=== PATIENT | male | born 1945 | race Caucasian/White ===

== ENCOUNTER 2016-08-10 16:14 | Inpatient (IN) | payer MEDICARE ==
[2016-08-10] MEDS ORDERED: ONDANSETRON HCL INJ/PF 4 MG/2 ML SDV IV PRN (17:30)
[2016-08-10] MEDS ORDERED: NORMAL SALINE 1000 ML 1,000 ML IV PRN (17:30)
[2016-08-10] MEDS ORDERED: ACETAMINOPHEN 325 MG TABLET PO PRN (17:30)
[2016-08-10] MEDS ORDERED: VANCOMYCIN HCL 0 MG in DEXTROSE 5%-WATER 250 ML IV NR (17:45)
[2016-08-10] MEDS ORDERED: DEXTROSE 50%-WATER 25 GM/50 ML DISP.SYRIN IV PRN ×2 (18:23)
[2016-08-10] MEDS ORDERED: GLUCAGON,HUMAN RECOMB 1 MG INJ IM PRN (18:23)
[2016-08-10] MEDS ORDERED: INSULIN LISPRO 100 UNIT/ML 3 ML VIAL SUBCUT PRN (18:23)
[2016-08-10] MEDS ORDERED: DEXTROSE 40% GEL 15 GM TUBE PO PRN ×2 (18:23)
--- NOTE | 2016-08-10 18:39 | CONSULTATION REPORT E ---
Consultation Report NAME: YAMIL HOLLOWAY : 1945 AGE: 71Y DATE: 08/10/2016 431 A TO: TERRI RUIZ M.D. FROM: SYDNI LEWIS M.D. Requesting Physician REASON FOR REFERRAL: Right foot infection. HISTORY OF PRESENT ILLNESS: The patient is a 71-year-old with peripheral arterial disease and diabetes, who injured his lateral portion of the right foot about 2 weeks ago. He had something slice a piece off on the distal lateral portion. He had then used a knife to cut it further, thinking he may have stepped on something. Also during this time, he had been soaking it in salt solution. As time progressed, it had become swollen, and he is not able to walk on it due to pain. He does have some peripheral neuropathy. He had a duplex ultrasound in 2011 which showed peripheral artery disease, mainly on the left with biphasic flow down to the right foot. PAST SURGICAL HISTORY: 1. Defibrillator. 2. Ablation of the heart for atrial fibrillation. PAST MEDICAL HISTORY: 1. History of atrial fibrillation. 2. Peripheral arterial disease. 3. History of smoking, quit 3 months ago. 4. COPD. 5. Diabetes. 6. Hypertension. ALLERGIES TO MEDICATION: None. HOME MEDICATIONS: We are trying to obtain the list. FAMILY HISTORY: Noncontributory. HABITS: The patient quit smoking 3 months ago. Denies any alcohol or drug use. SOCIAL HISTORY: The patient is a . REVIEW OF SYSTEMS: A complete review of systems is obtained. Pertinent positives are musculoskeletal pain and swelling in the right lower extremity. Pulmonary shortness of breath. A 12-point review of systems was obtained with pertinent positives discussed and all others being negative. PHYSICAL EXAMINATION: VITAL SIGNS: Temperature is 99.8. Pulse 86. Blood pressure 136/61. Respiration is 18. GENERAL: The patient is lying in bed. He is cooperative and appears to answer questions fully. He is in no distress. HEENT: Eyes nonicteric. NECK: No lymphadenopathy. HEART: Regular. ABDOMEN: Soft, nontender. EXTREMITIES: He has 3+ pitting edema of the right foot. There is erythema and darkening on the dorsal aspect. There is an eschar on the lateral distal portion. He has a palpable DP pulse. He has only a palpable left femoral pulse being present. He does have some scabs but no obvious ischemia of the left lower extremity. NEUROLOGICAL: The patient has decreased sensation on the foot, is not able to discriminate other than knowing that his foot is being touched. He is awake, alert, and oriented. PSYCHOLOGICAL: The patient is coherent, cooperative, and appears to answer questions fully. DIAGNOSTIC DATA: CBC and chemistry panel and ultrasound of the right foot along with plain films are pending at the current time. ASSESSMENT: 1. Diabetic right foot infection with a recent history of trauma. I would recommend starting out with plain x-rays and ultrasound. He does have a defibrillator which is contraindicated to getting an MRI of the foot. He does have diabetes, and I would be concerned about IV contrast from a CT scan. I feel that ultrasound will probably be enough to evaluate the infection at this time but may need further information with CT scan. I would keep the foot elevated. He will be started on broad-spectrum IV antibiotics. 2. Diabetes of which he will have his sugars monitored. 3. Hypertension. 4. COPD. PLAN: 1. The patient will be admitted to the hospital. 2. NPO after midnight. 3. Broad-spectrum IV antibiotics. 4. X-ray of the foot along with arterial ultrasound. 5. He more than likely will need to undergo incision, drainage, and debridement of a right foot infection. DICTATING PHYSICIAN: TERRI RUIZ M.D. [id number] CRISTI#: [id number] ID: [id number] JOB#: [id number] ACCT: [id number] cc:TERRI RUIZ M.D. > MTDD
[2016-08-10] MEDS: OXYCODONE-ACETAMINOPHEN 5-325 MG TABLET PO PRN (22:19)
[2016-08-10] MEDS: AMPICILLIN SODIUM/SULBACTAM NA 3 GM in NORMAL SALINE 100 ML IV SCH (22:19)
[2016-08-10] MEDS: FAMOTIDINE 20 MG TABLET PO SCH (22:19)
[2016-08-10 22:41] LABS: ANION GAP 13 (5-19); BLOOD UREA NITROGEN 27 mg/dL (7-20); CALCIUM 9.4 mg/dL (8.4-10.2); CARBON DIOXIDE 26 mmol/L (22-30); CHLORIDE 94 mmol/L (98-107); CREATININE RESULT 1.28 mg/dL (0.52-1.25); GLUCOSE 153 mg/dL (75-110); POTASSIUM 3.9 mmol/L (3.6-5.0); SODIUM 133.3 mmol/L (137-145)
[2016-08-11] MEDS: AMPICILLIN SODIUM/SULBACTAM NA 3 GM in NORMAL SALINE 100 ML IV SCH ×2 (02:23→06:32)
[2016-08-11] MEDS: OXYCODONE-ACETAMINOPHEN 5-325 MG TABLET PO PRN ×2 (06:49→19:33)
[2016-08-11 07:39] LABS: ABSOLUTE BASOPHILS # (AUTO) 0.1 10^3/uL (0.0-0.2); ABSOLUTE EOSINOPHILS # (AUTO) 0.1 10^3/uL (0.0-0.6); ABSOLUTE MONOCYTES (AUTO) 2.1 10^3/uL (0.1-1.4); ABSOLUTE NEUT (AUTO) 15.6 10^3/uL (1.7-8.2); BASOPHILS % (AUTO) 0.3 % (0-2); EOSINOPHILS % (AUTO) 0.5 % (0-6); HEMATOCRIT 34.7 % (37.9-51.0); HEMOGLOBIN 11.7 g/dL (13.5-17.0); HGB HCT DIFFERENCE 0.4; LYMPHOCYTES % (AUTO) 5.5 % (13-45); MEAN CORPUSCULAR HEMOGLOBIN 29.7 pg (27.0-33.4); MEAN CORPUSCULAR HGB CONC 33.7 g/dL (32.0-36.0); MEAN CORPUSCULAR VOLUME 88 fl (80-97); MONOCYTES % (AUTO) 11.1 % (3-13); RED BLOOD COUNT 3.94 10^6/uL (4.35-5.55); RED CELL DISTRIBUTION WIDTH 13.9 % (11.5-14.0); SEGMENTED NEUTROPHILS % (AUTO) 82.6 % (42-78); WHITE BLOOD COUNT 18.9 10^3/uL (4.0-10.5)
[2016-08-11] MEDS ORDERED: ENOXAPARIN SODIUM INJ 40 MG/0.4 ML DISP.SYRIN SUBCUT SCH (08:00)
[2016-08-11 08:03] LABS: ANION GAP 12 (5-19); BLOOD UREA NITROGEN 25 mg/dL (7-20); CALCIUM 8.8 mg/dL (8.4-10.2); CARBON DIOXIDE 28 mmol/L (22-30); CHLORIDE 97 mmol/L (98-107); CREATININE RESULT 1.07 mg/dL (0.52-1.25); GLUCOSE 107 mg/dL (75-110); POTASSIUM 3.9 mmol/L (3.6-5.0); SODIUM 136.5 mmol/L (137-145)
[2016-08-11 08:37] LABS: C-REACTIVE PROTEIN 324.9 mg/L (<10.0)
--- NOTE | 2016-08-11 10:58 | PROGRESS NOTE E ---
Progress Note NAME: YAMIL HOLLOWAY : 1945 AGE: 71Y DATE: 08/11/2016 ROOM: 431 SUBJECTIVE: The patient presents with infection of the right lower extremity along with having a history of PAD and diabetes. No complaints of pain in the right lower extremity. OBJECTIVE: EXTREMITIES AND SKIN: The patient has an eschar on the lateral distal portion of the right foot. He has palpable DP pulse. There is less edema in the foot along with less erythema today. He does not have any fluctuant areas being present. There is probable very superficial hematoma on the plantar surface of the foot. DIAGNOSTIC DATA: Plain films x-ray do not show any foreign bodies. Ultrasound of the foot does not reveal any discrete fluid collection. White blood cell count of 19,000, hemoglobin 11.7. ASSESSMENT: RIGHT DIABETIC FOOT INFECTION, CLINICALLY IMPROVING OVERNIGHT ON IV ANTIBIOTICS. ONE THING OF CONCERN IS HAVING A WHITE BLOOD CELL COUNT OF 19,000 TODAY. WE WILL NEED TO FOLLOW THIS CLOSELY. IF THERE IS STILL SUSPICION FOR INFECTION, THEN CT SCAN OF THE FOOT WITH IV CONTRAST MAY BE NEEDED. THERE DOES NOT APPEAR TO BE ANY OBVIOUS AREA TO INCISE AND DRAIN AT THIS TIME AND THEREFORE RECOMMEND FOLLOWING. PLAN: 1. Continue IV antibiotics. 2. Keep right leg elevated. 3. Follow white blood cell count. DICTATING PHYSICIAN: TERRI RUIZ M.D. [id number] PHY#: [id number] ID: [id number] JOB#: [id number] ACCT: [id number] cc: >
[2016-08-11] MEDS: GABAPENTIN 400 MG CAPSULE PO SCH ×2 (11:40→17:27)
[2016-08-11] MEDS: DOCUSATE SODIUM 100 MG CAPSULE PO SCH (11:40)
[2016-08-11] MEDS: FAMOTIDINE 20 MG TABLET PO SCH ×2 (11:41→21:31)
[2016-08-11] MEDS ORDERED: TAMSULOSIN HCL 0.4 MG CAP.SR.24H PO ONE (12:00)
[2016-08-11] MEDS ORDERED: AMIODARONE HCL 200 MG TABLET PO ONE (12:00)
[2016-08-11] MEDS ORDERED: OXYCODONE HCL SR 10 MG TABLET PO ONE (12:00)
[2016-08-11] MEDS: PIPERACILLIN SODIUM/TAZOBACTAM 3.375 GM in NORMAL SALINE 100 ML IV SCH ×2 (12:21→17:27)
[2016-08-11] MEDS ORDERED: (PENDING PHARMACY ID) (Oxycodone Hcl [Oxycontin] 30 MG) PO SCH (18:00)
--- NOTE | 2016-08-11 18:15 | PDOC H&P ---
History of Present Illness Admission Date/PCP: 08/10/16 16:14 ILANA BRET Patient complains of: Pain and swelling of his right foot History of Present Illness: YAMIL HOLLOWAY is a 71 year old male presents for direct admission from general surgeons office where he was referred from his PCP for a diabetic foot wound. Apparently about a week ago he inadvertently cut the lateral aspect of his right foot leaving a piece of "meat" hanging that he then removed with his pocket knife and has been treating with Epsom salts at home. The family noted the foot was more swollen and hot to the touch and that he was now unable to walk on it due to sharp shooting pains in his foot. They also noticed rigors at home tried to get him to come to the emergency department last night but he refused. He has diabetes with a severe peripheral neuropathy states normally he cannot feel his feet except when they hurt like they do now. Upon evaluation by the general surgeon it was quickly determined the wound would need debridement as it seems to encompass most of the plantar surface of the foot, and so we were asked to admit him directly from the office for IV antibiotics and consult the surgical list for evaluation. Past Medical History Cardiac Medical History: Reports: Congestive Heart Failure, Hypertension Pulmonary Medical History: Reports: Chronic Obstructive Pulmonary Disease (COPD) , Pneumonia Endocrine Medical History: Reports: Diabetes Mellitus Type 2 Past Surgical History Past Surgical History: Reports: Pacemaker Social History Information Source: Patient Lives with: Family Smoking Status: Current Every Day Smoker - Doesn't smoke but consumes a pack of chewing tobacco daily Frequency of Alcohol Use: None Hx Recreational Drug Use: No - Advance Directive Resuscitation Status: Full Code Family History Family History: Other Parental Family History Reviewed: Yes Children Family History Reviewed: Yes Sibling(s) Family History Reviewed.: Yes Medication/Allergy Home Medications: Albuterol Sulfate [Ventolin HFA MDI 18 GM] 1 puff IH Q6HP PRN 08/11/16 Amiodarone HCl [Cordarone 200 mg Tablet] 400 mg PO DAILY 08/11/16 Amitriptyline HCl [Elavil 25 mg Tablet] 25 mg PO QHS 08/11/16 Aspirin [Aspirin 325 mg Tablet] 325 mg PO DAILY 08/11/16 Atorvastatin Calcium [Lipitor 40 mg Tablet] 40 mg PO DAILY 08/11/16 Furosemide [Lasix] 40 mg PO DAILY 08/11/16 Gabapentin [Neurontin 400 mg Capsule] 400 mg PO QID 08/11/16 Insulin Aspart Protam & Aspart [Novolog Mix 70-30 Flexpen Syrn] 75 unit SQ BIDBS 08/11/16 Insulin Aspart Protam & Aspart [Novolog Mix 70-30 Flexpen Syrn] 80 unit SQ WLUNCH 08/11/16 Linagliptin [Tradjenta] 5 mg PO QAM 08/11/16 Lisinopril [Prinivil 2.5 mg Tablet] 2.5 mg PO DAILY 08/11/16 Naloxegol Oxalate [Movantik 25 mg Tablet] 25 mg PO DAILY 08/11/16 Oxycodone HCl 30 mg PO QIDP PRN 08/11/16 Oxycodone HCl [Oxycontin] 30 mg PO BID 08/11/16 Potassium Chloride [Klor-Con 10] 10 meq PO DAILY 08/11/16 Sacubitril/Valsartan [Entresto 24 mg/26 mg Tablet] 1 tab PO BID 08/11/16 Tamsulosin HCl [Flomax 0.4 mg Cap.sr] 0.4 mg PO DAILY 08/11/16 Umeclidinium [place] [Incruse Ellipta] 62.5 mcg IH DAILY 08/11/16 Allergies/Adverse Reactions: No Known Allergies Allergy (Verified 11/01/12 14:45) Review of Systems Constitutional: PRESENT: chills, fever(s). ABSENT: headache(s), weight gain, weight loss Eyes: ABSENT: visual disturbances Ears: ABSENT: hearing changes Cardiovascular: ABSENT: chest pain, dyspnea on exertion, edema, orthropnea, palpitations Respiratory: ABSENT: cough, hemoptysis Gastrointestinal: ABSENT: abdominal pain, constipation, diarrhea, hematemesis, hematochezia, nausea, vomiting Genitourinary: ABSENT: dysuria, hematuria Musculoskeletal: PRESENT: joint swelling, muscle weakness, other - Swelling heat and pain in the right foot Integumentary: ABSENT: rash, wounds Neurological: ABSENT: abnormal gait, abnormal speech, confusion, dizziness, focal weakness, syncope Psychiatric: ABSENT: anxiety, depression, homidical ideation, suicidal ideation Endocrine: ABSENT: cold intolerance, heat intolerance, polydipsia, polyuria Hematologic/Lymphatic: ABSENT: easy bleeding, easy bruising Physical Exam Vital Signs: Temp Pulse Resp BP Pulse Ox 99.8 F 86 18 136/61 H 94 03/07/17 16:46 08/10/16 16:46 08/10/16 16:46 08/10/16 16:46 08/10/16 16:46 Intake & Output 08/09/16 08/10/16 08/11/16 06:59 06:59 06:59 Weight 85.4 kg PHYSICAL EXAM GENERAL: NAD; well developed, well nourished, unkempt; no obese; alert and oriented to person, place, time, situation HEENT: normocephalic, atraumatic; EOMI, PERRLA, no conjunctival injection, no scleral icterus; oral mucosa moist, RESPIRATORY: no accessory muscle use, no increased WOB, good air entry bilaterally; no wheezes, rales, rhonchi; no inspiratory crackles CARDIO: no JVD; RRR; no systolic murmur; no tachycardia VASCULAR: no carotid bruit; no abdominal bruit; no pallor; GI: soft; nondistended; normal bowel sounds; no hepato spleno megaly; no rebound, rigidity, guardingred NEURO: normal patella reflexes; absent sensation of the knees bilaterally; normal motor function; no dysarthria; no nystagmus; tongue protrudes midline MSK: 5/5 strength; normal ROM hips; ambulatory without assistance; no tenderness EXTREMITIES: no calf tender; no palpable cords in calf; no clubbing, cyanosis , pedal edema PSYCH: normal affect, normal mood SKIN: warm; moist; no petechiae; no telengectasias; no jaundice; embedded dirt and grime in the plantar surfaces of both feet, thickened hypertrophic scaling nails bilaterally, lateral aspect of the right foot has a shallow ulcer with deep purpuric bullous lesion that tracks through the center of the plantar surface with surrounding erythema, the foot and lower extremity are hot to the touch, Results Laboratory Results: Labs reviewed Assessment & Plan - Diagnosis (1) Diabetic foot ulcer Qualifiers: Diabetes mellitus type: type 2 Laterality: right Qualified Code( s): E11.621 - Type 2 diabetes mellitus with foot ulcer; L97.509 - Non-pressure chronic ulcer of other part of unspecified foot with unspecified severity Is this a current diagnosis for this admission?: YesPlan: Admit for IV antibiotics with Unasyn and vancomycin. I spoke with Dr. Patel covering surgical list who will evaluate and likely take to the OR for incision and drainage at some point. (2) Diabetes Qualifiers: Diabetes mellitus type: type 2 Diabetes mellitus complication status: with circulatory complication Diabetes mellitus complication detail: with other circulatory complications Diabetes mellitus correction insulin use: with correction use Qualified Code(s): E11.59 - Type 2 diabetes mellitus with other circulatory complications Is this a current diagnosis for this admission?: YesPlan: Check hemoglobin A1c (3) Hypertension Is this a current diagnosis for this admission?: YesPlan: Continue home regimen and titrate to pressure less than 140/90 - Time Time Spent: Greater than 70 Minutes Medications reviewed and adjusted accordingly: Yes Anticipated discharge: Home with Homehealth Within: within 72 hours - Inpatient Certification Medical Necessity: Significant Comorbidiites Make Outpatient Treatment Too Risky , Need For IV Fluids, Need for Pain Control, Need for IV Antibiotics, Need for Surgery
--- NOTE | 2016-08-11 18:32 | PDOC PROGRESS REPORT ---
Subjective Progress Note for:: 08/11/16 Subjective:: Reason for visit: Follow-up diabetic foot ulcer Hospital course: YAMIL HOLLOWAY is a 71 year old male presents for direct admission from general surgeons office where he was referred from his PCP for a diabetic foot wound. Apparently about a week ago he inadvertently cut the lateral aspect of his right foot leaving a piece of "meat" hanging that he then removed with his pocket knife and has been treating with Epsom salts at home. The family noted the foot was more swollen and hot to the touch and that he was now unable to walk on it due to sharp shooting pains in his foot. They also noticed rigors at home tried to get him to come to the emergency department last night but he refused. He has diabetes with a severe peripheral neuropathy states normally he cannot feel his feet except when they hurt like they do now. Upon evaluation by the general surgeon it was quickly determined the wound would need debridement as it seems to encompass most of the plantar surface of the foot, and so we were asked to admit him directly from the office for IV antibiotics and consult the surgical list for evaluation. Patient was mentioned to the hospital and started on broad-spectrum antibiotics , x-rays and ultrasound were negative for foreign body and obvious fluid collection like an abscess and there were no bony erosions noted on x-ray. His C-reactive protein is markedly elevated at greater than 300. Subjective: The patient reports less swelling and therefore less pain in the foot today. He denies fevers, chills, nausea, vomiting, diarrhea, chest pain, palpitations, breathlessness/dyspnea, cough or phlegm. ROS: per HPI plus a total of 10 systems reviewed, pertinent positives and negatives noted above, remaining systems negative. Physical Exam Vital Signs: Temp Pulse Resp BP Pulse Ox 98.1 F 71 16 125/56 L 100 08/11/16 15:35 08/11/16 15:35 08/11/16 15:35 08/11/16 15:35 08/11/16 15:35 Intake & Output 08/10/16 08/11/16 08/12/16 06:59 06:59 06:59 Intake Total 700 Output Total 125 Balance 575 Weight 85.4 kg PHYSICAL EXAM GENERAL: NAD; well developed, well nourished, unkempt; no obese; alert and oriented to person, place, time, situation HEENT: no conjunctival injection, no scleral icterus; oral mucosa moist, RESPIRATORY: no accessory muscle use, no increased WOB, good air entry bilaterally; no wheezes, rales, rhonchi; no inspiratory crackles CARDIO: no JVD; RRR; no systolic murmur; no tachycardia VASCULAR: no carotid bruit; no abdominal bruit; no pallor; GI: soft; nondistended; normal bowel sounds; no hepato spleno megaly; no rebound, rigidity, guardingred NEURO: normal patella reflexes; absent sensation below the knees bilaterally; normal motor function; no dysarthria; no nystagmus; tongue protrudes midline MSK: 5/5 strength; normal ROM hips; ambulatory without assistance; no tenderness EXTREMITIES: no calf tender; no palpable cords in calf; no clubbing, cyanosis , pedal edema PSYCH: normal affect, normal mood SKIN: warm; moist; no petechiae; no telengectasias; no jaundice; embedded dirt and grime in the plantar surfaces of both feet, thickened hypertrophic scaling nails bilaterally, lateral aspect of the right foot has a shallow ulcer with deep purpuric bullous lesion that tracks through the center of the plantar surface with surrounding erythema, the foot and lower extremity are hot to the touch though improved from yesterday Results Laboratory Results: 08/11/16 06:45 08/11/16 06:45 08/10/16 08/10/16 08/11/16 18:00 18:00 06:45 WBC 18.9 H RBC 3.94 L Hgb 11.7 L Hct 34.7 L MCV 88 MCH 29.7 MCHC 33.7 RDW 13.9 Plt Count 269 Seg Neutrophils % 82.6 H Lymphocytes % 5.5 L Monocytes % 11.1 Eosinophils % 0.5 Basophils % 0.3 Absolute Neutrophils 15.6 H Absolute Lymphocytes 1.0 Absolute Monocytes 2.1 H Absolute Eosinophils 0.1 Absolute Basophils 0.1 Sodium 133.3 L Potassium 3.9 Chloride 94 L Carbon Dioxide 26 Anion Gap 13 BUN 27 H Creatinine 1.28 H Est GFR ( Amer) > 60 Est GFR (Non-Af Amer) 55 L Glucose 153 H Calcium 9.4 C-Reactive Protein 301.9 H 08/11/16 06:45 WBC RBC Hgb Hct MCV MCH MCHC RDW Plt Count Seg Neutrophils % Lymphocytes % Monocytes % Eosinophils % Basophils % Absolute Neutrophils Absolute Lymphocytes Absolute Monocytes Absolute Eosinophils Absolute Basophils Sodium 136.5 L Potassium 3.9 Chloride 97 L Carbon Dioxide 28 Anion Gap 12 BUN 25 H Creatinine 1.07 Est GFR ( Amer) > 60 Est GFR (Non-Af Amer) > 60 Glucose 107 Calcium 8.8 C-Reactive Protein 324.9 H Labs reviewed, renal function improved. C-reactive protein still markedly elevated. Impressions: Extremity Ultrasound 08/10/16 00:00 IMPRESSION: Edematous soft tissue is identified suggesting a cellulitis. No discrete fluid collections are identified. Other findings as noted above Foot X-Ray 08/10/16 00:00 IMPRESSION: NEGATIVE STUDY OF THE RIGHT FOOT. NO EXPLANATION FOR PAIN. No evidence for osteomyelitis. Status: Imported from PACS - Reports reviewed Assessment & Plan - Diagnosis (1) Diabetic foot ulcer Qualifiers: Diabetes mellitus type: type 2 Laterality: right Qualified Code( s): E11.621 - Type 2 diabetes mellitus with foot ulcer; L97.509 - Non-pressure chronic ulcer of other part of unspecified foot with unspecified severity Is this a current diagnosis for this admission?: YesPlan: No known risk factors for MRSA, we will simplify antibiotic coverage to Zosyn. I spoke with Dr. Patel again today and for now electing for more conservative approach with continued IV antibiotics and watchful waiting. He is made nothing by mouth after midnight in the event his leukocytosis does not improve he may need surgical exploration as early as tomorrow. 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 Continue sliding scale insulin. (3) Hypertension Qualifiers: Hypertension type: unspecified secondary hypertension Qualified Code (s): I15.9 - Secondary hypertension, unspecified; I15 - Secondary hypertension Is this a current diagnosis for this admission?: YesPlan: Under good control. (4) Cardiac dysrhythmia Qualifiers: Arrhythmia type: unspecified cardiac arrhythmia Qualified Code(s): I49.9 - Cardiac arrhythmia, unspecified Is this a current diagnosis for this admission?: YesPlan: Continue home amiodarone. (10) Chronic respiratory failure with hypoxia Is this a current diagnosis for this admission?: YesPlan: Continue home O2 and titrate as needed. - Time Time Spent with patient: 15-24 minutes Medications reviewed and adjusted accordingly: Yes Anticipated discharge: Home with Homehealth Within: within 72 hours
[2016-08-11] MEDS: OXYCODONE HCL SR 10 MG TABLET PO SCH (21:31)
[2016-08-12] MEDS: GABAPENTIN 400 MG CAPSULE PO SCH ×5 (01:49→23:05)
[2016-08-12] MEDS: PIPERACILLIN SODIUM/TAZOBACTAM 3.375 GM in NORMAL SALINE 100 ML IV SCH ×5 (01:50→23:05)
[2016-08-12] MEDS: OXYCODONE-ACETAMINOPHEN 5-325 MG TABLET PO PRN (06:23)
[2016-08-12 07:17] LABS: ABSOLUTE BASOPHILS # (AUTO) 0.1 10^3/uL (0.0-0.2); ABSOLUTE EOSINOPHILS # (AUTO) 0.2 10^3/uL (0.0-0.6); ABSOLUTE LYMPHOCYTES (AUTO) 1.2 10^3/uL (0.5-4.7); ABSOLUTE MONOCYTES (AUTO) 1.7 10^3/uL (0.1-1.4); ABSOLUTE NEUT (AUTO) 14.4 10^3/uL (1.7-8.2); BASOPHILS % (AUTO) 0.6 % (0-2); EOSINOPHILS % (AUTO) 1.2 % (0-6); HEMATOCRIT 36.8 % (37.9-51.0); HEMOGLOBIN 12.2 g/dL (13.5-17.0); HGB HCT DIFFERENCE -0.2; MEAN CORPUSCULAR HEMOGLOBIN 29.2 pg (27.0-33.4); MEAN CORPUSCULAR HGB CONC 33.1 g/dL (32.0-36.0); MEAN CORPUSCULAR VOLUME 88 fl (80-97); MONOCYTES % (AUTO) 9.5 % (3-13); RED BLOOD COUNT 4.18 10^6/uL (4.35-5.55); RED CELL DISTRIBUTION WIDTH 14.2 % (11.5-14.0); SEGMENTED NEUTROPHILS % (AUTO) 81.7 % (42-78); WHITE BLOOD COUNT 17.6 10^3/uL (4.0-10.5)
[2016-08-12 07:38] LABS: ANION GAP 10 (5-19); BLOOD UREA NITROGEN 26 mg/dL (7-20); CALCIUM 9.3 mg/dL (8.4-10.2); CARBON DIOXIDE 33 mmol/L (22-30); CHLORIDE 99 mmol/L (98-107); CREATININE RESULT 1.07 mg/dL (0.52-1.25); GLUCOSE 109 mg/dL (75-110); POTASSIUM 4.1 mmol/L (3.6-5.0); SODIUM 142.1 mmol/L (137-145)
[2016-08-12] MEDS ORDERED: LIDOCAINE 2% INJ-PF (20 MG/ML) 10 ML AMPUL ONE (07:45)
--- NOTE | 2016-08-12 11:21 | PDOC PROGRESS REPORT ---
Subjective Progress Note for:: 08/12/16 Subjective:: Feels okay no complaints. Patient has very little sensation of his feet. Physical Exam Vital Signs: Temp Pulse Resp BP Pulse Ox 98.1 F 72 12 126/56 H 99 08/12/16 08:35 08/12/16 08:35 08/12/16 08:35 08/12/16 08:35 08/12/16 08:35 Intake & Output 08/11/16 08/12/16 08/13/16 06:59 06:59 06:59 Intake Total 700 2152 Output Total 125 600 Balance 575 1552 Weight 85.4 kg General appearance: PRESENT: no acute distress, cooperative Respiratory exam: PRESENT: wheezes Cardiovascular exam: PRESENT: RRR Extremities exam: PRESENT: other - Right foot extending from the base of his fifth toe diagonally along the plantar surface of his foot to the midfoot there is a 2-3 cm wide region of black eschar with central fluctuance but no active drainage. There is surrounding erythema. No crepitus. Results Laboratory Results: 08/12/16 07:00 08/12/16 07:00 08/12/16 08/12/16 07:00 07:00 WBC 17.6 H RBC 4.18 L Hgb 12.2 L Hct 36.8 L MCV 88 MCH 29.2 MCHC 33.1 RDW 14.2 H Plt Count 294 Seg Neutrophils % 81.7 H Lymphocytes % 7.0 L Monocytes % 9.5 Eosinophils % 1.2 Basophils % 0.6 Absolute Neutrophils 14.4 H Absolute Lymphocytes 1.2 Absolute Monocytes 1.7 H Absolute Eosinophils 0.2 Absolute Basophils 0.1 Sodium 142.1 Potassium 4.1 Chloride 99 Carbon Dioxide 33 H Anion Gap 10 BUN 26 H Creatinine 1.07 Est GFR ( Amer) > 60 Est GFR (Non-Af Amer) > 60 Glucose 109 Calcium 9.3 C-Reactive Protein 296.0 H Impressions: Extremity Ultrasound 08/10/16 00:00 IMPRESSION: Edematous soft tissue is identified suggesting a cellulitis. No discrete fluid collections are identified. Other findings as noted above Foot X-Ray 08/10/16 00:00 IMPRESSION: NEGATIVE STUDY OF THE RIGHT FOOT. NO EXPLANATION FOR PAIN. No evidence for osteomyelitis. Assessment & Plan - Diagnosis (1) Diabetic infection of right foot Is this a current diagnosis for this admission?: YesPlan: Persistent leukocytosis with now demarcation of the necrotic area of his mid plantar foot. Plan excisional debridement today. I have discussed with the family risk and benefits of the procedure including risk of poor wound healing, adjacent structure injury, cardiopulmonary risks and bleeding and infection. They understand and agree to proceed.
[2016-08-12] MEDS: AMIODARONE HCL 200 MG TABLET PO SCH (11:25)
[2016-08-12] MEDS: ASPIRIN 325 MG TABLET PO SCH (11:25)
[2016-08-12] MEDS: ATORVASTATIN CALCIUM 40 MG TABLET PO SCH (11:25)
[2016-08-12] MEDS: OXYCODONE HCL SR 10 MG TABLET PO SCH ×2 (11:25→22:58)
[2016-08-12] MEDS: DOCUSATE SODIUM 100 MG CAPSULE PO SCH (11:25)
[2016-08-12] MEDS: FAMOTIDINE 20 MG TABLET PO SCH ×2 (11:25→22:58)
[2016-08-12] MEDS: TAMSULOSIN HCL 0.4 MG CAP.SR.24H PO SCH (11:25)
[2016-08-12] MEDS ORDERED: BUPIVACAINE HCL 0.25 % INJ/PF (2.5 MG/1 ML) 30 ML VIAL ONE (12:52)
[2016-08-12] MEDS ORDERED: LIDOCAINE 1%/EPINEPHRINE INJ 20 ML VIAL ONE (12:53)
[2016-08-12] MEDS ORDERED: MIDAZOLAM 2 MG/2 ML INJ ONE (12:54)
[2016-08-12] MEDS ORDERED: PROPOFOL INJ 200 MG/20 ML VIAL IV ONE (12:54)
[2016-08-12] MEDS ORDERED: FENTANYL CITRATE INJ/PF 100 MCG/2 ML AMPUL ONE (12:54)
[2016-08-12] MEDS ORDERED: DEXMEDETOMIDINE INJ 80 MCG/20 ML VIAL IV ONE (12:54)
--- NOTE | 2016-08-12 14:03 | PDOC PROGRESS REPORT ---
Subjective Progress Note for:: 08/12/16 Subjective:: Reason for visit: Follow-up diabetic foot ulcer Hospital course: YAMIL HOLLOWAY is a 71 year old male presents for direct admission from general surgeons office where he was referred from his PCP for a diabetic foot wound. Apparently about a week ago he inadvertently cut the lateral aspect of his right foot leaving a piece of "meat" hanging that he then removed with his pocket knife and has been treating with Epsom salts at home. The family noted the foot was more swollen and hot to the touch and that he was now unable to walk on it due to sharp shooting pains in his foot. They also noticed rigors at home tried to get him to come to the emergency department last night but he refused. He has diabetes with a severe peripheral neuropathy states normally he cannot feel his feet except when they hurt like they do now. Upon evaluation by the general surgeon it was quickly determined the wound would need debridement as it seems to encompass most of the plantar surface of the foot, and so we were asked to admit him directly from the office for IV antibiotics and consult the surgical list for evaluation. Patient was admitted to the hospital and started on broad-spectrum antibiotics, x-rays and ultrasound were negative for foreign body and obvious fluid collection like an abscess and there were no bony erosions noted on x-ray. His C-reactive protein remains markedly elevated. the wound seems to be coalescing centrally on the plantar surface with persistent cellulitis and lymphangitic streaking. Subjective: The patient reports less swelling and therefore less pain in the foot today. He denies fevers, chills, nausea, vomiting, diarrhea, chest pain, palpitations, breathlessness/dyspnea, cough or phlegm. ROS: per HPI plus a total of 10 systems reviewed, pertinent positives and negatives noted above, remaining systems negative. Physical Exam Vital Signs: Temp Pulse Resp BP Pulse Ox 98.0 F 88 16 119/56 L 98 08/12/16 13:15 08/12/16 13:15 08/12/16 13:15 08/12/16 13:15 08/12/16 13:15 Intake & Output 08/11/16 08/12/16 08/13/16 06:59 06:59 06:59 Intake Total 700 2152 Output Total 125 600 Balance 575 1552 Weight 85.4 kg PHYSICAL EXAM GENERAL: NAD; well developed, well nourished, unkempt; no obese; alert and oriented to person, place, time, situation HEENT: no conjunctival injection, no scleral icterus; oral mucosa moist, RESPIRATORY: no accessory muscle use, no increased WOB, good air entry bilaterally; no wheezes, rales, rhonchi; no inspiratory crackles CARDIO: no JVD; RRR; no systolic murmur; no tachycardia VASCULAR: no carotid bruit; no abdominal bruit; no pallor; GI: soft; nondistended; normal bowel sounds; no rebound, rigidity, guarding MSK: 5/5 strength; normal ROM hips; ambulatory without assistance; no tenderness EXTREMITIES: no calf tender; no palpable cords in calf; no clubbing, cyanosis , pedal edema PSYCH: normal affect, normal mood SKIN: warm; moist; no petechiae; no telengectasias; no jaundice; thickened hypertrophic scaling nails bilaterally, lateral aspect of the right foot has a shallow ulcer with deep purpuric bullous lesion that tracks through the center of the plantar surface now with central pus pocket with surrounding erythema and lymphangitic streaking up the medial aspect of the ankle, the foot and lower extremity remain hot to the touch Results Laboratory Results: 08/12/16 07:00 08/12/16 07:00 08/12/16 08/12/16 07:00 07:00 WBC 17.6 H RBC 4.18 L Hgb 12.2 L Hct 36.8 L MCV 88 MCH 29.2 MCHC 33.1 RDW 14.2 H Plt Count 294 Seg Neutrophils % 81.7 H Lymphocytes % 7.0 L Monocytes % 9.5 Eosinophils % 1.2 Basophils % 0.6 Absolute Neutrophils 14.4 H Absolute Lymphocytes 1.2 Absolute Monocytes 1.7 H Absolute Eosinophils 0.2 Absolute Basophils 0.1 Sodium 142.1 Potassium 4.1 Chloride 99 Carbon Dioxide 33 H Anion Gap 10 BUN 26 H Creatinine 1.07 Est GFR ( Amer) > 60 Est GFR (Non-Af Amer) > 60 Glucose 109 Calcium 9.3 C-Reactive Protein 296.0 H Impressions: Extremity Ultrasound 08/10/16 00:00 IMPRESSION: Edematous soft tissue is identified suggesting a cellulitis. No discrete fluid collections are identified. Other findings as noted above Foot X-Ray 08/10/16 00:00 IMPRESSION: NEGATIVE STUDY OF THE RIGHT FOOT. NO EXPLANATION FOR PAIN. No evidence for osteomyelitis. Assessment & Plan - Diagnosis (1) Diabetic foot ulcer Qualifiers: Diabetes mellitus type: type 2 Laterality: right Qualified Code(s) : E11.621 - Type 2 diabetes mellitus with foot ulcer; L97.509 - Non-pressure chronic ulcer of other part of unspecified foot with unspecified severity Is this a current diagnosis for this admission?: YesPlan: No known risk factors for MRSA, we will simplify antibiotic coverage to Zosyn. I discussed with Dr Roberts now covering and will take to OR today for debridement. (2) Diabetes Qualifiers: Diabetes mellitus type: type 2 Diabetes mellitus complication status: with circulatory complication Diabetes mellitus complication detail: with other circulatory complications Diabetes mellitus manager intermediate insulin use: with manager intermediate use Qualified Code(s): E11.59 - Type 2 diabetes mellitus with other circulatory complications Is this a current diagnosis for this admission?: Yes (3) Hypertension Qualifiers: Hypertension type: unspecified secondary hypertension Qualified Code (s): I15.9 - Secondary hypertension, unspecified; I15 - Secondary hypertension Is this a current diagnosis for this admission?: Yes (4) Cardiac dysrhythmia Qualifiers: Arrhythmia type: unspecified cardiac arrhythmia Qualified Code(s): I49.9 - Cardiac arrhythmia, unspecified Is this a current diagnosis for this admission?: Yes (10) Chronic respiratory failure with hypoxia Is this a current diagnosis for this admission?: Yes - Time Time Spent with patient: 15-24 minutes
[2016-08-12] MEDS ORDERED: LIDOCAINE 1%/EPINEPHRINE INJ 20 ML VIAL INJ ONE ×2 (14:06→14:08)
[2016-08-12] MEDS ORDERED: OXYCODONE-ACETAMINOPHEN 5-325 MG TABLET PO PRN ×2 (14:13)
[2016-08-12] MEDS ORDERED: MORPHINE SULFATE 10 MG/ML INJ IV PRN (14:13)
[2016-08-12] MEDS ORDERED: MEPERIDINE HCL/PF INJ 25 MG/1 ML DISP.SYRIN IV PRN (14:13)
[2016-08-12] MEDS ORDERED: PROMETHAZINE HCL INJ 25 MG/1 ML VIAL IV PRN ×2 (14:13)
[2016-08-12] MEDS ORDERED: FENTANYL CITRATE INJ/PF 100 MCG/2 ML AMPUL IV PRN ×3 (14:13)
[2016-08-12] MEDS ORDERED: DIPHENHYDRAMINE HCL 50 MG/ML VIAL IV PRN (14:13)
--- NOTE | 2016-08-12 14:39 | Operative Report ---
Operative Report DATE OF SURGERY: 08/12/16 PREOPERATIVE DIAGNOSIS: Right diabetic foot infection POSTOPERATIVE DIAGNOSIS: Right diabetic foot infection OPERATION: Excisional debridement of right foot SURGEON: MIGUEL ANGEL CARTAGENA ANESTHESIA: LMAC TISSUE REMOVED OR ALTERED: Right foot necrotic debris sent for Gram stain and culture COMPLICATIONS: None ESTIMATED BLOOD LOSS: 10 mL INTRAOPERATIVE FINDINGS: Full-thickness necrosis of the skin and underlying fat at the mid right foot sole extending diagonally toward the fifth toe metatarsal region, area of necrosis measuring 3 x 7 cm in size. Full-thickness 1 cm ulceration at the base of the right fifth toe. Half centimeter full-thickness ulceration at the fifth toe metatarsal head region. PROCEDURE: Informed consent was obtained. Patient was brought to the operating room placed on the operating table in supine position. The procedure was done of the LMAC. Patient's right foot was prepped and draped in usual sterile fashion. At the mid plantar surface of his right foot there was a diagonally oriented 3 x 7 cm region of eschar which was sharply debrided revealing full- thickness necrosis of the skin with the purulent foul-smelling subcutaneous fat. All of the necrotic debris was sharply excised to viable tissue. Portion of the excised tissue was submitted to pathology for Gram stain and culture. This area necrosis was diagonally oriented toward the fifth metatarsal head. At the fifth metatarsal head there was a half centimeter full-thickness ulceration which was debrided to viable tissue. No bone was palpable. Just laterally and distally there was a 1 cm ulceration which was sharply debrided as well. No exposed bone was noted. The operative field was irrigated. The wound was then dressed with gauze. Patient tolerated procedure well with no apparent complications and was taken to the recovery area in stable condition.
--- NOTE | 2016-08-12 19:58 | EKG REPORT ---
SEVERITY:- ABNORMAL ECG - A-V DUAL-PACED COMPLEXES W/ SOME INHIBITION : Confirmed by: Rahul Aj 12-Aug-2016 19:57:16
[2016-08-13] MEDS: OXYCODONE-ACETAMINOPHEN 5-325 MG TABLET PO PRN ×3 (02:01→22:36)
[2016-08-13] MEDS: PIPERACILLIN SODIUM/TAZOBACTAM 3.375 GM in NORMAL SALINE 100 ML IV SCH ×4 (06:53→23:53)
[2016-08-13] MEDS: GABAPENTIN 400 MG CAPSULE PO SCH ×4 (06:55→23:54)
[2016-08-13 07:28] LABS: ABSOLUTE BASOPHILS # (AUTO) 0.1 10^3/uL (0.0-0.2); ABSOLUTE EOSINOPHILS # (AUTO) 0.4 10^3/uL (0.0-0.6); ABSOLUTE LYMPHOCYTES (AUTO) 1.4 10^3/uL (0.5-4.7); ABSOLUTE MONOCYTES (AUTO) 1.6 10^3/uL (0.1-1.4); ABSOLUTE NEUT (AUTO) 11.8 10^3/uL (1.7-8.2); BASOPHILS % (AUTO) 0.9 % (0-2); EOSINOPHILS % (AUTO) 2.5 % (0-6); HEMATOCRIT 35.1 % (37.9-51.0); HEMOGLOBIN 11.5 g/dL (13.5-17.0); HGB HCT DIFFERENCE -0.6; LYMPHOCYTES % (AUTO) 8.8 % (13-45); MEAN CORPUSCULAR HEMOGLOBIN 28.9 pg (27.0-33.4); MEAN CORPUSCULAR HGB CONC 32.7 g/dL (32.0-36.0); MEAN CORPUSCULAR VOLUME 89 fl (80-97); MONOCYTES % (AUTO) 10.5 % (3-13); RED BLOOD COUNT 3.96 10^6/uL (4.35-5.55); RED CELL DISTRIBUTION WIDTH 14.2 % (11.5-14.0); SEGMENTED NEUTROPHILS % (AUTO) 77.3 % (42-78); WHITE BLOOD COUNT 15.3 10^3/uL (4.0-10.5)
[2016-08-13 07:47] LABS: ANION GAP 11 (5-19); BLOOD UREA NITROGEN 26 mg/dL (7-20); CALCIUM 8.6 mg/dL (8.4-10.2); CARBON DIOXIDE 29 mmol/L (22-30); CHLORIDE 99 mmol/L (98-107); CREATININE RESULT 1.06 mg/dL (0.52-1.25); GLUCOSE 110 mg/dL (75-110); POTASSIUM 3.9 mmol/L (3.6-5.0); SODIUM 138.6 mmol/L (137-145)
[2016-08-13 08:12] LABS: C-REACTIVE PROTEIN 295.8 mg/L (<10.0)
[2016-08-13] MEDS: ASPIRIN 325 MG TABLET PO SCH (10:27)
[2016-08-13] MEDS: AMIODARONE HCL 200 MG TABLET PO SCH (10:28)
[2016-08-13] MEDS: TAMSULOSIN HCL 0.4 MG CAP.SR.24H PO SCH (10:28)
[2016-08-13] MEDS: ATORVASTATIN CALCIUM 40 MG TABLET PO SCH (10:28)
[2016-08-13] MEDS: FAMOTIDINE 20 MG TABLET PO SCH ×2 (10:28→22:35)
[2016-08-13] MEDS: DOCUSATE SODIUM 100 MG CAPSULE PO SCH (10:28)
[2016-08-13] MEDS: OXYCODONE HCL SR 10 MG TABLET PO SCH (10:30)
--- NOTE | 2016-08-13 11:39 | PDOC PROGRESS REPORT ---
Subjective Progress Note for:: 08/13/16 Physical Exam Vital Signs: Temp Pulse Resp BP Pulse Ox 97.7 F 83 18 129/61 H 97 08/13/16 07:47 08/13/16 07:47 08/13/16 07:47 08/13/16 07:47 08/13/16 08:48 Intake & Output 08/12/16 08/13/16 08/14/16 06:59 06:59 06:59 Intake Total 2152 1106 Output Total 600 610 Balance 1552 496 Weight 85.8 kg Extremities exam: PRESENT: other - Right foot - plantar aspect 4 cm area necrotic ulcer Results Laboratory Results: 08/13/16 06:43 08/13/16 06:43 08/13/16 08/13/16 06:43 06:43 WBC 15.3 H RBC 3.96 L Hgb 11.5 L Hct 35.1 L MCV 89 MCH 28.9 MCHC 32.7 RDW 14.2 H Plt Count 301 Seg Neutrophils % 77.3 Lymphocytes % 8.8 L Monocytes % 10.5 Eosinophils % 2.5 Basophils % 0.9 Absolute Neutrophils 11.8 H Absolute Lymphocytes 1.4 Absolute Monocytes 1.6 H Absolute Eosinophils 0.4 Absolute Basophils 0.1 Sodium 138.6 Potassium 3.9 Chloride 99 Carbon Dioxide 29 Anion Gap 11 BUN 26 H Creatinine 1.06 Est GFR ( Amer) > 60 Est GFR (Non-Af Amer) > 60 Glucose 110 Calcium 8.6 C-Reactive Protein 295.8 H Impressions: Extremity Ultrasound 08/10/16 00:00 IMPRESSION: Edematous soft tissue is identified suggesting a cellulitis. No discrete fluid collections are identified. Other findings as noted above Foot X-Ray 08/10/16 00:00 IMPRESSION: NEGATIVE STUDY OF THE RIGHT FOOT. NO EXPLANATION FOR PAIN. No evidence for osteomyelitis. Assessment & Plan - Plan Summary Plan Summary: Excisional Sharp debridement of the plantar ulcer of the right foot done to the fascial level. Dressings applied Woundcare instructions were given .
--- NOTE | 2016-08-13 17:31 | PDOC PROGRESS REPORT ---
Subjective Progress Note for:: 08/13/16 Subjective:: Reason for visit: Follow-up diabetic foot ulcer Hospital course: YAMIL HOLLOWAY is a 71 year old male presents for direct admission from general surgeons office where he was referred from his PCP for a diabetic foot wound. Apparently about a week ago he inadvertently cut the lateral aspect of his right foot leaving a piece of "meat" hanging that he then removed with his pocket knife and has been treating with Epsom salts at home. The family noted the foot was more swollen and hot to the touch and that he was now unable to walk on it due to sharp shooting pains in his foot. They also noticed rigors at home tried to get him to come to the emergency department last night but he refused. He has diabetes with a severe peripheral neuropathy states normally he cannot feel his feet except when they hurt like they do now. Upon evaluation by the general surgeon it was quickly determined the wound would need debridement as it seems to encompass most of the plantar surface of the foot, and so we were asked to admit him directly from the office for IV antibiotics and consult the surgical list for evaluation. Patient was admitted to the hospital and started on broad-spectrum antibiotics, x-rays and ultrasound were negative for foreign body and obvious fluid collection like an abscess and there were no bony erosions noted on x-ray. His C-reactive protein remains markedly elevated. the wound seems to be coalescing centrally on the plantar surface with persistent cellulitis and lymphangitic streaking. he underwent sharp debridement x2 so far by covering surgeon with removal of necrotic tissue. Subjective: The patient reports less pain in the foot today. He denies fevers, chills, nausea, vomiting, diarrhea, chest pain, palpitations, breathlessness/ dyspnea, cough or phlegm. In general though, he seems more lethargic today and nursing reports slurred speech and lethargy after oxycodone given. ROS: per HPI plus a total of 10 systems reviewed, pertinent positives and negatives noted above, remaining systems negative. Physical Exam Vital Signs: Temp Pulse Resp BP Pulse Ox 97.7 F 72 18 132/53 H 100 08/13/16 15:18 08/13/16 15:18 08/13/16 15:18 08/13/16 15:18 08/13/16 15:18 Intake & Output 08/12/16 08/13/16 08/14/16 06:59 06:59 06:59 Intake Total 2152 1106 540 Output Total 600 610 500 Balance 1552 496 40 Weight 85.8 kg PHYSICAL EXAM GENERAL: NAD; well developed, well nourished, unkempt; no obese; lethargic and hard to keep awake; 94% on RA for me HEENT: no conjunctival injection, no scleral icterus; oral mucosa moist, RESPIRATORY: no accessory muscle use, no increased WOB, good air entry bilaterally; no wheezes, rales, rhonchi; no inspiratory crackles CARDIO: no JVD; RRR; no systolic murmur; no tachycardia VASCULAR: no carotid bruit; no abdominal bruit; no pallor; GI: soft; nondistended; normal bowel sounds; no rebound, rigidity, guarding MSK: 5/5 strength; normal ROM hips; ambulatory without assistance; no tenderness EXTREMITIES: no calf tender; no palpable cords in calf; no clubbing, cyanosis , pedal edema SKIN: warm; moist; no petechiae; no telengectasias; no jaundice; thickened hypertrophic scaling nails bilaterally; Rt foot still edematous and erythematous though less so than before, otherwise heavily bandaged and just applied by the surgeon so I did not remove Results Laboratory Results: 08/13/16 06:43 08/13/16 06:43 08/13/16 08/13/16 06:43 06:43 WBC 15.3 H RBC 3.96 L Hgb 11.5 L Hct 35.1 L MCV 89 MCH 28.9 MCHC 32.7 RDW 14.2 H Plt Count 301 Seg Neutrophils % 77.3 Lymphocytes % 8.8 L Monocytes % 10.5 Eosinophils % 2.5 Basophils % 0.9 Absolute Neutrophils 11.8 H Absolute Lymphocytes 1.4 Absolute Monocytes 1.6 H Absolute Eosinophils 0.4 Absolute Basophils 0.1 Sodium 138.6 Potassium 3.9 Chloride 99 Carbon Dioxide 29 Anion Gap 11 BUN 26 H Creatinine 1.06 Est GFR ( Amer) > 60 Est GFR (Non-Af Amer) > 60 Glucose 110 Calcium 8.6 C-Reactive Protein 295.8 H labs reviewed and improving Assessment & Plan - Diagnosis (1) Diabetic foot ulcer Qualifiers: Diabetes mellitus type: type 2 Laterality: right Qualified Code(s) : E11.621 - Type 2 diabetes mellitus with foot ulcer; L97.509 - Non-pressure chronic ulcer of other part of unspecified foot with unspecified severity Is this a current diagnosis for this admission?: YesPlan: No known risk factors for MRSA, we will simplify antibiotic coverage to Zosyn. Surgeon following with incremental debridement as clinically indicated. (2) Diabetes Qualifiers: Diabetes mellitus type: type 2 Diabetes mellitus complication status: with circulatory complication Diabetes mellitus complication detail: with other circulatory complications Diabetes mellitus intermediate insulin use: with intermediate use Qualified Code(s): E11.59 - Type 2 diabetes mellitus with other circulatory complications Is this a current diagnosis for this admission?: Yes (3) Hypertension Qualifiers: Hypertension type: unspecified secondary hypertension Qualified Code (s): I15.9 - Secondary hypertension, unspecified; I15 - Secondary hypertension Is this a current diagnosis for this admission?: Yes (4) Cardiac dysrhythmia Qualifiers: Arrhythmia type: unspecified cardiac arrhythmia Qualified Code(s): I49.9 - Cardiac arrhythmia, unspecified Is this a current diagnosis for this admission?: Yes (10) Chronic respiratory failure with hypoxia Is this a current diagnosis for this admission?: Yes - Time Time Spent with patient: 15-24 minutes Medications reviewed and adjusted accordingly: Yes Anticipated discharge: Home Within: within 72 hours - Plan Summary Plan Summary: d/c scheduled long acting oxy and allow him to wake up a bit, still providing prn analgesia
[2016-08-14] MEDS: PIPERACILLIN SODIUM/TAZOBACTAM 3.375 GM in NORMAL SALINE 100 ML IV SCH ×3 (06:08→17:53)
[2016-08-14] MEDS: GABAPENTIN 400 MG CAPSULE PO SCH ×4 (06:08→23:43)
[2016-08-14 06:14] LABS: ABSOLUTE BASOPHILS # (AUTO) 0.1 10^3/uL (0.0-0.2); ABSOLUTE EOSINOPHILS # (AUTO) 0.4 10^3/uL (0.0-0.6); ABSOLUTE LYMPHOCYTES (AUTO) 1.3 10^3/uL (0.5-4.7); ABSOLUTE MONOCYTES (AUTO) 1.8 10^3/uL (0.1-1.4); ABSOLUTE NEUT (AUTO) 11.8 10^3/uL (1.7-8.2); BASOPHILS % (AUTO) 0.8 % (0-2); EOSINOPHILS % (AUTO) 2.4 % (0-6); HEMATOCRIT 36.6 % (37.9-51.0); HGB HCT DIFFERENCE -0.6; LYMPHOCYTES % (AUTO) 8.7 % (13-45); MEAN CORPUSCULAR HGB CONC 32.8 g/dL (32.0-36.0); MEAN CORPUSCULAR VOLUME 89 fl (80-97); MONOCYTES % (AUTO) 11.7 % (3-13); RED BLOOD COUNT 4.12 10^6/uL (4.35-5.55); RED CELL DISTRIBUTION WIDTH 14.1 % (11.5-14.0); SEGMENTED NEUTROPHILS % (AUTO) 76.4 % (42-78); WHITE BLOOD COUNT 15.5 10^3/uL (4.0-10.5)
[2016-08-14 06:40] LABS: ANION GAP 9 (5-19); BLOOD UREA NITROGEN 22 mg/dL (7-20); CARBON DIOXIDE 34 mmol/L (22-30); CHLORIDE 99 mmol/L (98-107); CREATININE RESULT 0.96 mg/dL (0.52-1.25); GLUCOSE 116 mg/dL (75-110); POTASSIUM 4.3 mmol/L (3.6-5.0); SODIUM 142.3 mmol/L (137-145)
[2016-08-14] MEDS: DOCUSATE SODIUM 100 MG CAPSULE PO SCH (09:44)
[2016-08-14] MEDS: ASPIRIN 325 MG TABLET PO SCH (09:44)
[2016-08-14] MEDS: FAMOTIDINE 20 MG TABLET PO SCH ×2 (09:44→21:51)
[2016-08-14] MEDS: ATORVASTATIN CALCIUM 40 MG TABLET PO SCH (09:44)
[2016-08-14] MEDS: TAMSULOSIN HCL 0.4 MG CAP.SR.24H PO SCH (09:44)
[2016-08-14] MEDS: AMIODARONE HCL 200 MG TABLET PO SCH (09:44)
[2016-08-14] MEDS: IPRATROPIUM/ALBUTEROL 0.5-2.5 MG/3 ML AMPUL NEB PRN (10:30)
--- NOTE | 2016-08-14 14:14 | PDOC PROGRESS REPORT ---
Subjective Progress Note for:: 08/14/16 Subjective:: Reason for visit: Follow-up diabetic foot ulcer Hospital course: YAMIL HOLLOWAY is a 71 year old male presents for direct admission from general surgeons office where he was referred from his PCP for a diabetic foot wound. Apparently about a week ago he inadvertently cut the lateral aspect of his right foot leaving a piece of "meat" hanging that he then removed with his pocket knife and has been treating with Epsom salts at home. The family noted the foot was more swollen and hot to the touch and that he was now unable to walk on it due to sharp shooting pains in his foot. They also noticed rigors at home tried to get him to come to the emergency department last night but he refused. He has diabetes with a severe peripheral neuropathy states normally he cannot feel his feet except when they hurt like they do now. Upon evaluation by the general surgeon it was quickly determined the wound would need debridement as it seems to encompass most of the plantar surface of the foot, and so we were asked to admit him directly from the office for IV antibiotics and consult the surgical list for evaluation. Patient was admitted to the hospital and started on broad-spectrum antibiotics, x-rays and ultrasound were negative for foreign body and obvious fluid collection like an abscess and there were no bony erosions noted on x-ray. His C-reactive protein remains markedly elevated. the wound seems to be coalescing centrally on the plantar surface with persistent cellulitis and lymphangitic streaking. he underwent sharp debridement x2 so far by covering surgeon with removal of necrotic tissue. Subjective: The patient reports less pain and swelling in the foot today. He denies fevers, chills, nausea, vomiting, diarrhea, chest pain, palpitations. ROS: per HPI plus a total of 10 systems reviewed, pertinent positives and negatives noted above, remaining systems negative. Physical Exam Vital Signs: Temp Pulse Resp BP Pulse Ox 98.0 F 74 17 132/51 H 100 08/14/16 11:11 08/14/16 14:00 08/14/16 11:11 08/14/16 11:11 08/14/16 11:11 Intake & Output 08/13/16 08/14/16 08/15/16 06:59 06:59 07:59 Intake Total 1106 1260 720 Output Total 610 700 0 Balance 496 560 720 Weight 85.8 kg PHYSICAL EXAM GENERAL: NAD; well developed, well nourished; no obese; awake, alert and oriented x3 HEENT: no conjunctival injection, no scleral icterus; oral mucosa moist, RESPIRATORY: no accessory muscle use, no increased WOB, good air entry bilaterally; no wheezes, rales, rhonchi; no inspiratory crackles CARDIO: no JVD; RRR; no systolic murmur; no tachycardia VASCULAR: no carotid bruit; no abdominal bruit; no pallor; GI: soft; nondistended; normal bowel sounds; no rebound, rigidity, guarding MSK: 5/5 strength; normal ROM hips; EXTREMITIES: no calf tender; no palpable cords in calf; no clubbing, cyanosis , pedal edema SKIN: warm; moist; no petechiae; no telengectasias; no jaundice; thickened hypertrophic scaling nails bilaterally; Rt foot less edematous and erythematous , otherwise just bandaged by his nurse so I did not remove Results Laboratory Results: 08/14/16 05:33 08/14/16 05:33 08/14/16 08/14/16 05:33 05:33 WBC 15.5 H RBC 4.12 L Hgb 12.0 L Hct 36.6 L MCV 89 MCH 29.0 MCHC 32.8 RDW 14.1 H Plt Count 325 Seg Neutrophils % 76.4 Lymphocytes % 8.7 L Monocytes % 11.7 Eosinophils % 2.4 Basophils % 0.8 Absolute Neutrophils 11.8 H Absolute Lymphocytes 1.3 Absolute Monocytes 1.8 H Absolute Eosinophils 0.4 Absolute Basophils 0.1 Sodium 142.3 Potassium 4.3 Chloride 99 Carbon Dioxide 34 H Anion Gap 9 BUN 22 H Creatinine 0.96 Est GFR ( Amer) > 60 Est GFR (Non-Af Amer) > 60 Glucose 116 H Calcium 9.0 C-Reactive Protein 197.0 H 08/12/16 14:09 Foot - Tissue Gram Stain - Final Assessment & Plan - Diagnosis (1) Diabetic foot ulcer Qualifiers: Diabetes mellitus type: type 2 Laterality: right Qualified Code(s) : E11.621 - Type 2 diabetes mellitus with foot ulcer; L97.509 - Non-pressure chronic ulcer of other part of unspecified foot with unspecified severity Is this a current diagnosis for this admission?: YesPlan: No known risk factors for MRSA, continue antibiotic coverage with Zosyn. Surgeon following with incremental debridement as clinically indicated. (2) Diabetes Qualifiers: Diabetes mellitus type: type 2 Diabetes mellitus complication status: with circulatory complication Diabetes mellitus complication detail: with other circulatory complications Diabetes mellitus mcc insulin use: with intermediate project manager use Qualified Code(s): E11.59 - Type 2 diabetes mellitus with other circulatory complications Is this a current diagnosis for this admission?: Yes (3) Hypertension Qualifiers: Hypertension type: unspecified secondary hypertension Qualified Code (s): I15.9 - Secondary hypertension, unspecified; I15 - Secondary hypertension Is this a current diagnosis for this admission?: Yes (4) Cardiac dysrhythmia Qualifiers: Arrhythmia type: unspecified cardiac arrhythmia Qualified Code(s): I49.9 - Cardiac arrhythmia, unspecified Is this a current diagnosis for this admission?: Yes (10) Chronic respiratory failure with hypoxia Is this a current diagnosis for this admission?: Yes - Time Time Spent with patient: 15-24 minutes
--- NOTE | 2016-08-14 15:16 | PDOC PROGRESS REPORT ---
Subjective Progress Note for:: 08/14/16 Physical Exam Vital Signs: Temp Pulse Resp BP Pulse Ox 98.0 F 74 17 132/51 H 100 08/14/16 11:11 08/14/16 14:00 08/14/16 11:11 08/14/16 11:11 08/14/16 11:11 Intake & Output 08/13/16 08/14/16 08/15/16 06:59 06:59 07:59 Intake Total 1106 1260 720 Output Total 610 700 0 Balance 496 560 720 Weight 85.8 kg Musculoskeletal exam: PRESENT: other - Plantar aspect of the right foot ulcer s/ p redbridement wound is clean Results Laboratory Results: 08/14/16 05:33 08/14/16 05:33 08/14/16 08/14/16 05:33 05:33 WBC 15.5 H RBC 4.12 L Hgb 12.0 L Hct 36.6 L MCV 89 MCH 29.0 MCHC 32.8 RDW 14.1 H Plt Count 325 Seg Neutrophils % 76.4 Lymphocytes % 8.7 L Monocytes % 11.7 Eosinophils % 2.4 Basophils % 0.8 Absolute Neutrophils 11.8 H Absolute Lymphocytes 1.3 Absolute Monocytes 1.8 H Absolute Eosinophils 0.4 Absolute Basophils 0.1 Sodium 142.3 Potassium 4.3 Chloride 99 Carbon Dioxide 34 H Anion Gap 9 BUN 22 H Creatinine 0.96 Est GFR ( Amer) > 60 Est GFR (Non-Af Amer) > 60 Glucose 116 H Calcium 9.0 C-Reactive Protein 197.0 H 08/12/16 14:09 Foot - Tissue Gram Stain - Final Impressions: Extremity Ultrasound 08/10/16 00:00 IMPRESSION: Edematous soft tissue is identified suggesting a cellulitis. No discrete fluid collections are identified. Other findings as noted above Foot X-Ray 08/10/16 00:00 IMPRESSION: NEGATIVE STUDY OF THE RIGHT FOOT. NO EXPLANATION FOR PAIN. No evidence for osteomyelitis. Assessment & Plan - Plan Summary Plan Summary: Wound right foot farida continue wound care wit to dry dressings Follow up PRN
[2016-08-14] MEDS: OXYCODONE-ACETAMINOPHEN 5-325 MG TABLET PO PRN ×2 (18:01→21:52)
[2016-08-14] MEDS ORDERED: VANCOMYCIN HCL 0 MG in DEXTROSE 5%-WATER 250 ML IV NR (18:15)
[2016-08-14] MEDS ORDERED: VANCOMYCIN HCL INJ 1000 MG VIAL IV PRN (19:29)
[2016-08-14] MEDS ORDERED: VANCOMYCIN HCL 1,250 MG in DEXTROSE 5%-WATER 250 ML IV ONE (21:00)
[2016-08-14] MEDS ORDERED: VANCOMYCIN HCL INJ 500 MG VIAL ONE (21:35)
[2016-08-14] MEDS ORDERED: VANCOMYCIN HCL INJ 1000 MG VIAL ONE (21:35)
[2016-08-14] MEDS: SODIUM HYPOCHLORITE 0.25% SOLN 473 ML BOTTLE TP SCH (21:54)
[2016-08-15] MEDS: GABAPENTIN 400 MG CAPSULE PO SCH ×3 (06:31→17:14)
[2016-08-15] MEDS: ASPIRIN 325 MG TABLET PO SCH (09:12)
[2016-08-15] MEDS: AMIODARONE HCL 200 MG TABLET PO SCH (09:12)
[2016-08-15] MEDS: FAMOTIDINE 20 MG TABLET PO SCH ×2 (09:12→21:46)
[2016-08-15] MEDS: DOCUSATE SODIUM 100 MG CAPSULE PO SCH (09:12)
[2016-08-15] MEDS: ATORVASTATIN CALCIUM 40 MG TABLET PO SCH (09:12)
[2016-08-15] MEDS: SODIUM HYPOCHLORITE 0.25% SOLN 473 ML BOTTLE TP SCH ×2 (09:13→21:45)
[2016-08-15] MEDS: TAMSULOSIN HCL 0.4 MG CAP.SR.24H PO SCH (09:13)
[2016-08-15] MEDS: OXYCODONE-ACETAMINOPHEN 5-325 MG TABLET PO PRN ×3 (09:26→21:46)
[2016-08-15] MEDS: IPRATROPIUM/ALBUTEROL 0.5-2.5 MG/3 ML AMPUL NEB PRN (10:12)
--- NOTE | 2016-08-15 16:40 | PDOC PROGRESS REPORT ---
Subjective Progress Note for:: 08/15/16 Subjective:: Reason for visit: Follow-up diabetic foot ulcer Hospital course: YAMIL HOLLOWAY is a 71 year old male presents for direct admission from general surgeons office where he was referred from his PCP for a diabetic foot wound. Apparently about a week ago he inadvertently cut the lateral aspect of his right foot leaving a piece of "meat" hanging that he then removed with his pocket knife and has been treating with Epsom salts at home. The family noted the foot was more swollen and hot to the touch and that he was now unable to walk on it due to sharp shooting pains in his foot. They also noticed rigors at home tried to get him to come to the emergency department last night but he refused. He has diabetes with a severe peripheral neuropathy states normally he cannot feel his feet except when they hurt like they do now. Upon evaluation by the general surgeon it was quickly determined the wound would need debridement as it seems to encompass most of the plantar surface of the foot, and so we were asked to admit him directly from the office for IV antibiotics and consult the surgical list for evaluation. Patient was admitted to the hospital and started on broad-spectrum antibiotics, x-rays and ultrasound were negative for foreign body and obvious fluid collection like an abscess and there were no bony erosions noted on x-ray. His C-reactive protein remains markedly elevated. the wound seems to be coalescing centrally on the plantar surface with persistent cellulitis and lymphangitic streaking. he underwent sharp debridement x2 so far by covering surgeon with removal of necrotic tissue. Unfortunately the deep tissue culture is now growing MRSA. Patient was resumed on vancomycin yesterday. He will now need PICC line placed for outpatient home vancomycin at current dosing going forward. Subjective: The patient reports less pain and swelling in the foot today. He denies fevers, chills, nausea, vomiting, diarrhea, chest pain, palpitations. ROS: per HPI plus a total of 10 systems reviewed, pertinent positives and negatives noted above, remaining systems negative. Physical Exam Vital Signs: Temp Pulse Resp BP Pulse Ox 98.2 F 73 16 122/48 L 100 08/15/16 14:59 08/15/16 14:59 08/15/16 14:59 08/15/16 14:59 08/15/16 14:59 Intake & Output 08/14/16 08/15/16 08/16/16 05:59 06:59 06:59 Intake Total 860 Output Total 0 Balance 860 PHYSICAL EXAM GENERAL: NAD; well developed, well nourished; no obese; awake, alert and oriented x3 HEENT: no conjunctival injection, no scleral icterus; oral mucosa moist, RESPIRATORY: no accessory muscle use, no increased WOB, good air entry bilaterally; no wheezes, rales, rhonchi; no inspiratory crackles CARDIO: no JVD; RRR; no systolic murmur; no tachycardia VASCULAR: no carotid bruit; no abdominal bruit; no pallor; GI: soft; nondistended; normal bowel sounds; no rebound, rigidity, guarding MSK: 5/5 strength; normal ROM hips; EXTREMITIES: no calf tender; no palpable cords in calf; no clubbing, cyanosis , pedal edema SKIN: warm; moist; no petechiae; no telengectasias; no jaundice; thickened hypertrophic scaling nails bilaterally; Rt foot less edematous and erythematous , bandage is clean and dry and just change this morning Results Laboratory Results: 08/12/16 14:09 Foot - Tissue Gram Stain - Final 08/12/16 14:09 Foot - Tissue Wound Culture - Final Mrsa (Meth Resis Staph Aureus) Group B Beta Streptococcus No Anaerobic Organisms Assessment & Plan - Diagnosis (1) Diabetic foot ulcer Qualifiers: Diabetes mellitus type: type 2 Laterality: right Qualified Code(s) : E11.621 - Type 2 diabetes mellitus with foot ulcer; L97.509 - Non-pressure chronic ulcer of other part of unspecified foot with unspecified severity Is this a current diagnosis for this admission?: YesPlan: Continue vancomycin. Surgeon following with incremental debridement as clinically indicated. 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 Is this a current diagnosis for this admission?: Yes (3) Hypertension Qualifiers: Hypertension type: unspecified secondary hypertension Qualified Code (s): I15.9 - Secondary hypertension, unspecified; I15 - Secondary hypertension Is this a current diagnosis for this admission?: Yes (4) Cardiac dysrhythmia Qualifiers: Arrhythmia type: unspecified cardiac arrhythmia Qualified Code(s): I49.9 - Cardiac arrhythmia, unspecified Is this a current diagnosis for this admission?: Yes (10) Chronic respiratory failure with hypoxia Is this a current diagnosis for this admission?: Yes - Plan Summary Plan Summary: We'll place PICC line Tuesday morning and once confirmed positioning and function can be discharged home with home health and intermediate for IV antibiotics with vancomycin at current dosing.
[2016-08-15] MEDS: VANCOMYCIN HCL 1,250 MG in DEXTROSE 5%-WATER 250 ML IV SCH (17:14)
[2016-08-16] MEDS: GABAPENTIN 400 MG CAPSULE PO SCH ×5 (00:29→23:43)
[2016-08-16] MEDS: OXYCODONE-ACETAMINOPHEN 5-325 MG TABLET PO PRN ×4 (02:44→22:39)
[2016-08-16] MEDS: VANCOMYCIN HCL 1,250 MG in DEXTROSE 5%-WATER 250 ML IV SCH ×2 (06:31→17:51)
[2016-08-16 06:34] LABS: PROTHROMBIN TIME 14.8 SEC (11.4-15.4)
[2016-08-16] MEDS: FAMOTIDINE 20 MG TABLET PO SCH ×2 (12:46→23:39)
[2016-08-16] MEDS: ATORVASTATIN CALCIUM 40 MG TABLET PO SCH (12:46)
[2016-08-16] MEDS: TAMSULOSIN HCL 0.4 MG CAP.SR.24H PO SCH (12:46)
[2016-08-16] MEDS: SODIUM HYPOCHLORITE 0.25% SOLN 473 ML BOTTLE TP SCH ×2 (12:47→17:55)
[2016-08-16] MEDS: DOCUSATE SODIUM 100 MG CAPSULE PO SCH (12:47)
[2016-08-16] MEDS: ASPIRIN 325 MG TABLET PO SCH (12:47)
[2016-08-16] MEDS: AMIODARONE HCL 200 MG TABLET PO SCH (12:49)
[2016-08-16] MEDS ORDERED: LIDOCAINE 2% INJ-PF (100 MG/5 ML) SYRINGE ONE (15:54)
[2016-08-16 16:10] LABS: ABSOLUTE BASOPHILS # (AUTO) 0.1 10^3/uL (0.0-0.2); ABSOLUTE EOSINOPHILS # (AUTO) 0.3 10^3/uL (0.0-0.6); ABSOLUTE LYMPHOCYTES (AUTO) 1.1 10^3/uL (0.5-4.7); ABSOLUTE MONOCYTES (AUTO) 1.4 10^3/uL (0.1-1.4); ABSOLUTE NEUT (AUTO) 11.5 10^3/uL (1.7-8.2); EOSINOPHILS % (AUTO) 2.4 % (0-6); HEMATOCRIT 37.8 % (37.9-51.0); HEMOGLOBIN 12.6 g/dL (13.5-17.0); LYMPHOCYTES % (AUTO) 7.6 % (13-45); MEAN CORPUSCULAR HEMOGLOBIN 29.2 pg (27.0-33.4); MEAN CORPUSCULAR HGB CONC 33.2 g/dL (32.0-36.0); MEAN CORPUSCULAR VOLUME 88 fl (80-97); MONOCYTES % (AUTO) 9.7 % (3-13); RED CELL DISTRIBUTION WIDTH 14.5 % (11.5-14.0); SEGMENTED NEUTROPHILS % (AUTO) 79.3 % (42-78); WHITE BLOOD COUNT 14.5 10^3/uL (4.0-10.5)
--- NOTE | 2016-08-16 16:31 | PDOC PROGRESS REPORT ---
Subjective Progress Note for:: 08/16/16 Subjective:: Reason for visit: Follow-up diabetic foot ulcer Hospital course: YAMIL HOLLOWAY is a 71 year old male presents for direct admission from general surgeons office where he was referred from his PCP for a diabetic foot wound. Apparently about a week ago he inadvertently cut the lateral aspect of his right foot leaving a piece of "meat" hanging that he then removed with his pocket knife and has been treating with Epsom salts at home. The family noted the foot was more swollen and hot to the touch and that he was now unable to walk on it due to sharp shooting pains in his foot. They also noticed rigors at home tried to get him to come to the emergency department last night but he refused. He has diabetes with a severe peripheral neuropathy states normally he cannot feel his feet except when they hurt like they do now. Upon evaluation by the general surgeon it was quickly determined the wound would need debridement as it seems to encompass most of the plantar surface of the foot, and so we were asked to admit him directly from the office for IV antibiotics and consult the surgicalist for evaluation. Patient was admitted to the hospital and started on broad-spectrum antibiotics, x-rays and ultrasound were negative for foreign body and obvious fluid collection like an abscess and there were no bony erosions noted on x-ray. His C-reactive protein remains markedly elevated. the wound seemed to be coalescing centrally on the plantar surface with persistent cellulitis and lymphangitic streaking. he underwent sharp debridement x2 so far by covering surgeon with removal of necrotic tissue. Unfortunately the deep tissue culture is now growing MRSA. Patient was resumed on vancomycin 08/15/16. He had PICC line placed for outpatient home vancomycin this morning. wound doesn't look very healthy to me this morning, I asked Dr Knox to re- evaluate for further surgical debridement. Subjective: The patient reports less pain and swelling in the foot today. He denies fevers, chills, nausea, vomiting, diarrhea, chest pain, palpitations. ROS: per HPI plus a total of 10 systems reviewed, pertinent positives and negatives noted above, remaining systems negative. Physical Exam Vital Signs: Temp Pulse Resp BP Pulse Ox 99.0 F 74 20 138/72 H 100 08/16/16 15:13 08/16/16 15:13 08/16/16 15:13 08/16/16 15:13 08/16/16 15:13 Intake & Output 08/15/16 08/16/16 08/17/16 06:59 06:59 06:59 Intake Total 1420 Output Total 0 Balance 1420 PHYSICAL EXAM GENERAL: NAD; well developed, well nourished; no obese; awake, alert and oriented x3 HEENT: no conjunctival injection, no scleral icterus; oral mucosa moist, RESPIRATORY: no accessory muscle use, no increased WOB, good air entry bilaterally; no wheezes, rales, rhonchi; no inspiratory crackles CARDIO: no JVD; RRR; no systolic murmur; no tachycardia VASCULAR: no carotid bruit; no abdominal bruit; no pallor; GI: soft; nondistended; normal bowel sounds; no rebound, rigidity, guarding MSK: 5/5 strength; normal ROM hips EXTREMITIES: no calf tender; no palpable cords in calf; no clubbing, cyanosis , pedal edema SKIN: warm; moist; no petechiae; no telengectasias; no jaundice; thickened hypertrophic scaling nails bilaterally; Rt foot remains edematous and erythematous into the ankle laterally, bandage is soaked with thin, purulent appearing and smelling fluid. the ulcer bed is ragged with non-viable tissue clinging in strings and sloughing off, the margins are edematous/swollen and ringed with non-viable tissue. Results Laboratory Results: 08/16/16 15:47 08/14/16 05:33 08/16/16 15:47 WBC 14.5 H RBC 4.30 L Hgb 12.6 L Hct 37.8 L MCV 88 MCH 29.2 MCHC 33.2 RDW 14.5 H Plt Count 294 Seg Neutrophils % 79.3 H Lymphocytes % 7.6 L Monocytes % 9.7 Eosinophils % 2.4 Basophils % 1.0 Absolute Neutrophils 11.5 H Absolute Lymphocytes 1.1 Absolute Monocytes 1.4 Absolute Eosinophils 0.3 Absolute Basophils 0.1 08/10/16 19:35 Blood Blood Culture - Final NO GROWTH IN 5 DAYS 08/10/16 18:00 Blood Blood Culture - Final NO GROWTH IN 5 DAYS Impressions: PICC Line Insertion 08/16/16 08:00 IMPRESSION: SUCCESSFUL PLACEMENT OF A 5 FR DUAL LUMEN 41 CM PICC IN THE right basilic VEIN. Status: Imported from PACS Assessment & Plan - Diagnosis (1) Diabetic foot ulcer Qualifiers: Diabetes mellitus type: type 2 Laterality: right Qualified Code(s) : E11.621 - Type 2 diabetes mellitus with foot ulcer; L97.509 - Non-pressure chronic ulcer of other part of unspecified foot with unspecified severity Is this a current diagnosis for this admission?: YesPlan: large deficit from prior I&D but no viable tissue on my exam this morning. Continue vancomycin. Surgeon following with incremental debridement as clinically indicated. 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 Is this a current diagnosis for this admission?: Yes (3) Hypertension Qualifiers: Hypertension type: unspecified secondary hypertension Qualified Code (s): I15.9 - Secondary hypertension, unspecified; I15 - Secondary hypertension Is this a current diagnosis for this admission?: Yes (4) Cardiac dysrhythmia Qualifiers: Arrhythmia type: unspecified cardiac arrhythmia Qualified Code(s): I49.9 - Cardiac arrhythmia, unspecified Is this a current diagnosis for this admission?: Yes (10) Chronic respiratory failure with hypoxia Is this a current diagnosis for this admission?: Yes - Time Time Spent with patient: 25-34 minutes
[2016-08-16] MEDS ORDERED: LIDOCAINE 1% INJ-PF (10 MG/ML) 30 ML SDV ONE (19:18)
--- NOTE | 2016-08-16 21:17 | Operative Report ---
Nonrecallable Operative Report DATE OF SURGERY: 08/16/16 PREOPERATIVE DIAGNOSIS: Diabetic right foot wound status post initial debridement plantar surface right foot POSTOPERATIVE DIAGNOSIS: Same with undrained pocket medial aspect left foot OPERATION: Excisional debridement of skin, counter drain placement medial aspect right foot SURGEON: NAVNEET BACH ANESTHESIA: Local TISSUE REMOVED OR ALTERED: Nonviable skin and subcutaneous tissue and pus COMPLICATIONS: None ESTIMATED BLOOD LOSS: minimal INTRAOPERATIVE FINDINGS: See below PROCEDURE: Surgical time out conducted. At bedside for floor right foot isolated and prep with Betadine. We then prepped and anesthetized the medial aspect of the proximal foot adjacent to the previous operative site. The medial and proximal tissue flap was undermined with Lanny clamped, and a counterincision was made just inferior to the right medial malleolus. An Latha drain was trimmed lengthwise and tied in a loop like fashion. Wound was irrigated and margins trimmed. There was negligible bleeding. Wound packed with iodoform gauze gauze packing, leg wrapped with 4 x 4 Curlex. Impression: Right foot diabetic ulcer, deep soft tissue infection, unresolved Plan: Will check arterial duplex study right lower extremity ;continue dressing changes
[2016-08-16] MEDS ORDERED: LIDOCAINE 1% INJ-PF (10 MG/ML) 30 ML SDV INJ PRN (21:36)
[2016-08-16] MEDS: MORPHINE SULFATE 10 MG/ML INJ IV PRN (22:40)
[2016-08-16] MEDS: NORMAL SALINE 10 ML SDV (SCHEDULED) IV SCH (23:40)
[2016-08-17] MEDS: MORPHINE SULFATE 10 MG/ML INJ IV PRN ×2 (03:19→19:45)
[2016-08-17] MEDS: VANCOMYCIN HCL 1,250 MG in DEXTROSE 5%-WATER 250 ML IV SCH ×2 (06:15→17:42)
[2016-08-17] MEDS: GABAPENTIN 400 MG CAPSULE PO SCH ×4 (06:15→21:09)
[2016-08-17] MEDS: OXYCODONE-ACETAMINOPHEN 5-325 MG TABLET PO PRN ×3 (06:20→21:08)
[2016-08-17 08:47] LABS: ABSOLUTE BASOPHILS # (AUTO) 0.1 10^3/uL (0.0-0.2); ABSOLUTE EOSINOPHILS # (AUTO) 0.3 10^3/uL (0.0-0.6); ABSOLUTE MONOCYTES (AUTO) 1.5 10^3/uL (0.1-1.4); ABSOLUTE NEUT (AUTO) 10.2 10^3/uL (1.7-8.2); BASOPHILS % (AUTO) 0.9 % (0-2); EOSINOPHILS % (AUTO) 2.3 % (0-6); HEMATOCRIT 35.3 % (37.9-51.0); HEMOGLOBIN 11.6 g/dL (13.5-17.0); HGB HCT DIFFERENCE -0.5; LYMPHOCYTES % (AUTO) 7.7 % (13-45); MEAN CORPUSCULAR HEMOGLOBIN 29.1 pg (27.0-33.4); MEAN CORPUSCULAR HGB CONC 32.7 g/dL (32.0-36.0); MEAN CORPUSCULAR VOLUME 89 fl (80-97); MONOCYTES % (AUTO) 11.1 % (3-13); RED BLOOD COUNT 3.97 10^6/uL (4.35-5.55); RED CELL DISTRIBUTION WIDTH 14.7 % (11.5-14.0); WHITE BLOOD COUNT 13.1 10^3/uL (4.0-10.5)
[2016-08-17 09:04] LABS: ANION GAP 5 (5-19); BLOOD UREA NITROGEN 12 mg/dL (7-20); CALCIUM 8.3 mg/dL (8.4-10.2); CARBON DIOXIDE 36 mmol/L (22-30); CHLORIDE 93 mmol/L (98-107); CREATININE RESULT 0.78 mg/dL (0.52-1.25); GLUCOSE 138 mg/dL (75-110); POTASSIUM 3.9 mmol/L (3.6-5.0); SODIUM 134.2 mmol/L (137-145)
[2016-08-17 09:22] LABS: C-REACTIVE PROTEIN 139.6 mg/L (<10.0)
[2016-08-17] MEDS: TAMSULOSIN HCL 0.4 MG CAP.SR.24H PO SCH (09:42)
[2016-08-17] MEDS: ATORVASTATIN CALCIUM 40 MG TABLET PO SCH (09:42)
[2016-08-17] MEDS: ASPIRIN 325 MG TABLET PO SCH (09:42)
[2016-08-17] MEDS: AMIODARONE HCL 200 MG TABLET PO SCH (09:42)
[2016-08-17] MEDS: FAMOTIDINE 20 MG TABLET PO SCH ×2 (09:42→21:08)
[2016-08-17] MEDS: DOCUSATE SODIUM 100 MG CAPSULE PO SCH (09:42)
[2016-08-17] MEDS: NORMAL SALINE 10 ML SDV (SCHEDULED) IV SCH ×2 (09:43→21:09)
[2016-08-17] MEDS: SODIUM HYPOCHLORITE 0.25% SOLN 473 ML BOTTLE TP SCH ×2 (12:42→17:42)
[2016-08-17 17:28] LABS: CREATININE RESULT 0.77 mg/dL (0.52-1.25)
--- NOTE | 2016-08-17 17:43 | PDOC PROGRESS REPORT ---
Subjective Progress Note for:: 08/17/16 Subjective:: Patient states he is feeling better decrease pain No fever no chills no shortness of breath Alert and awake Physical Exam Vital Signs: Temp Pulse Resp BP Pulse Ox 98.5 F 75 22 H 137/51 H 100 08/17/16 15:30 08/17/16 15:30 08/17/16 15:30 08/17/16 15:30 08/17/16 15:30 Intake & Output 08/16/16 08/17/16 08/18/16 00:59 00:59 00:59 Intake Total 945 550 Output Total 175 Balance 770 550 General appearance: PRESENT: no acute distress Head exam: PRESENT: atraumatic, normocephalic Eye exam: PRESENT: conjunctiva pink, EOMI, PERRLA. ABSENT: scleral icterus Ear exam: PRESENT: normal external ear exam Mouth exam: PRESENT: moist, tongue midline Neck exam: ABSENT: carotid bruit, JVD, lymphadenopathy, thyromegaly Respiratory exam: PRESENT: clear to auscultation caroline. ABSENT: rales, rhonchi, wheezes Cardiovascular exam: PRESENT: RRR. ABSENT: diastolic murmur, rubs, systolic murmur Pulses: PRESENT: normal dorsalis pedis pul Vascular exam: PRESENT: normal capillary refill GI/Abdominal exam: PRESENT: normal bowel sounds, soft. ABSENT: distended, guarding, mass, organolmegaly, rebound, tenderness Rectal exam: PRESENT: deferred Extremities exam: PRESENT: full ROM, other - Right foot bandaged Minimal warmth and redness over the [place]. ABSENT: calf tenderness, clubbing, pedal edema Neurological exam: PRESENT: alert, awake, oriented to person, oriented to place , oriented to time, oriented to situation, CN II-XII grossly intact. ABSENT: motor sensory deficit Psychiatric exam: PRESENT: appropriate affect, normal mood. ABSENT: homicidal ideation, suicidal ideation Skin exam: PRESENT: dry, intact, warm. ABSENT: cyanosis, rash Results Laboratory Results: 08/17/16 08:20 08/17/16 16:59 08/17/16 08/17/16 08/17/16 08:20 08:20 16:59 WBC 13.1 H RBC 3.97 L Hgb 11.6 L Hct 35.3 L MCV 89 MCH 29.1 MCHC 32.7 RDW 14.7 H Plt Count 294 Seg Neutrophils % 78.0 Lymphocytes % 7.7 L Monocytes % 11.1 Eosinophils % 2.3 Basophils % 0.9 Absolute Neutrophils 10.2 H Absolute Lymphocytes 1.0 Absolute Monocytes 1.5 H Absolute Eosinophils 0.3 Absolute Basophils 0.1 Sodium 134.2 L Potassium 3.9 Chloride 93 L Carbon Dioxide 36 H Anion Gap 5 BUN 12 Creatinine 0.78 0.77 Est GFR ( Amer) > 60 > 60 Est GFR (Non-Af Amer) > 60 > 60 Glucose 138 H Calcium 8.3 L C-Reactive Protein 139.6 H Impressions: Extremity Ultrasound 08/10/16 00:00 IMPRESSION: Edematous soft tissue is identified suggesting a cellulitis. No discrete fluid collections are identified. Other findings as noted above Foot X-Ray 08/10/16 00:00 IMPRESSION: NEGATIVE STUDY OF THE RIGHT FOOT. NO EXPLANATION FOR PAIN. No evidence for osteomyelitis. Guidance Fluoroscopy 08/16/16 00:00 IMPRESSION: SUCCESSFUL PLACEMENT OF A 5 FR DUAL LUMEN 41 CM PICC IN THE right basilic VEIN. Interventional Vascular Procedure 08/16/16 00:00 IMPRESSION: SUCCESSFUL PLACEMENT OF A 5 FR DUAL LUMEN 41 CM PICC IN THE right basilic VEIN. PICC Line Insertion 08/16/16 08:00 IMPRESSION: SUCCESSFUL PLACEMENT OF A 5 FR DUAL LUMEN 41 CM PICC IN THE right basilic VEIN. Assessment & Plan - Diagnosis (1) COPD (chronic obstructive pulmonary disease) Is this a current diagnosis for this admission?: YesPlan: Continue present management (2) Diabetic foot ulcer Qualifiers: Diabetes mellitus type: type 2 Laterality: right Qualified Code(s) : E11.621 - Type 2 diabetes mellitus with foot ulcer; L97.509 - Non-pressure chronic ulcer of other part of unspecified foot with unspecified severity Is this a current diagnosis for this admission?: Yes (3) Diabetic infection of right foot Is this a current diagnosis for this admission?: YesPlan: Cultures grew MRSA and strep Continue vancomycin (4) Hypertension Qualifiers: Hypertension type: unspecified secondary hypertension Qualified Code (s): I15.9 - Secondary hypertension, unspecified; I15 - Secondary hypertension Is this a current diagnosis for this admission?: Yes (5) Ischemic cardiomyopathy Is this a current diagnosis for this admission?: YesPlan: Stable - Time Time Spent with patient: Continue present management Patient has a PICC line in place He likely we'll be he will need to be discharged on antibiotics to a SNF facility Time Spent with patient: 25-34 minutes
--- NOTE | 2016-08-17 19:23 | PROGRESS NOTE E ---
Progress Note NAME: YAMIL HOLLOWAY : 1945 AGE: 71Y DATE: 08/17/2016 ROOM: 420 SUBJECTIVE: The patient presented with a 2-week history of a right foot infection. He had underwent incision, drainage, and debridement of the foot approximately 5 days ago with continuation of IV antibiotics. The wound was further debrided and opened yesterday. OBJECTIVE: VITAL SIGNS: Blood pressure 137/51. Temperature is 98.5. Pulse 75. Respiration 19. EXTREMITIES: Mild pain in the surgical portion of the foot. The patient had the right foot dorsal aspect debrided. There is tendon exposed. There does not appear to be any purulent fluid expressed from the wound. There is a Ogden drain through a counter incision on the medial aspect of the foot. DIAGNOSTIC DATA: His white blood cell count has now decreased down to 13,000. He grew out MRSA out of the wound. ASSESSMENT: 1. RIGHT DIABETIC FOOT INFECTION. HE HAS HAD THE WOUND DEBRIDED. HE WILL NEED FURTHER DEBRIDEMENT. THERE DOES NOT APPEAR TO BE FURTHER INFECTION AT THE CURRENT TIME. HE DOES HAVE A DORSALIS PEDIS PULSE. VASCULAR WILL BE CHECKED WITH AN ARTERIAL DUPLEX TO ENSURE PERFUSION OF THE FOOT. 2. DIABETES, FOLLOWED BY MEDICINE. PLAN: 1. Continue local wound care. 2. IV antibiotics. 3. Arterial duplex. DICTATING PHYSICIAN: TERRI RUIZ M.D. [id number] Y#: [id number] ID: [id number] JOB#: [id number] ACCT: [id number] cc:TERRI RUIZ M.D. >
[2016-08-18] MEDS: MORPHINE SULFATE 10 MG/ML INJ IV PRN (02:26)
[2016-08-18] MEDS: OXYCODONE-ACETAMINOPHEN 5-325 MG TABLET PO PRN ×5 (03:35→20:39)
[2016-08-18] MEDS: VANCOMYCIN HCL 1,250 MG in DEXTROSE 5%-WATER 250 ML IV SCH ×2 (06:00→17:38)
[2016-08-18] MEDS: GABAPENTIN 400 MG CAPSULE PO SCH ×4 (06:01→23:26)
[2016-08-18] MEDS: IPRATROPIUM/ALBUTEROL 0.5-2.5 MG/3 ML AMPUL NEB PRN ×2 (08:24→16:09)
[2016-08-18] MEDS: ASPIRIN 325 MG TABLET PO SCH (10:32)
[2016-08-18] MEDS: AMIODARONE HCL 200 MG TABLET PO SCH (10:32)
[2016-08-18] MEDS: ATORVASTATIN CALCIUM 40 MG TABLET PO SCH (10:33)
[2016-08-18] MEDS: TAMSULOSIN HCL 0.4 MG CAP.SR.24H PO SCH (10:33)
[2016-08-18] MEDS: FAMOTIDINE 20 MG TABLET PO SCH ×2 (10:33→22:34)
[2016-08-18] MEDS: DOCUSATE SODIUM 100 MG CAPSULE PO SCH (10:33)
[2016-08-18] MEDS: NORMAL SALINE 10 ML SDV (AFTER EACH USE) IV PRN (10:34)
[2016-08-18] MEDS: SODIUM HYPOCHLORITE 0.25% SOLN 473 ML BOTTLE TP SCH ×2 (12:06→17:39)
[2016-08-18] MEDS: NORMAL SALINE 10 ML SDV (SCHEDULED) IV SCH ×2 (12:08→22:34)
--- NOTE | 2016-08-18 16:04 | PROGRESS NOTE E ---
Progress Note NAME: YAMIL HOLLOWAY : 1945 AGE: 71Y DATE: 08/18/2016 ROOM: 420 SUBJECTIVE: Patient presents with an infected right lower extremity diabetic foot abscess with necrosis status post debridement. Patient has mild discomfort in the area of the surgery on his right foot. OBJECTIVE: Patient still has some nonviable tissue being present on the plantar surface of the foot where he had previous debridement. There is some mild erythema around the wound. No purulent fluid is able to be expressed from the wound. DIAGNOSTIC DATA: White blood cell count 13,000, down from originally 19,000. ASSESSMENT: RIGHT DIABETIC FOOT INFECTION WITH NONVIABLE TISSUE. He is currently having wound care. Will see, most likely needing further debridement in the a.m. Continue IV antibiotics. PLAN: 1. N.p.o. after midnight. 2. Probable further debridement of right foot wound in the a.m. DICTATING PHYSICIAN: TERRI RUIZ M.D. [id number] PHY#: [id number] ID: [id number] JOB#: [id number] ACCT: [id number] cc: >
--- NOTE | 2016-08-18 18:24 | PDOC PROGRESS REPORT ---
Subjective Progress Note for:: 08/18/16 Subjective:: Patient has no specific complaints His pain is tolerable He was evaluated by surgery and would be scheduled tomorrow for further debridement of the wound He has no fever no chills no shortness of breath Physical Exam Vital Signs: Temp Pulse Resp BP Pulse Ox 98.3 F 82 20 134/64 H 99 08/18/16 15:54 08/18/16 16:09 08/18/16 16:09 08/18/16 15:54 08/18/16 16:09 Intake & Output 08/17/16 08/18/16 08/19/16 00:59 00:59 00:59 Intake Total 945 1370 914 Output Total 175 300 650 Balance 770 1070 264 Weight 85.5 kg General appearance: PRESENT: no acute distress Head exam: PRESENT: atraumatic, normocephalic Eye exam: PRESENT: conjunctiva pink, EOMI, PERRLA. ABSENT: scleral icterus Neck exam: ABSENT: carotid bruit, JVD, lymphadenopathy, thyromegaly Respiratory exam: PRESENT: clear to auscultation caroline. ABSENT: rales, rhonchi, wheezes Cardiovascular exam: PRESENT: RRR. ABSENT: diastolic murmur, rubs, systolic murmur Pulses: PRESENT: normal dorsalis pedis pul Extremities exam: PRESENT: other - Right foot plantar surface extensive ulceration No bleeding no drainage Results Laboratory Results: 08/17/16 08:20 08/17/16 16:59 Impressions: Extremity Ultrasound 08/10/16 00:00 IMPRESSION: Edematous soft tissue is identified suggesting a cellulitis. No discrete fluid collections are identified. Other findings as noted above Foot X-Ray 08/10/16 00:00 IMPRESSION: NEGATIVE STUDY OF THE RIGHT FOOT. NO EXPLANATION FOR PAIN. No evidence for osteomyelitis. Guidance Fluoroscopy 08/16/16 00:00 IMPRESSION: SUCCESSFUL PLACEMENT OF A 5 FR DUAL LUMEN 41 CM PICC IN THE right basilic VEIN. Interventional Vascular Procedure 08/16/16 00:00 IMPRESSION: SUCCESSFUL PLACEMENT OF A 5 FR DUAL LUMEN 41 CM PICC IN THE right basilic VEIN. PICC Line Insertion 08/16/16 08:00 IMPRESSION: SUCCESSFUL PLACEMENT OF A 5 FR DUAL LUMEN 41 CM PICC IN THE right basilic VEIN. Assessment & Plan - Diagnosis (1) COPD (chronic obstructive pulmonary disease) Is this a current diagnosis for this admission?: Yes (2) Diabetic foot ulcer Qualifiers: Diabetes mellitus type: type 2 Laterality: right Qualified Code(s) : E11.621 - Type 2 diabetes mellitus with foot ulcer; L97.509 - Non-pressure chronic ulcer of other part of unspecified foot with unspecified severity Is this a current diagnosis for this admission?: Yes (3) Diabetic infection of right foot Is this a current diagnosis for this admission?: Yes (4) Hypertension Qualifiers: Hypertension type: unspecified secondary hypertension Qualified Code (s): I15.9 - Secondary hypertension, unspecified; I15 - Secondary hypertension Is this a current diagnosis for this admission?: Yes (5) Ischemic cardiomyopathy Is this a current diagnosis for this admission?: Yes - Time Time Spent with patient: Continue present antibiotic management For further debridement in the OR tomorrow Time Spent with patient: 15-24 minutes
[2016-08-19] MEDS: IPRATROPIUM/ALBUTEROL 0.5-2.5 MG/3 ML AMPUL NEB PRN (03:33)
[2016-08-19] MEDS: GABAPENTIN 400 MG CAPSULE PO SCH ×4 (05:14→20:46)
[2016-08-19] MEDS: VANCOMYCIN HCL 1,250 MG in DEXTROSE 5%-WATER 250 ML IV SCH ×2 (05:14→17:33)
[2016-08-19 05:24] LABS: ABSOLUTE BASOPHILS # (AUTO) 0.1 10^3/uL (0.0-0.2); ABSOLUTE EOSINOPHILS # (AUTO) 0.2 10^3/uL (0.0-0.6); ABSOLUTE LYMPHOCYTES (AUTO) 0.8 10^3/uL (0.5-4.7); ABSOLUTE MONOCYTES (AUTO) 1.5 10^3/uL (0.1-1.4); ABSOLUTE NEUT (AUTO) 10.9 10^3/uL (1.7-8.2); BASOPHILS % (AUTO) 0.9 % (0-2); EOSINOPHILS % (AUTO) 1.2 % (0-6); HEMATOCRIT 34.8 % (37.9-51.0); HEMOGLOBIN 11.6 g/dL (13.5-17.0); LYMPHOCYTES % (AUTO) 5.6 % (13-45); MEAN CORPUSCULAR HEMOGLOBIN 29.5 pg (27.0-33.4); MEAN CORPUSCULAR HGB CONC 33.4 g/dL (32.0-36.0); MEAN CORPUSCULAR VOLUME 88 fl (80-97); MONOCYTES % (AUTO) 11.1 % (3-13); RED BLOOD COUNT 3.95 10^6/uL (4.35-5.55); RED CELL DISTRIBUTION WIDTH 14.5 % (11.5-14.0); SEGMENTED NEUTROPHILS % (AUTO) 81.2 % (42-78); WHITE BLOOD COUNT 13.4 10^3/uL (4.0-10.5)
[2016-08-19] MEDS: ASPIRIN 325 MG TABLET PO SCH (09:44)
[2016-08-19] MEDS: DOCUSATE SODIUM 100 MG CAPSULE PO SCH (09:45)
[2016-08-19] MEDS: TAMSULOSIN HCL 0.4 MG CAP.SR.24H PO SCH (09:45)
[2016-08-19] MEDS: OXYCODONE-ACETAMINOPHEN 5-325 MG TABLET PO PRN ×3 (09:45→20:57)
[2016-08-19] MEDS: FAMOTIDINE 20 MG TABLET PO SCH ×2 (09:45→20:46)
[2016-08-19] MEDS: ATORVASTATIN CALCIUM 40 MG TABLET PO SCH (09:46)
[2016-08-19] MEDS: AMIODARONE HCL 200 MG TABLET PO SCH (09:46)
[2016-08-19] MEDS: SODIUM HYPOCHLORITE 0.25% SOLN 473 ML BOTTLE TP SCH ×2 (09:47→17:33)
[2016-08-19] MEDS: NORMAL SALINE 10 ML SDV (SCHEDULED) IV SCH ×2 (09:47→20:46)
[2016-08-19] MEDS: NORMAL SALINE 1000 ML 1,000 ML IV PRN ×2 (11:16→20:58)
--- NOTE | 2016-08-19 12:21 | PDOC PROGRESS REPORT ---
Subjective Progress Note for:: 08/19/16 Subjective:: no complaints Physical Exam Vital Signs: Temp Pulse Resp BP Pulse Ox 98.3 F 84 14 126/69 H 97 08/19/16 07:19 08/19/16 07:19 08/19/16 07:19 08/19/16 07:19 08/19/16 07:19 Intake & Output 08/18/16 08/19/16 08/20/16 06:59 06:59 06:59 Intake Total 1284 1090 Output Total 950 290 Balance 334 800 Weight 85.5 kg Extremities exam: PRESENT: other - right foot wound clean with thin rim of necrotic edge and exposed plantar fascia. pr drain in place but diffuse erythema in surrounding region. no drainage. no fluctuance. Results Laboratory Results: 08/19/16 05:15 08/17/16 16:59 08/19/16 05:15 WBC 13.4 H RBC 3.95 L Hgb 11.6 L Hct 34.8 L MCV 88 MCH 29.5 MCHC 33.4 RDW 14.5 H Plt Count 279 Seg Neutrophils % 81.2 H Lymphocytes % 5.6 L Monocytes % 11.1 Eosinophils % 1.2 Basophils % 0.9 Absolute Neutrophils 10.9 H Absolute Lymphocytes 0.8 Absolute Monocytes 1.5 H Absolute Eosinophils 0.2 Absolute Basophils 0.1 Impressions: Extremity Ultrasound 08/10/16 00:00 IMPRESSION: Edematous soft tissue is identified suggesting a cellulitis. No discrete fluid collections are identified. Other findings as noted above Foot X-Ray 08/10/16 00:00 IMPRESSION: NEGATIVE STUDY OF THE RIGHT FOOT. NO EXPLANATION FOR PAIN. No evidence for osteomyelitis. Guidance Fluoroscopy 08/16/16 00:00 IMPRESSION: SUCCESSFUL PLACEMENT OF A 5 FR DUAL LUMEN 41 CM PICC IN THE right basilic VEIN. Interventional Vascular Procedure 08/16/16 00:00 IMPRESSION: SUCCESSFUL PLACEMENT OF A 5 FR DUAL LUMEN 41 CM PICC IN THE right basilic VEIN. PICC Line Insertion 08/16/16 08:00 IMPRESSION: SUCCESSFUL PLACEMENT OF A 5 FR DUAL LUMEN 41 CM PICC IN THE right basilic VEIN. Assessment & Plan - Diagnosis (1) Diabetic infection of right foot Is this a current diagnosis for this admission?: YesPlan: wound has some necrotic debris but does not fully explain his cont erythema and leukocytosis. pt only on vancomycin. will broaden out his coverage. plan debridement today. d/w pt and family risk and benefits.
[2016-08-19] MEDS ORDERED: BUPIVACAINE HCL 0.25 % INJ/PF (2.5 MG/1 ML) 30 ML VIAL ONE (12:53)
[2016-08-19] MEDS ORDERED: KETAMINE HCL INJ 500 MG/10 ML VIAL ONE (13:33)
[2016-08-19] MEDS ORDERED: PROPOFOL INJ 200 MG/20 ML VIAL IV ONE (13:33)
[2016-08-19] MEDS ORDERED: FENTANYL CITRATE INJ/PF 100 MCG/2 ML AMPUL ONE (13:33)
[2016-08-19] MEDS ORDERED: MIDAZOLAM 2 MG/2 ML INJ ONE (13:33)
[2016-08-19] MEDS ORDERED: FENTANYL CITRATE INJ/PF 100 MCG/2 ML AMPUL IV PRN (14:08)
[2016-08-19] MEDS ORDERED: ONDANSETRON HCL INJ/PF 4 MG/2 ML SDV IV PRN (14:08)
[2016-08-19] MEDS ORDERED: MORPHINE SULFATE 10 MG/ML INJ IV PRN (14:47)
--- NOTE | 2016-08-19 14:47 | Operative Report ---
Operative Report DATE OF SURGERY: 08/16/16 PREOPERATIVE DIAGNOSIS: Diabetic right foot wound status post initial debridement plantar surface right foot POSTOPERATIVE DIAGNOSIS: Same OPERATION: Excisional debridement right foot SURGEON: MIGUEL ANGEL CARTAGENA ANESTHESIA: LMAC TISSUE REMOVED OR ALTERED: Necrotic tissue at the wound edges and at the wound base COMPLICATIONS: None ESTIMATED BLOOD LOSS: 20 INTRAOPERATIVE FINDINGS: See below PROCEDURE: Informed consent was obtained. Patient was brought to the operating room placed on the operating table in the supine position. The procedure was done under LMAC. His right foot was prepped and draped in usual sterile fashion. Local anesthetic was injected. At the edges of the plantar surface wound that there was small amount of necrotic debris which was sharply debrided with the combination of scalpel scissors and the curette dissection. At the base of the plantar surface wound of there was some necrotic debris that was debrided with the curette and the scissors dissection. All of the necrotic tissue was excised. Exploration at the medial aspect underneath the Perlita drain reveals a small amount of necrotic tissue that was debrided with a curette. No undrained pus pocket was encountered. The wound was the cleansed and packed with gauze. Patient tolerated procedure well with no apparent complications.
--- NOTE | 2016-08-19 15:55 | PDOC PROGRESS REPORT ---
Subjective Progress Note for:: 08/19/16 Subjective:: Patient is doing well no fever no chills mentation is excellent The foot is still erythematous and patient is going back to the OR today for debridement of the wound Ertapenem has been added the vancomycin, Leukocytosis is persistent Physical Exam Vital Signs: Temp Pulse Resp BP Pulse Ox 97.8 F 64 16 127/91 H 97 08/19/16 14:42 08/19/16 15:27 08/19/16 15:27 08/19/16 15:27 08/19/16 15:27 Intake & Output 08/18/16 08/19/16 08/20/16 00:59 00:59 00:59 Intake Total 1370 1274 680 Output Total 300 940 0 Balance 1070 334 680 Weight 85.5 kg General appearance: PRESENT: no acute distress, thin, other - looks chronically ill Head exam: PRESENT: atraumatic, normocephalic Eye exam: PRESENT: conjunctiva pink, EOMI, PERRLA. ABSENT: scleral icterus Ear exam: PRESENT: normal external ear exam Mouth exam: PRESENT: moist, tongue midline Neck exam: ABSENT: carotid bruit, JVD, lymphadenopathy, thyromegaly Respiratory exam: PRESENT: clear to auscultation caroline. ABSENT: rales, rhonchi, wheezes Cardiovascular exam: PRESENT: RRR. ABSENT: diastolic murmur, rubs, systolic murmur Pulses: PRESENT: normal dorsalis pedis pul Vascular exam: PRESENT: normal capillary refill GI/Abdominal exam: PRESENT: normal bowel sounds, soft. ABSENT: distended, guarding, mass, organolmegaly, rebound, tenderness Rectal exam: PRESENT: deferred Extremities exam: PRESENT: full ROM. ABSENT: calf tenderness, clubbing, pedal edema Neurological exam: PRESENT: alert, awake, oriented to person, oriented to place , oriented to time, oriented to situation, CN II-XII grossly intact. ABSENT: motor sensory deficit Psychiatric exam: PRESENT: appropriate affect, normal mood. ABSENT: homicidal ideation, suicidal ideation Skin exam: PRESENT: dry, intact, warm. ABSENT: cyanosis, rash Results Laboratory Results: 08/19/16 05:15 08/17/16 16:59 08/19/16 05:15 WBC 13.4 H RBC 3.95 L Hgb 11.6 L Hct 34.8 L MCV 88 MCH 29.5 MCHC 33.4 RDW 14.5 H Plt Count 279 Seg Neutrophils % 81.2 H Lymphocytes % 5.6 L Monocytes % 11.1 Eosinophils % 1.2 Basophils % 0.9 Absolute Neutrophils 10.9 H Absolute Lymphocytes 0.8 Absolute Monocytes 1.5 H Absolute Eosinophils 0.2 Absolute Basophils 0.1 Impressions: Extremity Ultrasound 08/10/16 00:00 IMPRESSION: Edematous soft tissue is identified suggesting a cellulitis. No discrete fluid collections are identified. Other findings as noted above Foot X-Ray 08/10/16 00:00 IMPRESSION: NEGATIVE STUDY OF THE RIGHT FOOT. NO EXPLANATION FOR PAIN. No evidence for osteomyelitis. Guidance Fluoroscopy 08/16/16 00:00 IMPRESSION: SUCCESSFUL PLACEMENT OF A 5 FR DUAL LUMEN 41 CM PICC IN THE right basilic VEIN. Interventional Vascular Procedure 08/16/16 00:00 IMPRESSION: SUCCESSFUL PLACEMENT OF A 5 FR DUAL LUMEN 41 CM PICC IN THE right basilic VEIN. PICC Line Insertion 08/16/16 08:00 IMPRESSION: SUCCESSFUL PLACEMENT OF A 5 FR DUAL LUMEN 41 CM PICC IN THE right basilic VEIN. Assessment & Plan - Diagnosis (1) COPD (chronic obstructive pulmonary disease) Is this a current diagnosis for this admission?: Yes (2) Diabetic foot ulcer Qualifiers: Diabetes mellitus type: type 2 Laterality: right Qualified Code(s) : E11.621 - Type 2 diabetes mellitus with foot ulcer; L97.509 - Non-pressure chronic ulcer of other part of unspecified foot with unspecified severity Is this a current diagnosis for this admission?: Yes (3) Diabetic infection of right foot Is this a current diagnosis for this admission?: Yes (4) Hypertension Qualifiers: Hypertension type: unspecified secondary hypertension Qualified Code (s): I15.9 - Secondary hypertension, unspecified; I15 - Secondary hypertension Is this a current diagnosis for this admission?: Yes (5) Ischemic cardiomyopathy Is this a current diagnosis for this admission?: Yes - Time Time Spent with patient: We will continue present management Time Spent with patient: 15-24 minutes
[2016-08-19] MEDS: ERTAPENEM SODIUM 1 GM in NORMAL SALINE 50 ML IV SCH (16:11)
[2016-08-20] MEDS: OXYCODONE-ACETAMINOPHEN 5-325 MG TABLET PO PRN ×5 (02:53→21:28)
[2016-08-20] MEDS: GABAPENTIN 400 MG CAPSULE PO SCH ×4 (05:04→23:42)
[2016-08-20] MEDS: VANCOMYCIN HCL 1,250 MG in DEXTROSE 5%-WATER 250 ML IV SCH ×2 (05:04→17:23)
[2016-08-20 06:49] LABS: CREATININE RESULT 0.85 mg/dL (0.52-1.25)
[2016-08-20 06:51] LABS: ABSOLUTE BASOPHILS # (AUTO) 0.1 10^3/uL (0.0-0.2); ABSOLUTE EOSINOPHILS # (AUTO) 0.3 10^3/uL (0.0-0.6); ABSOLUTE MONOCYTES (AUTO) 1.4 10^3/uL (0.1-1.4); ABSOLUTE NEUT (AUTO) 8.7 10^3/uL (1.7-8.2); BASOPHILS % (AUTO) 1.3 % (0-2); LYMPHOCYTES % (AUTO) 8.7 % (13-45); MEAN CORPUSCULAR HEMOGLOBIN 29.3 pg (27.0-33.4); MEAN CORPUSCULAR HGB CONC 33.3 g/dL (32.0-36.0); MEAN CORPUSCULAR VOLUME 88 fl (80-97); MONOCYTES % (AUTO) 12.1 % (3-13); RED BLOOD COUNT 3.74 10^6/uL (4.35-5.55); RED CELL DISTRIBUTION WIDTH 14.8 % (11.5-14.0); SEGMENTED NEUTROPHILS % (AUTO) 74.9 % (42-78); WHITE BLOOD COUNT 11.6 10^3/uL (4.0-10.5)
--- NOTE | 2016-08-20 08:10 | XCELERA REPORT ---
[address] [address] Lower Extremity Arterial Evaluation Name: YAMIL HOLLOWAY Age: 71 yrs Gender: Male : 1945 Patient Status: Inpatient Patient Location: 4W\S\420\S\A Study Date: 08/17/2016 11:26 AM Procedure: A color flow and duplex scan of the lower extremity arteries was performed on the right with velocity and waveform anaylsis. Reason For Study: poor healing of right diabetic foot Ordering Physician: NAVNEET BACH Performed By: Mary Henderson Measurements and Calculations Right Left FOOD ORDER EXPEDITER PSV 161.1 cm/sec Prox PFA PSV -163.0 cm/sec Prox SFA PSV 131.3 cm/sec Mid SFA PSV -217.1 cm/sec Dist SFA PSV -110.9 cm/sec Prox Pop A PSV 150.1 cm/sec Dist DONOVAN PSV 93.7 cm/sec Prox QUALITY ASSURANCE PSV 23.6 cm/sec Dist QUALITY ASSURANCE PSV -21.3 cm/sec Eliezer Pedis PSV 115.7 47.4 cm/sec Right Side Arterial Evaluation Normal velocity, waveform and triphasic flow are present, from the Common Femoral artery to the Femoral artery. Biphasic in the Deep Femoral artery. Biphasic from the Popliteal to the Dorsalis Pedis. Monophasic in the Posterior ibial artery. The ankle-brachial index was not done. 20-49 % stenosis is noted at the Femoral artery. With sequential disease. Interpretation Summary Moderate hemodynamically significant lesions in the right lower extremity only, on duplex imaging, at rest. : NAVNEET BACH > Albert Chase
[2016-08-20] MEDS: IPRATROPIUM/ALBUTEROL 0.5-2.5 MG/3 ML AMPUL NEB PRN ×3 (08:22→20:33)
[2016-08-20] MEDS: FAMOTIDINE 20 MG TABLET PO SCH ×2 (09:52→21:28)
[2016-08-20] MEDS: AMIODARONE HCL 200 MG TABLET PO SCH (09:52)
[2016-08-20] MEDS: DOCUSATE SODIUM 100 MG CAPSULE PO SCH (09:52)
[2016-08-20] MEDS: ASPIRIN 325 MG TABLET PO SCH (09:52)
[2016-08-20] MEDS: TAMSULOSIN HCL 0.4 MG CAP.SR.24H PO SCH (09:52)
[2016-08-20] MEDS: NORMAL SALINE 10 ML SDV (SCHEDULED) IV SCH ×2 (09:53→22:33)
[2016-08-20] MEDS: ATORVASTATIN CALCIUM 40 MG TABLET PO SCH (09:53)
[2016-08-20] MEDS: SODIUM HYPOCHLORITE 0.25% SOLN 473 ML BOTTLE TP SCH ×2 (09:54→17:27)
--- NOTE | 2016-08-20 11:08 | PROGRESS NOTE E ---
Progress Note NAME: YAMIL HOLLOWAY : 1945 AGE: 71Y DATE: 08/20/2016 ROOM: 420 The right foot wound was inspected. There is no drainage. There is still erythema surrounding the wound. No tenderness noted. A drain was left in place. The nurse was advised to keep the wound moist. DICTATING PHYSICIAN: MILENA GONZALEZ M.D. [id number] PHY#: [id number] ID: [id number] JOB#: [id number] ACCT: [id number] cc: >
--- NOTE | 2016-08-20 12:28 | PDOC PROGRESS REPORT ---
Subjective Progress Note for:: 08/20/16 Subjective:: feeling well had debridement wound yesterday in OR wishes to go home ertapenem was added yesterday to IV vancomycin as the foot was red Physical Exam Vital Signs: Temp Pulse Resp BP Pulse Ox 97.8 F 78 18 148/70 H 100 08/20/16 11:48 08/20/16 11:48 08/20/16 11:48 08/20/16 11:48 08/20/16 11:48 Intake & Output 08/19/16 08/20/16 08/21/16 00:59 00:59 00:59 Intake Total 1274 2110 1386 Output Total 940 400 350 Balance 334 1710 1036 Weight 85.5 kg 86.2 kg General appearance: PRESENT: no acute distress, well-developed, well-nourished Head exam: PRESENT: atraumatic, normocephalic Eye exam: PRESENT: conjunctiva pink, EOMI, PERRLA. ABSENT: scleral icterus Ear exam: PRESENT: normal external ear exam Mouth exam: PRESENT: moist, tongue midline Neck exam: ABSENT: carotid bruit, JVD, lymphadenopathy, thyromegaly Respiratory exam: PRESENT: clear to auscultation caroline. ABSENT: rales, rhonchi, wheezes Cardiovascular exam: PRESENT: RRR. ABSENT: diastolic murmur, rubs, systolic murmur Pulses: PRESENT: normal dorsalis pedis pul Vascular exam: PRESENT: normal capillary refill GI/Abdominal exam: PRESENT: normal bowel sounds, soft. ABSENT: distended, guarding, mass, organolmegaly, rebound, tenderness Rectal exam: PRESENT: deferred Extremities exam: PRESENT: full ROM. ABSENT: calf tenderness, clubbing, pedal edema Neurological exam: PRESENT: alert, awake, CN II-XII grossly intact. ABSENT: motor sensory deficit Skin exam: PRESENT: dry, intact, warm. ABSENT: cyanosis, rash Results Laboratory Results: 08/20/16 06:36 08/20/16 05:30 08/20/16 08/20/16 05:30 06:36 WBC 11.6 H RBC 3.74 L Hgb 11.0 L Hct 33.0 L MCV 88 MCH 29.3 MCHC 33.3 RDW 14.8 H Plt Count 282 Seg Neutrophils % 74.9 Lymphocytes % 8.7 L Monocytes % 12.1 Eosinophils % 3.0 Basophils % 1.3 Absolute Neutrophils 8.7 H Absolute Lymphocytes 1.0 Absolute Monocytes 1.4 Absolute Eosinophils 0.3 Absolute Basophils 0.1 Creatinine 0.85 Est GFR ( Amer) > 60 Est GFR (Non-Af Amer) > 60 Impressions: Extremity Ultrasound 08/10/16 00:00 IMPRESSION: Edematous soft tissue is identified suggesting a cellulitis. No discrete fluid collections are identified. Other findings as noted above Foot X-Ray 08/10/16 00:00 IMPRESSION: NEGATIVE STUDY OF THE RIGHT FOOT. NO EXPLANATION FOR PAIN. No evidence for osteomyelitis. Guidance Fluoroscopy 08/16/16 00:00 IMPRESSION: SUCCESSFUL PLACEMENT OF A 5 FR DUAL LUMEN 41 CM PICC IN THE right basilic VEIN. Interventional Vascular Procedure 08/16/16 00:00 IMPRESSION: SUCCESSFUL PLACEMENT OF A 5 FR DUAL LUMEN 41 CM PICC IN THE right basilic VEIN. PICC Line Insertion 08/16/16 08:00 IMPRESSION: SUCCESSFUL PLACEMENT OF A 5 FR DUAL LUMEN 41 CM PICC IN THE right basilic VEIN. Assessment & Plan - Diagnosis (1) COPD (chronic obstructive pulmonary disease) Is this a current diagnosis for this admission?: Yes (2) Diabetic foot ulcer Qualifiers: Diabetes mellitus type: type 2 Laterality: right Is this a current diagnosis for this admission?: Yes (3) Diabetic infection of right foot Is this a current diagnosis for this admission?: Yes (4) Hypertension Qualifiers: Hypertension type: unspecified secondary hypertension Qualified Code (s): I15.9 - Secondary hypertension, unspecified; I15 - Secondary hypertension Is this a current diagnosis for this admission?: Yes (5) Ischemic cardiomyopathy Is this a current diagnosis for this admission?: Yes - Time Time Spent with patient: continue present management further care as per surgery Time Spent with patient: 15-24 minutes
[2016-08-20] MEDS: ERTAPENEM SODIUM 1 GM in NORMAL SALINE 50 ML IV SCH (13:27)
[2016-08-21] MEDS: IPRATROPIUM/ALBUTEROL 0.5-2.5 MG/3 ML AMPUL NEB PRN ×3 (02:40→22:16)
[2016-08-21] MEDS: VANCOMYCIN HCL 1,250 MG in DEXTROSE 5%-WATER 250 ML IV SCH ×2 (05:28→18:12)
[2016-08-21] MEDS: GABAPENTIN 400 MG CAPSULE PO SCH ×4 (05:30→23:03)
[2016-08-21] MEDS: OXYCODONE-ACETAMINOPHEN 5-325 MG TABLET PO PRN ×4 (05:31→22:13)
[2016-08-21] MEDS: NORMAL SALINE 10 ML SDV (AFTER EACH USE) IV PRN (05:45)
[2016-08-21 06:09] LABS: ABSOLUTE BASOPHILS # (AUTO) 0.1 10^3/uL (0.0-0.2); ABSOLUTE EOSINOPHILS # (AUTO) 0.2 10^3/uL (0.0-0.6); ABSOLUTE LYMPHOCYTES (AUTO) 0.8 10^3/uL (0.5-4.7); ABSOLUTE MONOCYTES (AUTO) 1.4 10^3/uL (0.1-1.4); BASOPHILS % (AUTO) 1.2 % (0-2); EOSINOPHILS % (AUTO) 1.6 % (0-6); HEMATOCRIT 33.1 % (37.9-51.0); HEMOGLOBIN 10.8 g/dL (13.5-17.0); HGB HCT DIFFERENCE -0.7; LYMPHOCYTES % (AUTO) 6.3 % (13-45); MEAN CORPUSCULAR HEMOGLOBIN 28.6 pg (27.0-33.4); MEAN CORPUSCULAR HGB CONC 32.7 g/dL (32.0-36.0); MEAN CORPUSCULAR VOLUME 88 fl (80-97); MONOCYTES % (AUTO) 10.9 % (3-13); RED BLOOD COUNT 3.78 10^6/uL (4.35-5.55); RED CELL DISTRIBUTION WIDTH 14.8 % (11.5-14.0); WHITE BLOOD COUNT 12.5 10^3/uL (4.0-10.5)
[2016-08-21] MEDS: ASPIRIN 325 MG TABLET PO SCH (10:31)
[2016-08-21] MEDS: AMIODARONE HCL 200 MG TABLET PO SCH (10:32)
[2016-08-21] MEDS: DOCUSATE SODIUM 100 MG CAPSULE PO SCH (10:32)
[2016-08-21] MEDS: ATORVASTATIN CALCIUM 40 MG TABLET PO SCH (10:32)
[2016-08-21] MEDS: TAMSULOSIN HCL 0.4 MG CAP.SR.24H PO SCH (10:32)
[2016-08-21] MEDS: FAMOTIDINE 20 MG TABLET PO SCH ×2 (10:32→22:13)
[2016-08-21] MEDS: NORMAL SALINE 10 ML SDV (SCHEDULED) IV SCH ×2 (10:33→22:13)
[2016-08-21] MEDS: SODIUM HYPOCHLORITE 0.25% SOLN 473 ML BOTTLE TP SCH ×2 (10:35→18:06)
--- NOTE | 2016-08-21 12:00 | PDOC PROGRESS REPORT ---
Subjective Progress Note for:: 08/21/16 Physical Exam Vital Signs: Temp Pulse Resp BP Pulse Ox 99.3 F 88 16 141/79 H 97 08/21/16 07:42 08/21/16 07:42 08/21/16 07:42 08/21/16 07:42 08/21/16 07:42 Intake & Output 08/20/16 08/21/16 08/22/16 06:59 06:59 06:59 Intake Total 3216 1750 Output Total 750 1600 Balance 2466 150 Weight 86.2 kg 86.5 kg Vascular exam: PRESENT: other Extremities exam: PRESENT: other - Fluid examined. Granulation tissue and base. No foul smell; her incision with Perlita drain without much drainage. Pocket under plantar skin flap with minimal debris. plantar tendons exposed, desiccated Results Laboratory Results: 08/21/16 05:40 08/20/16 05:30 08/21/16 05:40 WBC 12.5 H RBC 3.78 L Hgb 10.8 L Hct 33.1 L MCV 88 MCH 28.6 MCHC 32.7 RDW 14.8 H Plt Count 306 Seg Neutrophils % 80.0 H Lymphocytes % 6.3 L Monocytes % 10.9 Eosinophils % 1.6 Basophils % 1.2 Absolute Neutrophils 10.0 H Absolute Lymphocytes 0.8 Absolute Monocytes 1.4 Absolute Eosinophils 0.2 Absolute Basophils 0.1 Impressions: Extremity Ultrasound 08/10/16 00:00 IMPRESSION: Edematous soft tissue is identified suggesting a cellulitis. No discrete fluid collections are identified. Other findings as noted above Foot X-Ray 08/10/16 00:00 IMPRESSION: NEGATIVE STUDY OF THE RIGHT FOOT. NO EXPLANATION FOR PAIN. No evidence for osteomyelitis. Guidance Fluoroscopy 08/16/16 00:00 IMPRESSION: SUCCESSFUL PLACEMENT OF A 5 FR DUAL LUMEN 41 CM PICC IN THE right basilic VEIN. Interventional Vascular Procedure 08/16/16 00:00 IMPRESSION: SUCCESSFUL PLACEMENT OF A 5 FR DUAL LUMEN 41 CM PICC IN THE right basilic VEIN. PICC Line Insertion 08/16/16 08:00 IMPRESSION: SUCCESSFUL PLACEMENT OF A 5 FR DUAL LUMEN 41 CM PICC IN THE right basilic VEIN. Assessment & Plan - Diagnosis (1) Diabetic infection of right foot Is this a current diagnosis for this admission?: YesPlan: 1. Right foot looks incrementally improved. We will discontinue Rupert drain and apply wound VAC. 2. If not significantly better 48 hours despite appropriate intravenous antibiotic therapyl may need to consider evaluation for routine vascular supply to the right foot. His arterial duplex study showed moderate disease in the infrageniculate vessels.
--- NOTE | 2016-08-21 12:38 | PDOC PROGRESS REPORT ---
Subjective Progress Note for:: 08/21/16 Subjective:: Patient is doing somewhat better minimal complaints His foot looks better Wound VAC has been applied Physical Exam Vital Signs: Temp Pulse Resp BP Pulse Ox 99.3 F 88 16 141/79 H 97 08/21/16 07:42 08/21/16 07:42 08/21/16 07:42 08/21/16 07:42 08/21/16 07:42 Intake & Output 08/20/16 08/21/16 08/22/16 00:59 00:59 00:59 Intake Total 2110 3136 Output Total 400 1950 Balance 1710 1186 Weight 86.5 kg General appearance: PRESENT: no acute distress, well-developed, well-nourished Head exam: PRESENT: atraumatic, normocephalic Eye exam: PRESENT: conjunctiva pink, EOMI, PERRLA. ABSENT: scleral icterus Ear exam: PRESENT: normal external ear exam Mouth exam: PRESENT: moist, tongue midline Neck exam: ABSENT: carotid bruit, JVD, lymphadenopathy, thyromegaly Respiratory exam: PRESENT: clear to auscultation caroline. ABSENT: rales, rhonchi, wheezes Cardiovascular exam: PRESENT: RRR. ABSENT: diastolic murmur, rubs, systolic murmur Pulses: PRESENT: normal dorsalis pedis pul Vascular exam: PRESENT: normal capillary refill GI/Abdominal exam: PRESENT: normal bowel sounds, soft. ABSENT: distended, guarding, mass, organolmegaly, rebound, tenderness Rectal exam: PRESENT: deferred Extremities exam: PRESENT: full ROM, other - Right foot Plantar aspect wound VAC as been applied Redness surrounding has decreased. ABSENT: calf tenderness , clubbing, pedal edema Neurological exam: PRESENT: alert, awake, oriented to person, oriented to place , oriented to time, oriented to situation, CN II-XII grossly intact. ABSENT: motor sensory deficit Psychiatric exam: PRESENT: appropriate affect, normal mood. ABSENT: homicidal ideation, suicidal ideation Skin exam: PRESENT: dry, intact, warm. ABSENT: cyanosis, rash Results Laboratory Results: 08/21/16 05:40 08/20/16 05:30 08/21/16 05:40 WBC 12.5 H RBC 3.78 L Hgb 10.8 L Hct 33.1 L MCV 88 MCH 28.6 MCHC 32.7 RDW 14.8 H Plt Count 306 Seg Neutrophils % 80.0 H Lymphocytes % 6.3 L Monocytes % 10.9 Eosinophils % 1.6 Basophils % 1.2 Absolute Neutrophils 10.0 H Absolute Lymphocytes 0.8 Absolute Monocytes 1.4 Absolute Eosinophils 0.2 Absolute Basophils 0.1 Impressions: Extremity Ultrasound 08/10/16 00:00 IMPRESSION: Edematous soft tissue is identified suggesting a cellulitis. No discrete fluid collections are identified. Other findings as noted above Foot X-Ray 08/10/16 00:00 IMPRESSION: NEGATIVE STUDY OF THE RIGHT FOOT. NO EXPLANATION FOR PAIN. No evidence for osteomyelitis. Guidance Fluoroscopy 08/16/16 00:00 IMPRESSION: SUCCESSFUL PLACEMENT OF A 5 FR DUAL LUMEN 41 CM PICC IN THE right basilic VEIN. Interventional Vascular Procedure 08/16/16 00:00 IMPRESSION: SUCCESSFUL PLACEMENT OF A 5 FR DUAL LUMEN 41 CM PICC IN THE right basilic VEIN. PICC Line Insertion 08/16/16 08:00 IMPRESSION: SUCCESSFUL PLACEMENT OF A 5 FR DUAL LUMEN 41 CM PICC IN THE right basilic VEIN. Assessment & Plan - Diagnosis (1) COPD (chronic obstructive pulmonary disease) Is this a current diagnosis for this admission?: Yes (2) Diabetic foot ulcer Qualifiers: Diabetes mellitus type: type 2 Laterality: right Is this a current diagnosis for this admission?: Yes (3) Diabetic infection of right foot Is this a current diagnosis for this admission?: Yes (4) Hypertension Qualifiers: Hypertension type: unspecified secondary hypertension Qualified Code (s): I15.9 - Secondary hypertension, unspecified; I15 - Secondary hypertension Is this a current diagnosis for this admission?: Yes (5) Ischemic cardiomyopathy Is this a current diagnosis for this admission?: Yes - Time Time Spent with patient: Continue the present management Patient is currently on Vanco and ertapenem Time Spent with patient: 15-24 minutes
[2016-08-21] MEDS: ERTAPENEM SODIUM 1 GM in NORMAL SALINE 50 ML IV SCH (15:21)
[2016-08-21] MEDS: MAGNESIUM HYDROXIDE SUSP 30 ML UDCUP PO PRN (22:12)
[2016-08-22] MEDS: OXYCODONE-ACETAMINOPHEN 5-325 MG TABLET PO PRN ×3 (05:49→22:42)
[2016-08-22] MEDS: VANCOMYCIN HCL 1,250 MG in DEXTROSE 5%-WATER 250 ML IV SCH (05:49)
[2016-08-22] MEDS: GABAPENTIN 400 MG CAPSULE PO SCH ×3 (05:49→17:43)
[2016-08-22 06:06] LABS: ABSOLUTE BASOPHILS # (AUTO) 0.1 10^3/uL (0.0-0.2); ABSOLUTE EOSINOPHILS # (AUTO) 0.4 10^3/uL (0.0-0.6); ABSOLUTE MONOCYTES (AUTO) 1.7 10^3/uL (0.1-1.4); ABSOLUTE NEUT (AUTO) 8.8 10^3/uL (1.7-8.2); EOSINOPHILS % (AUTO) 3.4 % (0-6); HEMATOCRIT 31.6 % (37.9-51.0); HEMOGLOBIN 10.6 g/dL (13.5-17.0); HGB HCT DIFFERENCE 0.2; LYMPHOCYTES % (AUTO) 8.5 % (13-45); MEAN CORPUSCULAR HEMOGLOBIN 29.4 pg (27.0-33.4); MEAN CORPUSCULAR HGB CONC 33.5 g/dL (32.0-36.0); MEAN CORPUSCULAR VOLUME 88 fl (80-97); RED CELL DISTRIBUTION WIDTH 14.4 % (11.5-14.0); SEGMENTED NEUTROPHILS % (AUTO) 73.1 % (42-78); WHITE BLOOD COUNT 12.1 10^3/uL (4.0-10.5)
[2016-08-22] MEDS: IPRATROPIUM/ALBUTEROL 0.5-2.5 MG/3 ML AMPUL NEB PRN (09:32)
[2016-08-22] MEDS: ATORVASTATIN CALCIUM 40 MG TABLET PO SCH (10:06)
[2016-08-22] MEDS: DOCUSATE SODIUM 100 MG CAPSULE PO SCH (10:06)
[2016-08-22] MEDS: TAMSULOSIN HCL 0.4 MG CAP.SR.24H PO SCH (10:06)
[2016-08-22] MEDS: AMIODARONE HCL 200 MG TABLET PO SCH (10:06)
[2016-08-22] MEDS: FAMOTIDINE 20 MG TABLET PO SCH ×2 (10:06→22:42)
[2016-08-22] MEDS: NORMAL SALINE 10 ML SDV (SCHEDULED) IV SCH ×2 (10:07→22:43)
[2016-08-22] MEDS: ASPIRIN 325 MG TABLET PO SCH (10:07)
[2016-08-22] MEDS: SODIUM HYPOCHLORITE 0.25% SOLN 473 ML BOTTLE TP SCH (10:08)
--- NOTE | 2016-08-22 11:26 | PDOC PROGRESS REPORT ---
Subjective Progress Note for:: 08/22/16 Subjective:: No complaints Physical Exam Vital Signs: Temp Pulse Resp BP Pulse Ox 97.9 F 77 18 131/60 H 97 08/22/16 07:41 08/22/16 07:41 08/22/16 07:41 08/22/16 07:41 08/22/16 07:41 Intake & Output 08/21/16 08/22/16 08/23/16 06:59 06:59 06:59 Intake Total 1750 2801 Output Total 1600 1110 Balance 150 1691 Weight 86.5 kg 87.8 kg General appearance: PRESENT: no acute distress Musculoskeletal exam: PRESENT: other - VAC on the right foot, excellent seal; negligible. Edema; no cellulitis. Results Laboratory Results: 08/22/16 05:45 08/22/16 05:45 08/22/16 08/22/16 05:45 05:45 WBC 12.1 H RBC 3.60 L Hgb 10.6 L Hct 31.6 L MCV 88 MCH 29.4 MCHC 33.5 RDW 14.4 H Plt Count 307 Seg Neutrophils % 73.1 Lymphocytes % 8.5 L Monocytes % 14.0 H Eosinophils % 3.4 Basophils % 1.0 Absolute Neutrophils 8.8 H Absolute Lymphocytes 1.0 Absolute Monocytes 1.7 H Absolute Eosinophils 0.4 Absolute Basophils 0.1 Creatinine 0.90 Est GFR ( Amer) > 60 Est GFR (Non-Af Amer) > 60 Impressions: Extremity Ultrasound 08/10/16 00:00 IMPRESSION: Edematous soft tissue is identified suggesting a cellulitis. No discrete fluid collections are identified. Other findings as noted above Foot X-Ray 08/10/16 00:00 IMPRESSION: NEGATIVE STUDY OF THE RIGHT FOOT. NO EXPLANATION FOR PAIN. No evidence for osteomyelitis. Guidance Fluoroscopy 08/16/16 00:00 IMPRESSION: SUCCESSFUL PLACEMENT OF A 5 FR DUAL LUMEN 41 CM PICC IN THE right basilic VEIN. Interventional Vascular Procedure 08/16/16 00:00 IMPRESSION: SUCCESSFUL PLACEMENT OF A 5 FR DUAL LUMEN 41 CM PICC IN THE right basilic VEIN. PICC Line Insertion 08/16/16 08:00 IMPRESSION: SUCCESSFUL PLACEMENT OF A 5 FR DUAL LUMEN 41 CM PICC IN THE right basilic VEIN. Assessment & Plan - Diagnosis (1) Diabetic infection of right foot Is this a current diagnosis for this admission?: YesPlan: 1. Right foot stable, continues on intravenous antibiotics, and VAC therapy. 2. Plan VAC change tomorrow, meticulous wound reassessment.
[2016-08-22] MEDS: ERTAPENEM SODIUM 1 GM in NORMAL SALINE 50 ML IV SCH (13:53)
[2016-08-22] MEDS: VANCOMYCIN HCL 1,000 MG in DEXTROSE 5%-WATER 250 ML IV SCH (17:43)
--- NOTE | 2016-08-22 18:04 | PDOC PROGRESS REPORT ---
Subjective Progress Note for:: 08/22/16 Subjective:: Patient is doing well he has minimal complaints Redness of the foot is decreasing Wound VAC is applied Physical Exam Vital Signs: Temp Pulse Resp BP Pulse Ox 98.8 F 84 18 127/59 H 100 08/22/16 15:44 08/22/16 17:20 08/22/16 17:20 08/22/16 15:44 08/22/16 15:44 Intake & Output 08/21/16 08/22/16 08/23/16 00:59 00:59 00:59 Intake Total 3136 2651 1202 Output Total 5054 586 6308 Balance 1186 2091 152 Weight 86.5 kg 87.8 kg General appearance: PRESENT: no acute distress, well-developed, well-nourished Head exam: PRESENT: atraumatic, normocephalic Eye exam: PRESENT: conjunctiva pink, EOMI, PERRLA. ABSENT: scleral icterus Neck exam: ABSENT: carotid bruit, JVD, lymphadenopathy, thyromegaly Respiratory exam: PRESENT: clear to auscultation caroline. ABSENT: rales, rhonchi, wheezes Cardiovascular exam: PRESENT: RRR. ABSENT: diastolic murmur, rubs, systolic murmur Pulses: PRESENT: normal dorsalis pedis pul Vascular exam: PRESENT: normal capillary refill GI/Abdominal exam: PRESENT: normal bowel sounds, soft. ABSENT: distended, guarding, mass, organolmegaly, rebound, tenderness Rectal exam: PRESENT: deferred Extremities exam: PRESENT: full ROM, other - Wound VAC applied to wound plantar aspect right foot. ABSENT: calf tenderness, clubbing, pedal edema Neurological exam: PRESENT: alert, awake, oriented to person, oriented to place , oriented to time, oriented to situation, CN II-XII grossly intact. ABSENT: motor sensory deficit Psychiatric exam: PRESENT: appropriate affect, normal mood. ABSENT: homicidal ideation, suicidal ideation Skin exam: PRESENT: dry, intact, warm. ABSENT: cyanosis, rash Results Laboratory Results: 08/22/16 05:45 08/22/16 05:45 08/22/16 08/22/16 05:45 05:45 WBC 12.1 H RBC 3.60 L Hgb 10.6 L Hct 31.6 L MCV 88 MCH 29.4 MCHC 33.5 RDW 14.4 H Plt Count 307 Seg Neutrophils % 73.1 Lymphocytes % 8.5 L Monocytes % 14.0 H Eosinophils % 3.4 Basophils % 1.0 Absolute Neutrophils 8.8 H Absolute Lymphocytes 1.0 Absolute Monocytes 1.7 H Absolute Eosinophils 0.4 Absolute Basophils 0.1 Creatinine 0.90 Est GFR ( Amer) > 60 Est GFR (Non-Af Amer) > 60 Impressions: Extremity Ultrasound 08/10/16 00:00 IMPRESSION: Edematous soft tissue is identified suggesting a cellulitis. No discrete fluid collections are identified. Other findings as noted above Foot X-Ray 08/10/16 00:00 IMPRESSION: NEGATIVE STUDY OF THE RIGHT FOOT. NO EXPLANATION FOR PAIN. No evidence for osteomyelitis. Guidance Fluoroscopy 08/16/16 00:00 IMPRESSION: SUCCESSFUL PLACEMENT OF A 5 FR DUAL LUMEN 41 CM PICC IN THE right basilic VEIN. Interventional Vascular Procedure 08/16/16 00:00 IMPRESSION: SUCCESSFUL PLACEMENT OF A 5 FR DUAL LUMEN 41 CM PICC IN THE right basilic VEIN. PICC Line Insertion 08/16/16 08:00 IMPRESSION: SUCCESSFUL PLACEMENT OF A 5 FR DUAL LUMEN 41 CM PICC IN THE right basilic VEIN. Assessment & Plan - Diagnosis (1) COPD (chronic obstructive pulmonary disease) Is this a current diagnosis for this admission?: Yes (2) Diabetic foot ulcer Qualifiers: Diabetes mellitus type: type 2 Laterality: right Is this a current diagnosis for this admission?: Yes (3) Diabetic infection of right foot Is this a current diagnosis for this admission?: Yes (4) Hypertension Qualifiers: Hypertension type: unspecified secondary hypertension Qualified Code (s): I15.9 - Secondary hypertension, unspecified; I15 - Secondary hypertension Is this a current diagnosis for this admission?: Yes (5) Ischemic cardiomyopathy Is this a current diagnosis for this admission?: Yes - Time Time Spent with patient: Continue present management Time Spent with patient: 15-24 minutes
[2016-08-22] MEDS: NORMAL SALINE 10 ML SDV (AFTER EACH USE) IV PRN (19:56)
[2016-08-23] MEDS: GABAPENTIN 400 MG CAPSULE PO SCH ×4 (01:07→17:46)
[2016-08-23] MEDS: IPRATROPIUM/ALBUTEROL 0.5-2.5 MG/3 ML AMPUL NEB PRN ×2 (01:42→12:54)
[2016-08-23] MEDS: MAGNESIUM HYDROXIDE SUSP 30 ML UDCUP PO PRN (01:52)
[2016-08-23] MEDS: VANCOMYCIN HCL 1,000 MG in DEXTROSE 5%-WATER 250 ML IV SCH ×2 (05:20→17:46)
[2016-08-23] MEDS: NORMAL SALINE 10 ML SDV (AFTER EACH USE) IV PRN (05:20)
--- NOTE | 2016-08-23 09:10 | PDOC PROGRESS REPORT ---
Subjective Progress Note for:: 08/23/16 Subjective:: No complaints this morning Physical Exam Vital Signs: Temp Pulse Resp BP Pulse Ox 98.0 F 71 18 124/59 L 99 08/23/16 07:31 08/23/16 07:31 08/23/16 07:31 08/23/16 07:31 08/23/16 07:31 Intake & Output 08/22/16 08/23/16 08/24/16 06:59 06:59 06:59 Intake Total 2801 1602 Output Total 1110 900 Balance 1691 702 Weight 87.8 kg 89.3 kg Extremities exam: PRESENT: other - VAC removed; much improved foot in terms of reduced erythema or edema. No foul smell. Plantar tendons desiccating. Results Laboratory Results: 08/22/16 05:45 08/22/16 05:45 Impressions: Extremity Ultrasound 08/10/16 00:00 IMPRESSION: Edematous soft tissue is identified suggesting a cellulitis. No discrete fluid collections are identified. Other findings as noted above Foot X-Ray 08/10/16 00:00 IMPRESSION: NEGATIVE STUDY OF THE RIGHT FOOT. NO EXPLANATION FOR PAIN. No evidence for osteomyelitis. Guidance Fluoroscopy 08/16/16 00:00 IMPRESSION: SUCCESSFUL PLACEMENT OF A 5 FR DUAL LUMEN 41 CM PICC IN THE right basilic VEIN. Interventional Vascular Procedure 08/16/16 00:00 IMPRESSION: SUCCESSFUL PLACEMENT OF A 5 FR DUAL LUMEN 41 CM PICC IN THE right basilic VEIN. PICC Line Insertion 08/16/16 08:00 IMPRESSION: SUCCESSFUL PLACEMENT OF A 5 FR DUAL LUMEN 41 CM PICC IN THE right basilic VEIN. Assessment & Plan - Diagnosis (1) Diabetic infection of right foot Is this a current diagnosis for this admission?: Yes (2) Diabetic foot ulcer Qualifiers: Diabetes mellitus type: type 2 Laterality: right Is this a current diagnosis for this admission?: YesPlan: 1. Right foot wound is turned the corner. No indication for further debridement. 2. Recommend continue VAC therapy, as an outpatient, conjunction with intravenous antibiotics. Will work with.
[2016-08-23] MEDS: AMIODARONE HCL 200 MG TABLET PO SCH (09:44)
[2016-08-23] MEDS: ATORVASTATIN CALCIUM 40 MG TABLET PO SCH (09:44)
[2016-08-23] MEDS: ASPIRIN 325 MG TABLET PO SCH (09:44)
[2016-08-23] MEDS: FAMOTIDINE 20 MG TABLET PO SCH (09:44)
[2016-08-23] MEDS: DOCUSATE SODIUM 100 MG CAPSULE PO SCH (09:44)
[2016-08-23] MEDS: TAMSULOSIN HCL 0.4 MG CAP.SR.24H PO SCH (09:44)
[2016-08-23] MEDS: NORMAL SALINE 10 ML SDV (SCHEDULED) IV SCH (09:45)
--- NOTE | 2016-08-23 10:44 | PDOC DISCHARGE SUMMARY ---
General - Admit/Disc Date/PCP Admission Date/Primary Care Provider: 08/10/16 16:14 ILANA QUEEN Discharge Date: 08/23/16 - Discharge Diagnosis (1) COPD (chronic obstructive pulmonary disease) Is this a current diagnosis for this admission?: Yes (2) Diabetic foot ulcer Is this a current diagnosis for this admission?: Yes (3) Diabetic infection of right foot Is this a current diagnosis for this admission?: Yes (4) Hypertension Is this a current diagnosis for this admission?: Yes (5) Ischemic cardiomyopathy Is this a current diagnosis for this admission?: Yes - Additional Information Resuscitation Status: Full Code Home Medications: Albuterol Sulfate [Ventolin HFA MDI 18 GM] 1 puff IH Q6HP PRN 08/11/16 Amiodarone HCl [Cordarone 200 mg Tablet] 400 mg PO DAILY 08/11/16 Amitriptyline HCl [Elavil 25 mg Tablet] 25 mg PO QHS 08/11/16 Aspirin [Aspirin 325 mg Tablet] 325 mg PO DAILY 08/11/16 Atorvastatin Calcium [Lipitor 40 mg Tablet] 40 mg PO DAILY 08/11/16 Lisinopril [Prinivil 2.5 mg Tablet] 2.5 mg PO DAILY 08/11/16 Potassium Chloride [Klor-Con 10] 10 meq PO DAILY 08/11/16 Tamsulosin HCl [Flomax 0.4 mg Cap.sr] 0.4 mg PO DAILY 08/11/16 Umeclidinium [place] [Incruse Ellipta] 62.5 mcg IH DAILY 08/11/16 Ertapenem Sodium [Invanz Inj 1 gm Vial] 1 gm IV DAILY@1400 #15 vial 08/23/16 Furosemide [Lasix] 20 mg PO DAILY #30 tablet 08/23/16 Gabapentin [Neurontin 400 mg Capsule] 400 mg PO TID #0 08/23/16 Vancomycin/0.9 % Sod Chloride [Vancomycin 1 G/200Ml-0.9% NaCl] 1 gm IV Q12 #30 [id number].[email or web address] 08/23/16 History of Present Illness Patient complains of: INFECTION RIGHT FOOT History of Present Illness: YAMIL HOLLOWAY is a 71 year old male presents for direct admission from general surgeons office where he was referred from his PCP for a diabetic foot wound. Apparently about a week ago he inadvertently cut the lateral aspect of his right foot leaving a piece of "meat" hanging that he then removed with his pocket knife and has been treating with Epsom salts at home. The family noted the foot was more swollen and hot to the touch and that he was now unable to walk on it due to sharp shooting pains in his foot. They also noticed rigors at home tried to get him to come to the emergency department last night but he refused. He has diabetes with a severe peripheral neuropathy states normally he cannot feel his feet except when they hurt like they do now. Upon evaluation by the general surgeon it was quickly determined the wound would need debridement as it seems to encompass most of the plantar surface of the foot, and so we were asked to admit him directly from the office for IV antibiotics and consult the surgical list for evaluation. Hospital Course Hospital Course: Patient presented with a large diabetic foot ulcer The ulceration was on the plantar aspect of the right foot quite extensive and deep Patient underwent debridement several times in the OR The wound VAC was applied 08/19/16 14:29 Gram Stain - Preliminary Foot - Right Wound Culture - Preliminary Mrsa (Meth Resis Staph Aureus) Group B Beta Streptococcus 08/12/16 14:09 Gram Stain - Final Foot - Tissue Wound Culture - Final Mrsa (Meth Resis Staph Aureus) Group B Beta Streptococcus No Anaerobic Organisms Cultures were as above Patient was initially treated just with vancomycin and it appeared that the redness was still persistent without much improvement Ertapenem was added and within 48 hours the foot looked a lot better Patient will be sent home on ertapenem and vancomycin IV for 2 weeks The last vancomycin trough level was 19.9 before the dose was reduced to 1000 mg every 12 Patient will need a repeat vancomycin trough level tomorrow evening 08/24 before the next dose Patient was heavy narcotics prior to his admission There were discontinued as he was obtunded He has not needed any pain medication the last couple days Discontinued the OxyContin ; he should be just maintain on gabapentin His blood sugars are controlled without medications The range is from 100-120 We have discontinued all hypoglycemic agents Metformin could be started if blood sugars are higher than 150 We'll advise for blood sugars to be checked 3 times a week by home nursing Physical Exam Vital Signs: Temp Pulse Resp BP Pulse Ox 98.0 F 71 20 124/59 L 99 08/23/16 07:31 08/23/16 09:07 08/23/16 09:07 08/23/16 07:31 08/23/16 09:07 Intake & Output 08/22/16 08/23/16 08/24/16 00:59 00:59 00:59 Intake Total 2651 1402 350 Output Total 560 1200 250 Balance 2091 202 100 Weight 87.8 kg 89.3 kg Results Laboratory Results: 08/22/16 05:45 08/22/16 05:45 Impressions: Extremity Ultrasound 08/10/16 00:00 IMPRESSION: Edematous soft tissue is identified suggesting a cellulitis. No discrete fluid collections are identified. Other findings as noted above Foot X-Ray 08/10/16 00:00 IMPRESSION: NEGATIVE STUDY OF THE RIGHT FOOT. NO EXPLANATION FOR PAIN. No evidence for osteomyelitis. Guidance Fluoroscopy 08/16/16 00:00 IMPRESSION: SUCCESSFUL PLACEMENT OF A 5 FR DUAL LUMEN 41 CM PICC IN THE right basilic VEIN. Interventional Vascular Procedure 08/16/16 00:00 IMPRESSION: SUCCESSFUL PLACEMENT OF A 5 FR DUAL LUMEN 41 CM PICC IN THE right basilic VEIN. PICC Line Insertion 08/16/16 08:00 IMPRESSION: SUCCESSFUL PLACEMENT OF A 5 FR DUAL LUMEN 41 CM PICC IN THE right basilic VEIN. Plan Discharge Plan: discharged with Home Health, Home nursing , Home Infusions Time Spent: Greater than 30 Minutes
[2016-08-23] MEDS: ERTAPENEM SODIUM 1 GM in NORMAL SALINE 50 ML IV SCH (14:07)
[2016-08-23 19:08] VITALS: BP 130/61
== END 2016-08-23 20:23 | disposition home health service (06) | DRG 623 ==
LOC: 4S 16:14 → 4W 08-13 20:32
PROVIDERS: ADMIT Internal Medicine; ATTEND Internal Medicine
PROC: 0JBQ0ZZ Excision of Right Foot Subcutaneous Tissue and Fascia, Open Approach (ICD-10-PCS; principal; 2016-08-12 13:45)
PROC: 0JBQ0ZZ Excision of Right Foot Subcutaneous Tissue and Fascia, Open Approach (ICD-10-PCS; 2016-08-16)
PROC: 0HBMXZZ Excision of Right Foot Skin, External Approach (ICD-10-PCS; 2016-08-16)
PROC: 02HV33Z Insertion of Infusion Device into Superior Vena Cava, Percutaneous Approach (ICD-10-PCS; 2016-08-16)
PROC: B5181ZA Fluoroscopy of Superior Vena Cava using Low Osmolar Contrast, Guidance (ICD-10-PCS; 2016-08-16)
PROC: B548ZZA Ultrasonography of Superior Vena Cava, Guidance (ICD-10-PCS; 2016-08-16)
PROC: 0Y9M00Z Drainage of Right Foot with Drainage Device, Open Approach (ICD-10-PCS; 2016-08-16)
DX: E11.621 Type 2 diabetes mellitus with foot ulcer (principal); J96.11 Chronic respiratory failure with hypoxia; L97.519 Non-pressure chronic ulcer of other part of right foot with unspecified severity; E11.59 Type 2 diabetes mellitus with other circulatory complications; E11.51 Type 2 diabetes mellitus with diabetic peripheral angiopathy without gangrene; L08.89 Other specified local infections of the skin and subcutaneous tissue; B95.62 Methicillin resistant Staphylococcus aureus infection as the cause of diseases classified elsewhere; B95.1 Streptococcus, group B, as the cause of diseases classified elsewhere; J44.9 Chronic obstructive pulmonary disease, unspecified; I15.9 Secondary hypertension, unspecified; I48.2 Chronic atrial fibrillation; I49.9 Cardiac arrhythmia, unspecified; I25.5 Ischemic cardiomyopathy; F17.220 Nicotine dependence, chewing tobacco, uncomplicated; Z79.4 Long term (current) use of insulin; Z79.82 Long term (current) use of aspirin; Z79.899 Other long term (current) drug therapy; Z95.0 Presence of cardiac pacemaker; Z99.81 Dependence on supplemental oxygen
CPT/HCPCS: 00400; 36415; 36569; 76882; 76937; 77001; 80048; 80202; 82565; 82962; 83036; 85025; 85610; 86140; 87040; 87070; 87075; 87077; 87186; 87205; 93005; 93010; 93926; 94640; C1769; J0295; J1335; J1642; J1815; J2250; J2270; J2543; J2704; J3010; J3370; J3490; J7030; J7060; J7620

== ENCOUNTER 2016-09-07 13:19 | Observation (INO) | payer MEDICARE ==
--- NOTE | 2016-09-07 13:33 | ER Document Report ---
ED General - General Mode of Arrival: Medic Information source: Relative Cannot obtain history due to: Dementia - Obtained from daughter in law TRAVEL OUTSIDE OF THE [place] IN LAST 30 DAYS: No - HPI Patient complains to provider of: Altered Mental Status Onset: Other - 09/04/2016 Onset/Duration: Gradual, Worse Associated symptoms: Vomiting, Weakness - right side, Other - garbled speech <JAYSON BENOIT - Last Filed: 09/07/16 15:47> <ANGY SAAB - Last Filed: 09/07/16 21:20> - General Chief Complaint: Altered Mental Status Stated Complaint: ALTERED MENTAL STATUS Notes: Patient is a 71 y/o male presenting to the emergency department via EMS due to altered mental status x 3 days. Per patient's daughter in law, the patient is normally on 2L of oxygen and he also uses a nebulizer, which he used on the way here. Patient was seen here 08/09/16 for diabetic foot ulcer, and discharged . Patient was coming to [facility] today to have his PICC line changed, but upon arrival, patient was sent straight to the ED. Per daughter in law, these symptoms began Tuesday, a little confused, took a nap and woke up feeling fine. Tuesday the symptoms progressed a little more- figity, hollering and slurred speech. Yesterday patient was unable to hold bottle of water. Prior to being admitted for his foot, patient was taking percocet and oxycodone, but was taken off while he was here. Patient received Invanz and vancomycin this morning through his PICC. Patient last ate last night, daughter in law denies any choking, but states that the patient needs help feeding. Patients daughter reports garbled speech and right sided deficit. Patient chews tobacco daily. Patient is alert, can deny pain and fall. Patients daughter in law also points out rash all over back and states that he has vomited x1 last night. (JAYSON BENOIT) - Related Data Allergies/Adverse Reactions: No Known Allergies Allergy (Verified 11/01/12 14:45) Home Medications: Current Home Medications Albuterol Sulfate [Ventolin Hfa] 1 puff IH Q6HP PRN 09/07/16 [History] Amiodarone HCl [Cordarone 200 mg Tablet] 400 mg PO DAILY 09/07/16 [History] Amitriptyline HCl [Elavil 25 mg Tablet] 25 mg PO QHS 09/07/16 [History] Aspirin [Aspirin 325 mg Tablet] 325 mg PO DAILY 09/07/16 [History] Atorvastatin Calcium [Lipitor 40 mg Tablet] 40 mg PO DAILY 09/07/16 [History] Ertapenem Sodium [Invanz Inj 1 gm Vial] 1 gm IV DAILY@1400 09/07/16 [History] Furosemide [Lasix] 20 mg PO DAILY 09/07/16 [History] Gabapentin [Neurontin 400 mg Capsule] 400 mg PO Q8 09/07/16 [History] Lisinopril [Prinivil 2.5 mg Tablet] 2.5 mg PO DAILY 09/07/16 [History] Potassium Chloride [Klor-Con 10] 10 meq PO DAILY 09/07/16 [History] Tamsulosin HCl [Flomax 0.4 mg Cap.sr] 0.4 mg PO DAILY 09/07/16 [History] Tiotropium [place] [Spiriva Respimat] 1 puff IH DAILY 09/07/16 [History] Umeclidinium [place] [Incruse Ellipta] 1 puff IH DAILY 09/07/16 [History] Vancomycin/0.9 % Sod Chloride [Vancomycin 1 G/200Ml-0.9% NaCl] 1 gm IV Q12 09/07 [History] Past Medical History - General Information source: Relative - Daughter in Law, [facility] Records - Social History Smoking Status: Unknown if Ever Smoked Chew tobacco use (# tins/day): Yes Frequency of alcohol use: None Lives with: Family Family History: Reviewed & Not Pertinent, Other - Past Medical History Cardiac Medical History: Reports: Hx Congestive Heart Failure, Hx Hypertension Pulmonary Medical History: Reports: Hx COPD, Hx Pneumonia Endocrine Medical History: Reports: Hx Diabetes Mellitus Type 2 Past Surgical History: Reports: Hx Cardiac Surgery - pacer/defib, Hx Pacemaker - Immunizations Hx Pneumococcal Vaccination: 06/06/13 <JAYSON BENOIT - Last Filed: 09/07/16 15:47> Review of Systems - Review of Systems -: Yes ROS unobtainable due to patient's medical condition - ROS unobtainable due to altered mental status. <JAYSON BENOIT - Last Filed: 09/07/16 15:47> Physical Exam - General General appearance: Alert - HEENT Head: Normocephalic, Atraumatic Eyes: Normal Pupils: PERRL - Respiratory Respiratory status: No respiratory distress Chest status: Nontender Breath sounds: Normal Chest palpation: Normal - Cardiovascular Rhythm: Regular Heart sounds: Normal auscultation Murmur: No - Abdominal Inspection: Normal Distension: No distension Bowel sounds: Normal Tenderness: Nontender Organomegaly: No organomegaly - Back Back: Normal, Nontender - Extremities General upper extremity: Normal inspection, Nontender Foot: Other - wound vac in place. no necrosis, crepitace, or cellulitis. small stage one ulceration to the lateral aspect of right foot. 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 - Psychological Associated symptoms: Normal affect, Normal mood - Skin Skin Temperature: Warm Skin Moisture: Dry Skin irregularity: Rash Location of irregularity: Back, Extremities - Bilateral upper extremities Character of irregularity: Maculopapular <JAYSON BENOIT - Last Filed: 09/07/16 15:47> Course - Laboratory Result Diagrams: 09/07/16 14:30 09/07/16 14:30 <JASYON BENOIT - Last Filed: 09/07/16 15:47> - Laboratory Result Diagrams: 09/07/16 14:30 09/07/16 14:30 <ANGY SAAB - Last Filed: 09/07/16 21:20> - Re-evaluation Re-evalutation: 09/07/16 13:46 I personally performed the services described in the documentation, reviewed and edited the documentation which was dictated to my scribe in my presence, and it accurately records my words and actions. Patient presents to the emergency department from [facility]. He is here with his [id number] and son who are caring for him at home. Patient was diagnosed with the diabetic wound infection to his right foot earlier this month was admitted PICC line IV antibiotics and seen Dr. Clarissa Chase. He was scheduled for an outpatient change of his PICC line today and when he got here the nurse was concerned about an altered mental status and wound to the ER as a patient. [id number] is been with him constantly states that since Tuesday he's had slurred speech wanting to sleep all the time and weakness in his right side of his body. 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 She follow-up with Dr. cee yesterday who refilled the medication but she states she hasn't given him any. On examination the patient has garbled speech which she states started on Tuesday. He is never fall asleep but is easily aroused. He has dry mucous membranes no nuchal rigidity negative rectal temperature. Lungs are clear no respiratory distress no acute abdominal guarding rebound or rigidity. Right lower extremity wound VAC is in place appropriately with good pulses perfusion no necrosis or crepitus tenderness or swelling. Emergent workup including CT of the head is pursued. Accu-Chek is normal at the bedside 09/07/16 15:58 09/07/16 15:58 (ANGY SAAB) - Vital Signs Vital signs: Temp Pulse Resp BP Pulse Ox 98.2 F 84 24 H 117/54 L 96 09/07/16 18:29 09/07/16 18:29 09/07/16 18:29 09/07/16 18:29 09/07/16 18:29 - Laboratory Laboratory results interpreted by me: 09/07/16 09/07/16 09/07/16 14:30 14:30 14:30 RBC 3.69 L Hgb 10.6 L Hct 31.6 L RDW 14.6 H Lymphocytes % 9.5 L Carbonic Acid ABG pCO2 ABG pO2 ABG HCO3 ABG Total CO2 Carbon Dioxide 34 H AST 103 H ALT 105 H CK-MB (CK-2) 5.04 H NT-Pro-B Natriuret Pep 3280 H Albumin 2.6 L Urine Urobilinogen 09/07/16 09/07/16 15:15 15:55 RBC Hgb Hct RDW Lymphocytes % Carbonic Acid 1.45 H ABG pCO2 48.1 H ABG pO2 73.4 L ABG HCO3 32.8 H ABG Total CO2 34.2 H Carbon Dioxide AST ALT CK-MB (CK-2) NT-Pro-B Natriuret Pep Albumin Urine Urobilinogen 2.0 H - EKG Interpretation by Me Additional EKG results interpreted by me: 09/07/16 15:59 EKG paced rhythm (ANGY SAAB) Critical Care Note - Critical Care Note Total time excluding time spent on procedures (mins): 45 <ANGY SAAB - Last Filed: 09/07/16 21:20> Discharge <JAYSON BENOIT - Last Filed: 09/07/16 15:47> - Discharge Admitting Provider: Hospitalist Unit Admitted: [facility] <ANGY SAAB - Last Filed: 09/07/16 21:20> - Discharge Clinical Impression: ongoing diabetic wound infection, mildly elevated liver enzymes CVA (cerebral vascular accident) Qualifiers: CVA mechanism: unspecified Qualified Code(s): I63.9 - Cerebral infarction, unspecified Condition: Stable Disposition: ADMITTED INPATIENT Scribe Documentation - Scribe Written by Scribe:: Jayson Benoit 09/07/2016 1332 acting as scribe for :: Dr. Saab <JAYSON BENOIT - Last Filed: 09/07/16 15:47>
[2016-09-07 14:44] LABS: ABSOLUTE BASOPHILS # (AUTO) 0.1 10^3/uL (0.0-0.2); ABSOLUTE EOSINOPHILS # (AUTO) 0.2 10^3/uL (0.0-0.6); ABSOLUTE LYMPHOCYTES (AUTO) 0.8 10^3/uL (0.5-4.7); BASOPHILS % (AUTO) 1.3 % (0-2); EOSINOPHILS % (AUTO) 2.8 % (0-6); HEMATOCRIT 31.6 % (37.9-51.0); HEMOGLOBIN 10.6 g/dL (13.5-17.0); HGB HCT DIFFERENCE 0.2; LYMPHOCYTES % (AUTO) 9.5 % (13-45); MEAN CORPUSCULAR HEMOGLOBIN 28.6 pg (27.0-33.4); MEAN CORPUSCULAR HGB CONC 33.4 g/dL (32.0-36.0); MEAN CORPUSCULAR VOLUME 86 fl (80-97); RED BLOOD COUNT 3.69 10^6/uL (4.35-5.55); RED CELL DISTRIBUTION WIDTH 14.6 % (11.5-14.0); SEGMENTED NEUTROPHILS % (AUTO) 74.4 % (42-78)
[2016-09-07 15:06] LABS: ALANINE AMINOTRANSFERASE 105 U/L (21-72); ALBUMIN 2.6 g/dL (3.5-5.0); ALKALINE PHOSPHATASE 113 U/L (38-126); ANION GAP 8 (5-19); ASPARTATE AMINO TRANSFERASE 103 U/L (17-59); BILIRUBIN,DIRECT 0.4 mg/dL (0.0-0.4); BILIRUBIN,TOTAL 0.7 mg/dL (0.2-1.3); BLOOD UREA NITROGEN 16 mg/dL (7-20); CALCIUM 8.4 mg/dL (8.4-10.2); CARBON DIOXIDE 34 mmol/L (22-30); CHLORIDE 98 mmol/L (98-107); CREATININE RESULT 0.89 mg/dL (0.52-1.25); GLUCOSE 95 mg/dL (75-110); POTASSIUM 3.9 mmol/L (3.6-5.0); SODIUM 139.7 mmol/L (137-145); TOTAL PROTEIN 6.3 g/dL (6.3-8.2)
[2016-09-07 15:17] LABS: CREATINE KINASE MB 5.04 ng/mL (<4.55); TROPONIN I 0.014 ng/mL
[2016-09-07 15:44] LABS: AMORPHOUS SEDIMENT,URINE TRACE /HPF; APPEARANCE,URINE CLOUDY; BILIRUBIN,URINE NEGATIVE (NEGATIVE); GLUCOSE, URINE NEGATIVE (NEGATIVE); KETONES,URINE NEGATIVE (NEGATIVE); LEUKOCYTE ESTERASE,URINE NEGATIVE (NEGATIVE); NITRITE,URINE NEGATIVE (NEGATIVE); PROTEIN,URINE NEGATIVE (NEGATIVE); URINE SPECIFIC GRAVITY 1.013
[2016-09-07 16:07] LABS: ARTERIAL BLOOD BASE EXCESS 7.8 mmol/L; ARTERIAL BLOOD O2 SATURATION 95.2 % (94-98)
[2016-09-07] MEDS ORDERED: NORMAL SALINE 1000 ML 1,000 ML IV ONE (16:10)
--- NOTE | 2016-09-07 17:20 | PDOC H&P ---
History of Present Illness Admission Date/PCP: 09/07/2016 Dr. Nadeen gomez Salvatore Patient complains of: Altered mental status History of Present Illness: FIDENCIO TONY is a 71 year old male is well known to the hospitalist service. The patient presented to the emergency department via EMS due to altered mental status x 3 days. Per patient's daughter in law, the patient is normally on 2L of oxygen and he also uses a nebulizer, which he used on the way here. Patient was seen here 08/09/16 for diabetic foot ulcer, and discharged . Patient was coming to [facility] today to have his PICC line changed, but upon arrival, patient was sent straight to the ED. Per daughter in law, these symptoms began Tuesday, a little confused, took a nap and woke up feeling fine. Tuesday the symptoms progressed a little more- figity, hollering and slurred speech. Yesterday patient was unable to hold bottle of water. The patient has no unilateral deficits. Prior to being admitted for his foot, patient was taking percocet and oxycodone , but was taken off while he was here since the patient was not requiring any narcotics for pain management. However after the patient was discharged family took him back to pain management and the patient's prescription was resumed. Patient received Invanz and vancomycin this morning through his PICC. Patient last ate last night, daughter in law denies any choking, but states that the patient needs help feeding. Patients daughter reports garbled speech and right sided deficit. Patient chews tobacco daily. Patient is alert, can deny pain and fall. Patients daughter in law also points out rash all over back and states that he has vomited x1 last night. MEDICATIONS: The medications listed in this document may have been auto- populated from previous contact and may not been verified or reconciled. This may not be an accurate reflection of the patient's home medication(s); however, authors are unable to edit or delete the medications listed in this document as "home medications". Past Medical History Cardiac Medical History: Reports: Congestive Heart Failure, Hypertension Pulmonary Medical History: Reports: Chronic Obstructive Pulmonary Disease (COPD) , Pneumonia Endocrine Medical History: Reports: Diabetes Mellitus Type 2 Past Surgical History Past Surgical History: Reports: Pacemaker Social History Information Source: Patient Occupation: Retired Lives with: Family Smoking Status: Unknown if Ever Smoked Frequency of Alcohol Use: None Hx Recreational Drug Use: No Hx Prescription Drug Abuse: No - Advance Directive Resuscitation Status: Full Code Surrogate healthcare decision maker:: Gui Tony [phone] Family History Family History: Reviewed & Not Pertinent, COPD, Hypertension, Other Parental Family History Reviewed: Yes Children Family History Reviewed: Yes Sibling(s) Family History Reviewed.: Yes Medication/Allergy Home Medications: Albuterol Sulfate [Ventolin HFA MDI 18 GM] 1 puff IH Q6HP PRN 08/11/16 Amiodarone HCl [Cordarone 200 mg Tablet] 400 mg PO DAILY 08/11/16 Amitriptyline HCl [Elavil 25 mg Tablet] 25 mg PO QHS 08/11/16 Aspirin [Aspirin 325 mg Tablet] 325 mg PO DAILY 08/11/16 Atorvastatin Calcium [Lipitor 40 mg Tablet] 40 mg PO DAILY 08/11/16 Lisinopril [Prinivil 2.5 mg Tablet] 2.5 mg PO DAILY 08/11/16 Potassium Chloride [Klor-Con 10] 10 meq PO DAILY 08/11/16 Tamsulosin HCl [Flomax 0.4 mg Cap.sr] 0.4 mg PO DAILY 08/11/16 Umeclidinium [place] [Incruse Ellipta] 62.5 mcg IH DAILY 08/11/16 Ertapenem Sodium [Invanz Inj 1 gm Vial] 1 gm IV DAILY@1400 #15 vial 08/23/16 Furosemide [Lasix] 20 mg PO DAILY #30 tablet 08/23/16 Gabapentin [Neurontin 400 mg Capsule] 400 mg PO TID #0 08/23/16 Vancomycin/0.9 % Sod Chloride [Vancomycin 1 G/200Ml-0.9% NaCl] 1 gm IV Q12 #30 froz.[email or web address] 08/23/16 Allergies/Adverse Reactions: No Known Allergies Allergy (Verified 11/01/12 14:45) Review of Systems ROS unobtainable: Due to mental status Physical Exam General appearance: PRESENT: no acute distress, disheveled Exam: Frail, chronically ill-appearing Head exam: PRESENT: atraumatic, normocephalic Eye exam: PRESENT: conjunctiva pale, EOMI, PERRLA. ABSENT: scleral icterus Ear exam: PRESENT: normal external ear exam Mouth exam: PRESENT: moist, tongue midline Neck exam: ABSENT: carotid bruit, JVD, lymphadenopathy, thyromegaly Respiratory exam: PRESENT: decreased breath sounds, symmetrical, unlabored. ABSENT: rales, rhonchi, tachypnea, wheezes Cardiovascular exam: PRESENT: RRR. ABSENT: diastolic murmur, rubs, systolic murmur Pulses: PRESENT: normal dorsalis pedis pul Vascular exam: PRESENT: normal capillary refill GI/Abdominal exam: PRESENT: normal bowel sounds, soft. ABSENT: distended, guarding, mass, organolmegaly, rebound, tenderness Rectal exam: PRESENT: deferred Extremities exam: PRESENT: full ROM. ABSENT: calf tenderness, clubbing, pedal edema Neurological exam: PRESENT: alert, altered, awake. ABSENT: motor sensory deficit Psychiatric exam: PRESENT: unusual affect. ABSENT: homicidal ideation, suicidal ideation Skin exam: PRESENT: dry, intact, mottled, pallor, rash - On the top of left foot and on the patient's back. This is non-papular erythematous, warm. ABSENT : cyanosis Results Laboratory Results: 09/07/16 14:30 09/07/16 14:30 09/07/16 09/07/16 09/07/16 14:30 14:30 15:15 WBC 8.0 RBC 3.69 L Hgb 10.6 L Hct 31.6 L MCV 86 MCH 28.6 MCHC 33.4 RDW 14.6 H Plt Count 322 Seg Neutrophils % 74.4 Lymphocytes % 9.5 L Monocytes % 12.0 Eosinophils % 2.8 Basophils % 1.3 Absolute Neutrophils 6.0 Absolute Lymphocytes 0.8 Absolute Monocytes 1.0 Absolute Eosinophils 0.2 Absolute Basophils 0.1 Carbonic Acid HCO3/H2CO3 Ratio ABG pH ABG pCO2 ABG pO2 ABG HCO3 ABG O2 Saturation ABG Base Excess FiO2 Sodium 139.7 Potassium 3.9 Chloride 98 Carbon Dioxide 34 H Anion Gap 8 BUN 16 Creatinine 0.89 Est GFR ( Amer) > 60 Est GFR (Non-Af Amer) > 60 Glucose 95 Calcium 8.4 Total Bilirubin 0.7 AST 103 H ALT 105 H Alkaline Phosphatase 113 Total Protein 6.3 Albumin 2.6 L Urine Color YELLOW Urine Appearance CLOUDY Urine pH 5.0 Ur Specific [place] 1.013 Urine Protein NEGATIVE Urine Glucose (UA) NEGATIVE Urine Ketones NEGATIVE Urine Blood NEGATIVE Urine Nitrite NEGATIVE Ur Leukocyte Esterase NEGATIVE Urine WBC (Auto) 1 Urine RBC (Auto) 12 09/07/16 15:55 WBC RBC Hgb Hct MCV MCH MCHC RDW Plt Count Seg Neutrophils % Lymphocytes % Monocytes % Eosinophils % Basophils % Absolute Neutrophils Absolute Lymphocytes Absolute Monocytes Absolute Eosinophils Absolute Basophils Carbonic Acid 1.45 H HCO3/H2CO3 Ratio 22:1 ABG pH 7.45 ABG pCO2 48.1 H ABG pO2 73.4 L ABG HCO3 32.8 H ABG O2 Saturation 95.2 ABG Base Excess 7.8 FiO2 2 L Sodium Potassium Chloride Carbon Dioxide Anion Gap BUN Creatinine Est GFR ( Amer) Est GFR (Non-Af Amer) Glucose Calcium Total Bilirubin AST ALT Alkaline Phosphatase Total Protein Albumin Urine Color Urine Appearance Urine pH Ur Specific [place] Urine Protein Urine Glucose (UA) Urine Ketones Urine Blood Urine Nitrite Ur Leukocyte Esterase Urine WBC (Auto) Urine RBC (Auto) 09/07/16 14:30 CK-MB (CK-2) 5.04 H Troponin I 0.014 NT-Pro-B Natriuret Pep 3280 H Impressions: Chest X-Ray 09/07/16 13:30 IMPRESSION: Mild alveolar/interstitial infiltrates in the left lung apex and right upper lobe adjacent to the minor fissure. These could be acute or chronic , most recent chest film for comparison is from 2013. Right PICC line tip superior vena cava, this catheter was placed 08/16/2016. Left-sided pacemaker/ defibrillator unchanged from [address] 09/07/16 13:31 IMPRESSION: Findings suggesting small vessel disease. No acute intracranial abnormality. Assessment & Plan - Diagnosis (1) Acute encephalopathy Is this a current diagnosis for this admission?: YesPlan: Uncertain of the exact etiology. Will obtain blood cultures. The patient's white count is normal. No evidence of fever. Have a suspicion for possible opiate misuse. Will obtain urine toxicology please review the patient's medication list from the opiates database. (2) Opiate dependence, continuous Is this a current diagnosis for this admission?: YesPlan: CHAVO LOBO Search Criteria: Last Name 'Chavo' and First Name 'Fidencio' and = '' and Request Period = '03/11/16' to '09/07/16' - 1 out of 1 Recipients Selected. Fill Date Product, Str, Form Qty Days Pt ID Prescriber Written RX# N/R* Pharm MED+ ------ ---- --------- --- ------- ----- --------- ------ 09/06/2016 OXYCONTIN 30 MG TABLET 60.00 30 [id number] 09/02/2016 [id number] N [id number] 90.0 09/06/2016 OXYCODONE HCL 30 MG TABLET 120.00 30 [id number] 09/02/2016 [id number] N [id number] 180.0 08/07/2016 OXYCODONE HCL 30 MG TABLET 120.00 30 [id number] 08/06/2016 [id number] N [id number] 180.0 08/07/2016 OXYCONTIN 30 MG TABLET 60.00 30 [id number] 08/06/2016 [id number] N [id number] 90.0 07/09/2016 OXYCONTIN 30 MG TABLET 60.00 30 [id number] 07/08/2016 [id number] N [id number] 90.0 07/09/2016 OXYCODONE HCL 30 MG TABLET 120.00 30 [id number] 07/08/2016 [id number] N [id number] 180.0 05/13/2016 ZOLPIDEM TARTRATE 10 MG TABLET 30.00 30 [id number] 2015 [id number] R [id number] 00.0 05/10/2016 OXYCONTIN 30 MG TABLET 60.00 30 [id number] 05/07/2016 [id number] N [id number] 90.0 05/10/2016 OXYCODONE HCL 30 MG TABLET 120.00 30 [id number] 05/07/2016 [id number] N [id number] 180.0 04/12/2016 ZOLPIDEM TARTRATE 10 MG TABLET 30.00 30 [id number] 2015 [id number] N [id number] 00.0 04/10/2016 OXYCODONE HCL 30 MG TABLET 120.00 30 [id number] 04/08/2016 [id number] N [id number] 180.0 04/10/2016 OXYCONTIN 30 MG TABLET 60.00 30 [id number] 04/08/2016 [id number] N [id number] 90.0 03/11/2016 OXYCONTIN 30 MG TABLET 60.00 30 [id number] 03/08/2016 [id number] N [id number] 90.0 03/11/2016 OXYCODONE HCL 30 MG TABLET 120.00 30 [id number] 03/08/2016 [id number] N [id number] 180.0 [id number] NEAL JOHNSON MD; [address] [facility] [address] [id number] [place] MARY); [facility], [address] [facility] [address] [id number] SUSANA SCHERER S, [employer]; [facility], [address],, [facility] [address] (3) COPD (chronic obstructive pulmonary disease) Qualifiers: COPD type: unspecified COPD Qualified Code(s): J44.9 - Chronic obstructive pulmonary disease, unspecified Is this a current diagnosis for this admission?: YesPlan: Resume home meds when available (4) Cardiac dysrhythmia Qualifiers: Arrhythmia type: unspecified cardiac arrhythmia Qualified Code(s): I49.9 - Cardiac arrhythmia, unspecified Is this a current diagnosis for this admission?: YesPlan: Resume home meds when available. Patient is followed by Dr. Pérez. (5) Diabetic foot ulcer Qualifiers: Diabetes mellitus type: type 2 Laterality: right Is this a current diagnosis for this admission?: YesPlan: Continue wound VAC and IV antibiotics. Range PICC line as the original plan. (6) Hypertension Qualifiers: Hypertension type: unspecified secondary hypertension Qualified Code (s): I15.9 - Secondary hypertension, unspecified; I15 - Secondary hypertension Is this a current diagnosis for this admission?: YesPlan: Resume home meds when available (7) Ischemic cardiomyopathy Is this a current diagnosis for this admission?: Yes (8) Medical non-compliance Is this a current diagnosis for this admission?: Yes (9) Obstructive sleep apnea Is this a current diagnosis for this admission?: Yes (10) Tobacco dependence Is this a current diagnosis for this admission?: Yes - Time Time Spent: 50 to 70 Minutes Medications reviewed and adjusted accordingly: Yes Anticipated discharge: Home Within: within 24 hours, within 48 hours Disposition: The patient is a full code. Pending patient's symptomatology and diagnostic findings will reevaluate in the a.m.
[2016-09-07] MEDS ORDERED: LORATADINE 10 MG TABLET PO ONE (18:00)
[2016-09-07 18:11] LABS: URINE BARBITURATES SCREEN NEGATIVE; URINE METHADONE SCREEN NEGATIVE; URINE OPIATES LOW NEGATIVE; URINE PHENCYCLIDINE SCREEN NEGATIVE
[2016-09-07] MEDS ORDERED: FAMOTIDINE 20 MG TABLET PO ONE (18:30)
[2016-09-07] MEDS: HEPARIN SOD (PORCINE) 5,000 UNIT/ML 1 ML SYRINGE SUBCUT SCH (21:10)
[2016-09-07] MEDS: NORMAL SALINE 1000 ML 1,000 ML IV PRN (23:07)
[2016-09-08] MEDS: FAMOTIDINE 20 MG TABLET PO SCH ×2 (05:32→18:07)
[2016-09-08] MEDS: HEPARIN SOD (PORCINE) 5,000 UNIT/ML 1 ML SYRINGE SUBCUT SCH ×4 (05:32→21:12)
[2016-09-08] MEDS ORDERED: ALBUTEROL SULFATE HFA (90 MCG/PUFF) 8 GM MDI (1 MDI/ER DISP) IH PRN (07:59)
[2016-09-08] MEDS: IPRATROPIUM/ALBUTEROL 0.5-2.5 MG/3 ML AMPUL NEB PRN ×3 (09:16→20:37)
[2016-09-08] MEDS ORDERED: SOD CHLORIDE IV SCH (10:00)
[2016-09-08] MEDS ORDERED: VANCOMYCIN IV SCH (10:00)
[2016-09-08] MEDS ORDERED: (PENDING PHARMACY ID) (Umeclidinium Bromide [Incruse Ellipta] 1 PUFF) IH SCH (10:00)
[2016-09-08] MEDS ORDERED: [UNRECOGNIZED DRUG - OTHER] IV SCH (10:00)
[2016-09-08] MEDS ORDERED: (PENDING PHARMACY ID) (Tiotropium Bromide [Spiriva Respimat] 1 PUFF) IH SCH (10:00)
[2016-09-08] MEDS ORDERED: (PENDING PHARMACY ID) (Lisinopril [Prinivil 2.5 Mg Tablet] 2.5 MG) PO SCH (10:00)
[2016-09-08] MEDS: AMIODARONE HCL 200 MG TABLET PO SCH (10:46)
[2016-09-08] MEDS: LISINOPRIL 5 MG TABLET PO SCH (10:47)
[2016-09-08] MEDS: ASPIRIN 325 MG TABLET PO SCH (10:48)
[2016-09-08] MEDS: LORATADINE 10 MG TABLET PO SCH (10:49)
[2016-09-08] MEDS: TAMSULOSIN HCL 0.4 MG CAP.SR.24H PO SCH (10:49)
[2016-09-08] MEDS: FUROSEMIDE 20 MG TABLET PO SCH (10:50)
[2016-09-08] MEDS: VANCOMYCIN HCL 1,000 MG in DEXTROSE 5%-WATER 250 ML IV SCH ×2 (10:50→21:10)
[2016-09-08] MEDS: POTASSIUM CHLORIDE 10 MEQ TABLET.SA PO SCH (10:50)
[2016-09-08] MEDS: TIOTROPIUM BROMIDE DPI 5 CAP/KIT (18 MCG/CAP) IH SCH (11:03)
--- NOTE | 2016-09-08 12:13 | Progress Note ---
Provider Note Provider Note: 09/07/2016: I was notified by patient's floor nurse that there were questions concerning patient's CODE STATUS, with apparently family thinking he was DO NOT RESUSCITATE. At 8:28 PM, I went to the patient's bedside, with his floor nurse Kiya present. CODE STATUS was discussed in layperson's terms with patient. He is awake alert and oriented to time, location, and why he is in the hospital. Conversation is lucid and appropriate. He desires full CODE STATUS. Will institute this. His nurse is instructed to please notify family that patient desires full CODE STATUS. She stated that she was planning on doing this.
[2016-09-08] MEDS: GABAPENTIN 400 MG CAPSULE PO SCH ×2 (13:41→21:11)
--- NOTE | 2016-09-08 13:49 | PDOC PROGRESS REPORT ---
Subjective Progress Note for:: 09/08/16 Subjective:: Patient was seen on morning rounds. He is resting in bed. His daughter-parris is at bedside. He is asking to go home. Nurse reports frequent periods of confusion overnight. He has generalized weakness according to daughter-parris and son who are at bedside. CT of the head showed small vessel disease, no infarcts. The family now feels that he requires inpatient rehabilitation services. They were hopeful he would improve once he returned home, however they found him to be too debilitated. Patient appears dyspneic on minimal exertion. His daughter loss states that is his norm. 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 Physical Exam Vital Signs: Temp Pulse Resp BP Pulse Ox 97.8 F 89 20 119/66 93 09/08/16 07:36 09/08/16 09:16 09/08/16 09:16 09/08/16 07:36 09/08/16 09:16 Intake & Output 09/07/16 09/08/16 09/09/16 06:59 06:59 06:59 Intake Total 847 Balance 847 Weight 79.8 kg General appearance: PRESENT: no acute distress, well-developed, well-nourished Head exam: PRESENT: atraumatic, normocephalic Ear exam: PRESENT: normal external ear exam Mouth exam: PRESENT: moist, tongue midline Neck exam: ABSENT: carotid bruit, JVD, lymphadenopathy, thyromegaly Respiratory exam: PRESENT: decreased breath sounds, rales, symmetrical, unlabored - bilateral bases Cardiovascular exam: PRESENT: RRR. ABSENT: diastolic murmur, rubs, systolic murmur Pulses: PRESENT: normal dorsalis pedis pul Vascular exam: PRESENT: normal capillary refill GI/Abdominal exam: PRESENT: normal bowel sounds, soft. ABSENT: distended, guarding, mass, organolmegaly, rebound, tenderness Rectal exam: PRESENT: deferred Extremities exam: PRESENT: full ROM. ABSENT: calf tenderness, clubbing, pedal edema Neurological exam: PRESENT: alert, awake, oriented to person, oriented to place , CN II-XII grossly intact Psychiatric exam: PRESENT: anxious Skin exam: PRESENT: warm - right foot ulcer with wound vac Results Impressions: Chest X-Ray 09/07/16 13:30 IMPRESSION: Mild alveolar/interstitial infiltrates in the left lung apex and right upper lobe adjacent to the minor fissure. These could be acute or chronic , most recent chest film for comparison is from 2013. Right PICC line tip superior vena cava, this catheter was placed 08/16/2016. Left-sided pacemaker/ defibrillator unchanged from [address] 09/07/16 13:31 IMPRESSION: Findings suggesting small vessel disease. No acute intracranial abnormality. Assessment & Plan - Diagnosis (1) Acute encephalopathy Is this a current diagnosis for this admission?: YesPlan: No acute findings for confusion. After further discussion with family members it appears this is more chronic. (2) CVA (cerebral vascular accident) Qualifiers: CVA mechanism: unspecified Qualified Code(s): I63.9 - Cerebral infarction, unspecified Is this a current diagnosis for this admission?: YesPlan: No new infarct identified (3) COPD (chronic obstructive pulmonary disease) Qualifiers: COPD type: unspecified COPD Qualified Code(s): J44.9 - Chronic obstructive pulmonary disease, unspecified Is this a current diagnosis for this admission?: YesPlan: Patient wears oxygen 2 L/m via nasocannula. 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 We' ll consult surgery for wound care. (5) Hypertension Qualifiers: Hypertension type: unspecified secondary hypertension Qualified Code (s): I15.9 - Secondary hypertension, unspecified; I15 - Secondary hypertension Is this a current diagnosis for this admission?: YesPlan: Presently normotensive continue current medications (6) Ischemic cardiomyopathy Is this a current diagnosis for this admission?: YesPlan: Patient with BIVICD. (7) Obstructive sleep apnea Is this a current diagnosis for this admission?: YesPlan: Continue CPAP. (8) Tobacco dependence Is this a current diagnosis for this admission?: YesPlan: Patient has continued to smoke despite being on home oxygen therapy. He has been counseled once again. - Time Time Spent with patient: 25-34 minutes Critical Time spent with patient: 15-24 minutes Smoking Cessation Education: 3 to 10 minutes Medications reviewed and adjusted accordingly: Yes Anticipated discharge: Acute Rehab Within: when bed available
--- NOTE | 2016-09-08 13:59 | OPERATIVE REPORT E ---
Operative Report NAME: YAMIL HOLLOWAY : 1945 AGE: 71Y DATE OF SURGERY: 09/08/2016 ROOM: 316 PREOPERATIVE DIAGNOSIS: Chronic nonhealing wound of the right foot. POSTOPERATIVE DIAGNOSIS: Chronic nonhealing wound of the right foot. PROCEDURE DONE: Debridement of right foot ulcer. SURGEON: MILENA GONZALEZ M.D. DESCRIPTION OF PROCEDURE: After the nurse removed the VAC from the right, it was noted that he had some areas of necrosis on one end of the ulcer. There is also a thick scab about 1 cm in diameter. This was then debrided sharply with the use of scissors. It was debrided to the point of almost bleeding. The diameter of the ulcer roughly measures about 4 cm wide x 9 cm long. Debridement site is about 3 cm down into the muscle area. The patient is going to have a new wound VAC. Patient tolerated procedure well. DICTATING PHYSICIAN: MILENA GONZALEZ M.D. [id number] PHY#: [id number] ID: [id number] JOB#: [id number] ACCT: [id number] cc:MILENA GONZALEZ M.D. >
[2016-09-08] MEDS ORDERED: ERTAPENEM SODIUM INJ 1 GM VIAL IV SCH (14:00)
--- NOTE | 2016-09-08 14:05 | CONSULTATION REPORT E ---
Consultation Report NAME: YAMIL HOLLOWAY : 1945 AGE: 71Y DATE: 09/08/2016 ROOM: 316 A TO: MILENA GONZALEZ M.D. FROM: Requesting Physician REASON FOR CONSULTATION: Evaluation of a right foot ulcer that is currently treated with wound VAC. SUMMARY: This is a 71-year-old male who was admitted for change in mental status/TIA. He is known to have a chronic ulcer on the right foot on the bottom area. He apparently was here from 08/09 to 08/25 last month for this ulceration. The patient claims that he stepped on some metal and had a laceration on the right foot. The patient is diabetic type 2. PAST MEDICAL HISTORY: 1. History of CHF. 2. Hypertension. 3. COPD. 4. Pneumonia. 5. Diabetes mellitus type 2. PAST SURGICAL HISTORY: Pacemaker. SOCIAL HISTORY: Lives with family. Unknown if he ever smoked. Denies alcohol or drug use. PHYSICAL EXAMINATION: Physical examination was concentrated on the right leg. I can feel a palpable right dorsalis pedis artery. The ulcer roughly measured about 3 cm wide x about 9 cm long. There was some necrotic areas on the 1 side of the ulcer roughly measuring about 2-3 cm. A sharp debridement of this necrotic area was done at bedside. The patient is going to have his wound VAC replaced today by his nurse. IMPRESSION: Chronic ulcer of the right foot with some necrotic areas. PLAN: 1. Debridement sharply done at bedside. 2. Continue with wound VAC and IV antibiotics. 3. Some specimen will be sent for C and S from the debridement area. DICTATING PHYSICIAN: MILENA GONZALEZ M.D. [id number] PHY#: [id number] ID: [id number] JOB#: [id number] ACCT: [id number] cc:MILENA GONZALEZ M.D. >
[2016-09-08] MEDS: ERTAPENEM SODIUM 1 GM in NORMAL SALINE 50 ML IV SCH (15:06)
[2016-09-08] MEDS: NORMAL SALINE 1000 ML 1,000 ML IV PRN (18:55)
[2016-09-08] MEDS: AMITRIPTYLINE HCL 25 MG TABLET PO SCH (21:11)
[2016-09-08] MEDS: ATORVASTATIN CALCIUM 40 MG TABLET PO SCH (21:11)
--- NOTE | 2016-09-08 22:04 | EKG REPORT ---
SEVERITY:- ABNORMAL ECG - ATRIAL-SENSED VENTRICULAR-PACED RHYTHM : Confirmed by: Eileen Bowman MD 08-Sep-2016 22:04:05
[2016-09-09 00:12] LABS: ARTERIAL BLOOD BASE EXCESS 6.1 mmol/L; ARTERIAL BLOOD O2 SATURATION 99.3 % (94-98)
[2016-09-09] MEDS ORDERED: DOXYCYCLINE HYCLATE INJ 100 MG VIAL IV PRN (02:36)
[2016-09-09] MEDS ORDERED: DOXYCYCLINE HYCLATE 100 MG in DEXTROSE 5%-WATER 250 ML IV ONE (03:00)
[2016-09-09] MEDS ORDERED: DOXYCYCLINE HYCLATE INJ 100 MG VIAL ONE (03:18)
[2016-09-09 05:00] LABS: VENOUS BLOOD BASE EXCESS 6.2 mmol/L; VENOUS BLOOD HCO3 31.7 mmol/L (20-32); VENOUS BLOOD PCO2 48.8 mmHg (35-63); VENOUS BLOOD PH 7.43 (7.30-7.42)
[2016-09-09] MEDS: GABAPENTIN 400 MG CAPSULE PO SCH ×3 (05:57→21:58)
[2016-09-09] MEDS: HEPARIN SOD (PORCINE) 5,000 UNIT/ML 1 ML SYRINGE SUBCUT SCH ×3 (05:57→21:58)
[2016-09-09] MEDS: FAMOTIDINE 20 MG TABLET PO SCH ×2 (05:57→17:27)
[2016-09-09] MEDS ORDERED: ACETAMINOPHEN 325 MG TABLET PO PRN (08:06)
[2016-09-09] MEDS: IPRATROPIUM/ALBUTEROL 0.5-2.5 MG/3 ML AMPUL NEB PRN ×3 (08:10→21:20)
[2016-09-09] MEDS ORDERED: DOXYCYCLINE HYCLATE 100 MG in DEXTROSE 5%-WATER 250 ML IV SCH (10:00)
[2016-09-09] MEDS ORDERED: NORMAL SALINE 10 ML SDV (AFTER EACH USE) IV PRN (10:01)
[2016-09-09] MEDS: LISINOPRIL 5 MG TABLET PO SCH (10:23)
[2016-09-09] MEDS: LORATADINE 10 MG TABLET PO SCH (10:27)
[2016-09-09] MEDS: ASPIRIN 325 MG TABLET PO SCH (10:27)
[2016-09-09] MEDS: FUROSEMIDE 20 MG TABLET PO SCH (10:28)
[2016-09-09] MEDS: AMIODARONE HCL 200 MG TABLET PO SCH (10:28)
[2016-09-09] MEDS: POTASSIUM CHLORIDE 10 MEQ TABLET.SA PO SCH (10:29)
[2016-09-09] MEDS: TAMSULOSIN HCL 0.4 MG CAP.SR.24H PO SCH (10:31)
[2016-09-09] MEDS: VANCOMYCIN HCL 1,000 MG in DEXTROSE 5%-WATER 250 ML IV SCH ×2 (10:32→21:58)
[2016-09-09] MEDS: NORMAL SALINE 1000 ML 1,000 ML IV PRN (10:32)
[2016-09-09] MEDS: TIOTROPIUM BROMIDE DPI 5 CAP/KIT (18 MCG/CAP) IH SCH (10:33)
--- NOTE | 2016-09-09 11:26 | PDOC PROGRESS REPORT ---
Subjective Progress Note for:: 09/09/16 Subjective:: Patient was seen on morning rounds. He is resting in bed. His son and daughter- in-law is at bedside. He is asking to go home. Nurse reports frequent periods of confusion overnight. CT of the head showed small vessel disease, no infarcts. The family now feels that he requires inpatient rehabilitation services. They were hopeful he would improve once he returned home, however they found him to be too debilitated. Patient appears dyspneic on minimal exertion. His daughter loss states that is his norm. 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 Physical Exam Vital Signs: Temp Pulse Resp BP Pulse Ox 98.1 F 88 20 126/56 H 94 09/09/16 08:00 09/09/16 08:10 09/09/16 08:10 09/09/16 08:00 09/09/16 08:10 Intake & Output 09/08/16 09/09/16 09/10/16 06:59 06:59 06:59 Intake Total 847 2569 Balance 847 2569 Weight 79.8 kg 80.1 kg General appearance: PRESENT: no acute distress, well-developed, well-nourished Head exam: PRESENT: atraumatic, normocephalic Eye exam: PRESENT: conjunctiva pink, EOMI, PERRLA. ABSENT: scleral icterus Ear exam: PRESENT: normal external ear exam Mouth exam: PRESENT: moist, tongue midline Neck exam: ABSENT: carotid bruit, JVD, lymphadenopathy, thyromegaly Respiratory exam: PRESENT: rhonchi, symmetrical, unlabored. ABSENT: rales, wheezes Cardiovascular exam: PRESENT: RRR. ABSENT: diastolic murmur, rubs, systolic murmur Pulses: PRESENT: normal carotid pulses, normal radial pulses Vascular exam: PRESENT: normal capillary refill GI/Abdominal exam: PRESENT: normal bowel sounds, soft. ABSENT: distended, guarding, mass, organolmegaly, rebound, tenderness Rectal exam: PRESENT: deferred Extremities exam: PRESENT: full ROM. ABSENT: calf tenderness, clubbing, pedal edema Neurological exam: PRESENT: alert, awake, oriented to person, CN II-XII grossly intact. ABSENT: motor sensory deficit Psychiatric exam: PRESENT: appropriate affect, normal mood. ABSENT: homicidal ideation, suicidal ideation Skin exam: PRESENT: dry, intact, warm. ABSENT: cyanosis, rash Results Laboratory Results: 09/08/16 09/09/16 09/09/16 23:45 04:10 04:45 Carbonic Acid 1.39 H HCO3/H2CO3 Ratio 22:1 ABG pH 7.44 ABG pCO2 46.3 H ABG pO2 183.4 H ABG HCO3 31.0 H ABG O2 Saturation 99.3 H ABG Base Excess 6.1 VBG pH Cancelled 7.43 H VBG pCO2 Cancelled 48.8 VBG HCO3 Cancelled 31.7 VBG Base Excess Cancelled 6.2 FiO2 100% 09/07/16 18:35 Nasophary ([facility] Only) MRSA Surveillance Culture - Final MRSA RECOVERED Impressions: Head CT 09/07/16 13:31 IMPRESSION: Findings suggesting small vessel disease. No acute intracranial abnormality. Chest X-Ray 09/08/16 00:00 IMPRESSION: Worsening of the parenchymal opacities particularly in the right upper lobe. Guidance Fluoroscopy 09/09/16 00:00 IMPRESSION: SUCCESSFUL OVER THE WIRE REPLACEMENT OF AN OLD PICC FOR A NEW ONE THAT IS 5 FR DUAL LUMEN 40 CM PICC IN THE RIGHT ARM. PICC Line Exchange 09/09/16 00:00 IMPRESSION: SUCCESSFUL OVER THE WIRE REPLACEMENT OF AN OLD PICC FOR A NEW ONE THAT IS 5 FR DUAL LUMEN 40 CM PICC IN THE RIGHT ARM. Assessment & Plan - Diagnosis (1) Acute encephalopathy Is this a current diagnosis for this admission?: YesPlan: No acute findings for confusion. After further discussion with family members it appears this is more chronic. (2) CVA (cerebral vascular accident) Qualifiers: CVA mechanism: unspecified Qualified Code(s): I63.9 - Cerebral infarction, unspecified Is this a current diagnosis for this admission?: YesPlan: No new infarct identified (3) COPD (chronic obstructive pulmonary disease) Qualifiers: COPD type: unspecified COPD Qualified Code(s): J44.9 - Chronic obstructive pulmonary disease, unspecified Is this a current diagnosis for this admission?: YesPlan: Patient wears oxygen 2 L/m via nasocannula. 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 We' ll consult surgery for wound care. (5) Hypertension Qualifiers: Hypertension type: unspecified secondary hypertension Qualified Code (s): I15.9 - Secondary hypertension, unspecified; I15 - Secondary hypertension Is this a current diagnosis for this admission?: YesPlan: Presently normotensive continue current medications (6) Ischemic cardiomyopathy Is this a current diagnosis for this admission?: YesPlan: Patient with BIVICD. (7) Obstructive sleep apnea Is this a current diagnosis for this admission?: YesPlan: Continue CPAP. (8) Tobacco dependence Is this a current diagnosis for this admission?: YesPlan: Patient has continued to smoke despite being on home oxygen therapy. He has been counseled once again. - Time Time Spent with patient: 25-34 minutes Critical Time spent with patient: 15-24 minutes Smoking Cessation Education: 3 to 10 minutes Medications reviewed and adjusted accordingly: Yes Anticipated discharge: SNF Within: when bed available
[2016-09-09] MEDS: TRIAMCINOLONE ACETONIDE 0.1% CREAM 15 GM TOP SCH ×2 (14:46→17:27)
[2016-09-09] MEDS: ERTAPENEM SODIUM 1 GM in NORMAL SALINE 50 ML IV SCH (14:49)
[2016-09-09] MEDS: DOXYCYCLINE HYCLATE 100 MG in DEXTROSE 5%-WATER 250 ML IV SCH (17:29)
--- NOTE | 2016-09-09 19:51 | XCELERA REPORT ---
[address] [address] Transthoracic Echocardiogram Report Name: YAMIL HOLLOWAY Age: 71 yrs Gender: Male : 1945 Patient Status: Inpatient Patient Location: [id number]\S\316\S\A Study Date: 09/09/2016 11:27 AM Height: 69 in Weight: 174 lb BSA: 1.9 m2 Procedure: A complete two-dimensional transthoracic echocardiogram was performed (2D, M-mode, spectral and color flow Doppler). The study was technically difficult with many images being suboptimal in quality. Reason For Study: TIA Ordering Physician: PIOTR GONZALEZ Performed By: Simona Bowman Interpretation Summary The study was technically difficult with many images being suboptimal in quality. Left ventricular systolic function is severely reduced. The Ejection Fraction estimate is 20-25% Doppler measurements suggest pseudonormalized left ventricular relaxation, which is associated with grade II/IV or mild to moderate diastolic dysfunction There is normal left ventricular wall thickness. The left ventricle is severely dilated. Regional wall motion abnormalities cannot be excluded due to limited visualization. The right ventricle is grossly normal size. Right ventricular function cannot be assessed due to poor image quality. The left atrium is mildly dilated. The right atrium is normal in size There is a mild to moderate amount of mitral regurgitation There is no mitral valve stenosis. No aortic regurgitation is present. There is no aortic valve stenosis There is a trace or physiologic amount of tricuspid regurgitation Tricuspid regurgitation jet envelope not well defined to measure RV systolic pressure accurately. The aortic root is not well visualized. The inferior vena cava was not well visualized There is no pericardial effusion. MMode/2D Measurements \T\ Calculations RVDd: 2.6 cm LVIDd: 7.5 cm FS: 12.2 % Ao root diam: 2.6 cm IVSd: 0.74 cm LVIDs: 6.6 cm EDV(Teich): 296.8 ml LVPWd: 0.57 cmESV(Teich): 221.3 mlAo root area: 5.2 cm2 EF(Teich): 25.4 % LA dimension: 4.0 cm LVOT diam: 2.0 cm LVOT area: 3.2 cm2 Doppler Measurements \T\ Calculations MV E max alvin: MV P1/2t max alvin: Ao V2 max: LV V1 max P.1 cm/sec 108.6 cm/sec 95.6 cm/sec 2.4 mmHg MV A max alvin: MV P1/2t: 74.9 msec Ao max PG: LV V1 max: 135.2 cm/sec MVA(P1/2t): 2.9 cm2 3.7 mmHg 77.0 cm/sec MV E/A: 0.81 MV dec slope: GISELE(V,D): 424.4 cm/sec2 2.5 cm2 PA V2 max: 63.2 cm/sec PA max P.6 mmHg Left Ventricle The left ventricle is severely dilated. There is normal left ventricular wall thickness. Left ventricular systolic function is severely reduced. The Ejection Fraction estimate is 20-25%. Doppler measurements suggest pseudonormalized left ventricular relaxation, which is associated with grade II/IV or mild to moderate diastolic dysfunction. Regional wall motion abnormalities cannot be excluded due to limited visualization. Right Ventricle The right ventricle is grossly normal size. Right ventricular function cannot be assessed due to poor image quality. Atria The right atrium is normal in size. The left atrium is mildly dilated. Interarterial septum not well visualized and not well dopplered. Cannot comment on ASD/PFO presence. Mitral Valve The mitral valve leaflets are sclerotic, but show no functional abnormalities. There is no mitral valve stenosis. There is a mild to moderate amount of mitral regurgitation. Aortic Valve The aortic valve is grossly normal. There is no aortic valve stenosis. No aortic regurgitation is present. Tricuspid Valve The tricuspid valve is not well visualized secondary to technical limitations. There is no tricuspid stenosis. There is a trace or physiologic amount of tricuspid regurgitation. Tricuspid regurgitation jet envelope not well defined to measure RV systolic pressure accurately. Pulmonic Valve The pulmonic valve is not well visualized. Great Vessels The aortic root is not well visualized. The inferior vena cava was not well visualized. Effusions There is no pericardial effusion. : PIOTR GONZALEZ > Rahul Aj
[2016-09-09] MEDS: AMITRIPTYLINE HCL 25 MG TABLET PO SCH (21:58)
[2016-09-09] MEDS: ATORVASTATIN CALCIUM 40 MG TABLET PO SCH (21:58)
[2016-09-09] MEDS: NORMAL SALINE 10 ML SDV (SCHEDULED) IV SCH (22:01)
[2016-09-10] MEDS: FAMOTIDINE 20 MG TABLET PO SCH ×2 (05:43→16:58)
[2016-09-10] MEDS: DOXYCYCLINE HYCLATE 100 MG in DEXTROSE 5%-WATER 250 ML IV SCH ×2 (05:43→16:56)
[2016-09-10] MEDS: GABAPENTIN 400 MG CAPSULE PO SCH ×3 (05:43→22:19)
[2016-09-10] MEDS: HEPARIN SOD (PORCINE) 5,000 UNIT/ML 1 ML SYRINGE SUBCUT SCH ×3 (05:43→22:20)
[2016-09-10] MEDS: TAMSULOSIN HCL 0.4 MG CAP.SR.24H PO SCH (10:35)
[2016-09-10] MEDS: LISINOPRIL 5 MG TABLET PO SCH (10:37)
[2016-09-10] MEDS: AMIODARONE HCL 200 MG TABLET PO SCH (10:38)
[2016-09-10] MEDS: LORATADINE 10 MG TABLET PO SCH (10:38)
[2016-09-10] MEDS: POTASSIUM CHLORIDE 10 MEQ TABLET.SA PO SCH (10:39)
[2016-09-10] MEDS: ASPIRIN 325 MG TABLET PO SCH (10:39)
[2016-09-10] MEDS: TRIAMCINOLONE ACETONIDE 0.1% CREAM 15 GM TOP SCH ×3 (10:39→16:57)
[2016-09-10] MEDS: FUROSEMIDE 20 MG TABLET PO SCH (10:39)
[2016-09-10] MEDS: VANCOMYCIN HCL 1,000 MG in DEXTROSE 5%-WATER 250 ML IV SCH ×2 (10:40→22:19)
[2016-09-10] MEDS: TIOTROPIUM BROMIDE DPI 5 CAP/KIT (18 MCG/CAP) IH SCH (10:41)
[2016-09-10] MEDS: NORMAL SALINE 10 ML SDV (SCHEDULED) IV SCH ×2 (11:26→22:19)
--- NOTE | 2016-09-10 13:14 | PDOC PROGRESS REPORT ---
Subjective Progress Note for:: 09/10/16 Subjective:: Patient was seen on morning rounds. He is resting in bed. His son and daughter- in-law is at bedside. Nurse reports frequent periods of confusion overnight. CT of the head showed small vessel disease, no infarcts. The family now feels that he requires inpatient rehabilitation services. They were hopeful he would improve once he returned home, however they found him to be too debilitated. Patient appears dyspneic on minimal exertion. His daughter loss states that is his norm. 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 Physical Exam Vital Signs: Temp Pulse Resp BP Pulse Ox 97.3 F 77 31 H 99/46 L 100 09/10/16 11:36 09/10/16 11:36 09/10/16 11:36 09/10/16 11:36 09/10/16 07:21 Intake & Output 09/09/16 09/10/16 09/11/16 06:59 06:59 06:59 Intake Total 2569 762 100 Balance 2569 762 100 Weight 80.1 kg 79.3 kg General appearance: PRESENT: no acute distress, well-developed, well-nourished Head exam: PRESENT: atraumatic, normocephalic Eye exam: PRESENT: conjunctiva pink, EOMI, PERRLA. ABSENT: scleral icterus Ear exam: PRESENT: normal external ear exam Mouth exam: PRESENT: moist, tongue midline Neck exam: ABSENT: carotid bruit, JVD, lymphadenopathy, thyromegaly Respiratory exam: PRESENT: decreased breath sounds, rhonchi, unlabored Cardiovascular exam: PRESENT: RRR. ABSENT: diastolic murmur, rubs, systolic murmur Pulses: PRESENT: normal dorsalis pedis pul Vascular exam: PRESENT: normal capillary refill GI/Abdominal exam: PRESENT: normal bowel sounds, soft. ABSENT: distended, guarding, mass, organolmegaly, rebound, tenderness Rectal exam: PRESENT: deferred Extremities exam: PRESENT: full ROM. ABSENT: calf tenderness, clubbing, pedal edema Neurological exam: PRESENT: alert, awake, oriented to person, oriented to place , oriented to time, oriented to situation, CN II-XII grossly intact. ABSENT: motor sensory deficit Psychiatric exam: PRESENT: appropriate affect, normal mood. ABSENT: homicidal ideation, suicidal ideation Skin exam: PRESENT: dry, intact, warm. ABSENT: cyanosis, rash Results Laboratory Results: 09/08/16 13:40 Foot - Decubitis Ulcer Gram Stain - Final Impressions: Head CT 09/07/16 13:31 IMPRESSION: Findings suggesting small vessel disease. No acute intracranial abnormality. Chest X-Ray 09/08/16 00:00 IMPRESSION: Worsening of the parenchymal opacities particularly in the right upper lobe. Carotid Doppler Study 09/09/16 00:00 IMPRESSION: NO HEMODYNAMICALLY SIGNIFICANT STENOSIS. Guidance Fluoroscopy 09/09/16 00:00 IMPRESSION: SUCCESSFUL OVER THE WIRE REPLACEMENT OF AN OLD PICC FOR A NEW ONE THAT IS 5 FR DUAL LUMEN 40 CM PICC IN THE RIGHT ARM. PICC Line Exchange 09/09/16 00:00 IMPRESSION: SUCCESSFUL OVER THE WIRE REPLACEMENT OF AN OLD PICC FOR A NEW ONE THAT IS 5 FR DUAL LUMEN 40 CM PICC IN THE RIGHT ARM. Assessment & Plan - Diagnosis (1) Acute encephalopathy Is this a current diagnosis for this admission?: YesPlan: No acute findings for confusion. After further discussion with family members it appears this is more chronic. (2) CVA (cerebral vascular accident) Qualifiers: CVA mechanism: unspecified Qualified Code(s): I63.9 - Cerebral infarction, unspecified Is this a current diagnosis for this admission?: YesPlan: No new infarct identified (3) COPD (chronic obstructive pulmonary disease) Qualifiers: COPD type: unspecified COPD Qualified Code(s): J44.9 - Chronic obstructive pulmonary disease, unspecified Is this a current diagnosis for this admission?: YesPlan: Patient wears oxygen 2 L/m via nasocannula. 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 We' ll consult surgery for wound care. (5) Hypertension Qualifiers: Hypertension type: unspecified secondary hypertension Qualified Code (s): I15.9 - Secondary hypertension, unspecified; I15 - Secondary hypertension Is this a current diagnosis for this admission?: YesPlan: Presently normotensive continue current medications (6) Ischemic cardiomyopathy Is this a current diagnosis for this admission?: YesPlan: Patient with BIVICD. (7) Obstructive sleep apnea Is this a current diagnosis for this admission?: YesPlan: Continue CPAP. (8) Tobacco dependence Is this a current diagnosis for this admission?: YesPlan: Patient has continued to smoke despite being on home oxygen therapy. He has been counseled once again. - Time Time Spent with patient: 25-34 minutes Critical Time spent with patient: 15-24 minutes Anticipated discharge: Acute Rehab Within: when bed available
[2016-09-10] MEDS: ERTAPENEM SODIUM 1 GM in NORMAL SALINE 50 ML IV SCH (13:35)
[2016-09-10] MEDS: ATORVASTATIN CALCIUM 40 MG TABLET PO SCH (22:19)
[2016-09-10] MEDS: AMITRIPTYLINE HCL 25 MG TABLET PO SCH (22:20)
[2016-09-11] MEDS: HEPARIN SOD (PORCINE) 5,000 UNIT/ML 1 ML SYRINGE SUBCUT SCH ×2 (05:37→14:24)
[2016-09-11] MEDS: DOXYCYCLINE HYCLATE 100 MG in DEXTROSE 5%-WATER 250 ML IV SCH (05:40)
[2016-09-11] MEDS: FAMOTIDINE 20 MG TABLET PO SCH (05:46)
[2016-09-11] MEDS: GABAPENTIN 400 MG CAPSULE PO SCH ×2 (05:46→14:24)
[2016-09-11] MEDS: IPRATROPIUM/ALBUTEROL 0.5-2.5 MG/3 ML AMPUL NEB PRN ×2 (07:58→13:57)
[2016-09-11] MEDS: VANCOMYCIN HCL 1,000 MG in DEXTROSE 5%-WATER 250 ML IV SCH (08:55)
[2016-09-11] MEDS: TRIAMCINOLONE ACETONIDE 0.1% CREAM 15 GM TOP SCH ×2 (08:55→14:24)
[2016-09-11] MEDS: ASPIRIN 325 MG TABLET PO SCH (08:55)
[2016-09-11] MEDS: LORATADINE 10 MG TABLET PO SCH (08:55)
[2016-09-11] MEDS: POTASSIUM CHLORIDE 10 MEQ TABLET.SA PO SCH (08:56)
[2016-09-11] MEDS: FUROSEMIDE 20 MG TABLET PO SCH (08:56)
[2016-09-11] MEDS: AMIODARONE HCL 200 MG TABLET PO SCH (08:56)
[2016-09-11] MEDS: TAMSULOSIN HCL 0.4 MG CAP.SR.24H PO SCH (08:56)
[2016-09-11] MEDS: LISINOPRIL 5 MG TABLET PO SCH (08:56)
[2016-09-11] MEDS: TIOTROPIUM BROMIDE DPI 5 CAP/KIT (18 MCG/CAP) IH SCH (08:56)
[2016-09-11] MEDS: NORMAL SALINE 10 ML SDV (SCHEDULED) IV SCH (08:57)
[2016-09-11] MEDS: ERTAPENEM SODIUM 1 GM in NORMAL SALINE 50 ML IV SCH (14:24)
[2016-09-11 15:20] VITALS: BP 101/47
--- NOTE | 2016-09-11 16:01 | PDOC DISCHARGE SUMMARY ---
General - Admit/Disc Date/PCP Admission Date/Primary Care Provider: 09/07/16 16:09 Discharge Date: 09/11/16 - Discharge Diagnosis (1) Acute encephalopathy Is this a current diagnosis for this admission?: YesSummary: Ruled out for any acute source. 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 (2) CVA (cerebral vascular accident) Is this a current diagnosis for this admission?: Yes (3) COPD (chronic obstructive pulmonary disease) Is this a current diagnosis for this admission?: Yes (4) Diabetic foot ulcer Is this a current diagnosis for this admission?: Yes (5) Hypertension Is this a current diagnosis for this admission?: Yes (6) Ischemic cardiomyopathy Is this a current diagnosis for this admission?: Yes (7) Obstructive sleep apnea Is this a current diagnosis for this admission?: Yes (8) Tobacco dependence Is this a current diagnosis for this admission?: Yes - Additional Information Resuscitation Status: Full Code Discharge Diet: Cardiac Discharge Activity: Activity As Tolerated Home Medications: Albuterol Sulfate [Ventolin Hfa] 1 puff IH Q6HP PRN 09/07/16 Amiodarone HCl [Cordarone 200 mg Tablet] 400 mg PO DAILY 09/07/16 Amitriptyline HCl [Elavil 25 mg Tablet] 25 mg PO QHS 09/07/16 Aspirin [Aspirin 325 mg Tablet] 325 mg PO DAILY 09/07/16 Atorvastatin Calcium [Lipitor 40 mg Tablet] 40 mg PO DAILY 09/07/16 Ertapenem Sodium [Invanz Inj 1 gm Vial] 1 gm IV DAILY@1400 09/07/16 Furosemide [Lasix] 20 mg PO DAILY 09/07/16 Gabapentin [Neurontin 400 mg Capsule] 400 mg PO Q8 09/07/16 Lisinopril [Prinivil 2.5 mg Tablet] 2.5 mg PO DAILY 09/07/16 Potassium Chloride [Klor-Con 10] 10 meq PO DAILY 09/07/16 Tamsulosin HCl [Flomax 0.4 mg Cap.sr] 0.4 mg PO DAILY 09/07/16 Tiotropium [place] [Spiriva Respimat] 1 puff IH DAILY 09/07/16 Umeclidinium [place] [Incruse Ellipta] 1 puff IH DAILY 09/07/16 Vancomycin/0.9 % Sod Chloride [Vancomycin 1 G/200Ml-0.9% NaCl] 1 gm IV Q12 09/07 Acetaminophen [Tylenol 325 mg Tablet] 650 mg PO Q4HP PRN tablet 09/11/16 Ertapenem Sodium [Invanz Inj 1 gm Vial] 1 gm IV DAILY@1400 vial 09/11/16 Loratadine [Claritin 10 mg Tablet] 10 mg PO DAILY tablet 09/11/16 Triamcinolone Acetonide [Aristocort 0.1% Cream] 1 applic TOP TID #85 gm History of Present Illness Patient complains of: Altered mental status History of Present Illness: YAMIL HOLLOWAY is a 71 year old male is well known to the hospitalist service. The patient presented to the emergency department via EMS due to altered mental status x 3 days. Per patient's daughter in law, the patient is normally on 2L of oxygen and he also uses a nebulizer, which he used on the way here. Patient was seen here 08/09/16 for diabetic foot ulcer, and discharged . Patient was coming to [facility] today to have his PICC line changed, but upon arrival, patient was sent straight to the ED. Per daughter in law, these symptoms began Tuesday, a little confused, took a nap and woke up feeling fine. Tuesday the symptoms progressed a little more- figity, hollering and slurred speech. Yesterday patient was unable to hold bottle of water. The patient has no unilateral deficits. Prior to being admitted for his foot, patient was taking percocet and oxycodone , but was taken off while he was here since the patient was not requiring any narcotics for pain management. However after the patient was discharged family took him back to pain management and the patient's prescription was resumed. Patient received Invanz and vancomycin this morning through his PICC. Patient last ate last night, daughter in law denies any choking, but states that the patient needs help feeding. Patients daughter reports garbled speech and right sided deficit. Patient chews tobacco daily. Patient is alert, can deny pain and fall. Patients daughter in law also points out rash all over back and states that he has vomited x1 last night. Hospital Course Hospital Course: Patient was admitted to the [facility] on telemetry to rule out TIA versus CVA. CT head was unremarkable for any new CVA. Patient underwent carotid duplex and transthoracic echocardiogram. Due to pacemaker he was unablt to have an MRI. Once narcotics were stopped, his mentation returned to baseline confused at times. His son and daughter in law felt he was too much detention, they requested referral for acute rehabilitation. Discharge planning met with the family multiple times. Family then decided he would rather go home with home health and home physical therapy. IV antibiotics will be continued at home as they were prior to his admission. He'll follow-up with wound care clinic for his foot wound and continue wound VAC in the meantime Physical Exam Vital Signs: Temp Pulse Resp BP Pulse Ox 98.3 F 89 20 101/55 L 97 09/11/16 11:34 09/11/16 11:34 09/11/16 11:34 09/11/16 11:34 09/11/16 11:34 Intake & Output 09/10/16 09/11/16 09/12/16 06:59 06:59 06:59 Intake Total 762 1770 340 Balance 762 1770 340 Weight 79.3 kg 82.3 kg General appearance: PRESENT: no acute distress, well-developed, well-nourished Head exam: PRESENT: atraumatic, normocephalic Ear exam: PRESENT: normal external ear exam Mouth exam: PRESENT: moist, tongue midline Neck exam: ABSENT: carotid bruit, JVD, lymphadenopathy, thyromegaly Respiratory exam: PRESENT: clear to auscultation caroline, decreased breath sounds. ABSENT: rales, rhonchi, wheezes Cardiovascular exam: PRESENT: RRR. ABSENT: diastolic murmur, rubs, systolic murmur Pulses: PRESENT: normal dorsalis pedis pul Vascular exam: PRESENT: normal capillary refill GI/Abdominal exam: PRESENT: normal bowel sounds, soft. ABSENT: distended, guarding, mass, organolmegaly, rebound, tenderness Rectal exam: PRESENT: deferred Extremities exam: PRESENT: full ROM. ABSENT: calf tenderness, clubbing, pedal edema Musculoskeletal exam: PRESENT: ambulatory, other - left sided weakness 3/5 Neurological exam: PRESENT: alert, altered, oriented to person, abnormal gait, CN II-XII grossly intact Psychiatric exam: PRESENT: appropriate affect, normal mood. ABSENT: homicidal ideation, suicidal ideation Skin exam: PRESENT: dry, intact, warm, other - right foot ulcer with wound vac. ABSENT: cyanosis, rash Results Laboratory Results: 09/10/16 10:15 09/10/16 10:15 Creatinine Cancelled Est GFR ( Amer) Cancelled Est GFR (Non-Af Amer) Cancelled 09/08/16 13:40 Foot - Decubitis Ulcer Gram Stain - Final Impressions: Head CT 09/07/16 13:31 IMPRESSION: Findings suggesting small vessel disease. No acute intracranial abnormality. Chest X-Ray 09/08/16 00:00 IMPRESSION: Worsening of the parenchymal opacities particularly in the right upper lobe. Carotid Doppler Study 09/09/16 00:00 IMPRESSION: NO HEMODYNAMICALLY SIGNIFICANT STENOSIS. Guidance Fluoroscopy 09/09/16 00:00 IMPRESSION: SUCCESSFUL OVER THE WIRE REPLACEMENT OF AN OLD PICC FOR A NEW ONE THAT IS 5 FR DUAL LUMEN 40 CM PICC IN THE RIGHT ARM. PICC Line Exchange 09/09/16 00:00 IMPRESSION: SUCCESSFUL OVER THE WIRE REPLACEMENT OF AN OLD PICC FOR A NEW ONE THAT IS 5 FR DUAL LUMEN 40 CM PICC IN THE RIGHT ARM. Qualifiers PATEINT BEING DISCHARGED WITH ANY OF THE FOLLOWING DIAGNOSIS?: No Plan Discharge Plan: Discharge home with family. He'll have home health and home physical therapy
== END 2016-09-11 17:20 | disposition home health service (06) ==
LOC: ER 13:19 → INTOOBSV 16:09 → EH 16:09 → UNDOADMIN 16:39 → EH 16:39 → 3W 18:15 → EH 18:15
PROVIDERS: ADMIT Internal Medicine; ATTEND Internal Medicine
PROC: 0HBMXZZ Excision of Right Foot Skin, External Approach (ICD-10-PCS; principal; 2016-09-08)
PROC: 0KBV0ZZ Excision of Right Foot Muscle, Open Approach (ICD-10-PCS; 2016-09-08)
PROC: 3E0F7GC Introduction of Other Therapeutic Substance into Respiratory Tract, Via Natural or Artificial Opening (ICD-10-PCS; 2016-09-08)
PROC: HZ31ZZZ Individual Counseling for Substance Abuse Treatment, Behavioral (ICD-10-PCS; 2016-09-08)
PROC: 2W0SX6Z Change Pressure Dressing on Right Foot (ICD-10-PCS; 2016-09-08)
PROC: 02PY03Z Removal of Infusion Device from Great Vessel, Open Approach (ICD-10-PCS; 2016-09-09)
PROC: 02HV33Z Insertion of Infusion Device into Superior Vena Cava, Percutaneous Approach (ICD-10-PCS; 2016-09-09)
PROC: B518ZZA Fluoroscopy of Superior Vena Cava, Guidance (ICD-10-PCS; 2016-09-09)
DX: G93.40 Encephalopathy, unspecified (principal); I63.9 Cerebral infarction, unspecified; J44.9 Chronic obstructive pulmonary disease, unspecified; E11.621 Type 2 diabetes mellitus with foot ulcer; L97.414 Non-pressure chronic ulcer of right heel and midfoot with necrosis of bone; L89.899 Pressure ulcer of other site, unspecified stage; M86.9 Osteomyelitis, unspecified; I11.0 Hypertensive heart disease with heart failure; I50.9 Heart failure, unspecified; I25.5 Ischemic cardiomyopathy; F17.220 Nicotine dependence, chewing tobacco, uncomplicated; G47.33 Obstructive sleep apnea (adult) (pediatric); F11.20 Opioid dependence, uncomplicated; I15.9 Secondary hypertension, unspecified; R74.8 Abnormal levels of other serum enzymes; Z91.14 Patient's other noncompliance with medication regimen; I49.9 Cardiac arrhythmia, unspecified; R21 Rash and other nonspecific skin eruption; Z66 Do not resuscitate; R11.10 Vomiting, unspecified; F03.90 Unspecified dementia, unspecified severity, without behavioral disturbance, psychotic disturbance, mood disturbance, and anxiety; Z95.810 Presence of automatic (implantable) cardiac defibrillator; Z99.81 Dependence on supplemental oxygen; Z74.1 Need for assistance with personal care
CPT/HCPCS: 11043; 11046; 93005; 99291; 51701; 36415 ×3; 87040; 87070; 87205; 82553; 82962 ×4; 82803 ×3; 85025; 87075; 87077; 80053; 81001; 84484; 87186; 80307; 80202; 83605; 83880; 93306; 93880; 71010 ×2; 36584; 77001; 70450; 93010; 36600 ×2; 94640 ×3; 97163; 92610; 92523; 97167; 99406; 97597; 97607; G0378 ×6; A9270 ×41; J1644 ×4; J3490 ×11; J1335 ×4; J7060 ×4; J7030 ×3; J3370 ×4; J1642 ×3; G8978; G8979; G8999; G9186; G8987; G8988; J7620

== ENCOUNTER → 2016-09-07 | Day surgery (SDC) | payer MEDICARE | LOC: CCL 12:43 | PROVIDERS: ATTEND Surgery | DX: R69 Illness, unspecified (principal) ==

== ENCOUNTER 2016-09-17 09:40 | Emergency (ER) | payer MEDICARE ==
--- NOTE | 2016-09-17 10:51 | ER Document Report ---
ED General - General Mode of Arrival: Ambulatory Information source: Patient TRAVEL OUTSIDE OF THE [place] IN LAST 30 DAYS: No - HPI Onset: This morning Associated symptoms: Other - see notes above <REMINGTON DARNELL - Last Filed: 09/17/16 12:37> <ORQUIDEA ROBISON - Last Filed: 09/17/16 18:17> <RMTEE - Last Filed: 09/17/16 20:06> - General Chief Complaint: Urinary Problem Stated Complaint: URINARY PROBLEM Notes: 71 year old male with history of CVA, COPD, hyperlipidemia, and BPH presents to the ED via EMS after his home health nurse noted decreased urine output and loss of appetite this morning. Family states that the patient has been having difficulty swallowing for the past 3 days and reports that the patient can eat ice cream, but chokes on water and food (including Ensure). Patient was admitted on 09/07/2016 for a diabetic right foot ulcer with MRSA. (REMINGTON DARNELL) This 71-year-old male patient brought to emergency room by EMS at the request of his home health nurse. She reports she has had decreased urine output, decreased appetite. Is admitted here on 09/07/2016 through 09/11/2016. At that time his narcotics were stopped, he was diagnosed with CVA, COPD, shortness sleep apnea, and has a diabetic foot ulcer with MRSA. His reports he has not had pain medication this week, with his last Percocet being last Tuesday09/12/2016. She states she is not asked for pain medication this week. The patient is on 2 L nasal cannula oxygen at home usually, they increased him to 3 L this week. He was found to be somewhat dehydrated, was given 1 L of normal saline. His serum CO2 was 41 which is higher than his baseline. Reviewing lab work shows the CO2 was at 24 the first week of August and has been progressively climbing up to the mid 30s, and today is at 41. An arterial blood gas was done showing a PCO2 of 70.4 The most recent lab work prior to today done on 09/07/2016 showed a serum sodium 140, today it is 150. The most recent serum carbon dioxide was 34 today it is 41. The hemoglobin was 10.6, today it is 11.9 He has a significant unexplained metabolic alkalosis. (ORQUIDEA ROBISON) - Related Data Allergies/Adverse Reactions: morphine Adverse Reaction (Verified 09/17/16 11:22) Past Medical History - General Information source: Relative - family, Emergency Med Personnel - Social History Smoking Status: Unknown if Ever Smoked Family History: COPD, Hypertension, Other - Past Medical History Cardiac Medical History: Reports: Hx Congestive Heart Failure, Hx Hypercholesterolemia, Hx Hypertension Pulmonary Medical History: Reports: Hx COPD, Hx Pneumonia Endocrine Medical History: Reports: Hx Diabetes Mellitus Type 2 Renal/ Medical History: Reports: Hx Benign Prostatic Hyperplasia Psychiatric Medical History: Reports: Hx Depression Past Surgical History: Reports: Hx Cardiac Surgery - pacer/defib, Hx Pacemaker - Immunizations Hx Diphtheria, Pertussis, Tetanus Vaccination: Yes Hx Pneumococcal Vaccination: 06/06/13 <REMINGTON DARNELL - Last Filed: 09/17/16 12:37> Review of Systems - Review of Systems Constitutional: See HPI, Recent illness - diabetic right foot ulcer with MRCA EENT: No symptoms reported Cardiovascular: No symptoms reported Respiratory: No symptoms reported Gastrointestinal: See HPI, Poor appetite Genitourinary: See HPI, Other - decreased urinary output Male Genitourinary: No symptoms reported Musculoskeletal: No symptoms reported Skin: No symptoms reported Hematologic/Lymphatic: No symptoms reported Neurological/Psychological: No symptoms reported -: Yes All other systems reviewed and negative <REMINGTON DARNELL - Last Filed: 09/17/16 12:37> Physical Exam - General General appearance: Alert In distress: None - HEENT Head: Normocephalic, Atraumatic Eyes: Normal Extraocular movements intact: Yes Pupils: PERRL - Respiratory Respiratory status: No respiratory distress Breath sounds: Rhonchi - with cough - Cardiovascular Rhythm: Regular Heart sounds: Normal auscultation - Abdominal Inspection: Obese Distension: No distension Tenderness: Nontender - Back Back: Normal - Extremities General upper extremity: Normal inspection, Normal ROM. No: Edema General lower extremity: Normal inspection, Normal ROM. No: Edema - Neurological Neuro grossly intact: Yes - Psychological Associated symptoms: Normal affect, Normal mood - Skin Skin Temperature: Warm Skin Moisture: Dry Skin Color: Normal <REMINGTON DARNELL - Last Filed: 09/17/16 12:37> <ORQUIDEA ROBISON - Last Filed: 09/17/16 18:17> <TEE CHÁVEZ - Last Filed: 09/17/16 20:06> - Vital signs Vitals: Temp 98.4 F 09/17/16 10:51 - Genitourinary Notes: Patient is uncircumcised. Foreskin was pulled back and was covered in a layer of debris. (REMINGTON DARNELL) Course - Laboratory Result Diagrams: 09/17/16 12:00 09/17/16 12:00 <REMINGTON DARNELL - Last Filed: 09/17/16 12:37> - Laboratory Result Diagrams: 09/17/16 12:00 09/17/16 12:00 - Diagnostic Test Radiology reviewed: Image reviewed, Reports reviewed - Chest x-ray shows COPD with patchy airspace disease in the upper lobes, not significantly changed from prior chest x-rays. - EKG Interpretation by Me EKG shows normal: [place], Intervals, QRS Complexes, ST-T Waves Rate: Normal - 98 Rhythm: Other - A-V dual-paced complexes - Transfer of Care Care transferred to following provider: Dr. Chávez <ORQUIDEA ROBISON - Last Filed: 09/17/16 18:17> - Laboratory Result Diagrams: 09/17/16 19:00 09/17/16 19:00 <TEE CHÁVEZ - Last Filed: 09/17/16 20:06> - Re-evaluation Re-evalutation: 09/17/16 17:47 The patient's (ORQUIDEA ROBISON) 09/17/16 20:01 Sign-out from Dr. Robison: 71-year-old male with urinary retention. Labs show a mixed metabolic alkalosis with respiratory acidosis. Repeat BMP shows that the metabolic alkalosis and hypernatremia is improving. Patient feels much better. His lung exam is completely clear and he is in no respiratory distress. Bedside ultrasound shows about 1 L in his bladder and a Loera is placed. Will keep the Loera in place until he is able to see urology. Family and patient are comfortable with plan. Answered all questions. (TEE CHÁVEZ) - Vital Signs Vital signs: Temp Pulse Resp BP Pulse Ox 98.4 F 16 128/56 H 97 09/17/16 10:51 09/17/16 15:15 09/17/16 11:00 09/17/16 15:15 - Laboratory Laboratory results interpreted by me: 09/17/16 09/17/16 09/17/16 11:35 12:00 12:00 WBC 10.7 H RBC 4.28 L Hgb 11.9 L Hct 37.0 L RDW 15.6 H Seg Neutrophils % Lymphocytes % 6.8 L Absolute Neutrophils 8.3 H Carbonic Acid ABG pCO2 ABG HCO3 ABG Total CO2 Sodium 149.9 H Carbon Dioxide 41 H* BUN 22 H Calcium Direct Bilirubin 0.7 H AST 106 H ALT 90 H Alkaline Phosphatase 218 H Creatine Kinase 27 L CK-MB (CK-2) Albumin 2.7 L Urine Urobilinogen 4.0 H 09/17/16 09/17/16 09/17/16 12:00 14:35 19:00 WBC RBC 3.74 L Hgb 10.6 L Hct 32.0 L RDW 15.7 H Seg Neutrophils % 79.0 H Lymphocytes % 7.3 L Absolute Neutrophils Carbonic Acid 2.12 H ABG pCO2 70.4 H* ABG HCO3 41.2 H ABG Total CO2 43.3 H Sodium Carbon Dioxide BUN Calcium Direct Bilirubin AST ALT Alkaline Phosphatase Creatine Kinase CK-MB (CK-2) 4.69 H Albumin Urine Urobilinogen 09/17/16 19:00 WBC RBC Hgb Hct RDW Seg Neutrophils % Lymphocytes % Absolute Neutrophils Carbonic Acid ABG pCO2 ABG HCO3 ABG Total CO2 Sodium 146.6 H Carbon Dioxide 34 H BUN Calcium 8.2 L Direct Bilirubin AST ALT Alkaline Phosphatase Creatine Kinase CK-MB (CK-2) Albumin Urine Urobilinogen - Transfer of Care Notes: 09/17/16 18:19 The patient will continue to receive IV fluids, repeat CBC and Chem-7 are ordered for 1830. Depending on the results of these labs tests and the patient' s urine output, the decision will be made about discharge or admission. 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 Return to the ER if you notice worsening fevers or any other concerns. Urinary Retention Urinary retention is inability to empty the bladder. It can result from a urine infection, or from mechanical problems such as an enlarged prostate gland or swelling of the urethra. Drugs or alcohol can also lead to urine retention. The condition is usually treated by passage of a catheter. If the physician thinks the problem will continue, the catheter may be left in place for a few days. Sometimes drugs are used to stimulate the bladder if the physician feels that inadequate bladder contraction is the cause. If the condition leading to the retention is a chronic one, such as an enlarged prostate, you will be referred to a specialist for further care. Call the physician or return if you develop fever, flank or back pain, pain on urination, or recurrent difficulty passing the urine. Referrals: SUJATA SEGUNDO PA [Primary Care Provider] - Follow up as needed [facility] [Provider Group] - Follow up as needed Scribe Attestation: 09/17/16 17:55 I personally performed the services described in the documentation, reviewed and edited the documentation which was dictated to the scribe in my presence, and it accurately records my words and actions. (ORQUIDEA ROBISON) Scribe Documentation - Scribe Written by Moncho:: Moncho Ortiz, 09/17/2016 [id number] acting as scribe for :: [place] <REMINGTON DARNELL - Last Filed: 09/17/16 12:37>
[2016-09-17] MEDS ORDERED: NORMAL SALINE 1000 ML 1,000 ML IV ONE ×2 (10:52→16:18)
[2016-09-17 12:04] LABS: APPEARANCE,URINE CLOUDY; BILIRUBIN,URINE NEGATIVE (NEGATIVE); GLUCOSE, URINE NEGATIVE (NEGATIVE); KETONES,URINE NEGATIVE (NEGATIVE); LEUKOCYTE ESTERASE,URINE NEGATIVE (NEGATIVE); NITRITE,URINE NEGATIVE (NEGATIVE); PROTEIN,URINE NEGATIVE (NEGATIVE); URINE SPECIFIC GRAVITY 1.017
[2016-09-17 12:16] LABS: ABSOLUTE BASOPHILS # (AUTO) 0.1 10^3/uL (0.0-0.2); ABSOLUTE EOSINOPHILS # (AUTO) 0.5 10^3/uL (0.0-0.6); ABSOLUTE LYMPHOCYTES (AUTO) 0.7 10^3/uL (0.5-4.7); ABSOLUTE NEUT (AUTO) 8.3 10^3/uL (1.7-8.2); BASOPHILS % (AUTO) 1.2 % (0-2); EOSINOPHILS % (AUTO) 5.1 % (0-6); HEMOGLOBIN 11.9 g/dL (13.5-17.0); HGB HCT DIFFERENCE -1.3; LYMPHOCYTES % (AUTO) 6.8 % (13-45); MEAN CORPUSCULAR HEMOGLOBIN 27.8 pg (27.0-33.4); MEAN CORPUSCULAR HGB CONC 32.2 g/dL (32.0-36.0); MEAN CORPUSCULAR VOLUME 87 fl (80-97); MONOCYTES % (AUTO) 9.3 % (3-13); RED BLOOD COUNT 4.28 10^6/uL (4.35-5.55); RED CELL DISTRIBUTION WIDTH 15.6 % (11.5-14.0); SEGMENTED NEUTROPHILS % (AUTO) 77.6 % (42-78); WHITE BLOOD COUNT 10.7 10^3/uL (4.0-10.5)
[2016-09-17 12:36] LABS: ALANINE AMINOTRANSFERASE 90 U/L (21-72); ALBUMIN 2.7 g/dL (3.5-5.0); ALKALINE PHOSPHATASE 218 U/L (38-126); ASPARTATE AMINO TRANSFERASE 106 U/L (17-59); BILIRUBIN,DIRECT 0.7 mg/dL (0.0-0.4); BILIRUBIN,TOTAL 1.1 mg/dL (0.2-1.3); BLOOD UREA NITROGEN 22 mg/dL (7-20); CALCIUM 8.7 mg/dL (8.4-10.2); CHLORIDE 100 mmol/L (98-107); CREATINE KINASE 27 U/L (55-170); CREATININE RESULT 0.97 mg/dL (0.52-1.25); GLUCOSE 110 mg/dL (75-110); MAGNESIUM 2.2 mg/dL (1.6-2.3); POTASSIUM 4.2 mmol/L (3.6-5.0); SODIUM 149.9 mmol/L (137-145); TOTAL PROTEIN 6.9 g/dL (6.3-8.2)
[2016-09-17 12:51] LABS: ANION GAP 9 (5-19)
[2016-09-17 12:53] LABS: CARBON DIOXIDE 41 mmol/L (22-30)
[2016-09-17 12:54] LABS: CREATINE KINASE MB 4.69 ng/mL (<4.55); TROPONIN I < 0.012 ng/mL
[2016-09-17 15:15] LABS: ARTERIAL BLOOD BASE EXCESS 13.3 mmol/L; ARTERIAL BLOOD O2 SATURATION 96.5 % (94-98)
[2016-09-17] MEDS ORDERED: NALOXONE HCL INJ/PF 0.4 MG/1 ML SDV IV ONE (16:18)
--- NOTE | 2016-09-17 16:24 | EKG REPORT ---
SEVERITY:- ABNORMAL ECG - ATRIAL-VENTRICULAR DUAL-PACED COMPLEXES : Confirmed by: Rocael Rincon MD 17-Sep-2016 16:24:39
[2016-09-17 19:18] LABS: ABSOLUTE BASOPHILS # (AUTO) 0.1 10^3/uL (0.0-0.2); ABSOLUTE EOSINOPHILS # (AUTO) 0.4 10^3/uL (0.0-0.6); ABSOLUTE LYMPHOCYTES (AUTO) 0.7 10^3/uL (0.5-4.7); ABSOLUTE MONOCYTES (AUTO) 0.8 10^3/uL (0.1-1.4); ABSOLUTE NEUT (AUTO) 7.8 10^3/uL (1.7-8.2); BASOPHILS % (AUTO) 1.1 % (0-2); EOSINOPHILS % (AUTO) 4.1 % (0-6); HEMOGLOBIN 10.6 g/dL (13.5-17.0); HGB HCT DIFFERENCE -0.2; LYMPHOCYTES % (AUTO) 7.3 % (13-45); MEAN CORPUSCULAR HEMOGLOBIN 28.3 pg (27.0-33.4); MEAN CORPUSCULAR HGB CONC 33.1 g/dL (32.0-36.0); MEAN CORPUSCULAR VOLUME 85 fl (80-97); MONOCYTES % (AUTO) 8.5 % (3-13); RED BLOOD COUNT 3.74 10^6/uL (4.35-5.55); RED CELL DISTRIBUTION WIDTH 15.7 % (11.5-14.0); WHITE BLOOD COUNT 9.9 10^3/uL (4.0-10.5)
[2016-09-17 19:35] LABS: ANION GAP 9 (5-19); BLOOD UREA NITROGEN 20 mg/dL (7-20); CALCIUM 8.2 mg/dL (8.4-10.2); CARBON DIOXIDE 34 mmol/L (22-30); CHLORIDE 104 mmol/L (98-107); CREATININE RESULT 0.78 mg/dL (0.52-1.25); GLUCOSE 103 mg/dL (75-110); POTASSIUM 4.2 mmol/L (3.6-5.0); SODIUM 146.6 mmol/L (137-145)
[2016-09-18 02:46] VITALS: BP 125/63
== END 2016-09-18 02:48 | disposition home or self-care (01) ==
LOC: ER 09:40
DX: R33.9 Retention of urine, unspecified (principal); E86.0 Dehydration; E87.4 Mixed disorder of acid-base balance; J44.9 Chronic obstructive pulmonary disease, unspecified; E11.621 Type 2 diabetes mellitus with foot ulcer; E66.9 Obesity, unspecified; I50.9 Heart failure, unspecified; I11.0 Hypertensive heart disease with heart failure; E78.00 Pure hypercholesterolemia, unspecified; Z95.810 Presence of automatic (implantable) cardiac defibrillator; Z88.6 Allergy status to analgesic agent; Z86.73 Personal history of transient ischemic attack (TIA), and cerebral infarction without residual deficits
CPT/HCPCS: 93005; 99285; 96361; 51701; 51702; 96374; 36415; 87040; 87086; 82553; 82803; 82550; 83735; 85025; 80048; 80053; 81001; 84484; 71010; 93010; 36600; 94660; J2310; J7030

== ENCOUNTER 2016-09-19 08:13 | Inpatient (IN) | payer MEDICARE ==
[2016-09-19] MEDS ORDERED: NORMAL SALINE 1000 ML 1,000 ML IV ONE (08:57)
--- NOTE | 2016-09-19 08:59 | ER Document Report ---
ED General - General Mode of Arrival: Medic Information source: Patient, Relative TRAVEL OUTSIDE OF THE [place] IN LAST 30 DAYS: No - HPI Patient complains to provider of: Difficulty Breathing Onset: This morning Onset/Duration: Gradual, Persistent Associated symptoms: Nonproductive cough, Other - Confusion and Speech Impairment Recently seen / treated by doctor: Yes - 09/17/2016 [facility] [place] <JAYSON BENOIT - Last Filed: 09/19/16 09:19> <ORQUIDEA ROBISON - Last Filed: 09/19/16 12:32> - General Chief Complaint: Breathing Difficulty Stated Complaint: DIFFICULTY BREATHING Notes: Patient is a 71-year-old male presenting to the emergency department via EMS for difficulty breathing onset this morning. Patient normally uses 3 L of oxygen at home, and this morning upon arrival of EMS, he was 76% on 3 L of oxygen. En route he was given 2 ANAs, and Solu-Medrol, which improved his breathing somewhat. Patient's son states that he has been more confused again lately, which they state happens sometimes when he is hypoxic. Patient's [id number] states the patient was arguing with his ex-, who was not even around. Patient's speech is also garbled. Patient was seen here 2 days ago for urinary retention, and also had metabolic acidosis. Patient still has his Loera catheter. (JAYSON BENOIT) Initial history from the family never mentioned that the patient had pulled his PICC line out during one of his episodes of confusion. They're gone now and I' m not sure what time or which day the PICC line was pulled. (ORQUIDEA ROBISON) - Related Data Allergies/Adverse Reactions: morphine Adverse Reaction (Verified 09/17/16 11:22) Past Medical History - General Information source: Patient, Relative, [facility] Records - Social History Smoking Status: Current Every Day Smoker Lives with: Family Family History: COPD, Hypertension, Other - Past Medical History Cardiac Medical History: Reports: Hx Congestive Heart Failure, Hx Hypercholesterolemia, Hx Hypertension Pulmonary Medical History: Reports: Hx COPD, Hx Pneumonia Endocrine Medical History: Reports: Hx Diabetes Mellitus Type 2 Renal/ Medical History: Reports: Hx Benign Prostatic Hyperplasia Psychiatric Medical History: Reports: Hx Depression Past Surgical History: Reports: Hx Cardiac Surgery - pacer/defib, Hx Pacemaker - Immunizations Hx Diphtheria, Pertussis, Tetanus Vaccination: Yes Hx Pneumococcal Vaccination: 06/06/13 <JAYSON BENOIT - Last Filed: 09/19/16 09:19> Review of Systems - Review of Systems Constitutional: No symptoms reported EENT: No symptoms reported Cardiovascular: No symptoms reported Respiratory: See HPI, Cough, Short of breath, Wheezing Gastrointestinal: No symptoms reported Genitourinary: No symptoms reported Male Genitourinary: No symptoms reported Musculoskeletal: No symptoms reported Skin: No symptoms reported Hematologic/Lymphatic: No symptoms reported Neurological/Psychological: See HPI, Confusion, Speech impairment <SANJANA BENOITICA - Last Filed: 09/19/16 09:19> Physical Exam - General General appearance: Alert - HEENT Head: Normocephalic, Atraumatic Eyes: Normal Pupils: PERRL - Respiratory Breath sounds: Nonproductive cough - Rattling with cough, Rhonchi, Wheezing - Cardiovascular Rhythm: Regular Heart sounds: Normal auscultation Murmur: No - Abdominal Inspection: Normal Distension: No distension Bowel sounds: Normal Tenderness: Nontender Organomegaly: No organomegaly - Back Back: Normal, Nontender - Extremities General upper extremity: Normal inspection, Nontender General lower extremity: Normal inspection, Nontender - Neurological Neuro grossly intact: Yes Cognition: Confused [place] Coma Scale Eye Opening: Spontaneous [place] Coma Scale Verbal: Oriented [place] Coma Scale Motor: Obeys Commands [place] Coma Scale Total: 15 Speech: Other - Garbled speech - Psychological Associated symptoms: Normal affect, Normal mood - Skin Skin Temperature: Warm Skin Moisture: Dry Skin Color: Other - Right foot wound <SANJANA BENOITICA - Last Filed: 09/19/16 09:19> Course - Laboratory Result Diagrams: 09/19/16 08:25 09/19/16 08:25 - Diagnostic Test Radiology reviewed: Reports reviewed - See radiologist report and prior chest x- ray - EKG Interpretation by Me EKG shows normal: [place], Intervals, QRS Complexes, ST-T Waves Rate: Normal - 78 Rhythm: Other - Atrial sensed ventricular paced rhythm When compared to previous EKG there are: No significant change - Consults Dr. Carpenter Time consulted: 11:40 Consulted provider: will come to ER <ORQUIDEA ROBISON - Last Filed: 09/19/16 12:32> - Vital Signs Vital signs: Temp Pulse Resp BP Pulse Ox 97.4 F 20 108/58 L 99 09/19/16 08:33 09/19/16 08:24 09/19/16 08:24 09/19/16 08:24 - Laboratory Laboratory results interpreted by me: 09/19/16 09/19/16 09/19/16 08:25 08:25 08:25 WBC 10.7 H RBC 3.81 L Hgb 10.8 L Hct 32.8 L RDW 15.8 H Lymphocytes % 12.9 L Carbonic Acid ABG pCO2 ABG pO2 ABG HCO3 ABG Total CO2 ABG O2 Saturation Sodium 147.8 H Carbon Dioxide 38 H Glucose 116 H Calcium 8.3 L AST 91 H ALT 73 H Alkaline Phosphatase 182 H Creatine Kinase 24 L NT-Pro-B Natriuret Pep 3280 H Total Protein 6.2 L Albumin 2.5 L Urine Protein Urine Blood Urine Urobilinogen Ur Leukocyte Esterase 09/19/16 09/19/16 09:23 10:36 WBC RBC Hgb Hct RDW Lymphocytes % Carbonic Acid 1.65 H ABG pCO2 54.9 H ABG pO2 55.7 L ABG HCO3 35.2 H ABG Total CO2 36.9 H ABG O2 Saturation 89.1 L Sodium Carbon Dioxide Glucose Calcium AST ALT Alkaline Phosphatase Creatine Kinase NT-Pro-B Natriuret Pep Total Protein Albumin Urine Protein 30 H Urine Blood SMALL H Urine Urobilinogen 4.0 H Ur Leukocyte Esterase SMALL H Discharge <JAYSON BENOIT - Last Filed: 09/19/16 09:19> - Discharge Admitting Provider: Hospitalist Unit Admitted: [facility] <ORQUIDEA ROBISON - Last Filed: 09/19/16 12:32> - Discharge Clinical Impression: Hypoxemia, Confusion, Slurred speech, Cerebrovascular disease COPD (chronic obstructive pulmonary disease) Qualifiers: COPD type: unspecified COPD Qualified Code(s): J44.9 - Chronic obstructive pulmonary disease, unspecified Dyspnea Qualifiers: Dyspnea type: unspecified Qualified Code(s): R06.00 - Dyspnea, unspecified Condition: Stable Disposition: ADMITTED INPATIENT Scribe Documentation - Scribe Written by Scribe:: Jayson Benoit 09/19/2016 [id number] acting as scribe for :: [place] <JAYSON BENOIT - Last Filed: 09/19/16 09:19>
[2016-09-19 09:42] LABS: ABSOLUTE BASOPHILS # (AUTO) 0.1 10^3/uL (0.0-0.2); ABSOLUTE EOSINOPHILS # (AUTO) 0.4 10^3/uL (0.0-0.6); ABSOLUTE LYMPHOCYTES (AUTO) 1.4 10^3/uL (0.5-4.7); ABSOLUTE NEUT (AUTO) 7.8 10^3/uL (1.7-8.2); BASOPHILS % (AUTO) 0.9 % (0-2); HEMATOCRIT 32.8 % (37.9-51.0); HEMOGLOBIN 10.8 g/dL (13.5-17.0); HGB HCT DIFFERENCE -0.4; LYMPHOCYTES % (AUTO) 12.9 % (13-45); MEAN CORPUSCULAR HEMOGLOBIN 28.2 pg (27.0-33.4); MEAN CORPUSCULAR HGB CONC 32.7 g/dL (32.0-36.0); MEAN CORPUSCULAR VOLUME 86 fl (80-97); MONOCYTES % (AUTO) 9.3 % (3-13); RED BLOOD COUNT 3.81 10^6/uL (4.35-5.55); RED CELL DISTRIBUTION WIDTH 15.8 % (11.5-14.0); SEGMENTED NEUTROPHILS % (AUTO) 72.9 % (42-78); WHITE BLOOD COUNT 10.7 10^3/uL (4.0-10.5)
[2016-09-19 09:54] LABS: ALANINE AMINOTRANSFERASE 73 U/L (21-72); ALBUMIN 2.5 g/dL (3.5-5.0); ALKALINE PHOSPHATASE 182 U/L (38-126); ANION GAP 9 (5-19); ASPARTATE AMINO TRANSFERASE 91 U/L (17-59); BILIRUBIN,DIRECT 0.4 mg/dL (0.0-0.4); BILIRUBIN,TOTAL 0.8 mg/dL (0.2-1.3); BLOOD UREA NITROGEN 18 mg/dL (7-20); CALCIUM 8.3 mg/dL (8.4-10.2); CARBON DIOXIDE 38 mmol/L (22-30); CHLORIDE 101 mmol/L (98-107); CREATINE KINASE 24 U/L (55-170); CREATININE RESULT 0.86 mg/dL (0.52-1.25); GLUCOSE 116 mg/dL (75-110); MAGNESIUM 2.1 mg/dL (1.6-2.3); POTASSIUM 3.7 mmol/L (3.6-5.0); SODIUM 147.8 mmol/L (137-145); TOTAL PROTEIN 6.2 g/dL (6.3-8.2)
[2016-09-19 09:56] LABS: APPEARANCE,URINE CLOUDY; BILIRUBIN,URINE NEGATIVE (NEGATIVE); GLUCOSE, URINE NEGATIVE (NEGATIVE); KETONES,URINE NEGATIVE (NEGATIVE); LEUKOCYTE ESTERASE,URINE SMALL (NEGATIVE); NITRITE,URINE NEGATIVE (NEGATIVE); PROTEIN,URINE 30 mg/dL (NEGATIVE); URINE SPECIFIC GRAVITY 1.016
[2016-09-19 10:06] LABS: CREATINE KINASE MB 2.06 ng/mL (<4.55)
[2016-09-19 10:07] LABS: TROPONIN I < 0.012 ng/mL
[2016-09-19 10:52] LABS: ARTERIAL BLOOD BASE EXCESS 9.2 mmol/L; ARTERIAL BLOOD O2 SATURATION 89.1 % (94-98)
[2016-09-19] MEDS ORDERED: ACETAMINOPHEN 325 MG TABLET PO PRN (12:02)
[2016-09-19] MEDS ORDERED: DEXTROSE 40% GEL 15 GM TUBE PO PRN ×2 (12:07)
[2016-09-19] MEDS ORDERED: GLUCAGON,HUMAN RECOMB 1 MG INJ IM PRN (12:07)
[2016-09-19] MEDS ORDERED: DEXTROSE 50%-WATER 25 GM/50 ML DISP.SYRIN IV PRN ×2 (12:07)
--- NOTE | 2016-09-19 12:28 | PDOC H&P ---
History of Present Illness Admission Date/PCP: CLYDE SEGUNDO PA-C Patient complains of: Confusion History of Present Illness: YAMIL HOLLOWAY is a 71 year old male was brought in by his family for confusion. The family had left by the time I examined the patient and according to the emergency room physician patient presented with worsening mental status and confusion. At the time of my exam the patient was alert and oriented to person place sided confused about time. There is also some concern about a COPD exacerbation along the patient denied any shortness of breath and his oxygen saturations were 89% on 2 L which is normal oxygen requirement at home. The patient denies any chest pain or cough. He denies any focal weakness. And he was uncertain as to why he needed to stay in the hospital. Discharged earlier this month and it was recommended that time that he go to rehabilitation because he was unable to care for himself and his family was having difficulty caring for him. She has history of urinary retention requiring a Loera catheter. He denies having any fevers or chills or back pain. Denies any dysuria. Denies any focal weakness. Patient had a head CT which showed no acute event. Past Medical History Cardiac Medical History: Reports: Congestive Heart Failure, Hyperlipidema, Hypertension Pulmonary Medical History: Reports: Chronic Obstructive Pulmonary Disease (COPD) , Pneumonia, Sleep Apnea Neurological Medical History: Reports: Ischemic CVA Endocrine Medical History: Reports: Diabetes Mellitus Type 2 Malignancy Medical History: Reports: None GI Medical History: Reports: None Skin Medical History: Reports: Other - Wound on the right foot requiring a wound VAC. Psychiatric Medical History: Reports: Depression Hematology: Reports: None Past Surgical History Past Surgical History: Reports: Pacemaker Social History Information Source: Patient Lives with: Family Smoking Status: Former Smoker Frequency of Alcohol Use: None Hx Recreational Drug Use: No Drugs: None Hx Prescription Drug Abuse: No - Advance Directive Resuscitation Status: Do Not Resuscitate Family History Family History: COPD, Hypertension, Other Parental Family History Reviewed: Yes Children Family History Reviewed: No Sibling(s) Family History Reviewed.: No Medication/Allergy Home Medications: Albuterol Sulfate [Ventolin Hfa] 1 puff IH Q6HP PRN 09/07/16 Amiodarone HCl [Cordarone 200 mg Tablet] 400 mg PO DAILY 09/07/16 Amitriptyline HCl [Elavil 25 mg Tablet] 25 mg PO QHS 09/07/16 Aspirin [Aspirin 325 mg Tablet] 325 mg PO DAILY 09/07/16 Atorvastatin Calcium [Lipitor 40 mg Tablet] 40 mg PO DAILY 09/07/16 Ertapenem Sodium [Invanz Inj 1 gm Vial] 1 gm IV DAILY@1400 09/07/16 Furosemide [Lasix] 20 mg PO DAILY 09/07/16 Gabapentin [Neurontin 400 mg Capsule] 400 mg PO Q8 09/07/16 Lisinopril [Prinivil 2.5 mg Tablet] 2.5 mg PO DAILY 09/07/16 Potassium Chloride [Klor-Con 10] 10 meq PO DAILY 09/07/16 Tamsulosin HCl [Flomax 0.4 mg Cap.sr] 0.4 mg PO DAILY 09/07/16 Tiotropium [place] [Spiriva Respimat] 1 puff IH DAILY 09/07/16 Umeclidinium [place] [Incruse Ellipta] 1 puff IH DAILY 09/07/16 Vancomycin/0.9 % Sod Chloride [Vancomycin 1 G/200Ml-0.9% NaCl] 1 gm IV Q12 09/07 Acetaminophen [Tylenol 325 mg Tablet] 650 mg PO Q4HP PRN tablet 09/11/16 Ertapenem Sodium [Invanz Inj 1 gm Vial] 1 gm IV DAILY@1400 vial 09/11/16 Loratadine [Claritin 10 mg Tablet] 10 mg PO DAILY tablet 09/11/16 Triamcinolone Acetonide [Aristocort 0.1% Cream] 1 applic TOP TID #85 gm Allergies/Adverse Reactions: morphine Adverse Reaction (Verified 09/17/16 11:22) Review of Systems Constitutional: ABSENT: chills, fever(s), headache(s), weight gain, weight loss Eyes: ABSENT: visual disturbances Ears: ABSENT: hearing changes Cardiovascular: ABSENT: chest pain, dyspnea on exertion, edema, orthropnea, palpitations Respiratory: ABSENT: cough, hemoptysis Gastrointestinal: ABSENT: abdominal pain, constipation, diarrhea, hematemesis, hematochezia, nausea, vomiting Genitourinary: PRESENT: difficulty urinating Musculoskeletal: ABSENT: joint swelling Integumentary: PRESENT: other - Nonhealing wound on the plantar aspect of the right foot requiring a wound VAC. Neurological: PRESENT: confusion Psychiatric: ABSENT: anxiety, depression Endocrine: ABSENT: cold intolerance, heat intolerance, polydipsia, polyuria Hematologic/Lymphatic: ABSENT: easy bleeding, easy bruising Physical Exam Vital Signs: Temp Pulse Resp BP Pulse Ox 97.4 F 20 108/58 L 99 09/19/16 08:33 09/19/16 08:24 09/19/16 08:24 09/19/16 08:24 Intake & Output 09/18/16 09/19/16 09/20/16 06:59 06:59 06:59 Weight 81.2 kg General appearance: PRESENT: no acute distress, well-developed, well-nourished Head exam: PRESENT: atraumatic, normocephalic Eye exam: PRESENT: conjunctiva pink, EOMI, PERRLA. ABSENT: scleral icterus Ear exam: PRESENT: normal external ear exam Mouth exam: PRESENT: moist, tongue midline Neck exam: ABSENT: carotid bruit, JVD, lymphadenopathy, thyromegaly Respiratory exam: PRESENT: clear to auscultation caroline. ABSENT: rales, rhonchi, wheezes Cardiovascular exam: PRESENT: RRR. ABSENT: diastolic murmur, rubs, systolic murmur GI/Abdominal exam: PRESENT: normal bowel sounds, soft. ABSENT: distended, guarding, mass, organolmegaly, rebound, tenderness Rectal exam: PRESENT: deferred Extremities exam: ABSENT: calf tenderness, clubbing, pedal edema Neurological exam: PRESENT: oriented to person, oriented to place, CN II-XII grossly intact. ABSENT: oriented to time, oriented to situation, motor sensory deficit Psychiatric exam: PRESENT: appropriate affect Skin exam: PRESENT: other - Wound VAC in place on the plantar aspect of the right foot. Results Laboratory Results: 09/19/16 08:25 09/19/16 08:25 09/19/16 09/19/16 09/19/16 08:25 08:25 09:23 WBC 10.7 H RBC 3.81 L Hgb 10.8 L Hct 32.8 L MCV 86 MCH 28.2 MCHC 32.7 RDW 15.8 H Plt Count 290 Seg Neutrophils % 72.9 Lymphocytes % 12.9 L Monocytes % 9.3 Eosinophils % 4.0 Basophils % 0.9 Absolute Neutrophils 7.8 Absolute Lymphocytes 1.4 Absolute Monocytes 1.0 Absolute Eosinophils 0.4 Absolute Basophils 0.1 Carbonic Acid HCO3/H2CO3 Ratio ABG pH ABG pCO2 ABG pO2 ABG HCO3 ABG O2 Saturation ABG Base Excess FiO2 Sodium 147.8 H Potassium 3.7 Chloride 101 Carbon Dioxide 38 H Anion Gap 9 BUN 18 Creatinine 0.86 Est GFR ( Amer) > 60 Est GFR (Non-Af Amer) > 60 Glucose 116 H Calcium 8.3 L Magnesium 2.1 Total Bilirubin 0.8 AST 91 H ALT 73 H Alkaline Phosphatase 182 H Total Protein 6.2 L Albumin 2.5 L Urine Color YELLOW Urine Appearance CLOUDY Urine pH 6.0 Ur Specific [place] 1.016 Urine Protein 30 H Urine Glucose (UA) NEGATIVE Urine Ketones NEGATIVE Urine Blood SMALL H Urine Nitrite NEGATIVE Ur Leukocyte Esterase SMALL H Urine WBC (Auto) 38 Urine RBC (Auto) 17 09/19/16 10:36 WBC RBC Hgb Hct MCV MCH MCHC RDW Plt Count Seg Neutrophils % Lymphocytes % Monocytes % Eosinophils % Basophils % Absolute Neutrophils Absolute Lymphocytes Absolute Monocytes Absolute Eosinophils Absolute Basophils Carbonic Acid 1.65 H HCO3/H2CO3 Ratio 21:1 ABG pH 7.43 ABG pCO2 54.9 H ABG pO2 55.7 L ABG HCO3 35.2 H ABG O2 Saturation 89.1 L ABG Base Excess 9.2 FiO2 2L Sodium Potassium Chloride Carbon Dioxide Anion Gap BUN Creatinine Est GFR ( Amer) Est GFR (Non-Af Amer) Glucose Calcium Magnesium Total Bilirubin AST ALT Alkaline Phosphatase Total Protein Albumin Urine Color Urine Appearance Urine pH Ur Specific [place] Urine Protein Urine Glucose (UA) Urine Ketones Urine Blood Urine Nitrite Ur Leukocyte Esterase Urine WBC (Auto) Urine RBC (Auto) 09/19/16 09/19/16 08:25 08:25 Creatine Kinase 24 L CK-MB (CK-2) 2.06 Troponin I < 0.012 NT-Pro-B Natriuret Pep 3280 H Impressions: Chest X-Ray 09/19/16 09:00 IMPRESSION: Bilateral upper lobe volume loss with interstitial infiltrates, possibly chronic pneumonitis Question 2 cm nodule right lower lung versus superimposed shadows No pulmonary edema, pleural effusions or pneumothorax. Head CT 09/19/16 09:01 IMPRESSION: Limited study due to motion artifact. No gross acute findings Assessment & Plan - Diagnosis (1) Acute encephalopathy Is this a current diagnosis for this admission?: YesPlan: Patient presented with some worsening in his mental status. The time my exam he was alert and oriented to person and place but was confused at the time. He has no other focal neurological findings and I doubt that he has had an acute CVA. He has had a head CT that shows no acute event. Last month he had a workup for a CVA with echocardiogram and carotid Dopplers. We'll continue with the aspirin. We'll send off a urine culture to see if he may have a urinary tract infection as the cause. (2) COPD (chronic obstructive pulmonary disease) Qualifiers: COPD type: unspecified COPD Qualified Code(s): J44.9 - Chronic obstructive pulmonary disease, unspecified Is this a current diagnosis for this admission?: YesPlan: Patient has no wheezing the time my exam. We will continue with nebulizers. (3) Hypoxemia Is this a current diagnosis for this admission?: YesPlan: Patient had 89% oxygen saturation on 2 L. We'll continue with that. He does have chronic COPD. (4) Cerebrovascular disease Is this a current diagnosis for this admission?: YesPlan: He has a history of CVA. He has no obvious acute event this time. We'll continue with aspirin. 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 (6) Hypertension Qualifiers: Hypertension type: unspecified secondary hypertension Qualified Code (s): I15.9 - Secondary hypertension, unspecified; I15 - Secondary hypertension Is this a current diagnosis for this admission?: Yes (7) Cardiac dysrhythmia Qualifiers: Arrhythmia type: unspecified cardiac arrhythmia Qualified Code(s): I49.9 - Cardiac arrhythmia, unspecified Is this a current diagnosis for this admission?: YesPlan: The patient denies ever having atrial fibrillation however he is on amiodarone and has a pacemaker. It's presumed that he most likely has atrial fibrillation. Patient is followed by Dr. Aleman of cardiology in [place]. (8) Obstructive sleep apnea Is this a current diagnosis for this admission?: YesPlan: We'll continue with CPAP. - Time Time Spent: 50 to 70 Minutes - Plan Summary Plan Summary: We'll admit as an observation. If the patient's status improved by morning he can be discharged either home or to rehabilitation. Patient has had multiple ER visits and it's unclear as to whether the family is able to care for him at home.
[2016-09-19] MEDS ORDERED: ENOXAPARIN SODIUM INJ 40 MG/0.4 ML DISP.SYRIN SUBCUT ONE (12:45)
[2016-09-19] MEDS: INSULIN LISPRO 100 UNIT/ML 3 ML VIAL SUBCUT PRN ×2 (15:53→22:25)
[2016-09-19] MEDS: IPRATROPIUM/ALBUTEROL 0.5-2.5 MG/3 ML AMPUL NEB SCH ×3 (16:32→23:30)
[2016-09-19] MEDS ORDERED: VANCOMYCIN HCL 0 MG in DEXTROSE 5%-WATER 250 ML IV NR (17:15)
--- NOTE | 2016-09-19 17:50 | EKG REPORT ---
SEVERITY:- ABNORMAL ECG - ATRIAL-SENSED VENTRICULAR-PACED RHYTHM : Confirmed by: Rocael Rincon MD 19-Sep-2016 17:49:39
[2016-09-19] MEDS ORDERED: VANCOMYCIN HCL INJ 1000 MG VIAL ONE (17:58)
[2016-09-19] MEDS ORDERED: VANCOMYCIN HCL INJ 500 MG VIAL ONE (17:58)
[2016-09-19] MEDS ORDERED: VANCOMYCIN HCL 1,500 MG in DEXTROSE 5%-WATER 250 ML IV ONE (18:00)
[2016-09-19] MEDS: FAMOTIDINE 20 MG TABLET PO SCH (21:26)
[2016-09-19] MEDS ORDERED: GABAPENTIN 100 MG CAPSULE PO SCH (23:00)
[2016-09-19] MEDS ORDERED: GABAPENTIN 100 MG CAPSULE PO ONE (23:00)
[2016-09-20] MEDS: IPRATROPIUM/ALBUTEROL 0.5-2.5 MG/3 ML AMPUL NEB SCH ×5 (03:58→20:05)
[2016-09-20 04:57] LABS: HEMOGLOBIN 9.7 g/dL (13.5-17.0); HGB HCT DIFFERENCE 0.1; MEAN CORPUSCULAR HEMOGLOBIN 28.4 pg (27.0-33.4); MEAN CORPUSCULAR HGB CONC 33.5 g/dL (32.0-36.0); MEAN CORPUSCULAR VOLUME 85 fl (80-97); RED BLOOD COUNT 3.42 10^6/uL (4.35-5.55); RED CELL DISTRIBUTION WIDTH 16.1 % (11.5-14.0); WHITE BLOOD COUNT 8.7 10^3/uL (4.0-10.5)
[2016-09-20 05:20] LABS: ANION GAP 9 (5-19); BLOOD UREA NITROGEN 18 mg/dL (7-20); CALCIUM 8.4 mg/dL (8.4-10.2); CARBON DIOXIDE 32 mmol/L (22-30); CHLORIDE 101 mmol/L (98-107); CREATININE RESULT 0.83 mg/dL (0.52-1.25); GLUCOSE 91 mg/dL (75-110); POTASSIUM 4.1 mmol/L (3.6-5.0); SODIUM 141.6 mmol/L (137-145)
[2016-09-20] MEDS ORDERED: OXYCODONE HCL IR 5 MG TABLET PO PRN (10:27)
[2016-09-20] MEDS: ASPIRIN 325 MG TABLET PO SCH (10:41)
[2016-09-20] MEDS: FAMOTIDINE 20 MG TABLET PO SCH ×2 (10:42→21:40)
[2016-09-20] MEDS: VANCOMYCIN HCL 1,000 MG in DEXTROSE 5%-WATER 250 ML IV SCH ×2 (10:42→21:40)
[2016-09-20] MEDS: ENOXAPARIN SODIUM INJ 40 MG/0.4 ML DISP.SYRIN SUBCUT SCH (10:43)
--- NOTE | 2016-09-20 14:35 | PDOC PROGRESS REPORT ---
Subjective Progress Note for:: 09/20/16 Subjective:: Denies any complaints. Physical Exam Vital Signs: Temp Pulse Resp BP Pulse Ox 98.1 F 70 18 108/70 96 09/20/16 07:43 09/20/16 12:31 09/20/16 12:31 09/20/16 07:43 09/20/16 12:31 Intake & Output 09/19/16 09/20/16 09/21/16 06:59 06:59 06:59 Intake Total 1098 Output Total 1050 Balance 48 Weight 82.3 kg General appearance: PRESENT: no acute distress Eye exam: PRESENT: conjunctiva pink. ABSENT: scleral icterus Ear exam: PRESENT: normal external ear exam Mouth exam: PRESENT: moist, tongue midline Neck exam: ABSENT: JVD Respiratory exam: PRESENT: clear to auscultation caroline. ABSENT: rales, rhonchi, wheezes Cardiovascular exam: PRESENT: RRR. ABSENT: diastolic murmur, rubs, systolic murmur GI/Abdominal exam: PRESENT: normal bowel sounds, soft. ABSENT: distended, guarding, mass, organolmegaly, rebound, tenderness Extremities exam: ABSENT: calf tenderness, clubbing, pedal edema Neurological exam: PRESENT: alert, awake, oriented to person, oriented to place , oriented to situation, CN II-XII grossly intact. ABSENT: oriented to time, motor sensory deficit Psychiatric exam: PRESENT: appropriate affect Results Laboratory Results: 09/20/16 04:00 09/20/16 04:00 09/20/16 09/20/16 04:00 04:00 WBC 8.7 RBC 3.42 L Hgb 9.7 L Hct 29.0 L MCV 85 MCH 28.4 MCHC 33.5 RDW 16.1 H Plt Count 269 Sodium 141.6 Potassium 4.1 Chloride 101 Carbon Dioxide 32 H Anion Gap 9 BUN 18 Creatinine 0.83 Est GFR ( Amer) > 60 Est GFR (Non-Af Amer) > 60 Glucose 91 Calcium 8.4 Impressions: Chest X-Ray 09/19/16 09:00 IMPRESSION: Bilateral upper lobe volume loss with interstitial infiltrates, possibly chronic pneumonitis Question 2 cm nodule right lower lung versus superimposed shadows No pulmonary edema, pleural effusions or pneumothorax. Head CT 09/19/16 09:01 IMPRESSION: Limited study due to motion artifact. No gross acute findings Assessment & Plan - Diagnosis (1) Acute encephalopathy Is this a current diagnosis for this admission?: YesPlan: Patient presented with some worsening in his mental status. The time my exam he was alert and oriented to person and place but was confused about the time. He has no other focal neurological findings and I doubt that he has had an acute CVA. He has had a head CT that shows no acute event. Last month he had a workup for a CVA with echocardiogram and carotid Dopplers. We'll continue with the aspirin. We'll send off a urine culture to see if he may have a urinary tract infection as the cause. It's unclear as to whether his family is able to care for him at home. (2) COPD (chronic obstructive pulmonary disease) Qualifiers: COPD type: unspecified COPD Qualified Code(s): J44.9 - Chronic obstructive pulmonary disease, unspecified Is this a current diagnosis for this admission?: YesPlan: Patient has no wheezing the time my exam. We will continue with nebulizers. (3) Hypoxemia Is this a current diagnosis for this admission?: YesPlan: Patient had 89% oxygen saturation on 2 L. We'll continue with that. He does have chronic COPD. (4) Cerebrovascular disease Is this a current diagnosis for this admission?: YesPlan: He has a history of CVA. He has no obvious acute event this time. We'll continue with aspirin. 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 (6) Hypertension Qualifiers: Hypertension type: unspecified secondary hypertension Qualified Code (s): I15.9 - Secondary hypertension, unspecified; I15 - Secondary hypertension Is this a current diagnosis for this admission?: Yes (7) Cardiac dysrhythmia Qualifiers: Arrhythmia type: unspecified cardiac arrhythmia Qualified Code(s): I49.9 - Cardiac arrhythmia, unspecified Is this a current diagnosis for this admission?: YesPlan: The patient denies ever having atrial fibrillation however he is on amiodarone and has a pacemaker. It's presumed that he most likely has atrial fibrillation. Patient is followed by Dr. Aleman of cardiology in [place]. (8) Obstructive sleep apnea Is this a current diagnosis for this admission?: YesPlan: We'll continue with CPAP. - Time Time Spent with patient: 25-34 minutes - Plan Summary Plan Summary: The patient does not meet criteria for inpatient hospitalization. His family however does not seem able to care for him at home. I've asked discharge planning to help us find a place for him to go. He has already had a qualifying stay within the last 30 days.
[2016-09-20] MEDS: GABAPENTIN 400 MG CAPSULE PO SCH ×2 (16:07→21:40)
--- NOTE | 2016-09-20 18:00 | PDOC TRANSFER SUMMARY ---
General - Admit/Disc Date/PCP Admission Date/Primary Care Provider: 09/19/16 12:26 CLYDE SEGUNDO PA-C Discharge Date: 09/21/16 - Discharge Diagnosis (1) Acute encephalopathy Is this a current diagnosis for this admission?: YesSummary: Current with confusion which resolved quickly. He has intermittent confusion related to pain medications as well as his COPD. (2) COPD (chronic obstructive pulmonary disease) Is this a current diagnosis for this admission?: Yes (3) Hypoxemia Is this a current diagnosis for this admission?: Yes (4) Cerebrovascular disease Is this a current diagnosis for this admission?: Yes (5) Diabetic foot ulcer Is this a current diagnosis for this admission?: YesSummary: The patient finished 6 weeks of IV antibiotics for osteomyelitis on September 20. (6) Hypertension Is this a current diagnosis for this admission?: Yes (7) Cardiac dysrhythmia Is this a current diagnosis for this admission?: Yes (8) Obstructive sleep apnea Is this a current diagnosis for this admission?: YesSummary: Patient uses a CPAP at night. - Additional Information Resuscitation Status: Do Not Resuscitate Discharge Diet: Cardiac, Diabetic Discharge Activity: Activity As Tolerated Home Medications: Acetaminophen [Tylenol 325 mg Tablet] 650 mg PO Q4HP PRN tablet 09/20/16 Amitriptyline HCl [Elavil 25 mg Tablet] 25 mg PO QHS 09/20/16 Aspirin [Aspirin 325 mg Tablet] 325 mg PO DAILY tablet 09/20/16 Atorvastatin Calcium [Lipitor 40 mg Tablet] 40 mg PO DAILY 09/20/16 Furosemide [Lasix] 20 mg PO DAILY 09/20/16 Gabapentin [Neurontin 400 mg Capsule] 400 mg PO Q8 09/20/16 Linagliptin [Tradjenta] 5 mg PO QAM 09/20/16 Naloxegol Oxalate [Movantik] 25 mg PO DAILY 09/20/16 Oxycodone HCl [Roxicodone] 30 mg PO Q6HP PRN #20 tablet 09/20/16 Potassium Chloride [Klor-Con 10 Meq Tablet.sa] 10 meq PO DAILY 09/20/16 Tamsulosin HCl [Flomax 0.4 mg Cap.sr] 0.4 mg PO DAILY 09/20/16 Umeclidinium [place] [Incruse Ellipta] 1 puff IH DAILY 09/20/16 History of Present Illness Admission Date/PCP: 09/19/16 12:26 CLYDE SEGUNDO PA-C History of Present Illness: YAMIL HOLLOWAY is a 71 year old male was brought in by his family for confusion. The family had left by the time I examined the patient and according to the emergency room physician patient presented with worsening mental status and confusion. At the time of my exam the patient was alert and oriented to person place sided confused about time. There is also some concern about a COPD exacerbation along the patient denied any shortness of breath and his oxygen saturations were 89% on 2 L which is normal oxygen requirement at home. The patient denies any chest pain or cough. He denies any focal weakness. And he was uncertain as to why he needed to stay in the hospital. Discharged earlier this month and it was recommended that time that he go to rehabilitation because he was unable to care for himself and his family was having difficulty caring for him. He has history of urinary retention requiring a Lo[place] catheter. He denies having any fevers or chills or back pain. Denies any dysuria. Denies any focal weakness. Patient had a head CT which showed no acute event. Hospital Course Hospital Course: Patient was admitted with acute onset of confusion which resolved quickly. Most likely combination of medication as well as his COPD. Patient also had pulled out his PICC line. His last day of antibiotics was September 20 which completes 6 weeks of IV antibiotics the possibility of osteomyelitis. The patient had no further confusion however is felt that his family is unable to care for him at home and he is admitted to [facility]. The patient's other medical problems were stable during this hospitalization. The patient has a nonhealing wound on his right foot on the plantar aspect which is being treated with a wound VAC. He will continue with the wound VAC at [facility]. Physical Exam Vital Signs: Temp Pulse Resp BP Pulse Ox 97.6 F 82 20 123/56 L 93 09/20/16 16:14 09/20/16 16:14 09/20/16 16:14 09/20/16 16:14 09/20/16 16:14 Intake & Output 09/19/16 09/20/16 09/21/16 06:59 06:59 06:59 Intake Total 1098 Output Total 1050 Balance 48 Weight 82.3 kg General appearance: PRESENT: no acute distress Eye exam: PRESENT: conjunctiva pink. ABSENT: scleral icterus Mouth exam: PRESENT: moist, tongue midline Neck exam: ABSENT: JVD Respiratory exam: PRESENT: clear to auscultation caroline. ABSENT: rales, rhonchi, wheezes Cardiovascular exam: PRESENT: RRR. ABSENT: diastolic murmur, rubs, systolic murmur GI/Abdominal exam: PRESENT: normal bowel sounds, soft. ABSENT: distended, guarding, mass, organolmegaly, rebound, tenderness Extremities exam: PRESENT: other - Wound VAC is in place in the right foot. ABSENT: calf tenderness, clubbing, pedal edema Neurological exam: PRESENT: alert, awake, oriented to person, oriented to place , oriented to time, oriented to situation, CN II-XII grossly intact. ABSENT: motor sensory deficit Psychiatric exam: PRESENT: appropriate affect Skin exam: PRESENT: other - Wound VAC in place on the right foot. Results Laboratory Results: 09/20/16 04:00 09/20/16 04:00 09/20/16 09/20/16 04:00 04:00 WBC 8.7 RBC 3.42 L Hgb 9.7 L Hct 29.0 L MCV 85 MCH 28.4 MCHC 33.5 RDW 16.1 H Plt Count 269 Sodium 141.6 Potassium 4.1 Chloride 101 Carbon Dioxide 32 H Anion Gap 9 BUN 18 Creatinine 0.83 Est GFR ( Amer) > 60 Est GFR (Non-Af Amer) > 60 Glucose 91 Calcium 8.4 Impressions: Chest X-Ray 09/19/16 09:00 IMPRESSION: Bilateral upper lobe volume loss with interstitial infiltrates, possibly chronic pneumonitis Question 2 cm nodule right lower lung versus superimposed shadows No pulmonary edema, pleural effusions or pneumothorax. Head CT 09/19/16 09:01 IMPRESSION: Limited study due to motion artifact. No gross acute findings Transfer Plan - Disposition Transfer Plan: Patient is transferred to [facility]. Patient will need follow primary care in 2 weeks and with the wound clinic in 1 week. - Time Spent with Patient Time spent with patient: Greater than 30 Minutes Qualifiers PATEINT BEING DISCHARGED WITH ANY OF THE FOLLOWING DIAGNOSIS?: No Plan Discharge Plan: Patient is transferred to [facility] for continued care. He has a wound VAC on his right foot that his family is unable to care for. He has completed a 6 week course of antibiotics for his bone infection Time Spent: Greater than 30 Minutes
[2016-09-20] MEDS: ATORVASTATIN CALCIUM 40 MG TABLET PO SCH (21:39)
[2016-09-20] MEDS: AMITRIPTYLINE HCL 25 MG TABLET PO SCH (21:40)
[2016-09-21] MEDS: IPRATROPIUM/ALBUTEROL 0.5-2.5 MG/3 ML AMPUL NEB SCH ×6 (00:06→19:47)
[2016-09-21] MEDS: GABAPENTIN 400 MG CAPSULE PO SCH ×3 (05:43→21:45)
[2016-09-21] MEDS ORDERED: (PENDING PHARMACY ID) (Linagliptin [Tradjenta] 5 MG) PO SCH (08:00)
[2016-09-21] MEDS ORDERED: (PENDING PHARMACY ID) (Naloxegol Oxalate [Movantik] 25 MG) PO SCH (10:00)
[2016-09-21] MEDS ORDERED: (PENDING PHARMACY ID) (Umeclidinium Bromide [Incruse Ellipta] 1 PUFF) IH SCH (10:00)
[2016-09-21] MEDS: TAMSULOSIN HCL 0.4 MG CAP.SR.24H PO SCH (11:03)
[2016-09-21] MEDS: ASPIRIN 325 MG TABLET PO SCH (11:04)
[2016-09-21] MEDS: POTASSIUM CHLORIDE 10 MEQ TABLET.SA PO SCH (11:04)
[2016-09-21] MEDS: VANCOMYCIN HCL 1,000 MG in DEXTROSE 5%-WATER 250 ML IV SCH (11:05)
[2016-09-21] MEDS: FAMOTIDINE 20 MG TABLET PO SCH ×2 (11:05→21:48)
[2016-09-21] MEDS: FUROSEMIDE 20 MG TABLET PO SCH (11:05)
[2016-09-21] MEDS: ENOXAPARIN SODIUM INJ 40 MG/0.4 ML DISP.SYRIN SUBCUT SCH (11:06)
[2016-09-21] MEDS: SITAGLIPTIN PHOSPHATE 50 MG TABLET PO SCH (11:20)
--- NOTE | 2016-09-21 13:55 | PDOC PROGRESS REPORT ---
Subjective Progress Note for:: 09/21/16 Subjective:: Nursing reports the patient has increased confusion today. I cannot obtain any history or review of systems from patient secondary to encephalopathic state and dysarthria/expressive aphasia. Physical Exam Vital Signs: Temp Pulse Resp BP Pulse Ox 99.2 F 94 20 118/72 92 09/21/16 11:08 09/21/16 12:18 09/21/16 12:18 09/21/16 11:08 09/21/16 12:18 Intake & Output 09/20/16 09/21/16 09/22/16 06:59 06:59 06:59 Intake Total 1098 1350 Output Total 1050 2800 550 Balance 48 -1450 -550 Weight 82.3 kg 80 kg GENERAL: No acute distress HEENT: Conjunctiva clear, nonicteric, moist mucous membranes, no JVD, midline trachea RESPIRATORY: Clear to auscultation bilaterally, no wheezes, no rhonchi CARDIAC: Regular rate and rhythm, no murmurs/gallops/rubs ABDOMEN: Soft, nondistended, nontender, positive bowel sounds, no rebound, no guarding EXTREMETIES: No edema, cyanosis, clubbing NEUROLOGIC: Alert, disoriented, CN's grossly intact, no focal deficits SKIN: Wound VAC to plantar aspect of right foot, eschar over wound on dorsal aspect of left foot Results Laboratory Results: 09/20/16 04:00 09/20/16 04:00 Impressions: Chest X-Ray 09/19/16 09:00 IMPRESSION: Bilateral upper lobe volume loss with interstitial infiltrates, possibly chronic pneumonitis Question 2 cm nodule right lower lung versus superimposed shadows No pulmonary edema, pleural effusions or pneumothorax. Head CT 09/19/16 09:01 IMPRESSION: Limited study due to motion artifact. No gross acute findings Assessment & Plan - Diagnosis (1) Acute encephalopathy Is this a current diagnosis for this admission?: YesPlan: Likely secondary to acute infection, medication, and history of cerebrovascular disease. Head CT negative for acute process. Unable to obtain MRI of the brain secondary to pacemaker. Continue supportive care. Patient was residing with family at baseline. He will need to go to custodial facility for rehabilitation prior to returning to this level of care. (2) Bacteremia Is this a current diagnosis for this admission?: YesPlan: Likely secondary to diabetic foot wound. Patient has history of MRSA so will continue IV vancomycin pending further blood culture. Repeat blood culture in a.m. and if blood culture is negative may place PICC line for prolonged IV antibiotics (10-14 day course). 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 (4) Chronic hypoxemic respiratory failure Is this a current diagnosis for this admission?: YesPlan: Continue oxygen supplementation. Patient was on home oxygen at baseline. (5) Diabetes Is this a current diagnosis for this admission?: YesPlan: Continue Januvia. Continue sliding scale insulin. (6) Pacemaker Is this a current diagnosis for this admission?: Yes (7) Hypertension Qualifiers: Hypertension type: unspecified secondary hypertension Qualified Code (s): I15.9 - Secondary hypertension, unspecified; I15 - Secondary hypertension Is this a current diagnosis for this admission?: Yes (8) Ischemic cardiomyopathy Is this a current diagnosis for this admission?: YesPlan: Compensated. Secondary to systolic dysfunction with EF 20-25%, grade 2/4 diastolic dysfunction, mild to moderate mitral regurgitation. Continue Lasix. Patient is currently not on CHRISTINE inhibitor or have abeta miryam. I would like to start lisinopril 2.5 mg daily. I would like to start Coreg 3.125 mg twice daily. Continue aspirin and Lipitor. (9) Acute urinary retention Is this a current diagnosis for this admission?: YesPlan: Continue Loera catheter. Patient will need outpatient urology follow-up. Continue Flomax. (10) COPD (chronic obstructive pulmonary disease) Qualifiers: COPD type: unspecified COPD Qualified Code(s): J44.9 - Chronic obstructive pulmonary disease, unspecified Is this a current diagnosis for this admission?: Yes (11) CVA (cerebral vascular accident) Qualifiers: CVA mechanism: unspecified Qualified Code(s): I63.9 - Cerebral infarction, unspecified Is this a current diagnosis for this admission?: YesPlan: Continue aspirin, Lipitor. Continue physical therapy. Patient will need to go to acute rehabilitation. (12) Opiate dependence, continuous Is this a current diagnosis for this admission?: YesPlan: Patient has chronic pain and requires chronic opiate pain medications for this. He is also on Neurontin. - Time Time Spent with patient: 35 or more minutes Anticipated discharge: Acute Rehab - Inpatient Certification Based on my medical assessment, after consideration of the patient's comorbidities, presenting symptoms, or acuity I expect that the services needed warrant INPATIENT care.: Yes I certify that my determination is in accordance with my understanding of Medicare's requirements for reasonable and necessary INPATIENT services [42 CFR 412.3e].: Yes Medical Necessity: Need for IV Antibiotics
[2016-09-21 14:59] LABS: ARTERIAL BLOOD BASE EXCESS 8.7 mmol/L; ARTERIAL BLOOD O2 SATURATION 95.8 % (94-98)
[2016-09-21 15:26] LABS: FREE T3 3.04 pg/mL (2.77-5.27)
[2016-09-21 15:40] LABS: THYROID STIMULATING HORMONE 4.2 uIU/mL (0.47-4.68)
[2016-09-21 16:15] LABS: FOLATE 3.33 ng/mL (>2.76)
[2016-09-21] MEDS: AMITRIPTYLINE HCL 25 MG TABLET PO SCH (21:46)
[2016-09-21] MEDS: CARVEDILOL 3.125 MG TABLET PO SCH (21:46)
[2016-09-21] MEDS: ATORVASTATIN CALCIUM 40 MG TABLET PO SCH (21:46)
[2016-09-22] MEDS: IPRATROPIUM/ALBUTEROL 0.5-2.5 MG/3 ML AMPUL NEB SCH ×6 (00:01→19:55)
[2016-09-22] MEDS: VANCOMYCIN HCL 1,000 MG in DEXTROSE 5%-WATER 250 ML IV SCH ×3 (03:53→17:44)
[2016-09-22] MEDS: GABAPENTIN 400 MG CAPSULE PO SCH ×3 (05:57→22:01)
[2016-09-22] MEDS: LISINOPRIL 5 MG TABLET PO SCH (10:03)
[2016-09-22] MEDS: ASPIRIN 325 MG TABLET PO SCH (10:03)
[2016-09-22] MEDS: CARVEDILOL 3.125 MG TABLET PO SCH ×2 (10:08→22:02)
[2016-09-22] MEDS: TAMSULOSIN HCL 0.4 MG CAP.SR.24H PO SCH (10:09)
[2016-09-22] MEDS: FAMOTIDINE 20 MG TABLET PO SCH ×2 (10:09→22:01)
[2016-09-22] MEDS: SITAGLIPTIN PHOSPHATE 50 MG TABLET PO SCH (10:09)
[2016-09-22] MEDS: FERROUS SULFATE 325 MG TABLET PO SCH ×2 (10:10→17:45)
[2016-09-22] MEDS: FUROSEMIDE 20 MG TABLET PO SCH (10:10)
[2016-09-22] MEDS: POTASSIUM CHLORIDE 10 MEQ TABLET.SA PO SCH (10:10)
[2016-09-22] MEDS: ENOXAPARIN SODIUM INJ 40 MG/0.4 ML DISP.SYRIN SUBCUT SCH (10:10)
[2016-09-22] MEDS: DOCUSATE SODIUM 100 MG CAPSULE PO SCH ×2 (10:10→18:10)
[2016-09-22] MEDS: NORMAL SALINE 1000 ML 1,000 ML IV PRN ×2 (10:14→23:44)
[2016-09-22 10:30] LABS: CREATININE RESULT 0.98 mg/dL (0.52-1.25)
--- NOTE | 2016-09-22 12:50 | PDOC PROGRESS REPORT ---
Subjective Progress Note for:: 09/22/16 Subjective:: Patient is much more alert and responsive today. He still remains slightly confused however and is wondering if having a home today. I have described medical problems in great detail to him and told him that we were not able to do that today. Patient denies fever, chills, headache, new focal weakness, chest pain, shortness of breath, abdominal pain, nausea, vomiting, diarrhea, constipation. Physical Exam Vital Signs: Temp Pulse Resp BP Pulse Ox 97.6 F 88 18 157/77 H 98 09/22/16 12:00 09/22/16 12:00 09/22/16 12:00 09/22/16 12:00 09/22/16 12:00 Intake & Output 09/21/16 09/22/16 09/23/16 06:59 06:59 06:59 Intake Total 1200 Output Total 1050 Balance 150 Weight 79.1 kg GENERAL: No acute distress HEENT: Conjunctiva clear, nonicteric, moist mucous membranes, no JVD, midline trachea RESPIRATORY: Clear to auscultation bilaterally, no wheezes, no rhonchi CARDIAC: Regular rate and rhythm, no murmurs/gallops/rubs ABDOMEN: Soft, nondistended, nontender, positive bowel sounds, no rebound, no guarding EXTREMETIES: No edema, cyanosis, clubbing NEUROLOGIC: Alert, oriented to person only, CN's grossly intact, no focal deficits SKIN: Wound VAC to plantar aspect of right foot, eschar over wound on dorsal aspect of left foot Results Laboratory Results: 09/22/16 10:05 09/21/16 09/21/16 09/21/16 14:41 14:41 14:41 Retic Count (auto) 1.20 Absolute Retic 0.043 Carbonic Acid HCO3/H2CO3 Ratio ABG pH ABG pCO2 ABG pO2 ABG HCO3 ABG O2 Saturation ABG Base Excess FiO2 Creatinine Est GFR ( Amer) Est GFR (Non-Af Amer) Iron < 10.1 L TIBC 160 L % Saturation UNABLE TO CALCULATE Ferritin 869.00 H Vitamin B12 835.0 Folate 3.33 TSH 4.20 Free T4 1.87 Free T3 pg/mL 3.04 09/21/16 09/22/16 14:45 10:05 Retic Count (auto) Absolute Retic Carbonic Acid 1.46 H HCO3/H2CO3 Ratio 23:1 ABG pH 7.46 H ABG pCO2 48.4 H ABG pO2 76.4 L ABG HCO3 33.6 H ABG O2 Saturation 95.8 ABG Base Excess 8.7 FiO2 4 L Creatinine 0.98 Est GFR ( Amer) > 60 Est GFR (Non-Af Amer) > 60 Iron TIBC % Saturation Ferritin Vitamin B12 Folate TSH Free T4 Free T3 pg/mL Impressions: Chest X-Ray 09/19/16 09:00 IMPRESSION: Bilateral upper lobe volume loss with interstitial infiltrates, possibly chronic pneumonitis Question 2 cm nodule right lower lung versus superimposed shadows No pulmonary edema, pleural effusions or pneumothorax. Head CT 09/19/16 09:01 IMPRESSION: Limited study due to motion artifact. No gross acute findings Assessment & Plan - Diagnosis (1) Acute encephalopathy Is this a current diagnosis for this admission?: YesPlan: Mental status is much improved today. Likely secondary to acute infection, medication, and history of cerebrovascular disease. Head CT negative for acute process. Unable to obtain MRI of the brain secondary to pacemaker. Continue supportive care. Patient was residing with family at baseline. He will need to go to long term facility for rehabilitation prior to returning to this level of care. (2) Bacteremia Is this a current diagnosis for this admission?: YesPlan: Initial blood culture growing staph epidermidis in 1 bottle. This likely represents a contaminant. That being said I'll continue IV antibiotics for now pending follow-up culture. If patient does have a true bacteremia it's likely from his foot wound. 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 (4) Chronic hypoxemic respiratory failure Is this a current diagnosis for this admission?: YesPlan: Continue oxygen supplementation. Patient was on home oxygen at baseline. (5) Diabetes Is this a current diagnosis for this admission?: YesPlan: Continue Januvia. Continue sliding scale insulin. (6) Pacemaker Is this a current diagnosis for this admission?: Yes (7) Hypertension Qualifiers: Hypertension type: unspecified secondary hypertension Qualified Code (s): I15.9 - Secondary hypertension, unspecified; I15 - Secondary hypertension Is this a current diagnosis for this admission?: Yes (8) Ischemic cardiomyopathy Is this a current diagnosis for this admission?: YesPlan: Compensated. Secondary to systolic dysfunction with EF 20-25%, grade 2/4 diastolic dysfunction, mild to moderate mitral regurgitation. Continue Lasix. Continue lisinopril 2.5 mg daily and Coreg 3.125 mg twice daily. Continue aspirin and Lipitor. (9) Acute urinary retention Is this a current diagnosis for this admission?: YesPlan: Continue Loera catheter. Patient will need outpatient urology follow-up. Continue Flomax. (10) COPD (chronic obstructive pulmonary disease) Qualifiers: COPD type: unspecified COPD Qualified Code(s): J44.9 - Chronic obstructive pulmonary disease, unspecified Is this a current diagnosis for this admission?: Yes (11) CVA (cerebral vascular accident) Qualifiers: CVA mechanism: unspecified Qualified Code(s): I63.9 - Cerebral infarction, unspecified Is this a current diagnosis for this admission?: YesPlan: Continue aspirin, Lipitor. Continue physical therapy. Patient will need to go to acute rehabilitation. (12) Opiate dependence, continuous Is this a current diagnosis for this admission?: YesPlan: Patient has chronic pain and requires chronic opiate pain medications for this. He is also on Neurontin. (13) Anemia Qualifiers: Anemia type: iron deficiency Is this a current diagnosis for this admission?: YesPlan: Start iron supplementation. Check Hemoccult of stool. - Time Time Spent with patient: 35 or more minutes Anticipated discharge: SNF Within: within 48 hours
[2016-09-22] MEDS: ATORVASTATIN CALCIUM 40 MG TABLET PO SCH (22:01)
[2016-09-22] MEDS: AMITRIPTYLINE HCL 25 MG TABLET PO SCH (22:01)
[2016-09-23] MEDS: IPRATROPIUM/ALBUTEROL 0.5-2.5 MG/3 ML AMPUL NEB SCH ×6 (00:06→20:23)
[2016-09-23 06:21] LABS: ABSOLUTE BASOPHILS # (AUTO) 0.1 10^3/uL (0.0-0.2); ABSOLUTE EOSINOPHILS # (AUTO) 0.4 10^3/uL (0.0-0.6); ABSOLUTE LYMPHOCYTES (AUTO) 0.8 10^3/uL (0.5-4.7); ABSOLUTE MONOCYTES (AUTO) 1.1 10^3/uL (0.1-1.4); ABSOLUTE NEUT (AUTO) 10.1 10^3/uL (1.7-8.2); BASOPHILS % (AUTO) 0.7 % (0-2); EOSINOPHILS % (AUTO) 2.9 % (0-6); HEMATOCRIT 30.5 % (37.9-51.0); HEMOGLOBIN 9.8 g/dL (13.5-17.0); HGB HCT DIFFERENCE -1.1; LYMPHOCYTES % (AUTO) 6.2 % (13-45); MEAN CORPUSCULAR HEMOGLOBIN 27.3 pg (27.0-33.4); MEAN CORPUSCULAR HGB CONC 32.1 g/dL (32.0-36.0); MEAN CORPUSCULAR VOLUME 85 fl (80-97); MONOCYTES % (AUTO) 8.9 % (3-13); RED BLOOD COUNT 3.59 10^6/uL (4.35-5.55); RED CELL DISTRIBUTION WIDTH 16.1 % (11.5-14.0); SEGMENTED NEUTROPHILS % (AUTO) 81.3 % (42-78); WHITE BLOOD COUNT 12.4 10^3/uL (4.0-10.5)
[2016-09-23] MEDS: GABAPENTIN 400 MG CAPSULE PO SCH ×3 (06:21→22:36)
[2016-09-23] MEDS: VANCOMYCIN HCL 1,000 MG in DEXTROSE 5%-WATER 250 ML IV SCH (06:21)
[2016-09-23 06:45] LABS: ANION GAP 8 (5-19); BLOOD UREA NITROGEN 12 mg/dL (7-20); CALCIUM 8.2 mg/dL (8.4-10.2); CARBON DIOXIDE 32 mmol/L (22-30); CHLORIDE 102 mmol/L (98-107); CREATININE RESULT 0.86 mg/dL (0.52-1.25); GLUCOSE 119 mg/dL (75-110); POTASSIUM 3.8 mmol/L (3.6-5.0)
[2016-09-23] MEDS: FERROUS SULFATE 325 MG TABLET PO SCH ×2 (08:36→17:18)
[2016-09-23] MEDS: SITAGLIPTIN PHOSPHATE 50 MG TABLET PO SCH (08:37)
[2016-09-23] MEDS: ENOXAPARIN SODIUM INJ 40 MG/0.4 ML DISP.SYRIN SUBCUT SCH (08:37)
--- NOTE | 2016-09-23 09:31 | PDOC TRANSFER SUMMARY ---
General - Admit/Disc Date/PCP Admission Date/Primary Care Provider: 09/21/16 13:53 CLYDE SEGUNDO PA-C Discharge Date: 09/23/16 - Discharge Diagnosis (1) Acute encephalopathy Is this a current diagnosis for this admission?: Yes (2) Bacteremia Is this a current diagnosis for this admission?: Yes (3) Diabetic foot ulcer Is this a current diagnosis for this admission?: Yes (4) Chronic hypoxemic respiratory failure Is this a current diagnosis for this admission?: Yes (5) Diabetes Is this a current diagnosis for this admission?: Yes (6) Pacemaker Is this a current diagnosis for this admission?: Yes (7) Hypertension Is this a current diagnosis for this admission?: Yes (8) Ischemic cardiomyopathy Is this a current diagnosis for this admission?: Yes (9) Acute urinary retention Is this a current diagnosis for this admission?: Yes (10) COPD (chronic obstructive pulmonary disease) Is this a current diagnosis for this admission?: Yes (11) CVA (cerebral vascular accident) Is this a current diagnosis for this admission?: Yes (12) Opiate dependence, continuous Is this a current diagnosis for this admission?: Yes (13) Anemia Is this a current diagnosis for this admission?: Yes - Additional Information Resuscitation Status: Do Not Resuscitate Discharge Diet: Cardiac, Diabetic Discharge Activity: Activity As Tolerated Home Medications: Amitriptyline HCl [Elavil 25 mg Tablet] 25 mg PO QHS 09/20/16 Atorvastatin Calcium [Lipitor 40 mg Tablet] 40 mg PO DAILY 09/20/16 Furosemide [Lasix] 20 mg PO DAILY 09/20/16 Gabapentin [Neurontin 400 mg Capsule] 400 mg PO Q8 09/20/16 Linagliptin [Tradjenta] 5 mg PO QAM 09/20/16 Naloxegol Oxalate [Movantik] 25 mg PO DAILY 09/20/16 Potassium Chloride [Klor-Con 10 Meq Tablet.sa] 10 meq PO DAILY 09/20/16 Tamsulosin HCl [Flomax 0.4 mg Cap.sr] 0.4 mg PO DAILY 09/20/16 Umeclidinium [place] [Incruse Ellipta] 1 puff IH DAILY 09/20/16 Carvedilol [Coreg 3.125 mg Tablet] 3.125 mg PO Q12 #60 tablet 09/23/16 Docusate Sodium [Colace 100 mg Capsule] 100 mg PO BID #0 capsule 09/23/16 Doxycycline Hyclate [Vibramycin 100 mg Tablet] 100 mg PO Q12 7 Days 09/23/16 Ferrous Sulfate [Feosol 325 mg Tablet] 325 mg PO BIDPCBS tablet 09/23/16 Lisinopril [Prinivil 5 mg Tablet] 2.5 mg PO DAILY tablet 09/23/16 Oxycodone HCl [Roxicodone] 30 mg PO Q6HP PRN #20 tablet 09/23/16 History of Present Illness Admission Date/PCP: 09/21/16 13:53 CLYDE SEGUNDO PA-C Patient complains of: Confusion History of Present Illness: YAMIL HOLLOWAY is a 71 year old male was brought in by his family for confusion. The family had left by the time I examined the patient and according to the emergency room physician patient presented with worsening mental status and confusion. At the time of my exam the patient was alert and oriented to person place sided confused about time. There is also some concern about a COPD exacerbation along the patient denied any shortness of breath and his oxygen saturations were 89% on 2 L which is normal oxygen requirement at home. The patient denies any chest pain or cough. He denies any focal weakness. And he was uncertain as to why he needed to stay in the hospital. Discharged earlier this month and it was recommended that time that he go to rehabilitation because he was unable to care for himself and his family was having difficulty caring for him. He has history of urinary retention requiring a Loera catheter. He denies having any fevers or chills or back pain. Denies any dysuria. Denies any focal weakness. Patient had a head CT which showed no acute event. Hospital Course Hospital Course: Patient was admitted with acute onset of confusion which resolved quickly. Most likely combination of medication as well as his COPD. Patient also had pulled out his PICC line. His last day of antibiotics was September 20 which completes 6 weeks of IV antibiotics the possibility of osteomyelitis. The patient had no further confusion however is felt that his family is unable to care for him at home and he is admitted to [facility]. The patient's other medical problems were stable during this hospitalization. The patient has a nonhealing wound on his right foot on the plantar aspect which is being treated with a wound VAC. He will continue with the wound VAC at [facility] 3 times weekly. He should follow-up at the wound clinic. Patient should continue Loera catheter for urinary retention until he can be seen as an outpatient by urology. Patient was noted to have 1 positive blood culture for staph epidermidis. Repeat blood culture negative. This likely represented contaminated specimen. Patient initially was treated with IV vancomycin for this. He has been converted to oral doxycycline for coverage for his foot wound. I don't think further IV antibiotic treatment for positive blood culture is necessary. Physical Exam Vital Signs: Temp Pulse Resp BP Pulse Ox 98.2 F 71 18 103/36 L 97 09/23/16 07:59 09/23/16 08:12 09/23/16 08:12 09/23/16 07:59 09/23/16 08:12 Intake & Output 09/22/16 09/23/16 09/24/16 06:59 06:59 06:59 Intake Total 1200 2050 Output Total 1050 1500 Balance 150 550 Weight 79.1 kg 81.4 kg GENERAL: No acute distress HEENT: Conjunctiva clear, nonicteric, moist mucous membranes, no JVD, midline trachea RESPIRATORY: Clear to auscultation bilaterally, no wheezes, no rhonchi CARDIAC: Regular rate and rhythm, no murmurs/gallops/rubs ABDOMEN: Soft, nondistended, nontender, positive bowel sounds, no rebound, no guarding EXTREMETIES: No edema, cyanosis, clubbing NEUROLOGIC: Alert, oriented to person only, CN's grossly intact, no focal deficits SKIN: Wound VAC to plantar aspect of right foot, eschar over wound on dorsal aspect of left foot Results Laboratory Results: 09/23/16 06:05 09/23/16 06:05 09/21/16 09/22/16 09/23/16 14:41 10:05 06:05 WBC 12.4 H RBC 3.59 L Hgb 9.8 L Hct 30.5 L MCV 85 MCH 27.3 MCHC 32.1 RDW 16.1 H Plt Count 323 Seg Neutrophils % 81.3 H Lymphocytes % 6.2 L Monocytes % 8.9 Eosinophils % 2.9 Basophils % 0.7 Absolute Neutrophils 10.1 H Absolute Lymphocytes 0.8 Absolute Monocytes 1.1 Absolute Eosinophils 0.4 Absolute Basophils 0.1 Sodium Potassium Chloride Carbon Dioxide Anion Gap BUN Creatinine 0.98 Est GFR ( Amer) > 60 Est GFR (Non-Af Amer) > 60 Glucose Calcium Transferrin 105 L 09/23/16 06:05 WBC RBC Hgb Hct MCV MCH MCHC RDW Plt Count Seg Neutrophils % Lymphocytes % Monocytes % Eosinophils % Basophils % Absolute Neutrophils Absolute Lymphocytes Absolute Monocytes Absolute Eosinophils Absolute Basophils Sodium 142.0 Potassium 3.8 Chloride 102 Carbon Dioxide 32 H Anion Gap 8 BUN 12 Creatinine 0.86 Est GFR ( Amer) > 60 Est GFR (Non-Af Amer) > 60 Glucose 119 H Calcium 8.2 L Transferrin Impressions: Chest X-Ray 09/19/16 09:00 IMPRESSION: Bilateral upper lobe volume loss with interstitial infiltrates, possibly chronic pneumonitis Question 2 cm nodule right lower lung versus superimposed shadows No pulmonary edema, pleural effusions or pneumothorax. Head CT 09/19/16 09:01 IMPRESSION: Limited study due to motion artifact. No gross acute findings Qualifiers PATEINT BEING DISCHARGED WITH ANY OF THE FOLLOWING DIAGNOSIS?: No Plan Time Spent: Greater than 30 Minutes
[2016-09-23] MEDS: POTASSIUM CHLORIDE 10 MEQ TABLET.SA PO SCH (10:41)
[2016-09-23] MEDS: FUROSEMIDE 20 MG TABLET PO SCH (10:41)
[2016-09-23] MEDS: DOCUSATE SODIUM 100 MG CAPSULE PO SCH ×2 (10:41→17:18)
[2016-09-23] MEDS: CARVEDILOL 3.125 MG TABLET PO SCH ×2 (10:41→22:36)
[2016-09-23] MEDS: LISINOPRIL 5 MG TABLET PO SCH (10:42)
[2016-09-23] MEDS: ASPIRIN 325 MG TABLET PO SCH (10:42)
[2016-09-23] MEDS: TAMSULOSIN HCL 0.4 MG CAP.SR.24H PO SCH (10:42)
[2016-09-23] MEDS: FAMOTIDINE 20 MG TABLET PO SCH ×2 (10:43→22:37)
[2016-09-23] MEDS: DOXYCYCLINE HYCLATE 100 MG TABLET PO SCH ×2 (10:44→22:35)
[2016-09-23] MEDS: OXYCODONE HCL IR 5 MG TABLET PO PRN (17:21)
[2016-09-23] MEDS: ATORVASTATIN CALCIUM 40 MG TABLET PO SCH (22:35)
[2016-09-23] MEDS: AMITRIPTYLINE HCL 25 MG TABLET PO SCH (22:36)
[2016-09-24] MEDS: IPRATROPIUM/ALBUTEROL 0.5-2.5 MG/3 ML AMPUL NEB SCH ×4 (00:17→11:43)
[2016-09-24] MEDS: GABAPENTIN 400 MG CAPSULE PO SCH (06:32)
[2016-09-24] MEDS: SITAGLIPTIN PHOSPHATE 50 MG TABLET PO SCH (09:10)
[2016-09-24] MEDS: ASPIRIN 325 MG TABLET PO SCH (09:10)
[2016-09-24] MEDS: TAMSULOSIN HCL 0.4 MG CAP.SR.24H PO SCH (09:11)
[2016-09-24] MEDS: DOCUSATE SODIUM 100 MG CAPSULE PO SCH (09:11)
[2016-09-24] MEDS: LISINOPRIL 5 MG TABLET PO SCH (09:11)
[2016-09-24] MEDS: FERROUS SULFATE 325 MG TABLET PO SCH (09:11)
[2016-09-24] MEDS: FAMOTIDINE 20 MG TABLET PO SCH (09:11)
[2016-09-24] MEDS: FUROSEMIDE 20 MG TABLET PO SCH (09:11)
[2016-09-24] MEDS: CARVEDILOL 3.125 MG TABLET PO SCH (09:12)
[2016-09-24] MEDS: DOXYCYCLINE HYCLATE 100 MG TABLET PO SCH (09:12)
[2016-09-24] MEDS: ENOXAPARIN SODIUM INJ 40 MG/0.4 ML DISP.SYRIN SUBCUT SCH (09:12)
[2016-09-24] MEDS: OXYCODONE HCL IR 5 MG TABLET PO PRN (09:14)
[2016-09-24] MEDS: POTASSIUM CHLORIDE 10 MEQ TABLET.SA PO SCH (09:14)
--- NOTE | 2016-09-24 10:22 | PDOC TRANSFER SUMMARY ---
General - Admit/Disc Date/PCP Admission Date/Primary Care Provider: 09/21/16 13:53 CLYDE SEGUNDO PA-C Discharge Date: 09/24/16 - Discharge Diagnosis (1) Bacteremia Is this a current diagnosis for this admission?: YesSummary: Resolved with IV antibiotics (2) Diabetic foot ulcer Is this a current diagnosis for this admission?: YesSummary: Continue wound vac, follow up with wound care (3) COPD (chronic obstructive pulmonary disease) Is this a current diagnosis for this admission?: YesSummary: Continue inhalers (4) Cerebrovascular disease Is this a current diagnosis for this admission?: YesSummary: Post CVA, left sided deficits (5) Chronic hypoxemic respiratory failure Is this a current diagnosis for this admission?: YesSummary: Continue oxygen therapy (6) Confusion Is this a current diagnosis for this admission?: YesSummary: Patient with mild dementia, secondary to microvascular disease (7) Hypertension Is this a current diagnosis for this admission?: YesSummary: Continue current medications, normotensive at present (8) Obstructive sleep apnea Is this a current diagnosis for this admission?: YesSummary: CPAP at night (9) Ischemic cardiomyopathy Is this a current diagnosis for this admission?: YesSummary: Continue current medications, BIvent pacemaker (10) Acute urinary retention Is this a current diagnosis for this admission?: YesSummary: Continue trejo catheter - Additional Information Resuscitation Status: Do Not Resuscitate Discharge Diet: Cardiac, Diabetic Discharge Activity: Activity As Tolerated Home Medications: Amitriptyline HCl [Elavil 25 mg Tablet] 25 mg PO QHS 09/20/16 Atorvastatin Calcium [Lipitor 40 mg Tablet] 40 mg PO DAILY 09/20/16 Furosemide [Lasix] 20 mg PO DAILY 09/20/16 Gabapentin [Neurontin 400 mg Capsule] 400 mg PO Q8 09/20/16 Linagliptin [Tradjenta] 5 mg PO QAM 09/20/16 Naloxegol Oxalate [Movantik] 25 mg PO DAILY 09/20/16 Potassium Chloride [Klor-Con 10 Meq Tablet.sa] 10 meq PO DAILY 09/20/16 Tamsulosin HCl [Flomax 0.4 mg Cap.sr] 0.4 mg PO DAILY 09/20/16 Umeclidinium [place] [Incruse Ellipta] 1 puff IH DAILY 09/20/16 Carvedilol [Coreg 3.125 mg Tablet] 3.125 mg PO Q12 #60 tablet 09/23/16 Docusate Sodium [Colace 100 mg Capsule] 100 mg PO BID #0 capsule 09/23/16 Doxycycline Hyclate [Vibramycin 100 mg Tablet] 100 mg PO Q12 7 Days 09/23/16 Ferrous Sulfate [Feosol 325 mg Tablet] 325 mg PO BIDPCBS tablet 09/23/16 Lisinopril [Prinivil 5 mg Tablet] 2.5 mg PO DAILY tablet 09/23/16 Oxycodone HCl [Roxicodone] 30 mg PO Q6HP PRN #20 tablet 09/23/16 History of Present Illness Admission Date/PCP: 09/21/16 13:53 CLYDE SEGUNDO PA-C Patient complains of: Shortness of breath and confusion History of Present Illness: YAMIL HOLLOWAY is a 71 year old male was brought in by his family for confusion. The family had left by the time I examined the patient and according to the emergency room physician patient presented with worsening mental status and confusion. At the time of my exam the patient was alert and oriented to person place sided confused about time. There is also some concern about a COPD exacerbation along the patient denied any shortness of breath and his oxygen saturations were 89% on 2 L which is normal oxygen requirement at home. The patient denies any chest pain or cough. He denies any focal weakness. And he was uncertain as to why he needed to stay in the hospital. Discharged earlier this month and it was recommended that time that he go to rehabilitation because he was unable to care for himself and his family was having difficulty caring for him. He has history of urinary retention requiring a Trejo catheter. He denies having any fevers or chills or back pain. Denies any dysuria. Denies any focal weakness. Patient had a head CT which showed no acute event. Hospital Course Hospital Course: Patient was admitted with acute onset of confusion which resolved quickly. Most likely combination of medication as well as his COPD. Patient also had pulled out his PICC line. His last day of antibiotics was September 20 which completes 6 weeks of IV antibiotics the possibility of osteomyelitis. The patient had no further confusion however is felt that his family is unable to care for him at home and he is admitted to [facility]. The patient's other medical problems were stable during this hospitalization. The patient has a nonhealing wound on his right foot on the plantar aspect which is being treated with a wound VAC. He will continue with the wound VAC at [facility] 3 times weekly. He should follow-up at the wound clinic. Patient should continue Trejo catheter for urinary retention until he can be seen as an outpatient by urology. Patient was noted to have 1 positive blood culture for staph epidermidis. Repeat blood culture negative. This likely represented contaminated specimen. Patient initially was treated with IV vancomycin for this. He has been converted to oral doxycycline for coverage for his foot wound. I don't think further IV antibiotic treatment for positive blood culture is necessary. Physical Exam Vital Signs: Temp Pulse Resp BP Pulse Ox 98.1 F 75 20 104/46 L 94 09/24/16 07:43 09/24/16 07:50 09/24/16 07:50 09/24/16 07:43 09/24/16 07:50 Intake & Output 09/23/16 09/24/16 09/25/16 06:59 06:59 06:59 Intake Total 2050 948 Output Total 1500 700 Balance 550 248 Weight 81.4 kg 81.3 kg General appearance: PRESENT: no acute distress, disheveled, well-developed, well -nourished Head exam: PRESENT: atraumatic, normocephalic Eye exam: PRESENT: conjunctiva pink, EOMI, PERRLA. ABSENT: scleral icterus Ear exam: PRESENT: normal external ear exam Mouth exam: PRESENT: moist, tongue midline Teeth exam: PRESENT: edentulous Neck exam: ABSENT: carotid bruit, JVD, lymphadenopathy, thyromegaly Respiratory exam: PRESENT: decreased breath sounds, symmetrical, unlabored Cardiovascular exam: PRESENT: RRR. ABSENT: diastolic murmur, rubs, systolic murmur Pulses: PRESENT: normal carotid pulses, normal radial pulses Vascular exam: PRESENT: normal capillary refill GI/Abdominal exam: PRESENT: normal bowel sounds, soft. ABSENT: distended, guarding, mass, organolmegaly, rebound, tenderness Rectal exam: PRESENT: deferred Extremities exam: PRESENT: full ROM. ABSENT: calf tenderness, clubbing, pedal edema Neurological exam: PRESENT: alert, awake, oriented to person, oriented to place , oriented to time, oriented to situation, CN II-XII grossly intact. ABSENT: motor sensory deficit Psychiatric exam: PRESENT: appropriate affect, normal mood. ABSENT: homicidal ideation, suicidal ideation Skin exam: PRESENT: dry, intact, warm. ABSENT: cyanosis, rash Results Laboratory Results: 09/23/16 06:05 09/23/16 06:05 Impressions: Chest X-Ray 09/19/16 09:00 IMPRESSION: Bilateral upper lobe volume loss with interstitial infiltrates, possibly chronic pneumonitis Question 2 cm nodule right lower lung versus superimposed shadows No pulmonary edema, pleural effusions or pneumothorax. Head CT 09/19/16 09:01 IMPRESSION: Limited study due to motion artifact. No gross acute findings Transfer Plan - Disposition Transfer Plan: [facility] - Time Spent with Patient Time spent with patient: Less than 30 Minutes Qualifiers PATEINT BEING DISCHARGED WITH ANY OF THE FOLLOWING DIAGNOSIS?: No Plan Discharge Plan: Transfer to [facility]
[2016-09-24 12:43] VITALS: BP 92/66
== END 2016-09-24 14:29 | DRG 92 ==
LOC: ER 08:13 → EH 12:26 → INTOOBSV 12:26 → 3W 15:24 → OBSVTOIN 09-21 13:53
PROVIDERS: ADMIT Internal Medicine; ATTEND Internal Medicine
PROC: 5A09457 Assistance with Respiratory Ventilation, 24-96 Consecutive Hours, Continuous Positive Airway Pressure (ICD-10-PCS; principal; 2016-09-19)
PROC: 3E0F73Z Introduction of Anti-inflammatory into Respiratory Tract, Via Natural or Artificial Opening (ICD-10-PCS; 2016-09-19)
DX: G92 Toxic encephalopathy (principal); L97.414 Non-pressure chronic ulcer of right heel and midfoot with necrosis of bone; J96.11 Chronic respiratory failure with hypoxia; F11.20 Opioid dependence, uncomplicated; I69.354 Hemiplegia and hemiparesis following cerebral infarction affecting left non-dominant side; R78.81 Bacteremia; E11.621 Type 2 diabetes mellitus with foot ulcer; I11.0 Hypertensive heart disease with heart failure; I50.9 Heart failure, unspecified; E78.5 Hyperlipidemia, unspecified; G47.33 Obstructive sleep apnea (adult) (pediatric); I25.5 Ischemic cardiomyopathy; N40.1 Benign prostatic hyperplasia with lower urinary tract symptoms; R33.8 Other retention of urine; R91.1 Solitary pulmonary nodule; F32.9 Major depressive disorder, single episode, unspecified; D50.9 Iron deficiency anemia, unspecified; R47.81 Slurred speech; T40.605A Adverse effect of unspecified narcotics, initial encounter; J44.9 Chronic obstructive pulmonary disease, unspecified; Z66 Do not resuscitate; Z99.81 Dependence on supplemental oxygen; Z95.0 Presence of cardiac pacemaker; Z79.82 Long term (current) use of aspirin; Z79.899 Other long term (current) drug therapy; Z88.6 Allergy status to analgesic agent; Z86.14 Personal history of Methicillin resistant Staphylococcus aureus infection; Z87.891 Personal history of nicotine dependence; Z83.6 Family history of other diseases of the respiratory system; Z82.49 Family history of ischemic heart disease and other diseases of the circulatory system
CPT/HCPCS: 36415; 36600; 70450; 71010; 80048; 80053; 80202; 81001; 82550; 82553; 82565; 82607; 82728; 82746; 82803; 82962; 83540; 83550; 83735; 83880; 84439; 84443; 84466; 84481; 84484; 85025; 85027; 85045; 87040; 87077; 87186; 93005; 93010; 94640; 94660; 96360; 96361; 99285; G0378; J1650; J1815; J3370; J3490; J7030; J7060; J7620

== ENCOUNTER → 2016-11-03 | Outpatient (CLI) | payer MEDICARE ==
[2016-11-03 11:14] LABS: HEMATOCRIT 38.9 % (37.9-51.0); HEMOGLOBIN 12.4 g/dL (13.5-17.0); HGB HCT DIFFERENCE -1.7; MEAN CORPUSCULAR HEMOGLOBIN 28.7 pg (27.0-33.4); MEAN CORPUSCULAR VOLUME 90 fl (80-97); RED BLOOD COUNT 4.33 10^6/uL (4.35-5.55); RED CELL DISTRIBUTION WIDTH 19.6 % (11.5-14.0)
[2016-11-03 11:15] LABS: ABSOLUTE BASOPHILS # (AUTO) 0.1 10^3/uL (0.0-0.2); ABSOLUTE EOSINOPHILS # (AUTO) 0.3 10^3/uL (0.0-0.6); ABSOLUTE LYMPHOCYTES (AUTO) 1.7 10^3/uL (0.5-4.7); ABSOLUTE MONOCYTES (AUTO) 0.8 10^3/uL (0.1-1.4); ABSOLUTE NEUT (AUTO) 7.2 10^3/uL (1.7-8.2); BASOPHILS % (AUTO) 1.2 % (0-2); EOSINOPHILS % (AUTO) 2.7 % (0-6); MONOCYTES % (AUTO) 7.6 % (3-13); SEGMENTED NEUTROPHILS % (AUTO) 71.5 % (42-78)
--- NOTE | 2016-11-03 11:29 | RADIOLOGY REPORT (SQ) ---
EXAM DESCRIPTION: FOOT BILATERAL 3 VIEWS COMPLETED DATE/TIME: 11/03/2016 11:08 am REASON FOR STUDY: TYPE 2 DIABETES MELLITUS WITH FOOT ULCER E11.621 TYPE 2 DIABETES MELLITUS WITH FO OT ULCER I11.0 HYPERTENSIVE HEART DISEASE WITH HEART FAILURE COMPARISON: None. NUMBER OF VIEWS: Three views. TECHNIQUE: AP, lateral and oblique radiographic images acquired of the right and left foot. LIMITATIONS: None. FINDINGS: MINERALIZATION: Normal. BONES: No acute fracture or dislocation. No worrisome bone lesions. No evidence of osteomyelitis. A small plantar spur is present on each calcaneus. JOINTS: No effusions. SOFT TISSUES: No soft tissue swelling. No foreign body. OTHER: No other significant finding. IMPRESSION: Small plantar calcaneal spur on each foot. No acute abnormality. TECHNICAL DOCUMENTATION: JOB ID: [id number] [employer]- All Rights Reserved
[2016-11-03 11:42] LABS: ALANINE AMINOTRANSFERASE 45 U/L (21-72); ALBUMIN 3.9 g/dL (3.5-5.0); ALKALINE PHOSPHATASE 74 U/L (38-126); ANION GAP 13 (5-19); ASPARTATE AMINO TRANSFERASE 50 U/L (17-59); BILIRUBIN,DIRECT 0.4 mg/dL (0.0-0.4); BILIRUBIN,TOTAL 0.7 mg/dL (0.2-1.3); BLOOD UREA NITROGEN 17 mg/dL (7-20); CALCIUM 9.6 mg/dL (8.4-10.2); CARBON DIOXIDE 28 mmol/L (22-30); CHLORIDE 97 mmol/L (98-107); CREATININE RESULT 0.95 mg/dL (0.52-1.25); GLUCOSE 118 mg/dL (75-110); POTASSIUM 4.2 mmol/L (3.6-5.0); SODIUM 137.9 mmol/L (137-145); TOTAL PROTEIN 7.8 g/dL (6.3-8.2)
== END ==
LOC: OD 10:43
PROVIDERS: ATTEND Surgery
DX: E11.621 Type 2 diabetes mellitus with foot ulcer (principal); L97.511 Non-pressure chronic ulcer of other part of right foot limited to breakdown of skin; J44.9 Chronic obstructive pulmonary disease, unspecified; I11.0 Hypertensive heart disease with heart failure
CPT/HCPCS: 36415; 80053; 83036; 85025; 86140

== ENCOUNTER 2017-08-03 11:43 | Observation (INO) | payer MEDICARE ==
[2017-08-03] MEDS ORDERED: FUROSEMIDE INJ/PF 20 MG/2 ML SDV IV ONE (12:14)
--- NOTE | 2017-08-03 12:18 | ER Document Report ---
ED Respiratory Problem - General Chief Complaint: Breathing Difficulty Stated Complaint: SHORTNESS OF BREATH Time Seen by Provider: 08/03/17 12:12 Mode of Arrival: Stretcher Information source: Patient Notes: 72 years old male last Tuesday that is 4 days ago, felt his defibrillator discharging. He did not think much of it today went to see the coal picker. File Keeper send him over here. He also was having cough and shortness of breath on exertion. Denies any chest pain. Denies any palpitation diaphoresis. Denies any left arm numbness tingling sensation nausea vomiting. Denies any other constitutional symptoms. TRAVEL OUTSIDE OF THE [place] IN LAST 30 DAYS: No - HPI Patient complains to provider of: CHF, Short of breath. No: Asthma, Chest pain , COPD, Cough, Hurts to breath, Other Duration: No: Better, Continuous, Gone now, Intermittent episodes, Worse/ persistent Initiating Event: Exertion. No: Allergy, Aspiration/Choking, Exposure to chemicals, Exposure to dust, Exposure to fumes, Exposure to mold, Exposure to smoke, Out of meds, Sports/exercise, URI, Other Quality of pain: denies: No pain, Achy, Burning, Cramping, Dull, Fullness, Pressure, Sharp, Stabbing, Throbbing, Other Context: denies: DVT, Factor V Leiden, Hx asthma, Hx CHF, Hx COPD, Malignancy, , Recent cardiac event, Recent foreign travel, Recent long distance trvl , Recent immobilization, Recent surgery, Smoker, Other Short of Breath: Moderate Chest pain/discomfort: denies: Center, Constant, Heaviness, Intermittent, Left, Pain, Radiates to arm, Radiates to back, Radiates to jaw, Right, Tightness, Worse with deep breaths Cough: Nonproductive. denies: Productive, Stridor, Suspect aspiration Sputum amount: denies: None, Scant, Small, Moderate, Large, Copious Sputum color: denies: Brown, Clear, Creamy, Chavez, Green, Fellows tinged, Red (blood ), Red Specks, Rust, Small Clots, Lowery, White, Yellow Sputum consistency: denies: Frothy, Mucoid, Mucoid Plug, Tenacious, Thick, Thin At home treatment: Bronchodilators. denies: CPAP, Diuretics, Inhaled steroids, Oral steroids, Oxygen, Singulair, Theophylline Associated symptoms: denies: None, Ankle/leg swelling, Allergy/hay fever, Anxiety, Bloody cough, Chest pain/discomfort, Chills, Congestion, Cough, Dental decay, Difficulty breathing, Earache, Extertional dyspnea, Facial pain, Fever, Headache, Heart racing, Hoarseness, Hurts to breathe, Hyperventilation, Jaw pain , Leg/calf/joint pain, Muscle spasms, Orthopnea, PND, Runny nose, Sinus pain/ pressure, Short of breath, Sore Throat, Sweaty, Tingling face, Tingling hands, Unable to swallow, Toothache, Wheezing, Other - Related Data Allergies/Adverse Reactions: morphine Adverse Reaction (Verified 08/03/17 12:17) Past Medical History - General Information source: Patient - Social History Smoking Status: Former Smoker Chew tobacco use (# tins/day): Yes Frequency of alcohol use: None Drug Abuse: None Family History: COPD, Hypertension, Other Patient has suicidal ideation: No Patient has homicidal ideation: No - Past Medical History Cardiac Medical History: Reports: Hx Congestive Heart Failure, Hx Hypercholesterolemia, Hx Hypertension Pulmonary Medical History: Reports: Hx COPD, Hx Pneumonia, Hx Sleep Apnea Endocrine Medical History: Reports: Hx Diabetes Mellitus Type 2 Renal/ Medical History: Reports: Hx Benign Prostatic Hyperplasia. Denies: Hx Peritoneal Dialysis Psychiatric Medical History: Reports: Hx Depression Past Surgical History: Reports: Hx Cardiac Surgery - pacer/defib, Hx Pacemaker - Immunizations Hx Diphtheria, Pertussis, Tetanus Vaccination: Yes Hx Pneumococcal Vaccination: 06/06/13 Review of Systems - Review of Systems Constitutional: denies: No symptoms reported, See HPI, Chills, Diaphoresis, Fever, Malaise, Weakness, Other, Weight gain, Weight loss, Recent illness EENT: denies: No symptoms reported, See HPI, Eye pain, Eye discharge, Blurred vision, Tearing, Double vision, Ear pain, Ear discharge, Nose pain, Nose congestion, Nose discharge, Sinus pressure, Sinus discharge, Throat pain, Difficulty swallowing, Throat swelling, Mouth pain, Mouth swelling, Dental problem, Vertigo, Other Cardiovascular: See HPI Respiratory: See HPI Gastrointestinal: denies: No symptoms reported, See HPI, Abdomen distended, Abdominal pain, Diarrhea, Nausea, Vomiting, Constipation, Blood streaked bowels , Poor appetite, Poor fluid intake, Blood in vomit, Black stools, Rectal bleeding, Last bowel movement, Fecal incontinence, Other Genitourinary: denies: No symptoms reported, See HPI, Burning, Dysuria, Discharge, Frequency, Flank pain, Hematuria, Incontinence, Pain, Urgency, Retention, Other Musculoskeletal: denies: No symptoms reported, See HPI, Back pain, Gout, Joint pain, Joint swelling, Muscle pain, Muscle stiffness, Neck pain, Deformity, Leg swelling, Ankle swelling, Other Neurological/Psychological: denies: No symptoms reported, See HPI, Confusion, Dementia, Depression, Hallucinations, Anxiety, Homicidal ideation, Sensory change, Weakness, Gait changes, Loss of power, Paralysis, Seizure, Lost consciousness, Headaches, Speech impairment, Numbness, Suicidal ideation, Tingling, Tremor, Other Physical Exam - Vital signs Vitals: Resp Pulse Ox 15 97 08/03/17 12:00 08/03/17 12:00 - Notes Notes: PHYSICAL EXAMINATION: GENERAL: Well-appearing, well-nourished and in no acute distress. Obese HEAD: Atraumatic, normocephalic. EYES: Pupils equal round and reactive to light, extraocular movements intact, conjunctiva are normal. ENT: Nares patent, oropharynx clear without exudates. Moist mucous membranes. NECK: Normal range of motion, supple without lymphadenopathy LUNGS: Breath sounds clear to auscultation bilaterally and equal. Except lower lung field had inspiratory rales HEART: Regular rate and rhythm without murmurs ABDOMEN: Soft, nontender, nondistended abdomen. No guarding, no rebound. No masses appreciated. Female : deferred Musculoskeletal: Normal range of motion, no pitting or edema. No cyanosis. NEUROLOGICAL: Cranial nerves grossly intact. Normal speech, normal gait. Normal sensory, motor exams PSYCH: Normal mood, normal affect. SKIN: Warm, Dry, normal turgor, no rashes or lesions noted. Course - Re-evaluation Re-evalutation: 08/03/17 14:37 Patient has remained stable - Vital Signs Vital signs: Temp Pulse Resp BP Pulse Ox 99.0 F 75 20 131/67 H 99 08/03/17 12:06 08/03/17 12:06 08/03/17 14:01 08/03/17 14:01 08/03/17 14:01 - Laboratory Result Diagrams: 08/03/17 11:50 08/03/17 11:50 Laboratory results interpreted by me: 08/03/17 08/03/17 08/03/17 11:50 11:50 11:50 RBC 4.26 L Hgb 13.1 L RDW 15.4 H Lymphocytes % 12.3 L Creatinine 1.35 H Est GFR (Non-Af Amer) 52 L Glucose 171 H Direct Bilirubin 0.6 H NT-Pro-B Natriuret Pep 2970 H Urine Urobilinogen 08/03/17 12:49 RBC Hgb RDW Lymphocytes % Creatinine Est GFR (Non-Af Amer) Glucose Direct Bilirubin NT-Pro-B Natriuret Pep Urine Urobilinogen 4.0 H - Diagnostic Test Radiology reviewed: Reports reviewed - Chest x-ray reported by radiologist as condition as well as an mass in the right lung. - EKG Interpretation by Me Tyler/QRS: LBBB - Paced rhythm at rate of 79 bpm no changes compared to the previous electrocardiogram which was done on 09/19/2016. Procedures - Additional Procedures pacemaker interagation Time performed: 22:00 Additional Procedures: Other - cardiac pacemaker was interrogated, report was reviewed, which indicated the patient did not have a defibrillation done within the last few weeks. The last one that was reported as was in 16 months ago. Discharge - Discharge Clinical Impression: COPD (chronic obstructive pulmonary disease) Qualifiers: COPD type: COPD with acute exacerbation Qualified Code(s): J44.1 - Chronic obstructive pulmonary disease with (acute) exacerbation Congestive heart failure Qualifiers: Heart failure type: systolic Heart failure chronicity: acute Qualified Code(s) : I50.21 - Acute systolic (congestive) heart failure Condition: Stable Disposition: ADMITTED INPATIENT Admitting Provider: Hospitalist Unit Admitted: Telemetry Referrals: ALICJA SHELTON DO [Primary Care Provider] - Follow up as needed
[2017-08-03 12:25] LABS: ABSOLUTE BASOPHILS # (AUTO) 0.1 10^3/uL (0.0-0.2); ABSOLUTE EOSINOPHILS # (AUTO) 0.1 10^3/uL (0.0-0.6); ABSOLUTE MONOCYTES (AUTO) 0.8 10^3/uL (0.1-1.4); ABSOLUTE NEUT (AUTO) 6.1 10^3/uL (1.7-8.2); EOSINOPHILS % (AUTO) 1.3 % (0-6); HEMATOCRIT 39.3 % (37.9-51.0); HEMOGLOBIN 13.1 g/dL (13.5-17.0); LYMPHOCYTES % (AUTO) 12.3 % (13-45); MEAN CORPUSCULAR HEMOGLOBIN 30.7 pg (27.0-33.4); MEAN CORPUSCULAR HGB CONC 33.4 g/dL (32.0-36.0); MEAN CORPUSCULAR VOLUME 92 fl (80-97); MONOCYTES % (AUTO) 9.8 % (3-13); PLATELET COUNT 203 10^3/uL (150-450); RED BLOOD COUNT 4.26 10^6/uL (4.35-5.55); RED CELL DISTRIBUTION WIDTH 15.4 % (11.5-14.0); SEGMENTED NEUTROPHILS % (AUTO) 75.6 % (42-78); TOTAL CELLS COUNTED % (AUTO) 100 %
[2017-08-03 12:40] LABS: ALANINE AMINOTRANSFERASE 21 U/L (21-72); ALBUMIN 4.1 g/dL (3.5-5.0); ALKALINE PHOSPHATASE 47 U/L (38-126); ANION GAP 10 (5-19); ASPARTATE AMINO TRANSFERASE 25 U/L (17-59); BILIRUBIN,DIRECT 0.6 mg/dL (0.0-0.4); BLOOD UREA NITROGEN 20 mg/dL (7-20); CALCIUM 9.5 mg/dL (8.4-10.2); CARBON DIOXIDE 29 mmol/L (22-30); CHLORIDE 99 mmol/L (98-107); GLUCOSE 171 mg/dL (75-110); POTASSIUM 4.8 mmol/L (3.6-5.0); SODIUM 138.2 mmol/L (137-145); TOTAL PROTEIN 7.5 g/dL (6.3-8.2)
--- NOTE | 2017-08-03 12:48 | EKG REPORT ---
SEVERITY:- ABNORMAL ECG - ATRIAL-SENSED VENTRICULAR-PACED RHYTHM : Confirmed by: Rocael Rincon MD 03-Aug-2017 12:48:03
[2017-08-03 12:52] LABS: TROPONIN I 0.02 ng/mL
--- NOTE | 2017-08-03 12:53 | RADIOLOGY REPORT (SQ) ---
EXAM DESCRIPTION: CHEST SINGLE VIEW COMPLETED DATE/TIME: 08/03/2017 12:35 pm REASON FOR STUDY: Shortness of breath COMPARISON: Chest films 09/19/2016, 09/17/2016 EXAM PARAMETERS: NUMBER OF VIEWS: One view. TECHNIQUE: Single frontal radiographic view of the chest acquired. RADIATION DOSE: NA LIMITATIONS: None. FINDINGS: LUNGS AND PLEURA: 4 cm nodule in the right mid lung. CT chest recommended for followup. No focal infiltrates. No pleural effusion. No pneumothorax. MEDIASTINUM AND HILAR STRUCTURES: No masses. Contour normal. HEART AND VASCULAR STRUCTURES: Heart normal in size. Normal vasculature. BONES: No acute findings. HARDWARE: Left-sided pacemaker/defibrillator OTHER: No other significant finding. IMPRESSION: 4 cm nodule in the right lung. CT chest recommended for followup TECHNICAL DOCUMENTATION: JOB ID: [id number] [employer]- All Rights Reserved Reading location - IP/workstation name: [email or web address]
[2017-08-03 13:19] LABS: APPEARANCE,URINE CLEAR; BILIRUBIN,URINE NEGATIVE (NEGATIVE); COLOR,URINE YELLOW; GLUCOSE, URINE NEGATIVE (NEGATIVE); KETONES,URINE NEGATIVE (NEGATIVE); LEUKOCYTE ESTERASE,URINE NEGATIVE (NEGATIVE); NITRITE,URINE NEGATIVE (NEGATIVE); PROTEIN,URINE NEGATIVE (NEGATIVE)
[2017-08-03] MEDS ORDERED: ONDANSETRON HCL INJ/PF 4 MG/2 ML SDV IV PRN (14:58)
[2017-08-03] MEDS ORDERED: MAG HYDROX/AL HYDROX/SIMETH SUSP 30 ML UDCUP PO PRN (14:58)
[2017-08-03] MEDS ORDERED: ENALAPRILAT DIHYDRATE INJ/PF 1.25 MG/1 ML SDV IV PRN (14:58)
[2017-08-03] MEDS ORDERED: ACETAMINOPHEN 325 MG TABLET PO PRN (14:58)
--- NOTE | 2017-08-03 15:33 | RADIOLOGY REPORT (SQ) ---
EXAM DESCRIPTION: CT CHEST WITHOUT COMPLETED DATE/TIME: 08/03/2017 2:53 pm REASON FOR STUDY: dyspnea; nodule noted on CXR COMPARISON: Chest x-ray dated 08/03/2017 TECHNIQUE: CT scan performed of the chest without intravenous contrast. Images reviewed with lung, soft tissue and bone windows. Reconstructed coronal and sagittal MPR images reviewed. All images st ored on PACS. All CT scanners at this facility use dose modulation, iterative reconstruction, and/or weight based d osing when appropriate to reduce radiation dose to as low as reasonably achievable (ALARA). [facility]: Dose Right [facility]: CareDose [facility]: Dose Right [facility]: Teradose 4D [facility]: Smart Your Tribute RADIATION DOSE: CT Rad equipment meets quality standard of care and radiation dose reduction techniq ues were employed. CTDIvol: 16.0 mGy. DLP: 675 mGy-cm. mGy. LIMITATIONS: No technical limitations. FINDINGS: LUNGS AND PLEURA: A lobulated mass is projected in the right mid lung field at the level o f the major fissure measuring 3.1 x 2.[address] numbers are consistent with a fluid comp onent. Differential possibilities would include a loculated pleural effusion or other fluid collecti on versus a possible necrotic neoplastic process. Chest CT scan with IV contrast may be of value for further evaluation. This correlates with the finding on the chest x-ray. HILAR AND MEDIASTINAL STRUCTURES: No identified masses or abnormal nodes. No obvious aneurysm. HEART AND VASCULAR STRUCTURES: No aneurysm. No pericardial effusion. UPPER ABDOMEN: Couple tiny gallstones are identified. Fairly extensive vascular calcifications are i dentified. THYROID AND OTHER SOFT TISSUES: No masses. No adenopathy. BONES: No significant finding. HARDWARE: Artifact related to an AC ID device is identified. OTHER: No other significant findings. IMPRESSION: Lobulated mass in the right mid lung field at the level of the major fissure as noted ab ove CT numbers are consistent with a fluid component. Differential possibilities would include a loc ulated pleural effusion or other fluid collection versus a possible necrotic neoplastic process. Edita st CT scan with IV contrast may be of value for further evaluation. Other findings as noted above TECHNICAL DOCUMENTATION: JOB ID: [id number] Quality ID # [id number]: Final reports with documentation of one or more dose reduction techniques (e.g., Au tomated exposure control, adjustment of the mA and/or kV according to patient size, use of iterative reconstruction technique) 2010 [employer]- All Rights Reserved Reading location - IP/workstation name: [email or web address]
[2017-08-03] MEDS ORDERED: DEXTROSE 50%-WATER 25 GM/50 ML DISP.SYRIN IV PRN ×2 (15:41)
[2017-08-03] MEDS ORDERED: DEXTROSE 40% GEL 15 GM TUBE PO PRN ×2 (15:41)
[2017-08-03] MEDS ORDERED: GLUCAGON,HUMAN RECOMB 1 MG INJ IM PRN (15:41)
[2017-08-03] MEDS ORDERED: INSULIN LISPRO 100 UNIT/ML 3 ML VIAL SUBCUT PRN (15:41)
[2017-08-03] MEDS ORDERED: NORMAL SALINE 1000 ML 500 ML IV ONE (16:00)
[2017-08-03] MEDS ORDERED: OXYCODONE HCL SR 10 MG TABLET PO PRN (16:03)
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
[2017-08-03] MEDS ORDERED: OXYCODONE HCL IR 5 MG TABLET PO PRN (16:09)
--- NOTE | 2017-08-03 16:35 | RADIOLOGY REPORT (SQ) ---
EXAM DESCRIPTION: CT CHEST WITH COMPLETED DATE/TIME: 08/03/2017 4:12 pm REASON FOR STUDY: nodule per noncontrasted ct COMPARISON: CT chest 08/03/2017 TECHNIQUE: CT scan of the chest performed using helical scanning technique with dynamic intravenous contrast injection. Images reviewed with lung, soft tissue and bone windows. Reconstructed coronal and sagittal MPR images reviewed. All images stored on PACS. All CT scanners at this facility use dose modulation, iterative reconstruction, and/or weight based d osing when appropriate to reduce radiation dose to as low as reasonably achievable (ALARA). [facility]: Dose Right [facility]: CareDose [facility]: Dose Right [facility]: Teradose 4D [facility]: MamboCar CONTRAST TYPE AND DOSE: contrast/concentration: Isovue 370.00 mg/ml; Total Contrast Delivered: 79.0 ml; Total Saline Delivered: 52.0 ml RENAL FUNCTION: Creatinine 1.4 RADIATION DOSE: CT Rad equipment meets quality standard of care and radiation dose reduction techniq ues were employed. CTDIvol: 15.2 mGy. DLP: 651 mGy-cm. . LIMITATIONS: None. FINDINGS: LUNGS AND PLEURA: An enhancing soft tissue mass is present in the anterior aspect of the r ight lower lobe abutting the major fissure. There is adjacent ill-defined airspace disease with spic ulated margins. Overall this measures about 3.3 x 2.8 cm in size. This lesion enhances from [address] earlier today, 252 Hounsfield units. This is worrisome for primary lung malignancy . Remainder of the lung parenchyma exhibits hyperinflation and hyperlucency from obstructive disease in the bilateral upper lobes. No other pulmonary nodules. Airways are patent. No pleural effusion. No pneumothorax. HILAR AND MEDIASTINAL STRUCTURES: 3.6 x 3 cm right peritracheal lymph node on axial image 23 and kiko nal image 38. Right hilar lymph node, 2.2 x 2 cm in size on axial image 32 and coronal image 45. Right paratracheal lymph node near the thoracic inlet, 2 x 1.3 cm in size on axial image 11. HEART AND VASCULAR STRUCTURES: Cardiomegaly. Calcified LAD. Pacemaker. HARDWARE: Pacemaker UPPER ABDOMEN: Tiny stones in the gallbladder. THYROID AND OTHER SOFT TISSUES: No masses. No adenopathy. BONES: No significant finding. OTHER: No other significant finding. IMPRESSION: Small malignant appearing right lower lobe mass with right hilar and mediastinal adenopa thy. TECHNICAL DOCUMENTATION: JOB ID: [id number] Quality ID # [id number]: Final reports with documentation of one or more dose reduction techniques (e.g., Au tomated exposure control, adjustment of the mA and/or kV according to patient size, use of iterative reconstruction technique) 2010 [employer]- All Rights Reserved Reading location - IP/workstation name: [facility]
[2017-08-03] MEDS: FERROUS SULFATE 325 MG TABLET PO SCH (18:21)
[2017-08-03] MEDS: DOCUSATE SODIUM 100 MG CAPSULE PO SCH (18:23)
[2017-08-03] MEDS: NORMAL SALINE 1000 ML 1,000 ML IV PRN (18:24)
[2017-08-03] MEDS: IPRATROPIUM/ALBUTEROL 0.5-2.5 MG/3 ML AMPUL NEB PRN (19:19)
[2017-08-03] MEDS: FAMOTIDINE 20 MG TABLET PO SCH (21:36)
[2017-08-03] MEDS: MELATONIN 5 MG TABLET PO SCH (21:36)
[2017-08-03] MEDS: CARVEDILOL 3.125 MG TABLET PO SCH (21:36)
[2017-08-03] MEDS: ZOLPIDEM TARTRATE 5 MG TABLET PO SCH (21:37)
[2017-08-03] MEDS: HEPARIN SOD (PORCINE) 5,000 UNIT/ML 1 ML SYRINGE SUBCUT SCH (21:37)
[2017-08-04] MEDS: IPRATROPIUM/ALBUTEROL 0.5-2.5 MG/3 ML AMPUL NEB PRN ×2 (02:06→10:03)
[2017-08-04] MEDS: HEPARIN SOD (PORCINE) 5,000 UNIT/ML 1 ML SYRINGE SUBCUT SCH ×3 (05:09→09:15)
[2017-08-04] MEDS: NORMAL SALINE 1000 ML 1,000 ML IV PRN (05:10)
[2017-08-04 06:05] LABS: HEMATOCRIT 35.9 % (37.9-51.0); MEAN CORPUSCULAR HGB CONC 33.3 g/dL (32.0-36.0); MEAN CORPUSCULAR VOLUME 90 fl (80-97); PLATELET COUNT 184 10^3/uL (150-450); RED BLOOD COUNT 3.98 10^6/uL (4.35-5.55); RED CELL DISTRIBUTION WIDTH 15.4 % (11.5-14.0); WHITE BLOOD COUNT 7.5 10^3/uL (4.0-10.5)
[2017-08-04 06:15] LABS: ANION GAP 6 (5-19); BLOOD UREA NITROGEN 17 mg/dL (7-20); CALCIUM 8.8 mg/dL (8.4-10.2); CARBON DIOXIDE 28 mmol/L (22-30); CHLORIDE 105 mmol/L (98-107); GLUCOSE 97 mg/dL (75-110); SODIUM 139.3 mmol/L (137-145)
[2017-08-04 07:04] LABS: ABSOLUTE LYMPHOCYTES# (MANUAL) 1.5 10^3/uL (0.5-4.7); ABSOLUTE MONOCYTES # (MANUAL) 0.9 10^3/uL (0.1-1.4); ABSOLUTE NEUTROPHILS# (MANUAL) 4.9 10^3/uL (1.7-8.2); BASOPHILS % (MANUAL) 0 % (0-2); EOSINOPHILS % (MANUAL) 3 % (0-6); LYMPHOCYTES % (MANUAL) 20 % (13-45); MONOCYTES % (MANUAL) 12 % (3-13); SEGMENTED NEUTROPHILS % (MAN) 65 % (42-78); TOTAL CELLS COUNTED 100
[2017-08-04 07:07] LABS: ANISOCYTOSIS SLIGHT; OVALOCYTES 1+; PLATELET COMMENT ADEQUATE; POIKILOCYTOSIS SLIGHT; POLYCHROMASIA SLIGHT
[2017-08-04 07:08] LABS: PLATELET LARGE PRESENT
[2017-08-04] MEDS: FERROUS SULFATE 325 MG TABLET PO SCH (08:17)
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
[2017-08-04] MEDS: ATORVASTATIN CALCIUM 40 MG TABLET PO SCH (09:18)
[2017-08-04] MEDS: DOCUSATE SODIUM 100 MG CAPSULE PO SCH ×2 (09:18→17:38)
[2017-08-04] MEDS: CARVEDILOL 3.125 MG TABLET PO SCH (09:19)
[2017-08-04] MEDS: FAMOTIDINE 20 MG TABLET PO SCH ×2 (09:19→21:02)
[2017-08-04] MEDS: LISINOPRIL 5 MG TABLET PO SCH (09:19)
[2017-08-04] MEDS: POTASSIUM CHLORIDE 10 MEQ TABLET.SA PO SCH (09:20)
[2017-08-04] MEDS ORDERED: TAMSULOSIN HCL 0.4 MG CAP.SR.24H PO SCH (10:00)
[2017-08-04] MEDS ORDERED: ASPIRIN 81 MG TABLET, ENT COATED PO SCH (10:00)
[2017-08-04] MEDS ORDERED: LEVALBUTEROL HCL NEB 1.25 MG/3 ML AMPUL NEB PRN (10:05)
[2017-08-04 11:48] LABS: VENOUS BLOOD BASE EXCESS 2.4 mmol/L; VENOUS BLOOD HCO3 27.1 mmol/L (20-32); VENOUS BLOOD PCO2 42.3 mmHg (35-63); VENOUS BLOOD PH 7.43 (7.30-7.42)
[2017-08-04] MEDS: OXYCODONE HCL IR 5 MG TABLET PO PRN ×2 (12:01→18:32)
--- NOTE | 2017-08-04 13:03 | PDOC PROGRESS REPORT ---
Subjective Progress Note for:: 08/04/17 Subjective:: The patient is a 71-year-old male with past medical history of COPD, CHF, diabetes mellitus, neuropathy, chronic pain with opiate dependence who was admitted on 08/03/17 with a complaint of dyspnea initially presumed to be a CHF exacerbation versus COPD exacerbation. Initial evaluation revealed a right middle lobe lung mass concerning for malignancy by CT. oncology has been consulted. The patient is seen on morning rounds. He is found resting in bed comfortably on 3 L/min via nasal cannula. He is home O2 dependent at 2 L/min at night only. He states that he does not require oxygen during the day or while ambulatory. He states that he is very fatigued today as he does not sleep well. He complains about the multiple times that he was woken for vital signs and blood draws overnight. He does complain of continued dyspnea that is essentially unchanged from the day prior. He is understandably frustrated by the possible lung cancer diagnosis. His family is present they do have multiple questions with regard to initial workup. They expressed concern that the patient may attempt to go AMA as he is "stubborn." The patient and family are reassured to the best of my ability and they seem satisfied with the current plan. Reason For Visit: HEART FAILURE Physical Exam Vital Signs: Temp Pulse Resp BP Pulse Ox 97.5 F 76 17 142/57 H 100 08/04/17 11:19 08/04/17 11:19 08/04/17 11:19 08/04/17 11:19 08/04/17 11:19 Intake & Output 08/03/17 08/04/17 08/05/17 06:59 06:59 06:59 Intake Total 1367 100 Output Total 100 500 Balance 1267 -400 Weight 191 kg General appearance: PRESENT: no acute distress, cooperative, well-developed, well-nourished Head exam: PRESENT: atraumatic, normocephalic Eye exam: PRESENT: conjunctiva pink, EOMI, PERRLA. ABSENT: scleral icterus Ear exam: PRESENT: normal external ear exam Mouth exam: PRESENT: moist, tongue midline Neck exam: ABSENT: carotid bruit, JVD, lymphadenopathy, thyromegaly Respiratory exam: PRESENT: decreased breath sounds - Bibasilar, right greater than left, rhonchi - Occasional, symmetrical, tachypnea, other - Supplemental oxygen via 3 L/min. ABSENT: rales, wheezes Cardiovascular exam: PRESENT: RRR, +S1, +S2. ABSENT: diastolic murmur, rubs, systolic murmur Pulses: PRESENT: normal dorsalis pedis pul Vascular exam: PRESENT: normal capillary refill GI/Abdominal exam: PRESENT: normal bowel sounds, soft. ABSENT: distended, guarding, mass, organolmegaly, rebound, tenderness Rectal exam: PRESENT: deferred Extremities exam: PRESENT: full ROM. ABSENT: calf tenderness, clubbing, pedal edema Neurological exam: PRESENT: alert, awake, oriented to person, oriented to place , oriented to time, oriented to situation, CN II-XII grossly intact. ABSENT: motor sensory deficit Psychiatric exam: PRESENT: anxious, appropriate affect, normal mood. ABSENT: homicidal ideation, suicidal ideation Skin exam: PRESENT: dry, intact, warm. ABSENT: cyanosis, rash Results Laboratory Results: 08/04/17 05:20 08/04/17 05:20 08/04/17 08/04/17 08/04/17 05:20 05:20 11:29 WBC 7.5 RBC 3.98 L Hgb 12.0 L Hct 35.9 L MCV 90 MCH 30.0 MCHC 33.3 RDW 15.4 H Plt Count 184 Seg Neutrophils % Not Reportable Lymphocytes % Not Reportable Monocytes % Not Reportable Eosinophils % Not Reportable Basophils % Not Reportable Absolute Neutrophils Not Reportable Absolute Lymphocytes Not Reportable Absolute Monocytes Not Reportable Absolute Eosinophils Not Reportable Absolute Basophils Not Reportable VBG pH 7.43 H VBG pCO2 42.3 VBG HCO3 27.1 VBG Base Excess 2.4 Sodium 139.3 Potassium 4.0 Chloride 105 Carbon Dioxide 28 Anion Gap 6 BUN 17 Creatinine 1.30 H Est GFR ( Amer) > 60 Est GFR (Non-Af Amer) 54 L Glucose 97 Calcium 8.8 08/03/17 08/04/17 08/04/17 18:15 00:14 11:29 Troponin I 0.024 0.033 0.022 Impressions: Chest CT 08/03/17 00:00 IMPRESSION: Small malignant appearing right lower lobe mass with right hilar and mediastinal adenopathy. Chest X-Ray 08/03/17 12:13 IMPRESSION: 4 cm nodule in the right lung. CT chest recommended for followup Assessment & Plan - Diagnosis (1) Systolic congestive heart failure Qualifiers: Heart failure chronicity: acute on chronic Qualified Code(s): I50.23 - Acute on chronic systolic (congestive) heart failure Is this a current diagnosis for this admission?: Yes Plan: Chronic systolic congestive heart failure; I do not believe the patient to be have any acute CHF exacerbation. Previous echocardiogram from September 2016 demonstrates LVEF of 20-25% The pacemaker was interrogated; last shock was approximately 16 months ago. ProBNP is 2970; essentially stable from last admission. Serial troponins are reassuring. The patient is admitted to the medical floor on continuous cardiac telemetry. Patient received 20 mg of IV Lasix per ED, however, I believe that the patient was actually volume depleted. He received a 500 mL of normal saline bolus yesterday followed by gentle IV fluid rehydration 100 mL/h. The patient is placed on a cardiac diet. We will obtain daily weights and strict I's and O's. Echocardiogram is pending. (2) Acute kidney injury Is this a current diagnosis for this admission?: Yes Plan: Slight improvement; creatinine has trended down from 1.35-1.30. Of note, the patient did have a contrasted CT yesterday. Continue gentle IV maintenance fluids. We will avoid nephrotoxic medications. We will monitor with daily chemistries. (3) Chronic hypoxemic respiratory failure Is this a current diagnosis for this admission?: Yes Plan: Secondary to COPD exacerbation in the presence of systolic heart failure and a newly revealed RML lung mass. Chest x-ray did reveal a 4 cm right lung nodule. Supplemental oxygen as required to maintain oxygen saturations greater than 88%. We will schedule duo nebs and have Xopenex available as needed. Will begin mucinex BID and p.o. prednisone. Encourage CPAP nightly. Incentive spirometry and flutter valve to bedside. (4) Lung nodule Is this a current diagnosis for this admission?: Yes Plan: Chest x-ray did reveal a 4 cm right lung nodule. Follow-up contrasted CT imaging demonstrated a small malignant appearing right lower lobe mass with right hilar and mediastinal adenopathy. Oncology has been consulted; primary plan per oncology. Appreciate Dr. Arora's evaluation and assistance. CT of the head is pending. The patient is also to undergo a CT-guided needle biopsy. (5) COPD (chronic obstructive pulmonary disease) Qualifiers: COPD type: unspecified COPD Qualified Code(s): J44.9 - Chronic obstructive pulmonary disease, unspecified Is this a current diagnosis for this admission?: Yes Plan: COPD exacerbation. Plan as above. (6) Diabetes Is this a current diagnosis for this admission?: Yes Plan: The patient is placed on a consistent carb diet. Accu-Cheks before meals and at bedtime with Humalog for sliding scale coverage. (7) Hypertension Qualifiers: Hypertension type: unspecified secondary hypertension Qualified Code(s): I15.9 - Secondary hypertension, unspecified Is this a current diagnosis for this admission?: Yes Plan: The patient's home medications Coreg, lisinopril and amlodipine are continued. Vasotec is available as needed for blood pressures. (8) Obstructive sleep apnea Is this a current diagnosis for this admission?: Yes Plan: As above; encourage compliance. (9) Opiate dependence, continuous Is this a current diagnosis for this admission?: Yes Plan: The [place] controlled substance database is reviewed; the patient does receive Oxycodone 20 mg #120 monthly. The patient's home medication regimen was continued overnight. This morning, the patient appears to be quite somnolent and falls asleep mid sentence. We will decrease the patient's pain medication from oxycodone 20 mg to 10 mg available every 6 hours. Nursing to call for breakthrough pain, consider increasing/supplemental medication at that time. - Time Time Spent with patient: 35 or more minutes Medications reviewed and adjusted accordingly: Yes - Inpatient Certification Based on my medical assessment, after consideration of the patient's comorbidities, presenting symptoms, or acuity I expect that the services needed warrant INPATIENT care.: Yes I certify that my determination is in accordance with my understanding of Medicare's requirements for reasonable and necessary INPATIENT services [42 CFR 412.3e].: Yes Medical Necessity: Need For Continuous Telemetry Monitoring, Need for Nebulizer Therapy and Monitoring of Response, Risk of Diagnosis Which Will Require Inpatient Eval/Care/Monitoring
[2017-08-04] MEDS ORDERED: GABAPENTIN 400 MG CAPSULE PO SCH (14:00)
[2017-08-04] MEDS: IPRATROPIUM/ALBUTEROL 0.5-2.5 MG/3 ML AMPUL NEB SCH ×2 (14:23→20:31)
[2017-08-04] MEDS: MELATONIN 5 MG TABLET PO SCH (21:02)
[2017-08-04] MEDS: ZOLPIDEM TARTRATE 5 MG TABLET PO SCH (21:02)
[2017-08-04] MEDS: GUAIFENESIN 600 MG TABLET.SA PO SCH (21:02)
[2017-08-05] MEDS: IPRATROPIUM/ALBUTEROL 0.5-2.5 MG/3 ML AMPUL NEB SCH ×2 (01:51→08:54)
[2017-08-05 05:35] LABS: ABSOLUTE BASOPHILS # (AUTO) 0.1 10^3/uL (0.0-0.2); ABSOLUTE EOSINOPHILS # (AUTO) 0.3 10^3/uL (0.0-0.6); ABSOLUTE LYMPHOCYTES (AUTO) 1.3 10^3/uL (0.5-4.7); ABSOLUTE MONOCYTES (AUTO) 0.8 10^3/uL (0.1-1.4); ABSOLUTE NEUT (AUTO) 5.1 10^3/uL (1.7-8.2); BASOPHILS % (AUTO) 1.2 % (0-2); EOSINOPHILS % (AUTO) 3.4 % (0-6); HEMATOCRIT 37.3 % (37.9-51.0); HEMOGLOBIN 12.6 g/dL (13.5-17.0); LYMPHOCYTES % (AUTO) 17.3 % (13-45); MEAN CORPUSCULAR HEMOGLOBIN 30.3 pg (27.0-33.4); MEAN CORPUSCULAR HGB CONC 33.9 g/dL (32.0-36.0); MEAN CORPUSCULAR VOLUME 89 fl (80-97); MONOCYTES % (AUTO) 11.1 % (3-13); PLATELET COUNT 195 10^3/uL (150-450); RED BLOOD COUNT 4.17 10^6/uL (4.35-5.55); RED CELL DISTRIBUTION WIDTH 15.2 % (11.5-14.0); TOTAL CELLS COUNTED % (AUTO) 100 %; WHITE BLOOD COUNT 7.6 10^3/uL (4.0-10.5)
[2017-08-05 05:58] LABS: ANION GAP 9 (5-19); BLOOD UREA NITROGEN 16 mg/dL (7-20); CALCIUM 9.2 mg/dL (8.4-10.2); CARBON DIOXIDE 24 mmol/L (22-30); CHLORIDE 104 mmol/L (98-107); GLUCOSE 104 mg/dL (75-110); POTASSIUM 4.4 mmol/L (3.6-5.0); SODIUM 136.8 mmol/L (137-145)
[2017-08-05] MEDS: NORMAL SALINE 1000 ML 1,000 ML IV PRN (06:53)
--- NOTE | 2017-08-05 08:49 | RADIOLOGY REPORT (SQ) ---
EXAM DESCRIPTION: CT HEAD COMBO COMPLETED DATE/TIME: 08/04/2017 7:55 pm REASON FOR STUDY: lung mass with neuro changes rule out brain mets R26.2 DIFFICULTY IN WALKING, NOT ELSEWHERE CLASSIFIED COMPARISON: September 2016 TECHNIQUE: Axial images acquired through the brain with intravenous contrast. Images reviewed with b one, brain and subdural windows. Images stored on PACS. All CT scanners at this facility use dose modulation, iterative reconstruction, and/or weight based d osing when appropriate to reduce radiation dose to as low as reasonably achievable (ALARA). [facility]: Dose Right [facility]: CareDose [facility]: Dose Right [facility]: Teradose 4D [facility]: [employer] CONTRAST TYPE AND DOSE: contrast/concentration: Isovue 370.00 mg/ml; Total Contrast Delivered: 50.0 ml; Total Saline Delivered: 55.0 ml RENAL FUNCTION: Creatinine 1.3 RADIATION DOSE: CT Rad equipment meets quality standard of care and radiation dose reduction techniq ues were employed. CTDIvol: 49.0 - 49.8 mGy. DLP: 2538 mGy-cm.. LIMITATIONS: None. FINDINGS: VENTRICLES: Normal size and contour. CEREBRUM: No masses. No hemorrhage. No midline shift. A few areas of low density in the white matter most likely due to chronic micro-vascular ischemic change. No evidence for acute infarction. No abnor mal enhancement. CEREBELLUM: No masses. No hemorrhage. No alteration of density. No evidence for acute infarction. B jennifer ganglia calcifications are again identified. EXTRAAXIAL SPACES: Mild age-related involutional change. No fluid collections. No masses. ORBITS AND GLOBE: No intra- or extraconal masses. Normal contour of globe without masses. CALVARIUM: No fracture. PARANASAL SINUSES: No fluid or mucosal thickening. SOFT TISSUES: No mass or hematoma. OTHER: No other significant finding. IMPRESSION: MILD CHRONIC CHANGES OF ATROPHY AND MICROVASCULAR ISCHEMIA. NO ACUTE PROCESS. NO ABNORM AL ENHANCEMENT. EVIDENCE OF ACUTE STROKE: NO. TECHNICAL DOCUMENTATION: JOB ID: [id number] [facility] [id number]: Final reports with documentation of one or more dose reduction techniques (e.g., Automate d exposure control, adjustment of the mA and/or kV according to patient size, use of iterative recons truction technique) 2010 [employer]- All Rights Reserved Reading location - IP/workstation name: [email or web address]
--- NOTE | 2017-08-05 09:16 | PDOC PROGRESS REPORT ---
Subjective Progress Note for:: 08/05/17 Subjective:: Patient feeling much better today and anxious to go home. No new complaints, except that he would like a drink of liquor. Reason For Visit: HEART FAILURE Physical Exam Vital Signs: Temp Pulse Resp BP Pulse Ox 99.3 F 75 18 137/73 H 98 08/05/17 08:10 08/05/17 08:10 08/05/17 08:10 08/05/17 08:10 08/05/17 08:10 Intake & Output 08/04/17 08/05/17 08/06/17 06:59 06:59 06:59 Intake Total 1367 2420 Output Total 100 1475 Balance 1267 945 Weight 191 kg 84.4 kg General appearance: PRESENT: mild distress Exam: Well nourished, 72 year old male, sitting up in bed, receiving a nebulizer breathing treatment. Mouth exam: PRESENT: moist Respiratory exam: PRESENT: wheezes Neurological exam: PRESENT: alert, awake Psychiatric exam: PRESENT: appropriate affect Results Laboratory Results: 08/05/17 05:17 08/05/17 05:17 08/04/17 08/05/17 08/05/17 11:29 05:17 05:17 WBC 7.6 RBC 4.17 L Hgb 12.6 L Hct 37.3 L MCV 89 MCH 30.3 MCHC 33.9 RDW 15.2 H Plt Count 195 Seg Neutrophils % 67.0 Lymphocytes % 17.3 Monocytes % 11.1 Eosinophils % 3.4 Basophils % 1.2 Absolute Neutrophils 5.1 Absolute Lymphocytes 1.3 Absolute Monocytes 0.8 Absolute Eosinophils 0.3 Absolute Basophils 0.1 VBG pH 7.43 H VBG pCO2 42.3 VBG HCO3 27.1 VBG Base Excess 2.4 Sodium 136.8 L Potassium 4.4 Chloride 104 Carbon Dioxide 24 Anion Gap 9 BUN 16 Creatinine 1.18 Est GFR ( Amer) > 60 Est GFR (Non-Af Amer) > 60 Glucose 104 Calcium 9.2 08/03/17 08/04/17 08/04/17 18:15 00:14 11:29 Troponin I 0.024 0.033 0.022 Impressions: Chest CT 08/03/17 00:00 IMPRESSION: Small malignant appearing right lower lobe mass with right hilar and mediastinal adenopathy. Chest X-Ray 08/03/17 12:13 IMPRESSION: 4 cm nodule in the right lung. CT chest recommended for followup Head CT 08/04/17 00:00 IMPRESSION: MILD CHRONIC CHANGES OF ATROPHY AND MICROVASCULAR ISCHEMIA. NO ACUTE PROCESS. NO ABNORMAL ENHANCEMENT. EVIDENCE OF ACUTE STROKE: NO. Assessment & Plan - Diagnosis (1) Lung nodule Is this a current diagnosis for this admission?: Yes (2) COPD (chronic obstructive pulmonary disease) Qualifiers: COPD type: COPD with acute exacerbation Qualified Code(s): J44.1 - Chronic obstructive pulmonary disease with (acute) exacerbation (3) Anemia Qualifiers: Anemia type: iron deficiency Is this a current diagnosis for this admission?: No - Plan Summary Plan Summary: Patient anxious to go home. I discussed his case with Dr. Cheryl Foster. I am OK with patient's discharge. I spoke with interventional radiology yesterday. They will not be able to perform a CT guided lung biopsy until next week. I would recommend that this be arranged as an outpatient. I will be happy to see him in the office after the biopsy to discuss the results and plan further treatment.
[2017-08-05] MEDS: POTASSIUM CHLORIDE 10 MEQ TABLET.SA PO SCH (09:38)
[2017-08-05] MEDS: GUAIFENESIN 600 MG TABLET.SA PO SCH (09:39)
[2017-08-05] MEDS: FAMOTIDINE 20 MG TABLET PO SCH (09:39)
[2017-08-05] MEDS: ATORVASTATIN CALCIUM 40 MG TABLET PO SCH (09:40)
[2017-08-05] MEDS: OXYCODONE HCL IR 5 MG TABLET PO PRN (09:40)
[2017-08-05] MEDS: DOCUSATE SODIUM 100 MG CAPSULE PO SCH (09:40)
[2017-08-05] MEDS: LISINOPRIL 5 MG TABLET PO SCH (09:41)
[2017-08-05] MEDS ORDERED: TAMSULOSIN HCL 0.4 MG CAP.SR.24H PO SCH (10:00)
[2017-08-05] MEDS ORDERED: PREDNISONE 20 MG TABLET PO SCH (10:00)
[2017-08-05] MEDS ORDERED: AMIODARONE HCL 200 MG TABLET PO SCH (10:00)
[2017-08-05] MEDS ORDERED: METOPROLOL SUCCINATE 25 MG TAB.SR.24H PO SCH (10:00)
[2017-08-05 12:49] VITALS: BP 128/74
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
== END 2017-08-05 13:40 | disposition home or self-care (01) ==
LOC: ER 11:43 → INTOOBSV 14:53 → EH 14:53 → 3S 17:56
PROVIDERS: ADMIT Emergency Medicine; ATTEND Emergency Medicine
PROC: 4B02XTZ Measurement of Cardiac Defibrillator, External Approach (ICD-10-PCS; principal; 2017-08-03)
DX: I11.0 Hypertensive heart disease with heart failure (principal); I50.23 Acute on chronic systolic (congestive) heart failure; N17.9 Acute kidney failure, unspecified; J96.11 Chronic respiratory failure with hypoxia; R91.1 Solitary pulmonary nodule; J44.1 Chronic obstructive pulmonary disease with (acute) exacerbation; E11.40 Type 2 diabetes mellitus with diabetic neuropathy, unspecified; G47.33 Obstructive sleep apnea (adult) (pediatric); F11.20 Opioid dependence, uncomplicated; G89.29 Other chronic pain; Z66 Do not resuscitate; D64.9 Anemia, unspecified; E66.3 Overweight; R59.0 Localized enlarged lymph nodes; R26.2 Difficulty in walking, not elsewhere classified; E78.5 Hyperlipidemia, unspecified; Z95.810 Presence of automatic (implantable) cardiac defibrillator; R29.6 Repeated falls; R27.9 Unspecified lack of coordination; S80.812A Abrasion, left lower leg, initial encounter; S80.811A Abrasion, right lower leg, initial encounter; X58.XXXA Exposure to other specified factors, initial encounter; Z91.81 History of falling; Z87.891 Personal history of nicotine dependence; Z79.899 Other long term (current) drug therapy; Z99.81 Dependence on supplemental oxygen; Z79.4 Long term (current) use of insulin; Z82.49 Family history of ischemic heart disease and other diseases of the circulatory system; Z79.82 Long term (current) use of aspirin; Z98.890 Other specified postprocedural states; Z84.1 Family history of disorders of kidney and ureter; Z45.02 Encounter for adjustment and management of automatic implantable cardiac defibrillator; Z68.27 Body mass index [BMI] 27.0-27.9, adult
CPT/HCPCS: 93005; 99285; 96374; 36415 ×3; 82553; 82962 ×3; 85025 ×3; 80048 ×2; 80053; 81001; 84484 ×2; 82803; 83880; 71045; 70470; 71250; 71260; 94799; 93010; 94660; 94667; 94640 ×3; 93289; G0378 ×4; A9270 ×28; J1644 ×2; J1940; J7030 ×3; J3490; J7512; J7620

== ENCOUNTER 2017-08-09 08:54 | Day surgery (SDC) | payer MEDICARE ==
[2017-08-09 10:14] LABS: HEMATOCRIT 39.8 % (37.9-51.0); HEMOGLOBIN 13.4 g/dL (13.5-17.0); MEAN CORPUSCULAR HEMOGLOBIN 30.3 pg (27.0-33.4); MEAN CORPUSCULAR HGB CONC 33.7 g/dL (32.0-36.0); MEAN CORPUSCULAR VOLUME 90 fl (80-97); PLATELET COUNT 209 10^3/uL (150-450); RED BLOOD COUNT 4.43 10^6/uL (4.35-5.55); RED CELL DISTRIBUTION WIDTH 15.5 % (11.5-14.0); WHITE BLOOD COUNT 8.4 10^3/uL (4.0-10.5)
[2017-08-09 10:19] LABS: INTERNATIONAL RATION (INR) 0.96; PARTIAL THROMBOPLASTIN TIME 26.1 SEC (23.5-35.8); PROTHROMBIN TIME 13.4 SEC (11.4-15.4)
[2017-08-09 10:35] LABS: BLOOD UREA NITROGEN 28 mg/dL (7-20); GLUCOSE 142 mg/dL (75-110)
[2017-08-09] MEDS ORDERED: MIDAZOLAM 2 MG/2 ML INJ ONE ×2 (11:01→12:55)
[2017-08-09] MEDS ORDERED: FENTANYL CITRATE INJ/PF 100 MCG/2 ML AMPUL ONE ×2 (11:01→12:55)
[2017-08-09] MEDS ORDERED: LIDOCAINE 1% INJ-PF (10 MG/ML) 30 ML SDV ONE ×2 (11:02→13:08)
[2017-08-09] MEDS ORDERED: ALBUTEROL SULFATE 0.083% NEB 2.5 MG/3 ML AMPUL NEB ONE (12:29)
--- NOTE | 2017-08-09 12:35 | RADIOLOGY REPORT (SQ) ---
EXAM DESCRIPTION: CHEST SINGLE VIEW COMPLETED DATE/TIME: 08/09/2017 12:27 pm REASON FOR STUDY: POST LUNG BIOPSY R91.1 SOLITARY PULMONARY NODULE Z79.899 OTHER MERCURY CRACKING TESTER (CURREN T) DRUG THERAPY Z79.01 [facility] (CURRENT) USE OF ANTICOAGULANTS COMPARISON: 08/03/2017. NUMBER OF VIEWS: One view. TECHNIQUE: Single frontal radiographic image of the chest acquired. LIMITATIONS: None. FINDINGS: LUNGS AND PLEURA: Right basilar pneumothorax approximately 10%. No mediastinal shift. MEDIASTINUM AND HILAR STRUCTURES: Stable heart size and mediastinal structures. HEART AND VASCULAR STRUCTURES: Stable appearance. SUPPORT DEVICES: Appropriate location without change. BONES: No acute findings. OTHER: No other significant finding. IMPRESSION: Small right basilar pneumothorax status post CT-guided lung biopsy. TECHNICAL DOCUMENTATION: JOB ID: [id number] [employer]- All Rights Reserved Reading location - IP/workstation name: [email or web address]
--- NOTE | 2017-08-09 12:42 | RADIOLOGY REPORT (SQ) ---
EXAM DESCRIPTION: CT BIOPSY LUNG/MEDIASTINUM; CT NEEDLE PLACEMENT COMPLETED DATE/TIME: 08/09/2017 12:11 pm REASON FOR STUDY: LUNG NODULE; LUNG NODULE, LUNG BX R91.1 SOLITARY PULMONARY NODULE Z79.899 OTHER ALF (CURRENT) DRUG THERAPY Z79.01 ALF (CURRENT) USE OF ANTICOAGULANTS COMPARISON: None. FLUORO TIME: 4 seconds LIMITATIONS: None. PROCEDURE: After obtaining informed consent, the patient was brought to the CT suite and was placed prone oblique on the CT gurney. The patient was prepped and draped in the usual sterile fashion . Ax ial images were obtained for targeting of theright lower lobe. An appropriate access site was selecte d. IV sedation was administered and physician direction by the registered nurse using 1.5 milligrams of Versed and 100 micrograms of fentanyl. Physiologic monitoring was provided before, during, and aft er sedation. The total sedation time was 53 minutes. Documentation face to face time, the performing proceduralist, spent monitoring the patient: 10Minut es. All CT scanners at this facility use dose modulation, iterative reconstruction, and/or weight based d osing when appropriate to reduce radiation dose to as low as reasonably achievable (ALARA). [facility]: Dose Right [facility]: CareDose [facility]: Dose Right [facility]: Teradose 4D [facility]: [employer] After sterile skin prep and local lidocaine for skin and deep tissue anesthesia, a coaxial biopsy nee dle was used to obtain multiple cores of tissue. The biopsy tissue was submitted to the lab. There we re no immediate complications. Pathology is pending at the time of dictation. IMPRESSION: CT-guided biopsy right lower lobe nodule. COMMENT: Patient medication list reviewed: Yes- Quality ID# 130:Eligible professional attests to doc umenting in the medical record they obtained, updated, or reviewed the patient's current medications. . Quality ID #76: The patient was prepped and draped using maximum sterile barrier technique including cap, mask, sterile gown, sterile gloves, a large sterile sheet, hand hygiene, and 2% Chlorhexidine fo r cutaneous antisepsis. When ultrasound is used, sterile ultrasound techniques are followed requiring sterile gel and sterile probes. Quality ID 145: Final reports for procedures using fluoroscopy that document radiation exposure herbert luisa, or exposure time and number of fluorographic images (if radiation exposure indices are not avail able) Quality ID # 436: Final reports with documentation of one or more dose reduction techniques (e.g., Au tomated exposure control, adjustment of the mA and/or kV according to patient size, use of iterative reconstruction technique) TECHNICAL DOCUMENTATION: JOB ID: [id number] [employer]- All Rights Reserved Reading location - IP/workstation name: [facility]
--- NOTE | 2017-08-09 14:25 | RADIOLOGY REPORT (SQ) ---
EXAM DESCRIPTION: CT INSERTION OF CHEST TUBE COMPLETED DATE/TIME: 08/09/2017 1:52 pm REASON FOR STUDY: PNEUMOTHORAX CAUSED DURING LUNG BX R91.1 SOLITARY PULMONARY NODULE Z79.899 OTHER ARMATURE WINDER (CURRENT) DRUG THERAPY Z79.01 [facility] (CURRENT) USE OF ANTICOAGULANTS COMPARISON: None. CRIPPLE CUTTER: Martín SUPERVISING PHYSICIAN: Martín FLUOROSCOPY TIME: CT Fluoroscopy: 2 seconds RADIATION DOSE: CT Rad equipment meets quality standard of care and radiation dose reduction techniq ues were employed. CTDIvol: 20.4 mGy. DLP: 700 mGy-cm. mGy. LIMITATIONS: None. PROCEDURE: Procedure, risks, benefit, and alternative explained to patient who then gave written con sent. The posterior right chest wall was marked using CT guidance; "time-out" called; correct markin g verified. Chest prepped and draped using sterile technique. Local anesthesia achieved using 1% l idocaine injection. Hypodermic needle introduced into the right pleural space. Needle was exchange d for a guidewire. Following serial dilation, an 8 Yi APD catheter was positioned in the pleural space and secured. Catheter was connected to a suction. No immediate complications noted. Images acquired during the procedure were stored on PACS. All CT scanners at this facility use dose modulation, iterative reconstruction, and/or weight based d osing when appropriate to reduce radiation dose to as low as reasonably achievable (ALARA). [facility]: Dose Right [facility]: CareDose [facility]: Dose Right [facility]: Teradose 4D [facility]: [employer] FINDINGS: None. IMPRESSION: SUCCESSFUL CT GUIDED RIGHT CHEST TUBE PLACEMENT. COMMENT: At my direction, under continuous physiologic monitoring of the patient by the radiology abel wyman before, during and after the procedure, a total of 1Milligrams of IV Versed and 100micrograms of IV fentanyl were given in divided doses. No immediate c omplications. Documentation face to face time, the performing proceduralist, spent monitoring the patient: 5minutes . Patient medication list reviewed: Yes- PQRS [id number]:Eligible professional attests to documenting in the medical record they obtained, updated, or reviewed the patient's current medications. Quality ID 145: Final reports for procedures using fluoroscopy that document radiation exposure herbert luisa, or exposure time and number of fluorographic images (if radiation exposure indices are not avail able) TECHNICAL DOCUMENTATION: JOB ID: [id number] Quality ID # 436: Final reports with documentation of one or more dose reduction techniques (e.g., Au tomated exposure control, adjustment of the mA and/or kV according to patient size, use of iterative reconstruction technique) 2010 [employer]- All Rights Reserved Reading location - IP/workstation name: [email or web address]
[2017-08-09] MEDS ORDERED: OXYCODONE HCL IR 5 MG TABLET PO ONE (14:45)
--- NOTE | 2017-08-09 15:05 | RADIOLOGY REPORT (SQ) ---
EXAM DESCRIPTION: CHEST SINGLE VIEW COMPLETED DATE/TIME: 08/09/2017 2:34 pm REASON FOR STUDY: POST LUNG BIOPSY, *2 HOUR FILM* COMPARISON: 08/10/2015 EXAM PARAMETERS: NUMBER OF VIEWS: One view. TECHNIQUE: Single frontal radiographic view of the chest acquired. RADIATION DOSE: NA LIMITATIONS: None. FINDINGS: LUNGS AND PLEURA: There is a tiny right apical pneumothorax on the current study with inte rval resolution of the small right basilar component. Mass lesion projected in the right lower lung feel is again identified. The left lung remains clear and well expanded MEDIASTINUM AND HILAR STRUCTURES: No masses. Contour normal. HEART AND VASCULAR STRUCTURES: The configuration of the heart and mediastinal structures is unchanged . BONES: No acute findings. HARDWARE: Pleural drainage catheter is identified projected in the right lower hemithorax. AICD antonio ce is unchanged in position OTHER: No other significant finding. IMPRESSION: Tiny right apical pneumothorax with interval resolution of the previously described smal l right basilar component. Pleural drainage catheter is identified projected in the right lower sanju thorax. Other findings as noted above. TECHNICAL DOCUMENTATION: JOB ID: [id number] [employer]- All Rights Reserved Reading location - IP/workstation name: [email or web address]
[2017-08-09 16:35] VITALS: BP 124/66
== END 2017-08-09 17:00 | disposition home or self-care (01) ==
LOC: RAD 08:54
PROVIDERS: ATTEND Internal Medicine Hematology & Oncology
PROC: 0BBF3ZX Excision of Right Lower Lung Lobe, Percutaneous Approach, Diagnostic (ICD-10-PCS; principal; 2017-08-09)
DX: J93.9 Pneumothorax, unspecified (principal); T79.7XXA Traumatic subcutaneous emphysema, initial encounter; X58.XXXA Exposure to other specified factors, initial encounter; R91.1 Solitary pulmonary nodule
CPT/HCPCS: 36415; 84520; 82565; 82947; 85027; 85610; 85730; 88342 ×2; 88341 ×2; 88305 ×2; 88313 ×2; 71045; 32551; 77012; 32405; 94640; J2250; J3010; J3490; A9270 ×2

== ENCOUNTER 2017-08-11 22:15 | Inpatient (IN) | payer MEDICARE ==
[2017-08-11] MEDS ORDERED: MIDAZOLAM 2 MG/2 ML INJ ONE (22:24)
[2017-08-11] MEDS ORDERED: FENTANYL CITRATE INJ/PF 100 MCG/2 ML AMPUL ONE ×2 (22:25→22:37)
[2017-08-11] MEDS ORDERED: LIDOCAINE 1%/EPINEPHRINE INJ 20 ML VIAL INJ ONE ×2 (22:29→23:38)
[2017-08-11] MEDS ORDERED: LIDOCAINE 1% INJ-PF (10 MG/ML) 30 ML SDV ONE (22:32)
[2017-08-11] MEDS ORDERED: FENTANYL CITRATE INJ/PF 100 MCG/2 ML AMPUL IV ONE ×2 (22:36→23:38)
--- NOTE | 2017-08-11 22:50 | RADIOLOGY REPORT (SQ) ---
EXAM DESCRIPTION: CHEST SINGLE VIEW COMPLETED DATE/TIME: 08/11/2017 10:29 pm REASON FOR STUDY: DIFFICULTY BREATHING COMPARISON: 08/11/2017 EXAM PARAMETERS: NUMBER OF VIEWS: One view. TECHNIQUE: Single frontal radiographic view of the chest acquired. RADIATION DOSE: NA LIMITATIONS: None. FINDINGS: LUNGS AND PLEURA: There is approximately 40% pneumothorax on right. There is severe the 2 to 3 cm mass in the right lung. MEDIASTINUM AND HILAR STRUCTURES: No masses. Contour normal. HEART AND VASCULAR STRUCTURES: Heart normal in size. Normal vasculature. BONES: No acute findings. HARDWARE: Pacemaker/defibrillator. OTHER: No other significant finding. IMPRESSION: Right pneumothorax. Right pulmonary mass. COMMENT: Findings were discussed with doctor Francis at 2244 hours on this date. TECHNICAL DOCUMENTATION: JOB ID: [id number] [employer]- All Rights Reserved Reading location - IP/workstation name: [email or web address]
--- NOTE | 2017-08-11 22:53 | ER Document Report ---
ED Respiratory Problem - General Chief Complaint: Respiratory Distress Stated Complaint: RESPIRATORY DISTRESS Notes: The patient is a 71-year-old male with past medical history of COPD (on home 2L O2), CHF (w/ AICD), diabetes mellitus, neuropathy, chronic pain with opiate dependence, possible lung cancer, presents by EMS in respiratory distress. He was discharged from the hospital earlier today after he had a biopsy of a pulmonary nodule that appeared to be malignant. He had a pigtail catheter placed after the biopsy and it was removed about 13 hours ago. When patient was at home, he began to have worsening shortness of breath. EMS found him satting 55% on his home 2 L nasal cannula. He was given 125 mg Solu-Medrol, 2 DuoNebs, 2 grams Magnesium and placed on CPAP and his oxygen only improved to 80 % on 100% oxygen. Patient is in distress and unable to provide much additional history. TRAVEL OUTSIDE OF THE [place] IN LAST 30 DAYS: No - Related Data Allergies/Adverse Reactions: morphine Adverse Reaction (Verified 08/03/17 12:17) Past Medical History - General Information source: Patient, Emergency Med Personnel - Social History Smoking Status: Unknown if Ever Smoked Family History: CAD, COPD, Hypertension, Malignancy, Other - End-stage renal disease Patient has suicidal ideation: No Patient has homicidal ideation: No - Past Medical History Cardiac Medical History: Reports: Hx Congestive Heart Failure, Hx Coronary Artery Disease, Hx Heart Attack, Hx Hypercholesterolemia, Hx Hypertension Denies: Hx Atrial Fibrillation Pulmonary Medical History: Reports: Hx Bronchitis, Hx COPD, Hx Pneumonia, Hx Intubation, Hx Sleep Apnea Denies: Hx Asthma Neurological Medical History: Denies: Hx Cerebrovascular Accident, Hx Seizures Endocrine Medical History: Reports: Hx Diabetes Mellitus Type 2 - Insulin- dependent. Denies: Hx Hyperthyroidism, Hx Hypothyroidism Renal/ Medical History: Reports: Hx Benign Prostatic Hyperplasia. Denies: Hx Peritoneal Dialysis Musculoskeltal Medical History: Reports Hx Arthritis Psychiatric Medical History: Reports: Hx Depression Past Surgical History: Reports: Hx Cardiac Surgery - pacer/defib, Hx Orthopedic Surgery - Right foot, Hx Pacemaker, Other - Cataracts - Immunizations Hx Diphtheria, Pertussis, Tetanus Vaccination: Yes Hx Pneumococcal Vaccination: 03/09/14 Review of Systems - Review of Systems Notes: REVIEW OF SYSTEMS: CONSTITUTIONAL: -fevers, -chills EENT: -eye pain, -difficulty swallowing, -nasal congestion CARDIOVASCULAR: -chest pain, -syncope. RESPIRATORY: -cough, +SOB GASTROINTESTINAL: -abdominal pain, -nausea, -vomiting, -diarrhea GENITOURINARY: -dysuria, -hematuria MUSCULOSKELETAL: -back pain, -neck pain SKIN: -rash or skin lesions. HEMATOLOGIC: -easy bruising or bleeding. LYMPHATIC: -swollen, enlarged glands. NEUROLOGICAL: -altered mental status or loss of consciousness, -headache, - neurologic symptoms PSYCHIATRIC: -anxiety, -depression. ALL OTHER SYSTEMS REVIEWED AND NEGATIVE. Physical Exam - Vital signs Vitals: Pulse Resp BP Pulse Ox 103 H 34 H 146/106 H 82 L 08/11/17 22:15 08/11/17 22:15 08/11/17 22:15 08/11/17 22:15 - Notes Notes: PHYSICAL EXAMINATION: GENERAL: Distressed. Uncomfortable. HEAD: Atraumatic, normocephalic. EYES: Pupils equal round and reactive to light, extraocular movements intact, sclera anicteric, conjunctiva are normal. ENT: nares patent, oropharynx clear without exudates. Moist mucous membranes. NECK: Normal range of motion, supple without lymphadenopathy LUNGS: Decreased breath sounds on the right, wheezing on the left. Severe respiratory distress. HEART: Tachycardia. ABDOMEN: Soft, nontender, normoactive bowel sounds. No guarding, no rebound. No masses appreciated. EXTREMITIES: Normal range of motion, no pitting or edema. Peripheral cyanosis. NEUROLOGICAL: Cranial nerves grossly intact. Normal sensory and motor exams. PSYCH: Normal mood, normal affect. SKIN: Warm, Dry, normal turgor, no rashes or lesions noted. Course - Re-evaluation Re-evalutation: Patient seen immediately on arrival due to respiratory distress. With decreased lung sounds on the right and hypoxia, concern for pneumothorax. Bedside ultrasound did not show lung sliding of the right side and preparations for chest tube was started. Chest x-ray already in room, so quick chest x-ray taken, which confirmed the diagnosis of a right pneumothorax. Patient emergently consented and 24-Yi chest tube placed with a large gush of air and improvement of patient's respiratory status and oxygenation. Chest tube only able to be advanced 14 cm due to resistance, which may be related to his right lung mass. Repeat chest x-ray showed successful reexpansion of his right lung and patient feels much better. He does have a leukocytosis of 21.7 with tachycardia and tachypnea. This may be stress related due to his severe respiratory distress and recent steroid use, but will provide him with broad- spectrum antibiotics for a possible pneumonia since he was just in the hospital and will continue to monitor. He requires admission for further evaluation and treatment. 08/12/17 00:[address] Yates (Hospitalist) and she has accepted patient to ICU. Spoke to Dr. Roberts (Surgicalist) so that surgery can help with chest tube management during admission. Pt continues to remain stable and satting 95% on his home 2L O2. No respiratory distress. - Vital Signs Vital signs: Temp Pulse Resp BP Pulse Ox 98.2 F 103 H 16 123/64 96 08/12/17 03:36 08/11/17 22:15 08/12/17 04:15 08/12/17 04:01 08/12/17 04:15 - Laboratory Result Diagrams: 08/11/17 22:22 08/11/17 22:22 Laboratory results interpreted by me: 08/11/17 08/11/17 08/11/17 22:22 22:22 22:22 WBC 21.7 H D RDW 15.6 H Abs Neuts (Manual) 15.0 H Abs Monocytes (Manual) 2.8 H Absolute Eos (Manual) 0.7 H VBG pH 7.25 L VBG pCO2 76.9 H* VBG HCO3 32.8 H Chloride 95 L Carbon Dioxide 31 H BUN 33 H Creatinine 1.60 H Est GFR ( Amer) 52 L Est GFR (Non-Af Amer) 43 L Glucose 168 H - Diagnostic Test Radiology reviewed: Image reviewed, Reports reviewed Radiology results interpreted by me: CXR #1: There is an approximately 40% pneumothorax on right. There is a 2 to 3 cm mass in the right lung. CXR #2: The right lung has re-expanded after placement of the thoracotomy tube. - EKG Interpretation by Me Rate: Normal Rhythm: Other - Atrial-sensed ventricular-paced complexes Procedures - Chest Tube Right Midaxillary Time completed: 22:51 Consent obtained: Yes Chest tube pre-insertion: Sterile PPE donned, Chloraprep applied, Sterile drapes applied Size of Yi Tube (cm): 24 Anesthetic type: 1% Lidocaine w/epi mL's of anesthetic: 10 Chest tube post-insertion: Air hopkins heard, Sutured, Position confirmed w/ CXR, Water seal Number of attempts: 1 Complications: No Critical Care Note - Critical Care Note Total time excluding time spent on procedures (mins): 55 Discharge - Discharge Clinical Impression: Respiratory distress, Possible pneumonia Pneumothorax Qualifiers: Pneumothorax type: postprocedural Qualified Code(s): J95.811 - Postprocedural pneumothorax Leukocytosis Qualifiers: Leukocytosis type: unspecified Qualified Code(s): D72.829 - Elevated white blood cell count, unspecified Condition: Stable Disposition: ADMITTED INPATIENT Admitting Provider: Hospitalist - [facility] Unit Admitted: ICU
[2017-08-11 22:58] LABS: VENOUS BLOOD BASE EXCESS 2.9 mmol/L; VENOUS BLOOD HCO3 32.8 mmol/L (20-32); VENOUS BLOOD PH 7.25 (7.30-7.42)
[2017-08-11 23:00] LABS: HEMATOCRIT 45.2 % (37.9-51.0); HEMOGLOBIN 14.6 g/dL (13.5-17.0); MEAN CORPUSCULAR HEMOGLOBIN 29.7 pg (27.0-33.4); MEAN CORPUSCULAR HGB CONC 32.3 g/dL (32.0-36.0); MEAN CORPUSCULAR VOLUME 92 fl (80-97); PLATELET COUNT 345 10^3/uL (150-450); RED BLOOD COUNT 4.91 10^6/uL (4.35-5.55); RED CELL DISTRIBUTION WIDTH 15.6 % (11.5-14.0); VENOUS BLOOD PCO2 76.9 mmHg (35-63)
[2017-08-11 23:01] LABS: WHITE BLOOD COUNT 21.7 10^3/uL (4.0-10.5)
[2017-08-11 23:05] LABS: ALANINE AMINOTRANSFERASE 46 U/L (21-72); ALBUMIN 4.7 g/dL (3.5-5.0); ALKALINE PHOSPHATASE 53 U/L (38-126); ANION GAP 13 (5-19); ASPARTATE AMINO TRANSFERASE 30 U/L (17-59); BILIRUBIN,DIRECT 0.4 mg/dL (0.0-0.4); BILIRUBIN,TOTAL 0.7 mg/dL (0.2-1.3); BLOOD UREA NITROGEN 33 mg/dL (7-20); CALCIUM 10.1 mg/dL (8.4-10.2); CARBON DIOXIDE 31 mmol/L (22-30); CHLORIDE 95 mmol/L (98-107); CREATINE KINASE 63 U/L (55-170); GLUCOSE 168 mg/dL (75-110); POTASSIUM 4.7 mmol/L (3.6-5.0); SODIUM 138.7 mmol/L (137-145); TOTAL PROTEIN 7.8 g/dL (6.3-8.2)
--- NOTE | 2017-08-11 23:06 | RADIOLOGY REPORT (SQ) ---
EXAM DESCRIPTION: CHEST SINGLE VIEW COMPLETED DATE/TIME: 08/11/2017 10:49 pm REASON FOR STUDY: check chest tube placement COMPARISON: 08/11/2017 EXAM PARAMETERS: NUMBER OF VIEWS: One view. TECHNIQUE: Single frontal radiographic view of the chest acquired. RADIATION DOSE: NA LIMITATIONS: None. FINDINGS: LUNGS AND PLEURA: The right lung has re-expanded. MEDIASTINUM AND HILAR STRUCTURES: No masses. Contour normal. HEART AND VASCULAR STRUCTURES: Heart normal in size. Normal vasculature. BONES: No acute findings. HARDWARE: Right thoracotomy tube. Pacemaker/defibrillator. OTHER: No other significant finding. IMPRESSION: The right lung has re-expanded after placement of the thoracotomy tube. TECHNICAL DOCUMENTATION: JOB ID: [id number] [employer]- All Rights Reserved Reading location - IP/workstation name: [email or web address]
[2017-08-11 23:17] LABS: ABSOLUTE LYMPHOCYTES# (MANUAL) 3.3 10^3/uL (0.5-4.7); ABSOLUTE MONOCYTES # (MANUAL) 2.8 10^3/uL (0.1-1.4); BASOPHILS % (MANUAL) 0 % (0-2); EOSINOPHILS % (MANUAL) 3 % (0-6); LYMPHOCYTES % (MANUAL) 15 % (13-45); MONOCYTES % (MANUAL) 13 % (3-13); SEGMENTED NEUTROPHILS % (MAN) 69 % (42-78); TOTAL CELLS COUNTED 100
[2017-08-11 23:18] LABS: ANISOCYTOSIS SLIGHT; CREATINE KINASE MB 4.55 ng/mL (<4.55); PLATELET COMMENT ADEQUATE; TOXIC GRANULATION SLIGHT; TROPONIN I 0.014 ng/mL
[2017-08-11] MEDS ORDERED: MIDAZOLAM 2 MG/2 ML INJ IV ONE (23:38)
[2017-08-11] MEDS ORDERED: PIPERACILLIN/TAZOBACTAM 3.375 GM VIAL IV ONE (23:38)
[2017-08-11] MEDS ORDERED: VANCOMYCIN HCL INJ 1000 MG VIAL IV ONE (23:38)
[2017-08-11] MEDS ORDERED: NORMAL SALINE 1000 ML 1,000 ML IV ONE (23:39)
[2017-08-12] MEDS ORDERED: HYDROMORPHONE HCL INJ/PF 2 MG/ML AMPULE IV ONE (00:31)
[2017-08-12] MEDS ORDERED: HYDROMORPHONE HCL INJ/PF 2 MG/ML AMPULE ONE (00:33)
--- NOTE | 2017-08-12 00:37 | PDOC CONSULTATION ---
History of Present Illness Patient complains of: Shortness of breath History of Present Illness: YAMIL HOLLOWAY is a 72 year old male who had a right pulmonary nodule biopsied on Tuesday subsequently developed a pneumothorax which was treated with a small bore pigtail chest tube on Tuesday. The tube was removed earlier today. Later today patient developed acute onset of shortness of breath and subsequently came into the ER where he was noted with approximately a 40% pneumothorax. He had a chest tube placed in the ER by the ER physician. Since the chest tube has been placed his shortness of breath has resolved. He has had complete expansion of his lung. Past Medical History Cardiac Medical History: Reports: Congestive Heart Failure, Coronary Artery Disease, Myocardial Infarction, Hyperlipidema, Hypertension Denies: Atrial Fibrillation Pulmonary Medical History: Reports: Bronchitis, Chronic Obstructive Pulmonary Disease (COPD), Intubation, Pneumonia, Sleep Apnea Denies: Asthma Neurological Medical History: Denies: Seizures Endocrine Medical History: Reports: Diabetes Mellitus Type 2 - Insulin-dependent Denies: Hyperthyroidism, Hypothyroidism Musculoskeltal Medical History: Reports: Arthritis Psychiatric Medical History: Reports: Depression Hematology: Reports: Anemia Past Surgical History Past Surgical History: Reports: Orthopedic Surgery - Right foot, Pacemaker, Other - Cataracts Social History Smoking Status: Unknown if Ever Smoked Frequency of Alcohol Use: None Hx Recreational Drug Use: No Drugs: None Hx Prescription Drug Abuse: No Family History Family History: CAD, COPD, Hypertension, Malignancy, Other - End-stage renal disease Parental Family History Reviewed: No Children Family History Reviewed: No Sibling(s) Family History Reviewed.: No Medication/Allergy Home Medications: Albuterol Sulfate [Ventolin HFA MDI 18 GM] 2 puff IH Q4HP PRN 08/03/17 Amiodarone HCl [Cordarone 200 mg Tablet] 200 mg PO DAILY 08/03/17 Atorvastatin Calcium [Lipitor 40 mg Tablet] 40 mg PO QHS 08/03/17 Fluticasone/Vilanterol [Breo Ellipta 100-25 Mcg INH] 1 puff IH DAILY 08/03/17 Gabapentin [Neurontin 400 mg Capsule] 400 mg PO Q8 08/03/17 Ipratropium/Albuterol Sulfate [Duoneb 3 ml Ampul] 1 vial NEB Q6 08/03/17 Lisinopril [Zestril] 2.5 mg PO DAILY 08/03/17 Metoprolol Succinate [Toprol Xl 25 mg Tab.sr] 12.5 mg PO DAILY 08/03/17 Oxycodone HCl 20 mg PO Q6 08/03/17 Tamsulosin HCl [Flomax 0.4 mg Cap.sr] 0.4 mg PO DAILY 08/03/17 Zolpidem Tartrate [Ambien 5 mg Tablet] 5 mg PO HSP PRN 08/03/17 Guaifenesin [Mucinex Sr 600 mg Tablet.sa] 600 mg PO Q12 #30 tablet.sa 08/05/17 Potassium Chloride [Klor-Con 10 Meq Tablet.sa] 10 meq PO DAILY tablet.sa Aspirin [Aspirin EC] 1 tab PO DAILY 08/09/17 Allergies/Adverse Reactions: morphine Adverse Reaction (Verified 08/03/17 12:17) Physical Exam Vital Signs: Temp Pulse Resp BP Pulse Ox 103 H 13 129/72 H 94 08/11/17 22:15 08/12/17 00:15 08/12/17 00:01 08/12/17 00:15 Intake & Output 08/10/17 08/11/17 08/12/17 06:59 06:59 06:59 Weight 89.5 kg General appearance: PRESENT: no acute distress, cooperative Respiratory exam: PRESENT: clear to auscultation caroline, other - Chest tube in place. No air leak by Pleur-evac. No crepitus. Cardiovascular exam: PRESENT: RRR GI/Abdominal exam: PRESENT: other - Soft, nondistended nontender to palpation. Neurological exam: PRESENT: alert, awake Psychiatric exam: PRESENT: appropriate affect Skin exam: PRESENT: warm Results Laboratory Results: 08/11/17 22:22 08/11/17 22:22 08/11/17 08/11/17 08/11/17 22:22 22:22 22:22 WBC 21.7 H D RBC 4.91 Hgb 14.6 Hct 45.2 MCV 92 MCH 29.7 MCHC 32.3 RDW 15.6 H Plt Count 345 Seg Neutrophils % Not Reportable Lymphocytes % Not Reportable Monocytes % Not Reportable Eosinophils % Not Reportable Basophils % Not Reportable Absolute Neutrophils Not Reportable Absolute Lymphocytes Not Reportable Absolute Monocytes Not Reportable Absolute Eosinophils Not Reportable Absolute Basophils Not Reportable VBG pH 7.25 L VBG pCO2 76.9 H* VBG HCO3 32.8 H VBG Base Excess 2.9 Sodium 138.7 Potassium 4.7 Chloride 95 L Carbon Dioxide 31 H Anion Gap 13 BUN 33 H Creatinine 1.60 H Est GFR ( Amer) 52 L Est GFR (Non-Af Amer) 43 L Glucose 168 H Lactic Acid Calcium 10.1 Total Bilirubin 0.7 AST 30 ALT 46 Alkaline Phosphatase 53 Total Protein 7.8 Albumin 4.7 08/11/17 22:22 WBC RBC Hgb Hct MCV MCH MCHC RDW Plt Count Seg Neutrophils % Lymphocytes % Monocytes % Eosinophils % Basophils % Absolute Neutrophils Absolute Lymphocytes Absolute Monocytes Absolute Eosinophils Absolute Basophils VBG pH VBG pCO2 VBG HCO3 VBG Base Excess Sodium Potassium Chloride Carbon Dioxide Anion Gap BUN Creatinine Est GFR ( Amer) Est GFR (Non-Af Amer) Glucose Lactic Acid 1.3 Calcium Total Bilirubin AST ALT Alkaline Phosphatase Total Protein Albumin 08/11/17 08/11/17 22:22 22:22 Creatine Kinase 63 CK-MB (CK-2) 4.55 Troponin I 0.014 Impressions: Chest X-Ray 08/11/17 22:36 IMPRESSION: The right lung has re-expanded after placement of the thoracotomy tube. Assessment & Plan - Diagnosis (1) Pneumothorax Qualifiers: Pneumothorax type: postprocedural Qualified Code(s): J95.811 - Postprocedural pneumothorax Is this a current diagnosis for this admission?: Yes Plan: Post pulmonary nodule biopsy pneumothorax. Chest tube in place. The side-port however is very close to the rib. I have taped the chest tube more securely to prevent any dislodgment. Will keep chest tube to 20 cm water suction for the next couple of days and if no air leak will DC the chest tube then.
[2017-08-12] MEDS ORDERED: LIDOCAINE 2% URO-JET 5 ML KIT MM ONE (01:58)
[2017-08-12] MEDS ORDERED: ACETAMINOPHEN 325 MG TABLET PO PRN (02:40)
[2017-08-12] MEDS ORDERED: PROMETHAZINE HCL 25 MG TABLET PO PRN (02:40)
[2017-08-12] MEDS ORDERED: VANCOMYCIN HCL 0 MG in DEXTROSE 5%-WATER 250 ML IV NR (03:00)
[2017-08-12] MEDS ORDERED: PIPERACILLIN/TAZOBACTAM 3.375 GM VIAL IV PRN (03:11)
[2017-08-12] MEDS ORDERED: FENTANYL CITRATE INJ/PF 100 MCG/2 ML AMPUL IV ONE (04:08)
--- NOTE | 2017-08-12 05:01 | RADIOLOGY REPORT (SQ) ---
EXAM DESCRIPTION: CT CHEST WITHOUT CONTRAST CLINICAL HISTORY: left pneumothorax, post chest tube COMPARISON: None Available. TECHNIQUE: Axial CT images of the chest without IV contrast from the thoracic inlet through the diaphragm. FINDINGS: Chest: No abnormalities of visualized thyroid gland. Atherosclerotic calcification of the aortic arch. Great vessels have normal anatomic configuration. No cardiomegaly or pericardial effusion. Left-sided pacemaker. Coronary artery atherosclerosis. No abnormalities of visualized esophagus. Multilevel hilar and axillary lymphadenopathy. The largest conglomerate of lymph nodes the right paratracheal region measuring 2.7 x 2.4 cm. Lung windows demonstrate right chest tube in place. Tiny residual pneumothorax. Centrilobular emphysematous changes. Right lower lobe mass measuring 3.0 x 2.5 cm. No significant pleural effusion. Subcutaneous air in the right chest wall. Degenerative change of the spine. Limited images of the upper abdomen demonstrate no abnormalities of visualized liver, spleen, pancreas, and adrenal glands. Bilateral nonobstructing renal calculi. DLP: 882.22 mGy-cm IMPRESSION: 1. Right chest tube in place with tiny residual right sided pneumothorax. Small amount of subcutaneous air in the right chest wall. 2. 3.0 cm right lower lobe mass concerning for neoplasm again identified. This was previously biopsied. 3. Multilevel mediastinal and hilar lymphadenopathy concerning for metastatic disease. PET CT may be beneficial for further characterization. 4. Severe centrilobular emphysematous changes. 5. Nonobstructing bilateral renal calculi. This exam was performed according to our departmental dose-optimization program, which includes automated exposure control, adjustment of the mA and/or kV according to patient size and/or use of iterative reconstruction technique.
[2017-08-12] MEDS ORDERED: PIPERACILLIN SODIUM/TAZOBACTAM 3.375 GM in NORMAL SALINE 100 ML IV SCH (06:00)
[2017-08-12] MEDS: LANSOPRAZOLE 30 MG TAB.RAP.DR PO SCH (06:11)
[2017-08-12] MEDS: HEPARIN SOD (PORCINE) 5,000 UNIT/ML 1 ML SYRINGE SUBCUT SCH ×3 (06:13→21:52)
[2017-08-12] MEDS ORDERED: OXYCODONE-ACETAMINOPHEN 5-325 MG TABLET PO PRN (06:50)
--- NOTE | 2017-08-12 08:31 | RADIOLOGY REPORT (SQ) ---
EXAM DESCRIPTION: CHEST SINGLE VIEW COMPLETED DATE/TIME: 08/12/2017 7:29 am REASON FOR STUDY: f/u ptx COMPARISON: 08/11/2017. EXAM PARAMETERS: NUMBER OF VIEWS: One view. TECHNIQUE: Single frontal radiographic view of the chest acquired. RADIATION DOSE: NA LIMITATIONS: None. FINDINGS: LUNGS AND PLEURA: No pneumothorax. Chronic interstitial changes. Right lung mass. MEDIASTINUM AND HILAR STRUCTURES: No masses. Contour normal. HEART AND VASCULAR STRUCTURES: Heart normal in size. Normal vasculature. BONES: No acute findings. HARDWARE: Right chest tube. Defibrillator. OTHER: No other significant finding. IMPRESSION: STABLE APPEARANCE OF THE CHEST. NO PNEUMOTHORAX. TECHNICAL DOCUMENTATION: JOB ID: [id number] [employer]- All Rights Reserved Reading location - IP/workstation name: [email or web address]
--- NOTE | 2017-08-12 08:34 | EKG REPORT ---
SEVERITY:- ABNORMAL ECG - ATRIAL-SENSED VENTRICULAR-PACED COMPLEXES : Confirmed by: Rahul Aj 12-Aug-2017 08:33:44
[2017-08-12] MEDS ORDERED: GLUCAGON,HUMAN RECOMB 1 MG INJ IM PRN (09:26)
[2017-08-12] MEDS ORDERED: DEXTROSE 50%-WATER 25 GM/50 ML DISP.SYRIN IV PRN ×2 (09:26)
[2017-08-12] MEDS ORDERED: INSULIN LISPRO 100 UNIT/ML 3 ML VIAL SUBCUT PRN (09:26)
[2017-08-12] MEDS ORDERED: DEXTROSE 40% GEL 15 GM TUBE PO PRN ×2 (09:26)
--- NOTE | 2017-08-12 10:34 | PDOC H&P ---
History of Present Illness Admission Date/PCP: 08/12/17 00:35 Patient complains of: Worsening shortness of breath last night. History of Present Illness: YAMIL HOLLOWAY is a 72 year old male with history of CAD/CHF/ischemic cardiomyopathy (post AICD), cardiac arrhythmia (? afib), chronic respiratory failure (on 2 L home oxygen) and type 2 diabetes mellitus was admitted with above-mentioned complaint. It was very difficult to obtain an accurate history from the patient so the information was obtained from the ED physician and notes. The patient apparently had a recent lung biopsy done on 08/09/2017 and had a small right pneumothorax requiring a pigtail. He followed with IR yesterday with a repeat chest x-ray showing resolution of the pneumothorax. Per the ED note, the patient's oxygen saturation was 55% on 2 L nasal cannula upon EMS arrival. He received 2 DuoNeb treatments, 125 mg IV Solu-Medrol 1 and 2 g of magnesium sulfate x1. He was also placed on CPAP with some improvement in his oxygen saturation. it was reportedly 80% on a 100% oxygen. In the ED, he was afebrile, heart rate 103, respiratory rate 34, blood pressure 146/106 with oxygen saturation of 82%. His WBC was 21.7 with hemoglobin of 14.6 and his initial troponin was 0.014. His chest x-ray was done which showed right pneumothorax. A chest tube was placed by the ED physician with improvement in the patient's breathing. Past Medical History Medical History: Other - According to the patient based on previous records. Cardiac Medical History: Reports: Congestive Heart Failure, Coronary Artery Disease, Myocardial Infarction, Hyperlipidema, Hypertension Denies: Atrial Fibrillation Pulmonary Medical History: Reports: Bronchitis, Chronic Obstructive Pulmonary Disease (COPD), Intubation, Pneumonia, Sleep Apnea Denies: Asthma Neurological Medical History: Denies: Seizures Endocrine Medical History: Reports: Diabetes Mellitus Type 2 - Insulin-dependent Denies: Hyperthyroidism, Hypothyroidism Musculoskeltal Medical History: Reports: Arthritis Psychiatric Medical History: Reports: Depression Hematology: Reports: Anemia Past Surgical History Past Surgical History: Reports: Orthopedic Surgery - Right foot, Other - Cataracts; AICD. Social History Smoking Status: Former Smoker Cigarettes Packs Per Day: 0 - 3 packs a day for more than 30 years. He quit 1 year ago. Frequency of Alcohol Use: None Hx Recreational Drug Use: No Drugs: None Hx Prescription Drug Abuse: No - Advance Directive Resuscitation Status: Full Code Family History Family History: CAD, COPD, Hypertension, Malignancy, Other - End-stage renal disease Parental Family History Reviewed: Yes - Brother: CAD/MA. Children Family History Reviewed: No Sibling(s) Family History Reviewed.: Yes Medication/Allergy Home Medications: Albuterol Sulfate [Ventolin HFA MDI 18 GM] 2 puff IH Q4HP PRN 08/03/17 Amiodarone HCl [Cordarone 200 mg Tablet] 200 mg PO DAILY 08/03/17 Atorvastatin Calcium [Lipitor 40 mg Tablet] 40 mg PO QHS 08/03/17 Fluticasone/Vilanterol [Breo Ellipta 100-25 Mcg INH] 1 puff IH DAILY 08/03/17 Gabapentin [Neurontin 400 mg Capsule] 400 mg PO Q8 08/03/17 Ipratropium/Albuterol Sulfate [Duoneb 3 ml Ampul] 1 vial NEB Q6 08/03/17 Lisinopril [Zestril] 2.5 mg PO DAILY 08/03/17 Metoprolol Succinate [Toprol Xl 25 mg Tab.sr] 12.5 mg PO DAILY 08/03/17 Oxycodone HCl 20 mg PO Q6 08/03/17 Tamsulosin HCl [Flomax 0.4 mg Cap.sr] 0.4 mg PO DAILY 08/03/17 Zolpidem Tartrate [Ambien 5 mg Tablet] 5 mg PO HSP PRN 08/03/17 Guaifenesin [Mucinex Sr 600 mg Tablet.sa] 600 mg PO Q12 #30 tablet.sa 08/05/17 Potassium Chloride [Klor-Con 10 Meq Tablet.sa] 10 meq PO DAILY tablet.sa Aspirin [Aspirin EC] 1 tab PO DAILY 08/09/17 Allergies/Adverse Reactions: morphine Adverse Reaction (Verified 08/12/17 04:58) Review of Systems ROS unobtainable: Other - Positives and negatives as per HPI. The patient denies any abdominal pain, nausea vomiting but he had some diarrhea, no urinary symptoms. He said that he felt generalized weakness. Physical Exam Vital Signs: Temp Pulse Resp BP Pulse Ox 103 H 19 128/61 H 94 08/11/17 22:15 08/12/17 02:01 08/12/17 02:01 08/12/17 02:01 General appearance: PRESENT: no acute distress, well-developed Head exam: PRESENT: atraumatic, normocephalic Eye exam: PRESENT: PERRLA. ABSENT: scleral icterus Mouth exam: PRESENT: moist, tongue midline Neck exam: PRESENT: full ROM. ABSENT: JVD Respiratory exam: PRESENT: decreased breath sounds - right base., other - right chest tube in place.. ABSENT: rales, rhonchi, wheezes Cardiovascular exam: PRESENT: RRR, +S1, +S2 Pulses: PRESENT: normal dorsalis pedis pul GI/Abdominal exam: PRESENT: normal bowel sounds, soft. ABSENT: distended, guarding, rebound, tenderness Rectal exam: PRESENT: deferred Extremities exam: PRESENT: full ROM, pedal edema - trace bilaterally. Neurological exam: PRESENT: alert, altered, awake, oriented to person. ABSENT: motor sensory deficit Skin exam: PRESENT: dry, warm. ABSENT: erythema, rash Results Laboratory Results: CBC: WBC 21.7, hemoglobin 14.6, hematocrit 45.2, MCV 92, RDW 15.6, platelets 345. VBG: PH 7.25, PCO2 76.9, HCO3 32.8. CMP: Sodium 138.7, potassium 4.7, chloride 95, bicarb 31, anion gap 13, BUN 33, creatinine 1.60, calcium 10.1, liver enzymes within normal limits. Troponin 1: 0.014. EKG Comments: Lead EKG: Paced rhythm, ventricular rate 90, axis -90, QTc prolongation, poor R- wave progression. Similar to previous EKG done on 08/03/2017. Impressions: Chest X-Ray 08/11/17 22:36 IMPRESSION: The right lung has re-expanded after placement of the thoracotomy tube. Assessment & Plan - Diagnosis (1) Acute and chronic respiratory failure, unspecified whether with hypoxia or hypercapnia Qualifiers: Respiratory failure complication: hypoxia and hypercapnia Qualified Code(s) : J96.21 - Acute and chronic respiratory failure with hypoxia; J96.22 - Acute and chronic respiratory failure with hypercapnia; J96.22 - Acute and chronic respiratory failure with hypercapnia; J96.22 - Acute and chronic respiratory failure with hypercapnia Is this a current diagnosis for this admission?: Yes Plan: Given tachypnea, hypoxia and PCO2 of 76.9, likely secondary to right pneumothorax, less likely COPD exacerbation and/or pneumonia. A chest tube was placed by the ED physician. We will continue serial chest x-rays and avoid any NIV. Further management per surgery consulted by the ED physician. Surgical consultation appreciated. (2) SIRS (systemic inflammatory response syndrome) Is this a current diagnosis for this admission?: Yes Plan: Given tachycardia and leukocytosis, no clear evidence of infection at this time. Chest x-ray was negative. UA pending. Will check CAT scan chest and continue broad coverage antibiotics with Vanco and Zosyn. Will follow up blood cultures. of note, the patient received Solumedrol prior to admission. (3) Acute renal failure superimposed on stage 3 chronic kidney disease Is this a current diagnosis for this admission?: Yes Plan: We will continue gentle hydration and hold nephrotoxic medications. The patient was on CHRISTINE inhibitor as outpatient. Will repeat BMP in a.m. (4) Type 2 diabetes mellitus Qualifiers: Diabetes mellitus skilled nursing insulin use: with skilled nursing use Diabetes mellitus complication status: with unspecified complications Qualified Code(s) : E11.8 - Type 2 diabetes mellitus with unspecified complications; Z79.4 - termite exterminator helper (current) use of insulin; Z79.4 - termite exterminator helper (current) use of insulin; Z79.4 - termite exterminator helper (current) use of insulin; Z79.4 - termite exterminator helper (current) use of insulin Is this a current diagnosis for this admission?: No Plan: According to the patient he takes 75/25 insulin 80 units twice a day. Will start Humalog sliding scale awaiting further clarification of his medications' list by pharmacy. (5) Cardiac dysrhythmia Qualifiers: Arrhythmia type: unspecified cardiac arrhythmia Qualified Code(s): I49.9 - Cardiac arrhythmia, unspecified Is this a current diagnosis for this admission?: Yes Plan: Paced rhythm. He is on amiodarone and metoprolol per previous medical records. His medications' list should be clarified. (6) Mass of right lung Is this a current diagnosis for this admission?: No Plan: Post lung biopsy on 08/09/2017, results pending at this time. - Time Time Spent: Greater than 70 Minutes Anticipated discharge: Home - Inpatient Certification Based on my medical assessment, after consideration of the patient's comorbidities, presenting symptoms, or acuity I expect that the services needed warrant INPATIENT care.: Yes I certify that my determination is in accordance with my understanding of Medicare's requirements for reasonable and necessary INPATIENT services [42 CFR 412.3e].: Yes
[2017-08-12 11:37] LABS: HEMATOCRIT 37.6 % (37.9-51.0); MEAN CORPUSCULAR HGB CONC 33.1 g/dL (32.0-36.0); MEAN CORPUSCULAR VOLUME 91 fl (80-97); PLATELET COUNT 196 10^3/uL (150-450); RED BLOOD COUNT 4.14 10^6/uL (4.35-5.55); RED CELL DISTRIBUTION WIDTH 15.3 % (11.5-14.0); WHITE BLOOD COUNT 12.8 10^3/uL (4.0-10.5)
[2017-08-12 11:40] LABS: HEMOGLOBIN 12.4 g/dL (13.5-17.0)
[2017-08-12 11:46] LABS: ANION GAP 10 (5-19); BLOOD UREA NITROGEN 32 mg/dL (7-20); CALCIUM 9.1 mg/dL (8.4-10.2); CARBON DIOXIDE 26 mmol/L (22-30); CHLORIDE 101 mmol/L (98-107); GLUCOSE 222 mg/dL (75-110); POTASSIUM 4.8 mmol/L (3.6-5.0); SODIUM 137.2 mmol/L (137-145)
[2017-08-12] MEDS: PIPERACILLIN SODIUM/TAZOBACTAM 3.375 GM in NORMAL SALINE 100 ML IV SCH ×2 (12:16→17:08)
[2017-08-12 12:52] LABS: APPEARANCE,URINE CLEAR; BILIRUBIN,URINE NEGATIVE (NEGATIVE); COLOR,URINE YELLOW; GLUCOSE, URINE 150 mg/dL (NEGATIVE); KETONES,URINE NEGATIVE (NEGATIVE); LEUKOCYTE ESTERASE,URINE NEGATIVE (NEGATIVE); NITRITE,URINE NEGATIVE (NEGATIVE); PROTEIN,URINE NEGATIVE (NEGATIVE); URINE SPECIFIC GRAVITY 1.016; UROBILINOGEN,URINE NEGATIVE mg/dL (<2.0)
[2017-08-12] MEDS ORDERED: ROCURONIUM BROMIDE INJ 50 MG/5 ML VIAL IV ONE (13:17)
--- NOTE | 2017-08-12 13:20 | Progress Note ---
Provider Note Provider Note: Mr. Tony is a 72-year-old man who underwent biopsy of a right lung mass thought to be cancer, post seizure he had a pneumothorax for which small chest tube was placed, upon resolution of the chest tube was discontinued. The patient came into the ER with dyspnea and has been admitted to the hospitalist service with recurrent pneumothorax and also possible pneumonia, possible postobstructive. Large bore chest tube was placed in the ER. Surgeon has been consulted to monitor chest tube which is on suction. Of note he also has some surrounding subcutaneous air. Patient feels that his breathing is okay right now. His biggest complaint is that he wants to have a meal. No fevers or chills, no new events since moving to the ICU. On exam he is lying in his ICU bed, son is at bedside, patient is awake alert oriented a little bit anxious but otherwise no acute distress. Mucous membranes moist, tongue midline, neck supple. He has a left-sided pacer/ defibrillator in place with well-healed scar. Regular rate and rhythm without murmurs. Large bore chest tube is emanating from the right thorax. No subcutaneous air is palpated by me. Abdomen is soft nontender nondistended with normal bowel sounds. There is no lower extremity edema. Assessment and plan: Patient is hemodynamically stable. He is feeling a little bit better. 1. Right-sided pneumothorax after right lung biopsy. Surgeon following chest tube. Hemodynamically stable. Breathing stabilized. 2. Pneumonia. Possibly postobstructive the lung mass. We will continue with thank and Edgar due to severity of illness on presentation. Sputum and blood cultures pending. 3. Right lung mass with significant chest lymphadenopathy. Probably lung cancer. Biopsy results pending. 4. Will reconcile patient's medications once they are entered by pharmacy technology instructor.
[2017-08-12] MEDS ORDERED: (PENDING PHARMACY ID) (Levalbuterol Tartrate [Xopenex Hfa] 2 PUFF) IH PRN (13:21)
[2017-08-12] MEDS: IPRATROPIUM/ALBUTEROL 0.5-2.5 MG/3 ML AMPUL NEB SCH ×2 (13:41→20:19)
[2017-08-12] MEDS ORDERED: METOPROLOL SUCCINATE 25 MG TAB.SR.24H PO ONE (14:00)
[2017-08-12] MEDS: GABAPENTIN 400 MG CAPSULE PO SCH ×2 (14:00→21:53)
[2017-08-12] MEDS ORDERED: LISINOPRIL 5 MG TABLET PO ONE (14:00)
[2017-08-12] MEDS ORDERED: AMIODARONE HCL 200 MG TABLET PO ONE (14:00)
[2017-08-12] MEDS ORDERED: ALBUTEROL SULFATE HFA (90 MCG/PUFF) 200 PUFF/8.5 GM MDI IH PRN (14:08)
[2017-08-12] MEDS ORDERED: EPINEPHRINE INJ 1 MG/10 ML DISP.SYRIN ONE (14:35)
[2017-08-12] MEDS: OXYCODONE HCL IR 5 MG TABLET PO SCH ×2 (15:01→20:25)
[2017-08-12] MEDS ORDERED: OXYCODONE HCL IR 5 MG TABLET PO SCH ×2 (18:00→21:00)
[2017-08-12] MEDS: ATORVASTATIN CALCIUM 40 MG TABLET PO SCH (21:52)
[2017-08-12] MEDS: ZOLPIDEM TARTRATE 5 MG TABLET PO PRN (21:53)
[2017-08-12] MEDS ORDERED: VANCOMYCIN HCL 1,500 MG in DEXTROSE 5%-WATER 250 ML IV SCH (22:00)
[2017-08-13] MEDS: PIPERACILLIN SODIUM/TAZOBACTAM 3.375 GM in NORMAL SALINE 100 ML IV SCH ×4 (00:45→17:38)
[2017-08-13] MEDS: OXYCODONE HCL IR 5 MG TABLET PO SCH ×4 (03:38→20:26)
[2017-08-13 04:15] LABS: ABSOLUTE BASOPHILS # (AUTO) 0.1 10^3/uL (0.0-0.2); ABSOLUTE EOSINOPHILS # (AUTO) 0.1 10^3/uL (0.0-0.6); ABSOLUTE LYMPHOCYTES (AUTO) 1.5 10^3/uL (0.5-4.7); ABSOLUTE NEUT (AUTO) 10.5 10^3/uL (1.7-8.2); BASOPHILS % (AUTO) 0.5 % (0-2); HEMATOCRIT 38.8 % (37.9-51.0); HEMOGLOBIN 12.6 g/dL (13.5-17.0); LYMPHOCYTES % (AUTO) 11.2 % (13-45); MEAN CORPUSCULAR HEMOGLOBIN 29.8 pg (27.0-33.4); MEAN CORPUSCULAR HGB CONC 32.6 g/dL (32.0-36.0); MEAN CORPUSCULAR VOLUME 91 fl (80-97); MONOCYTES % (AUTO) 7.3 % (3-13); PLATELET COUNT 224 10^3/uL (150-450); RED BLOOD COUNT 4.25 10^6/uL (4.35-5.55); RED CELL DISTRIBUTION WIDTH 15.9 % (11.5-14.0); TOTAL CELLS COUNTED % (AUTO) 100 %; WHITE BLOOD COUNT 13.1 10^3/uL (4.0-10.5)
[2017-08-13 04:33] LABS: ALANINE AMINOTRANSFERASE 33 U/L (21-72); ALBUMIN 3.5 g/dL (3.5-5.0); ALKALINE PHOSPHATASE 38 U/L (38-126); ANION GAP 8 (5-19); ASPARTATE AMINO TRANSFERASE 23 U/L (17-59); BILIRUBIN,DIRECT 0.6 mg/dL (0.0-0.4); BILIRUBIN,TOTAL 0.6 mg/dL (0.2-1.3); BLOOD UREA NITROGEN 31 mg/dL (7-20); CALCIUM 9.6 mg/dL (8.4-10.2); CARBON DIOXIDE 28 mmol/L (22-30); CHLORIDE 103 mmol/L (98-107); GLUCOSE 131 mg/dL (75-110); SODIUM 138.6 mmol/L (137-145); TOTAL PROTEIN 6.5 g/dL (6.3-8.2)
[2017-08-13] MEDS: LANSOPRAZOLE 30 MG TAB.RAP.DR PO SCH (05:46)
[2017-08-13] MEDS: GABAPENTIN 400 MG CAPSULE PO SCH ×3 (05:46→21:23)
[2017-08-13] MEDS: HEPARIN SOD (PORCINE) 5,000 UNIT/ML 1 ML SYRINGE SUBCUT SCH ×3 (05:47→21:24)
[2017-08-13] MEDS: IPRATROPIUM/ALBUTEROL 0.5-2.5 MG/3 ML AMPUL NEB SCH ×3 (08:05→20:58)
--- NOTE | 2017-08-13 08:24 | RADIOLOGY REPORT (SQ) ---
EXAM DESCRIPTION: CHEST SINGLE VIEW COMPLETED DATE/TIME: 08/13/2017 7:30 am REASON FOR STUDY: Chest tube eval COMPARISON: 08/12/2017. CT from 08/12/2017. FINDINGS: Single-view chest AP portable upright. Right chest tube to the mid lung zone, grossly unchanged. No pneumothorax or significant pleural flu id. Minimal patchy opacities in the left lung base, seen on recent CT. Small mass in the right lower lob e, also seen on recent CT. IMPRESSION: Chest tube remains in place. No significant pneumothorax. Other findings as before. S table chest. TECHNICAL DOCUMENTATION: JOB ID: [id number] Reading location - IP/workstation name: [email or web address]
[2017-08-13] MEDS: TAMSULOSIN HCL 0.4 MG CAP.SR.24H PO SCH (09:07)
[2017-08-13] MEDS: METOPROLOL SUCCINATE 25 MG TAB.SR.24H PO SCH (09:07)
[2017-08-13] MEDS: AMIODARONE HCL 200 MG TABLET PO SCH (09:07)
[2017-08-13] MEDS: ASPIRIN 81 MG TABLET, ENT COATED PO SCH (09:07)
[2017-08-13] MEDS: LISINOPRIL 5 MG TABLET PO SCH (09:08)
[2017-08-13] MEDS ORDERED: (PENDING PHARMACY ID) (Lisinopril [Zestril] 2.5 MG) PO SCH (10:00)
[2017-08-13] MEDS ORDERED: FUROSEMIDE 20 MG TABLET PO ONE (10:00)
--- NOTE | 2017-08-13 10:56 | PDOC PROGRESS REPORT ---
Subjective Progress Note for:: 08/13/17 Reason For Visit: RIGHT PNEUMOTHORAX No complaints overnight; in ICU because of unavailability of beds elsewhere. Physical Exam Vital Signs: Temp Pulse Resp BP Pulse Ox 97.6 F 73 18 128/75 H 96 08/13/17 08:00 08/13/17 08:00 08/13/17 08:00 08/13/17 01:16 08/13/17 06:00 Intake & Output 08/12/17 08/13/17 08/14/17 06:59 06:59 07:59 Intake Total 840 460 Output Total 1150 200 Balance -310 260 Weight 85.2 kg General appearance: PRESENT: no acute distress Respiratory exam: PRESENT: other - Patient has good robust cough. No air leaking through the chest tube which is currently suction. The dressing on the right chest wall needs to be changed Results Laboratory Results: 08/13/17 04:08 08/13/17 04:08 08/12/17 08/12/17 08/12/17 03:26 03:26 12:10 WBC 12.8 H RBC 4.14 L Hgb 12.4 L D Hct 37.6 L MCV 91 MCH 30.0 MCHC 33.1 RDW 15.3 H Plt Count 196 Seg Neutrophils % Lymphocytes % Monocytes % Eosinophils % Basophils % Absolute Neutrophils Absolute Lymphocytes Absolute Monocytes Absolute Eosinophils Absolute Basophils Sodium 137.2 Potassium 4.8 Chloride 101 Carbon Dioxide 26 Anion Gap 10 BUN 32 H Creatinine 1.45 H Est GFR ( Amer) 58 L Est GFR (Non-Af Amer) 48 L Glucose 222 H Calcium 9.1 Magnesium 2.4 H Total Bilirubin AST ALT Alkaline Phosphatase Total Protein Albumin Urine Color YELLOW Urine Appearance CLEAR Urine pH 6.0 Ur Specific [place] 1.016 Urine Protein NEGATIVE Urine Glucose (UA) 150 H Urine Ketones NEGATIVE Urine Blood NEGATIVE Urine Nitrite NEGATIVE Ur Leukocyte Esterase NEGATIVE Urine WBC (Auto) 2 Urine RBC (Auto) 0 08/13/17 08/13/17 04:08 04:08 WBC 13.1 H RBC 4.25 L Hgb 12.6 L Hct 38.8 MCV 91 MCH 29.8 MCHC 32.6 RDW 15.9 H Plt Count 224 Seg Neutrophils % 80.0 H Lymphocytes % 11.2 L Monocytes % 7.3 Eosinophils % 1.0 Basophils % 0.5 Absolute Neutrophils 10.5 H Absolute Lymphocytes 1.5 Absolute Monocytes 1.0 Absolute Eosinophils 0.1 Absolute Basophils 0.1 Sodium 138.6 Potassium 5.0 Chloride 103 Carbon Dioxide 28 Anion Gap 8 BUN 31 H Creatinine 1.41 H Est GFR ( Amer) > 60 Est GFR (Non-Af Amer) 49 L Glucose 131 H Calcium 9.6 Magnesium Total Bilirubin 0.6 AST 23 ALT 33 Alkaline Phosphatase 38 Total Protein 6.5 Albumin 3.5 Urine Color Urine Appearance Urine pH Ur Specific [place] Urine Protein Urine Glucose (UA) Urine Ketones Urine Blood Urine Nitrite Ur Leukocyte Esterase Urine WBC (Auto) Urine RBC (Auto) Impressions: Chest CT 08/12/17 00:00 IMPRESSION: 1. Right chest tube in place with tiny residual right sided pneumothorax. Small amount of subcutaneous air in the right chest wall. 2. 3.0 cm right lower lobe mass concerning for neoplasm again identified. This was previously biopsied. 3. Multilevel mediastinal and hilar lymphadenopathy concerning for metastatic disease. PET CT may be beneficial for further characterization. 4. Severe centrilobular emphysematous changes. 5. Nonobstructing bilateral renal calculi. This exam was performed according to our departmental dose-optimization program, which includes automated exposure control, adjustment of the mA and/or kV according to patient size and/or use of iterative reconstruction technique. Chest X-Ray 08/13/17 00:00 IMPRESSION: Chest tube remains in place. No significant pneumothorax. Other findings as before. Stable chest. Assessment & Plan - Diagnosis (1) Mass of right lung Is this a current diagnosis for this admission?: No Plan: Status post right thoracostomy tube placement in the emergency department for near collapse of the right lung, now lung reexpanded successfully, with a.m. chest x-ray showing lung insufflated, chest tube in good position; no evidence of air leak or subcutaneous emphysema. Recommendations: 1. We will place chest tube to waterseal 2. We will order a chest x-ray in the morning; if satisfactory, will discontinue chest tube. Discussed the above with nursing staff.
--- NOTE | 2017-08-13 19:30 | PDOC PROGRESS REPORT ---
Subjective Progress Note for:: 08/13/17 Subjective:: Patient breathing without difficulty. No acute pain. Slept well. No nausea vomiting constipation or diarrhea. Eating well. Reason For Visit: RIGHT PNEUMOTHORAX Physical Exam Vital Signs: Temp Pulse Resp BP Pulse Ox 98.3 F 70 13 120/75 93 08/13/17 16:00 08/13/17 12:00 08/13/17 18:16 08/13/17 18:16 08/13/17 18:16 Intake & Output 08/12/17 08/13/17 08/14/17 06:59 06:59 07:59 Intake Total 840 840 Output Total 1150 750 Balance -310 90 Weight 85.2 kg General appearance: PRESENT: no acute distress, cooperative Head exam: PRESENT: atraumatic, normocephalic Mouth exam: PRESENT: moist, tongue midline Neck exam: PRESENT: lymphadenopathy Respiratory exam: PRESENT: crackles, prolonged expiratory phas, unlabored, wheezes Cardiovascular exam: PRESENT: RRR. ABSENT: systolic murmur GI/Abdominal exam: PRESENT: normal bowel sounds, soft. ABSENT: distended, guarding, tenderness Musculoskeletal exam: PRESENT: other - Chest tube and right lateral chest. On waterseal. Neurological exam: PRESENT: alert, awake, oriented to person, oriented to place , oriented to situation, CN II-XII grossly intact Skin exam: PRESENT: dry, warm Results Laboratory Results: 08/13/17 04:08 08/13/17 04:08 08/13/17 08/13/17 04:08 04:08 WBC 13.1 H RBC 4.25 L Hgb 12.6 L Hct 38.8 MCV 91 MCH 29.8 MCHC 32.6 RDW 15.9 H Plt Count 224 Seg Neutrophils % 80.0 H Lymphocytes % 11.2 L Monocytes % 7.3 Eosinophils % 1.0 Basophils % 0.5 Absolute Neutrophils 10.5 H Absolute Lymphocytes 1.5 Absolute Monocytes 1.0 Absolute Eosinophils 0.1 Absolute Basophils 0.1 Sodium 138.6 Potassium 5.0 Chloride 103 Carbon Dioxide 28 Anion Gap 8 BUN 31 H Creatinine 1.41 H Est GFR ( Amer) > 60 Est GFR (Non-Af Amer) 49 L Glucose 131 H Calcium 9.6 Total Bilirubin 0.6 AST 23 ALT 33 Alkaline Phosphatase 38 Total Protein 6.5 Albumin 3.5 Impressions: Chest CT 08/12/17 00:00 IMPRESSION: 1. Right chest tube in place with tiny residual right sided pneumothorax. Small amount of subcutaneous air in the right chest wall. 2. 3.0 cm right lower lobe mass concerning for neoplasm again identified. This was previously biopsied. 3. Multilevel mediastinal and hilar lymphadenopathy concerning for metastatic disease. PET CT may be beneficial for further characterization. 4. Severe centrilobular emphysematous changes. 5. Nonobstructing bilateral renal calculi. This exam was performed according to our departmental dose-optimization program, which includes automated exposure control, adjustment of the mA and/or kV according to patient size and/or use of iterative reconstruction technique. Chest X-Ray 08/13/17 00:00 IMPRESSION: Chest tube remains in place. No significant pneumothorax. Other findings as before. Stable chest. Assessment & Plan - Diagnosis (1) Acute and chronic respiratory failure, unspecified whether with hypoxia or hypercapnia Qualifiers: Respiratory failure complication: hypoxia and hypercapnia Qualified Code(s) : J96.21 - Acute and chronic respiratory failure with hypoxia; J96.22 - Acute and chronic respiratory failure with hypercapnia; J96.22 - Acute and chronic respiratory failure with hypercapnia; J96.22 - Acute and chronic respiratory failure with hypercapnia Is this a current diagnosis for this admission?: Yes Plan: This is improving with placement of chest tube and resolution of the pneumothorax. Surgeon monitoring chest tube. Patient is stable from this perspective. We will continue to monitor closely either in the ICU or the stepdown unit. (2) Acute renal failure superimposed on stage 3 chronic kidney disease Is this a current diagnosis for this admission?: Yes Plan: Likely secondary to diabetes and hypertension, medical renal disease. BUN and creatinine are stable. Continue to monitor renal function. (3) Mass of right lung Is this a current diagnosis for this admission?: Yes Plan: Recently biopsied, this is what caused the pneumothorax. So has chest lymphadenopathy. Biopsy results pending. (4) Pneumothorax Qualifiers: Pneumothorax type: postprocedural Qualified Code(s): J95.811 - Postprocedural pneumothorax Is this a current diagnosis for this admission?: Yes Plan: Surgeon managing chest tube. Pneumothorax resolving. (5) Respiratory distress Is this a current diagnosis for this admission?: Yes Plan: Resolved once chest tube was placed. Monitoring closely. (6) COPD (chronic obstructive pulmonary disease) Qualifiers: COPD type: unspecified COPD Qualified Code(s): J44.9 - Chronic obstructive pulmonary disease, unspecified Is this a current diagnosis for this admission?: Yes Plan: Stable. Continue current care. (7) Cardiac dysrhythmia Qualifiers: Arrhythmia type: unspecified cardiac arrhythmia Qualified Code(s): I49.9 - Cardiac arrhythmia, unspecified Is this a current diagnosis for this admission?: Yes Plan: Stable. Continue telemetry. Patient is on amiodarone and metoprolol and these will be continued. - Time Time Spent with patient: 25-34 minutes Medications reviewed and adjusted accordingly: Yes - Inpatient Certification Based on my medical assessment, after consideration of the patient's comorbidities, presenting symptoms, or acuity I expect that the services needed warrant INPATIENT care.: Yes I certify that my determination is in accordance with my understanding of Medicare's requirements for reasonable and necessary INPATIENT services [42 CFR 412.3e].: Yes Medical Necessity: Need Close Monitoring Due to Risk of Patient Decompensation, Risk of Complication if Not Cared For in Hospital
[2017-08-13] MEDS: ZOLPIDEM TARTRATE 5 MG TABLET PO PRN (21:23)
[2017-08-13] MEDS: ATORVASTATIN CALCIUM 40 MG TABLET PO SCH (21:23)
[2017-08-13] MEDS: MELATONIN 5 MG TABLET PO SCH (21:23)
[2017-08-13] MEDS ORDERED: FENTANYL CITRATE INJ/PF 100 MCG/2 ML AMPUL IV ONE (22:36)
[2017-08-14] MEDS: PIPERACILLIN SODIUM/TAZOBACTAM 3.375 GM in NORMAL SALINE 100 ML IV SCH ×2 (00:46→06:34)
[2017-08-14] MEDS: OXYCODONE HCL IR 5 MG TABLET PO SCH ×4 (03:15→21:04)
[2017-08-14 04:40] LABS: HEMATOCRIT 39.2 % (37.9-51.0); HEMOGLOBIN 12.7 g/dL (13.5-17.0); MEAN CORPUSCULAR HEMOGLOBIN 29.7 pg (27.0-33.4); MEAN CORPUSCULAR HGB CONC 32.5 g/dL (32.0-36.0); MEAN CORPUSCULAR VOLUME 92 fl (80-97); PLATELET COUNT 216 10^3/uL (150-450); RED BLOOD COUNT 4.28 10^6/uL (4.35-5.55); RED CELL DISTRIBUTION WIDTH 15.6 % (11.5-14.0); WHITE BLOOD COUNT 12.2 10^3/uL (4.0-10.5)
[2017-08-14 05:12] LABS: ANION GAP 9 (5-19); BLOOD UREA NITROGEN 31 mg/dL (7-20); CALCIUM 9.3 mg/dL (8.4-10.2); CARBON DIOXIDE 30 mmol/L (22-30); CHLORIDE 101 mmol/L (98-107); GLUCOSE 106 mg/dL (75-110); POTASSIUM 4.4 mmol/L (3.6-5.0); SODIUM 139.8 mmol/L (137-145)
[2017-08-14] MEDS: GABAPENTIN 400 MG CAPSULE PO SCH ×3 (06:33→23:45)
[2017-08-14] MEDS: LANSOPRAZOLE 30 MG TAB.RAP.DR PO SCH (06:33)
[2017-08-14] MEDS: HEPARIN SOD (PORCINE) 5,000 UNIT/ML 1 ML SYRINGE SUBCUT SCH ×3 (06:34→23:45)
[2017-08-14] MEDS: FUROSEMIDE 20 MG TABLET PO SCH (08:10)
[2017-08-14] MEDS: IPRATROPIUM/ALBUTEROL 0.5-2.5 MG/3 ML AMPUL NEB SCH ×3 (08:15→20:21)
--- NOTE | 2017-08-14 08:17 | RADIOLOGY REPORT (SQ) ---
EXAM DESCRIPTION: CHEST SINGLE VIEW COMPLETED DATE/TIME: 08/14/2017 7:25 am REASON FOR STUDY: chest tube assessment COMPARISON: 08/13/2017. EXAM PARAMETERS: NUMBER OF VIEWS: One view. TECHNIQUE: Single frontal radiographic view of the chest acquired. RADIATION DOSE: NA LIMITATIONS: None. FINDINGS: LUNGS AND PLEURA: No pneumothorax. Chronic interstitial changes. Right lung mass indisti nctly visualized. MEDIASTINUM AND HILAR STRUCTURES: No masses. Contour normal. HEART AND VASCULAR STRUCTURES: Heart normal in size. Normal vasculature. BONES: No acute findings. HARDWARE: Stable right chest tube. OTHER: No other significant finding. IMPRESSION: STABLE APPEARANCE OF THE CHEST. RIGHT-SIDED CHEST TUBE WITH NO PNEUMOTHORAX. TECHNICAL DOCUMENTATION: JOB ID: [id number] [employer]- All Rights Reserved Reading location - IP/workstation name: [email or web address]
[2017-08-14] MEDS: METOPROLOL SUCCINATE 25 MG TAB.SR.24H PO SCH (09:18)
[2017-08-14] MEDS: LISINOPRIL 5 MG TABLET PO SCH (09:19)
[2017-08-14] MEDS: ASPIRIN 81 MG TABLET, ENT COATED PO SCH (09:19)
[2017-08-14] MEDS: AMIODARONE HCL 200 MG TABLET PO SCH (09:19)
[2017-08-14] MEDS: TAMSULOSIN HCL 0.4 MG CAP.SR.24H PO SCH (09:19)
--- NOTE | 2017-08-14 11:20 | Operative Report ---
Nonrecallable Operative Report DATE OF SURGERY: 08/14/17 PREOPERATIVE DIAGNOSIS: Status post chest tube placement for pneumothorax right chest POSTOPERATIVE DIAGNOSIS: Same OPERATION: Chest tube removal SURGEON: NAVNEET BACH ANESTHESIA: Other - None COMPLICATIONS: None ESTIMATED BLOOD LOSS: None INTRAOPERATIVE FINDINGS: See below PROCEDURE: Patient was seen in the ICU room 12. Right arm abducted chest tube dressing removed, chest tube suture removed, chest tube removed under compression dressing with Xeroform and 4 x 4's. Patient tolerated the procedure well Chest x-ray will be obtained PA and lateral in approximately 2 hours.
--- NOTE | 2017-08-14 12:09 | RADIOLOGY REPORT (SQ) ---
EXAM DESCRIPTION: CHEST SINGLE VIEW COMPLETED DATE/TIME: 08/14/2017 11:27 am REASON FOR STUDY: Chest tube removed COMPARISON: 08/14/2017 at 0721 hours. EXAM PARAMETERS: NUMBER OF VIEWS: One view. TECHNIQUE: Single frontal radiographic view of the chest acquired. RADIATION DOSE: NA LIMITATIONS: None. FINDINGS: LUNGS AND PLEURA: No pneumothorax following chest tube removal. No change. MEDIASTINUM AND HILAR STRUCTURES: No masses. Contour normal. HEART AND VASCULAR STRUCTURES: Heart normal in size. Normal vasculature. BONES: No acute findings. HARDWARE: Defibrillator. Interval chest tube removal. OTHER: No other significant finding. IMPRESSION: REMOVAL OF THE RIGHT CHEST TUBE WITH NO PNEUMOTHORAX. OTHERWISE NO CHANGE. TECHNICAL DOCUMENTATION: JOB ID: [id number] [employer]- All Rights Reserved Reading location - IP/workstation name: [email or web address]
--- NOTE | 2017-08-14 18:54 | PDOC PROGRESS REPORT ---
Subjective Progress Note for:: 08/14/17 Subjective:: Patient breathing much better today. He is comfortable. He slept well last night. A little bit of phlegm production but he feels like it is his chronic sputum production. No hemoptysis. No fever or chills. No chest pain. He is eating well. Reason For Visit: RIGHT PNEUMOTHORAX Physical Exam Vital Signs: Temp Pulse Resp BP Pulse Ox 98.3 F 70 17 99/58 L 96 08/14/17 16:00 08/14/17 16:00 08/14/17 18:00 08/14/17 17:07 08/14/17 18:00 Intake & Output 08/13/17 08/14/17 08/15/17 05:59 06:59 06:59 Intake Total 570 Output Total 600 Balance -30 Weight General appearance: PRESENT: no acute distress, cooperative Head exam: PRESENT: atraumatic, normocephalic Eye exam: PRESENT: conjunctiva pink Mouth exam: PRESENT: moist, tongue midline Respiratory exam: PRESENT: prolonged expiratory phas, wheezes. ABSENT: rales, rhonchi - Very trace and scattered Cardiovascular exam: PRESENT: RRR. ABSENT: systolic murmur GI/Abdominal exam: PRESENT: normal bowel sounds, soft. ABSENT: distended, guarding, tenderness Extremities exam: ABSENT: pedal edema Musculoskeletal exam: PRESENT: other - Right chest tube right lateral chest, on waterseal Neurological exam: PRESENT: alert, awake, oriented to person, oriented to place , oriented to situation, CN II-XII grossly intact Psychiatric exam: PRESENT: appropriate affect. ABSENT: anxious Skin exam: PRESENT: dry, warm Results Laboratory Results: 08/14/17 04:25 08/14/17 04:25 08/14/17 08/14/17 04:25 04:25 WBC 12.2 H RBC 4.28 L Hgb 12.7 L Hct 39.2 MCV 92 MCH 29.7 MCHC 32.5 RDW 15.6 H Plt Count 216 Sodium 139.8 Potassium 4.4 Chloride 101 Carbon Dioxide 30 Anion Gap 9 BUN 31 H Creatinine 1.53 H Est GFR ( Amer) 54 L Est GFR (Non-Af Amer) 45 L Glucose 106 Calcium 9.3 Impressions: Chest CT 08/12/17 00:00 IMPRESSION: 1. Right chest tube in place with tiny residual right sided pneumothorax. Small amount of subcutaneous air in the right chest wall. 2. 3.0 cm right lower lobe mass concerning for neoplasm again identified. This was previously biopsied. 3. Multilevel mediastinal and hilar lymphadenopathy concerning for metastatic disease. PET CT may be beneficial for further characterization. 4. Severe centrilobular emphysematous changes. 5. Nonobstructing bilateral renal calculi. This exam was performed according to our departmental dose-optimization program, which includes automated exposure control, adjustment of the mA and/or kV according to patient size and/or use of iterative reconstruction technique. Chest X-Ray 08/14/17 11:30 IMPRESSION: REMOVAL OF THE RIGHT CHEST TUBE WITH NO PNEUMOTHORAX. OTHERWISE NO CHANGE. Assessment & Plan - Diagnosis (1) Acute and chronic respiratory failure, unspecified whether with hypoxia or hypercapnia Qualifiers: Respiratory failure complication: hypoxia and hypercapnia Qualified Code(s) : J96.21 - Acute and chronic respiratory failure with hypoxia; J96.22 - Acute and chronic respiratory failure with hypercapnia; J96.22 - Acute and chronic respiratory failure with hypercapnia; J96.22 - Acute and chronic respiratory failure with hypercapnia Is this a current diagnosis for this admission?: Yes Plan: Improving with treatment for pneumonia and with chest tube for pneumothorax. Patient is struggling with a right lung mass which has been biopsied. He has significant lymphadenopathy which is likely cancer. He also has COPD. He continues to use tobacco. (2) Acute renal failure superimposed on stage 3 chronic kidney disease Is this a current diagnosis for this admission?: Yes Plan: Renal function appears stable. Making good urine. We will continue to monitor. (3) Mass of right lung Is this a current diagnosis for this admission?: Yes Plan: With thoracic lymphadenopathy. Right lung mass biopsy results pending. (4) Pneumothorax Qualifiers: Pneumothorax type: postprocedural Qualified Code(s): J95.811 - Postprocedural pneumothorax Is this a current diagnosis for this admission?: Yes Plan: The chest tube being managed by the surgeon. Progressing well. (5) Respiratory distress Is this a current diagnosis for this admission?: Yes Plan: Multifactorial, secondary to problems noted above. Overall improving. We will continue to monitor closely. (6) COPD (chronic obstructive pulmonary disease) Qualifiers: COPD type: unspecified COPD Qualified Code(s): J44.9 - Chronic obstructive pulmonary disease, unspecified Is this a current diagnosis for this admission?: Yes Plan: I think his COPD is at baseline. He has some scattered wheezing which he states is normal. (7) Cardiac dysrhythmia Qualifiers: Arrhythmia type: unspecified cardiac arrhythmia Qualified Code(s): I49.9 - Cardiac arrhythmia, unspecified Is this a current diagnosis for this admission?: Yes Plan: Questioned patient about his history of cardiac dysrhythmia and why he is on amiodarone. He does not know. I will continue his amiodarone and his metoprolol. Vital signs are stable. - Time Time Spent with patient: 15-24 minutes Medications reviewed and adjusted accordingly: Yes - Inpatient Certification Based on my medical assessment, after consideration of the patient's comorbidities, presenting symptoms, or acuity I expect that the services needed warrant INPATIENT care.: Yes I certify that my determination is in accordance with my understanding of Medicare's requirements for reasonable and necessary INPATIENT services [42 CFR 412.3e].: Yes Medical Necessity: Need Close Monitoring Due to Risk of Patient Decompensation, Risk of Complication if Not Cared For in Hospital
[2017-08-14] MEDS: MELATONIN 5 MG TABLET PO SCH (22:46)
[2017-08-14] MEDS: ATORVASTATIN CALCIUM 40 MG TABLET PO SCH (23:44)
[2017-08-14] MEDS: ZOLPIDEM TARTRATE 5 MG TABLET PO PRN (23:45)
[2017-08-15] MEDS: OXYCODONE HCL IR 5 MG TABLET PO SCH ×3 (03:22→20:33)
[2017-08-15 04:20] LABS: HEMATOCRIT 39.8 % (37.9-51.0); MEAN CORPUSCULAR HEMOGLOBIN 29.6 pg (27.0-33.4); MEAN CORPUSCULAR HGB CONC 32.6 g/dL (32.0-36.0); MEAN CORPUSCULAR VOLUME 91 fl (80-97); PLATELET COUNT 209 10^3/uL (150-450); RED BLOOD COUNT 4.39 10^6/uL (4.35-5.55); RED CELL DISTRIBUTION WIDTH 15.5 % (11.5-14.0)
--- NOTE | 2017-08-15 04:54 | RADIOLOGY REPORT (SQ) ---
EXAM DESCRIPTION: CHEST SINGLE VIEW CLINICAL HISTORY: post Chest tube removal evaluation COMPARISON: 08/14/2017 FINDINGS: Single frontal view of the chest. Left-sided pacemaker. Atherosclerotic calcification of the aortic arch. Heart is not enlarged. Leads overlie the chest. No consolidation, pneumothorax, or pleural effusion. Right basilar nodular opacity is stable. No acute osseous abnormality. Upper abdominal soft tissues are unremarkable. IMPRESSION: 1. Stable appearance of the chest.
[2017-08-15] MEDS: GABAPENTIN 400 MG CAPSULE PO SCH ×3 (05:27→21:14)
[2017-08-15] MEDS: HEPARIN SOD (PORCINE) 5,000 UNIT/ML 1 ML SYRINGE SUBCUT SCH ×3 (05:27→21:13)
[2017-08-15] MEDS: LANSOPRAZOLE 30 MG TAB.RAP.DR PO SCH (05:27)
[2017-08-15] MEDS: IPRATROPIUM/ALBUTEROL 0.5-2.5 MG/3 ML AMPUL NEB SCH ×3 (08:05→19:36)
[2017-08-15] MEDS: TAMSULOSIN HCL 0.4 MG CAP.SR.24H PO SCH (10:06)
[2017-08-15] MEDS: LISINOPRIL 5 MG TABLET PO SCH (10:06)
[2017-08-15] MEDS: ASPIRIN 81 MG TABLET, ENT COATED PO SCH (10:07)
[2017-08-15] MEDS: FUROSEMIDE 20 MG TABLET PO SCH (10:09)
[2017-08-15] MEDS: METOPROLOL SUCCINATE 25 MG TAB.SR.24H PO SCH (10:10)
[2017-08-15] MEDS: AMIODARONE HCL 200 MG TABLET PO SCH (10:10)
--- NOTE | 2017-08-15 19:57 | PDOC PROGRESS REPORT ---
Subjective Progress Note for:: 08/15/17 Subjective:: Patient is breathing better today. Chest tube has been removed. He feels very weak and has not really gotten out of bed since he was admitted to the hospital. No fever or chills. Eating fine. No new sputum production. No hemoptysis. He has moved his bowels. He tells me that last night he was feeling scared and thought that the hospital staff was trying to harm him. He called his son who came in and told him that everything was fine. He remembers all of the events he thinks and he also realizes that he was paranoid. Reason For Visit: RIGHT PNEUMOTHORAX Physical Exam Vital Signs: Temp Pulse Resp BP Pulse Ox 99.9 F 70 16 107/49 L 93 08/15/17 12:00 08/15/17 19:38 08/15/17 19:38 08/15/17 12:36 08/15/17 19:38 Intake & Output 08/14/17 08/15/17 08/16/17 06:59 06:59 06:59 Intake Total 570 1040 Output Total 1400 550 Balance -830 490 Weight 83.1 kg General appearance: PRESENT: no acute distress, cooperative, obese Head exam: PRESENT: atraumatic Eye exam: PRESENT: conjunctiva pink Mouth exam: PRESENT: moist, tongue midline Neck exam: PRESENT: lymphadenopathy Respiratory exam: PRESENT: decreased breath sounds, unlabored. ABSENT: rales, rhonchi, wheezes Pulses: PRESENT: normal radial pulses GI/Abdominal exam: PRESENT: normal bowel sounds, soft. ABSENT: distended, guarding, tenderness Neurological exam: PRESENT: alert, awake, oriented to person, oriented to place , CN II-XII grossly intact Psychiatric exam: PRESENT: appropriate affect Skin exam: PRESENT: dry, warm Results Laboratory Results: 08/15/17 04:10 08/14/17 04:25 08/15/17 04:10 WBC 13.0 H RBC 4.39 Hgb 13.0 L Hct 39.8 MCV 91 MCH 29.6 MCHC 32.6 RDW 15.5 H Plt Count 209 Impressions: Chest CT 08/12/17 00:00 IMPRESSION: 1. Right chest tube in place with tiny residual right sided pneumothorax. Small amount of subcutaneous air in the right chest wall. 2. 3.0 cm right lower lobe mass concerning for neoplasm again identified. This was previously biopsied. 3. Multilevel mediastinal and hilar lymphadenopathy concerning for metastatic disease. PET CT may be beneficial for further characterization. 4. Severe centrilobular emphysematous changes. 5. Nonobstructing bilateral renal calculi. This exam was performed according to our departmental dose-optimization program, which includes automated exposure control, adjustment of the mA and/or kV according to patient size and/or use of iterative reconstruction technique. Chest X-Ray 08/15/17 04:08 IMPRESSION: 1. Stable appearance of the chest. Assessment & Plan - Diagnosis (1) Acute and chronic respiratory failure, unspecified whether with hypoxia or hypercapnia Qualifiers: Respiratory failure complication: hypoxia and hypercapnia Qualified Code(s) : J96.21 - Acute and chronic respiratory failure with hypoxia; J96.22 - Acute and chronic respiratory failure with hypercapnia; J96.22 - Acute and chronic respiratory failure with hypercapnia; J96.22 - Acute and chronic respiratory failure with hypercapnia Is this a current diagnosis for this admission?: Yes Plan: Secondary to pneumothorax after biopsy of right lung mass. This is resolving back to his baseline. Chest tube has been removed. Do not think he has pneumonia and I am discontinuing antibiotics. (2) Acute renal failure superimposed on stage 3 chronic kidney disease Is this a current diagnosis for this admission?: Yes Plan: Improving. Continue current care. Patient is eating and drinking well. (3) Mass of right lung Is this a current diagnosis for this admission?: Yes Plan: Biopsy results will be available to the patient later this week. This is likely cancer in the patient is aware. (4) Pneumothorax Qualifiers: Pneumothorax type: postprocedural Qualified Code(s): J95.811 - Postprocedural pneumothorax Is this a current diagnosis for this admission?: Yes Plan: Resolved with chest tube. Chest tube has been removed. The surgeon has left instructions to leave the occlusive dressing on for 4 days and then to follow- up with his primary care doctor. There is also the recommendation that the patient follow-up in the surgical clinic, [facility], in 2 weeks with a pre-clinic chest x-ray. While the patient is wearing the occlusive dressing he should not shower. (5) Respiratory distress Is this a current diagnosis for this admission?: Yes Plan: Resolved. Secondary to pneumothorax. (6) COPD (chronic obstructive pulmonary disease) Qualifiers: COPD type: unspecified COPD Qualified Code(s): J44.9 - Chronic obstructive pulmonary disease, unspecified Is this a current diagnosis for this admission?: Yes Plan: COPD appears to be at baseline. Patient is not wheezing. He is on his home meds. No changes to be made. (7) Cardiac dysrhythmia Qualifiers: Arrhythmia type: unspecified cardiac arrhythmia Qualified Code(s): I49.9 - Cardiac arrhythmia, unspecified Is this a current diagnosis for this admission?: Yes Plan: It is stable on his amiodarone and metoprolol. No changes to be made. - Time Time Spent with patient: 25-34 minutes Medications reviewed and adjusted accordingly: Yes Anticipated discharge: Home Within: within 24 hours - Inpatient Certification Based on my medical assessment, after consideration of the patient's comorbidities, presenting symptoms, or acuity I expect that the services needed warrant INPATIENT care.: Yes I certify that my determination is in accordance with my understanding of Medicare's requirements for reasonable and necessary INPATIENT services [42 CFR 412.3e].: Yes Medical Necessity: Risk of Complication if Not Cared For in Hospital - Discharge likely tomorrow after recommendations from physical therapy are available.
[2017-08-15] MEDS: ATORVASTATIN CALCIUM 40 MG TABLET PO SCH (21:13)
[2017-08-15] MEDS: MELATONIN 5 MG TABLET PO SCH (21:44)
[2017-08-16] MEDS: OXYCODONE HCL IR 5 MG TABLET PO SCH ×2 (03:54→08:28)
[2017-08-16 05:09] LABS: HEMOGLOBIN 12.8 g/dL (13.5-17.0); MEAN CORPUSCULAR HEMOGLOBIN 30.1 pg (27.0-33.4); MEAN CORPUSCULAR HGB CONC 33.5 g/dL (32.0-36.0); MEAN CORPUSCULAR VOLUME 90 fl (80-97); PLATELET COUNT 203 10^3/uL (150-450); RED BLOOD COUNT 4.24 10^6/uL (4.35-5.55); WHITE BLOOD COUNT 9.7 10^3/uL (4.0-10.5)
[2017-08-16 05:30] LABS: ANION GAP 11 (5-19); BLOOD UREA NITROGEN 38 mg/dL (7-20); CALCIUM 9.5 mg/dL (8.4-10.2); CARBON DIOXIDE 26 mmol/L (22-30); CHLORIDE 100 mmol/L (98-107); GLUCOSE 112 mg/dL (75-110); POTASSIUM 4.4 mmol/L (3.6-5.0); SODIUM 136.8 mmol/L (137-145)
[2017-08-16] MEDS: HEPARIN SOD (PORCINE) 5,000 UNIT/ML 1 ML SYRINGE SUBCUT SCH ×2 (06:40→13:49)
[2017-08-16] MEDS: GABAPENTIN 400 MG CAPSULE PO SCH ×2 (06:40→13:51)
[2017-08-16] MEDS: LANSOPRAZOLE 30 MG TAB.RAP.DR PO SCH (06:40)
[2017-08-16] MEDS: FUROSEMIDE 20 MG TABLET PO SCH (08:28)
[2017-08-16] MEDS: IPRATROPIUM/ALBUTEROL 0.5-2.5 MG/3 ML AMPUL NEB SCH ×2 (09:49→14:16)
[2017-08-16] MEDS: METOPROLOL SUCCINATE 25 MG TAB.SR.24H PO SCH (10:40)
[2017-08-16] MEDS: ASPIRIN 81 MG TABLET, ENT COATED PO SCH (10:40)
[2017-08-16] MEDS: TAMSULOSIN HCL 0.4 MG CAP.SR.24H PO SCH (10:40)
[2017-08-16] MEDS: AMIODARONE HCL 200 MG TABLET PO SCH (10:41)
[2017-08-16] MEDS: LISINOPRIL 5 MG TABLET PO SCH (10:41)
--- NOTE | 2017-08-16 12:13 | PDOC DISCHARGE SUMMARY ---
General - Admit/Disc Date/PCP Admission Date/Primary Care Provider: 08/12/17 00:35 Discharge Date: 08/16/17 - Discharge Diagnosis (1) Pneumothorax Is this a current diagnosis for this admission?: Yes (2) SIRS (systemic inflammatory response syndrome) Is this a current diagnosis for this admission?: Yes (3) Acute and chronic respiratory failure, unspecified whether with hypoxia or hypercapnia Is this a current diagnosis for this admission?: Yes (4) Acute renal failure superimposed on stage 3 chronic kidney disease Is this a current diagnosis for this admission?: Yes (5) Arrhythmia Is this a current diagnosis for this admission?: Yes (6) Mass of right lung Is this a current diagnosis for this admission?: Yes (7) Type 2 diabetes mellitus Is this a current diagnosis for this admission?: Yes (8) COPD (chronic obstructive pulmonary disease) Is this a current diagnosis for this admission?: Yes (9) Acute kidney injury Is this a current diagnosis for this admission?: Yes (10) Hypertension Is this a current diagnosis for this admission?: Yes - Additional Information Resuscitation Status: Full Code Discharge Diet: As Tolerated Discharge Activity: Activity As Tolerated Home Medications: Albuterol Sulfate [Ventolin HFA MDI 18 GM] 2 puff IH DAILY 08/12/17 Amiodarone HCl [Cordarone 200 mg Tablet] 200 mg PO DAILY 08/12/17 Aspirin [Aspirin EC] 81 mg PO DAILY 08/12/17 Atorvastatin Calcium [Lipitor 40 mg Tablet] 40 mg PO QHS 08/12/17 Furosemide [Lasix 20 mg Tablet] 20 mg PO QAM 08/12/17 Gabapentin [Neurontin 400 mg Capsule] 400 mg PO Q8 08/12/17 Ipratropium/Albuterol Sulfate [Duoneb 3 ml Ampul] 3 ml NEB RTTID 08/12/17 Levalbuterol Tartrate [Xopenex Hfa] 2 puff IH Q4HP PRN 08/12/17 Lisinopril [Zestril] 2.5 mg PO DAILY 08/12/17 Metoprolol Succinate [Toprol Xl 25 mg Tab.sr] 25 mg PO DAILY 08/12/17 Oxycodone HCl 20 mg PO Q6 08/12/17 Tamsulosin HCl [Flomax 0.4 mg Cap.sr] 0.4 mg PO DAILY 08/12/17 Umeclidinium Backus [Incruse Ellipta] 1 puff IH DAILY 08/12/17 Zolpidem Tartrate [Ambien 5 mg Tablet] 5 mg PO HSP PRN 08/12/17 Lansoprazole [Prevacid 30 mg Odt Tablet] 30 mg PO Q6AM tab. 08/16/17 Melatonin [Melatonin 5 mg Tablet] 10 mg PO QHS tablet 08/16/17 History of Present Illness Patient complains of: worsening of shortness of breath History of Present Illness: YAMIL HOLLOWAY is a 72 year old male with history of CAD/CHF/ischemic cardiomyopathy (post AICD), cardiac arrhythmia (? afib), chronic respiratory failure (on 2 L home oxygen) and type 2 diabetes mellitus was admitted with above-mentioned complaint. It was very difficult to obtain an accurate history from the patient so the information was obtained from the ED physician and notes. The patient apparently had a recent lung biopsy done on 08/09/2017 and had a small right pneumothorax requiring a pigtail. He followed with IR yesterday with a repeat chest x-ray showing resolution of the pneumothorax. Per the ED note, the patient's oxygen saturation was 55% on 2 L nasal cannula upon EMS arrival. He received 2 DuoNeb treatments, 125 mg IV Solu-Medrol 1 and 2 g of magnesium sulfate x1. He was also placed on CPAP with some improvement in his oxygen saturation. it was reportedly 80% on a 100% oxygen. In the ED, he was afebrile, heart rate 103, respiratory rate 34, blood pressure 146/106 with oxygen saturation of 82%. His WBC was 21.7 with hemoglobin of 14.6 and his initial troponin was 0.014. His chest x-ray was done which showed right pneumothorax. A chest tube was placed by the ED physician with improvement in the patient's breathing. Hospital Course Hospital Course: patient was admitted with difficulty breathing and shortness of breath who was initially found to be hypoxemic and was also treated with steroids. He was found to have a small pneumothorax on admission and a chest tube was placed with improvement in his breathing. Although patient was found to be tachycardic with leukocytosis there is no clear evidence of an infection and he did receive empiric antibiotic coverage but this has since been discontinued. He does have underlying mass in his lung which has recently been biopsied. His chest tube was removed and he has been hemodynamically stable. He has ambulated around with assistance of Physical therapy and patient is hemodynamically stable to be discharged home. Physical Exam Vital Signs: Temp Pulse Resp BP Pulse Ox 97.9 F 75 16 115/50 L 89 L 08/16/17 07:44 08/16/17 09:49 08/16/17 09:49 08/16/17 07:44 08/16/17 09:49 Intake & Output 08/15/17 08/16/17 08/17/17 06:59 06:59 06:59 Intake Total 570 1070 Output Total 1400 850 Balance -830 220 Weight 83.1 kg General appearance: PRESENT: no acute distress, cooperative Head exam: PRESENT: atraumatic Neck exam: ABSENT: carotid bruit, JVD, lymphadenopathy, thyromegaly Respiratory exam: PRESENT: crackles, decreased breath sounds - R lung Cardiovascular exam: PRESENT: RRR. ABSENT: diastolic murmur, rubs, systolic murmur Pulses: PRESENT: normal dorsalis pedis pul GI/Abdominal exam: PRESENT: normal bowel sounds, soft. ABSENT: distended, guarding, mass, organolmegaly, rebound, tenderness Rectal exam: PRESENT: deferred Extremities exam: PRESENT: full ROM. ABSENT: calf tenderness, clubbing, pedal edema Neurological exam: PRESENT: alert, awake, oriented to person, oriented to place , oriented to time Results Laboratory Results: 08/16/17 04:31 08/16/17 04:31 08/16/17 08/16/17 04:31 04:31 WBC 9.7 RBC 4.24 L Hgb 12.8 L Hct 38.0 MCV 90 MCH 30.1 MCHC 33.5 RDW 15.0 H Plt Count 203 Sodium 136.8 L Potassium 4.4 Chloride 100 Carbon Dioxide 26 Anion Gap 11 BUN 38 H Creatinine 1.45 H Est GFR ( Amer) 58 L Est GFR (Non-Af Amer) 48 L Glucose 112 H Calcium 9.5 Impressions: Chest CT 08/12/17 00:00 IMPRESSION: 1. Right chest tube in place with tiny residual right sided pneumothorax. Small amount of subcutaneous air in the right chest wall. 2. 3.0 cm right lower lobe mass concerning for neoplasm again identified. This was previously biopsied. 3. Multilevel mediastinal and hilar lymphadenopathy concerning for metastatic disease. PET CT may be beneficial for further characterization. 4. Severe centrilobular emphysematous changes. 5. Nonobstructing bilateral renal calculi. This exam was performed according to our departmental dose-optimization program, which includes automated exposure control, adjustment of the mA and/or kV according to patient size and/or use of iterative reconstruction technique. Chest X-Ray 08/15/17 04:08 IMPRESSION: 1. Stable appearance of the chest. Qualifiers - * PATEINT BEING DISCHARGED WITH ANY OF THE FOLLOWING DIAGNOSIS?: No Plan Discharge Plan: Home with home health Time Spent: Greater than 30 Minutes
[2017-08-16 13:12] VITALS: BP 118/80
== END 2017-08-16 13:00 | disposition home health service (06) | DRG 199 ==
LOC: ER 22:15 → EH 08-12 00:35 → ICU 08-12 09:05 → 3N 08-15 12:48 → ICU 08-15 12:55 → 3N 08-15 13:26
PROVIDERS: ADMIT Internal Medicine Geriatric Medicine; ATTEND Internal Medicine Geriatric Medicine
PROC: 0W9930Z Drainage of Right Pleural Cavity with Drainage Device, Percutaneous Approach (ICD-10-PCS; principal; 2017-08-12)
PROC: 3E0F73Z Introduction of Anti-inflammatory into Respiratory Tract, Via Natural or Artificial Opening (ICD-10-PCS; 2017-08-12)
DX: J95.811 Postprocedural pneumothorax (principal); J96.21 Acute and chronic respiratory failure with hypoxia; J96.22 Acute and chronic respiratory failure with hypercapnia; N17.9 Acute kidney failure, unspecified; I13.0 Hypertensive heart and chronic kidney disease with heart failure and stage 1 through stage 4 chronic kidney disease, or unspecified chronic kidney disease; N18.3 Chronic kidney disease, stage 3 (moderate); I49.9 Cardiac arrhythmia, unspecified; R91.8 Other nonspecific abnormal finding of lung field; E11.22 Type 2 diabetes mellitus with diabetic chronic kidney disease; J44.9 Chronic obstructive pulmonary disease, unspecified; I25.10 Atherosclerotic heart disease of native coronary artery without angina pectoris; I50.9 Heart failure, unspecified; I25.5 Ischemic cardiomyopathy; N20.0 Calculus of kidney; R59.1 Generalized enlarged lymph nodes; E78.5 Hyperlipidemia, unspecified; G47.30 Sleep apnea, unspecified; M19.90 Unspecified osteoarthritis, unspecified site; F32.9 Major depressive disorder, single episode, unspecified; D63.1 Anemia in chronic kidney disease; E11.40 Type 2 diabetes mellitus with diabetic neuropathy, unspecified; G89.29 Other chronic pain; N40.0 Benign prostatic hyperplasia without lower urinary tract symptoms; I25.2 Old myocardial infarction; Z79.891 Long term (current) use of opiate analgesic; Z79.899 Other long term (current) drug therapy; Z79.82 Long term (current) use of aspirin; Z95.810 Presence of automatic (implantable) cardiac defibrillator; Z99.81 Dependence on supplemental oxygen; Z79.4 Long term (current) use of insulin; Z98.42 Cataract extraction status, left eye; Z98.41 Cataract extraction status, right eye; Z88.6 Allergy status to analgesic agent; Z82.49 Family history of ischemic heart disease and other diseases of the circulatory system; Z83.6 Family history of other diseases of the respiratory system; Z80.9 Family history of malignant neoplasm, unspecified; Z84.1 Family history of disorders of kidney and ureter
CPT/HCPCS: 36415; 71045; 71250; 80048; 80053; 81001; 82550; 82553; 82803; 82962; 83605; 83735; 84484; 85025; 85027; 87040; 87070; 87077; 87186; 87205; 93005; 93010; 94640; G8978-GP; G8979-GP; J0171; J1170; J1644; J2250; J2543; J3010; J3370; J3490; J7030; J7620

== ENCOUNTER → 2017-08-28 | Outpatient (CLI) | payer MEDICARE ==
--- NOTE | 2017-08-30 09:35 | RADIOLOGY REPORT (SQ) ---
EXAM DESCRIPTION: PET CT SKULL/THIGH COMPLETED DATE/TIME: 08/29/2017 6:38 pm REASON FOR STUDY: LUNG CA (C34.31) C34.31 MALIGNANT NEOPLASM OF LOWER LOBE, RIGHT BRONCHUS OR L COMPARISON: None. Correlation: Chest CT 08/12/2017. RADIONUCLIDE AND DOSE: 9.4 mCi F18 FDG The route of agent administration: Intravenous FASTING BLOOD SUGAR: 114 mg/dl CONTRAST TYPE AND DOSE: No CT contrast given. TECHNIQUE: Blood glucose level was verified. Above dose of FDG was injected intravenously. 2-D seg mented attenuation correction images were obtained from the base of the skull to the midthighs. Nonc ontrast CT images were obtained for attenuation correction and fusion with emission images. CT image s were performed without oral or intravenous contrast and are not sensitive for parenchymal lesions. A series of overlapping emission PET images were obtained. Images reviewed and manipulated at [facility] work station by the radiologist. Images stored on PACS. LIMITATIONS: None. FINDINGS: HEAD AND NECK: No areas of significant abnormal metabolic activity in the soft tissues of the head and neck. CHEST: Hypermetabolic 3 cm mass right lower lobe 8.1 SUV. 1.4 cm level 2R node measuring about 6.5 S UV. Hypermetabolic level 4R node measuring about 3.5 cm and 8.6 SUV. Hypermetabolic level 10R node measuring 5.4 SUV and about 2.3 cm in diameter. ABDOMEN AND PELVIS: Hypermetabolic 6 cm long segment of transverse colon just distal to the hepatic flexure measuring about 10.3 SUV. No other segment of colon has this level of metabolic activity. S egment of bowel is decompressed. No obvious intrinsic mass. PROXIMAL LOWER EXTREMITIES: No areas of abnormal metabolic activity in the soft tissues of the lower extremities. BONES: No abnormal metabolic activity in the visualized skeleton. ADDITIONAL CT FINDINGS: Cardiomegaly. Pacemaker. Centrilobular emphysema. OTHER: No other significant findings. IMPRESSION: 1. Hypermetabolic right lower lobe mass. 2. Hypermetabolic mediastinal and right hilar nodes. 3. Hypermetabolic short segment of transverse colon, very nonspecific. TECHNICAL DOCUMENTATION: JOB ID: [id number] [email or web address]- All Rights Reserved Reading location - IP/workstation name: [email or web address]
== END ==
LOC: RAD 18:17
PROVIDERS: ATTEND Internal Medicine Hematology & Oncology
DX: C34.31 Malignant neoplasm of lower lobe, right bronchus or lung (principal)
CPT/HCPCS: 78815; A9552

== ENCOUNTER 2017-12-09 12:13 | Emergency (ER) | payer MEDICARE ==
[2017-12-09 13:18] LABS: VENOUS BLOOD BASE EXCESS 1.3 mmol/L; VENOUS BLOOD HCO3 27.5 mmol/L (20-32); VENOUS BLOOD PCO2 53.4 mmHg (35-63); VENOUS BLOOD PH 7.33 (7.30-7.42)
[2017-12-09 13:23] LABS: ABSOLUTE BASOPHILS # (AUTO) 0.1 10^3/uL (0.0-0.2); ABSOLUTE EOSINOPHILS # (AUTO) 0.1 10^3/uL (0.0-0.6); ABSOLUTE LYMPHOCYTES (AUTO) 1.1 10^3/uL (0.5-4.7); ABSOLUTE MONOCYTES (AUTO) 0.8 10^3/uL (0.1-1.4); ABSOLUTE NEUT (AUTO) 6.2 10^3/uL (1.7-8.2); BASOPHILS % (AUTO) 0.8 % (0-2); EOSINOPHILS % (AUTO) 1.3 % (0-6); HEMATOCRIT 17.8 % (37.9-51.0); MEAN CORPUSCULAR HEMOGLOBIN 24.2 pg (27.0-33.4); MEAN CORPUSCULAR HGB CONC 31.4 g/dL (32.0-36.0); MEAN CORPUSCULAR VOLUME 77 fl (80-97); MONOCYTES % (AUTO) 9.3 % (3-13); PLATELET COUNT 319 10^3/uL (150-450); RED BLOOD COUNT 2.31 10^6/uL (4.35-5.55); RED CELL DISTRIBUTION WIDTH 17.9 % (11.5-14.0); SEGMENTED NEUTROPHILS % (AUTO) 75.6 % (42-78); TOTAL CELLS COUNTED % (AUTO) 100 %; WHITE BLOOD COUNT 8.3 10^3/uL (4.0-10.5)
[2017-12-09 13:27] LABS: APPEARANCE,URINE CLEAR; BILIRUBIN,URINE NEGATIVE (NEGATIVE); COLOR,URINE YELLOW; GLUCOSE, URINE NEGATIVE (NEGATIVE); KETONES,URINE NEGATIVE (NEGATIVE); LEUKOCYTE ESTERASE,URINE TRACE (NEGATIVE); NITRITE,URINE NEGATIVE (NEGATIVE); PROTEIN,URINE NEGATIVE (NEGATIVE); URINE SPECIFIC GRAVITY 1.014; UROBILINOGEN,URINE NEGATIVE mg/dL (<2.0)
[2017-12-09 13:28] LABS: HEMOGLOBIN 5.6 g/dL (13.5-17.0)
--- NOTE | 2017-12-09 13:28 | EKG REPORT ---
SEVERITY:- ABNORMAL ECG - ATRIAL-SENSED VENTRICULAR-PACED COMPLEXES : Confirmed by: Rocael Rincon MD 09-Dec-2017 13:28:10
[2017-12-09 13:29] LABS: INTERNATIONAL RATION (INR) 1.02
[2017-12-09] MEDS ORDERED: IPRATROPIUM/ALBUTEROL 0.5-2.5 MG/3 ML AMPUL NEB ONE ×2 (13:35→13:40)
[2017-12-09 13:40] LABS: ALANINE AMINOTRANSFERASE 21 U/L (21-72); ALBUMIN 3.4 g/dL (3.5-5.0); ALKALINE PHOSPHATASE 49 U/L (38-126); ANION GAP 12 (5-19); ASPARTATE AMINO TRANSFERASE 23 U/L (17-59); BILIRUBIN,DIRECT 0.4 mg/dL (0.0-0.4); BILIRUBIN,TOTAL 0.4 mg/dL (0.2-1.3); BLOOD UREA NITROGEN 19 mg/dL (7-20); CALCIUM 9.1 mg/dL (8.4-10.2); CARBON DIOXIDE 29 mmol/L (22-30); CHLORIDE 103 mmol/L (98-107); GLUCOSE 119 mg/dL (75-110); POTASSIUM 4.5 mmol/L (3.6-5.0); SODIUM 143.9 mmol/L (137-145); TOTAL PROTEIN 6.7 g/dL (6.3-8.2)
--- NOTE | 2017-12-09 13:40 | ER Document Report ---
ED Respiratory Problem - General Chief Complaint: Respiratory Distress Stated Complaint: RESPIRATORY DISTRESS Time Seen by Provider: 12/09/17 12:57 Notes: Patient says he is having difficulty breathing, this time since about 3 AM today. Patient has a history of lung cancer and is in hospice. At home, he has oxygen that can be given at 5 L if needed and he is using albuterol and a nebulizer treatment and he has morphine in a liquid form to get for pain or difficulty breathing. He also takes Percocet for neuropathic pain. Patient has had some cough but it does not produce much phlegm. He has a history of COPD, as well. On the way here, patient received a nebulizer treatment with albuterol and Atrovent as well as 125 mg of Solu-Medrol and he says he feels a lot better and maybe even up to going home. He understands that he is in hospice and should avoid visits to the emergency department, but he has had 3 doses of morphine at 8 AM this morning, 9:30 AM, and 11:00 along with the nebulizer treatment then. He expressed to his caregivers that he had to do something about his breathing and hospice was consulted and patient was sent here Patient denies any other symptoms. Specifically no abdominal pains, chest pains , and no fevers. To the emergency department. TRAVEL OUTSIDE OF THE [place] IN LAST 30 DAYS: No - Related Data Allergies/Adverse Reactions: morphine Adverse Reaction (Verified 08/12/17 04:58) Past Medical History - Social History Smoking Status: Former Smoker Family History: Reviewed & Not Pertinent, CAD, COPD, Hypertension, Malignancy, Other - End-stage renal disease Patient has suicidal ideation: No Patient has homicidal ideation: No - Past Medical History Cardiac Medical History: Reports: Hx Congestive Heart Failure, Hx Coronary Artery Disease, Hx Heart Attack, Hx Hypercholesterolemia, Hx Hypertension Pulmonary Medical History: Reports: Hx Bronchitis, Hx COPD, Hx Pneumonia, Hx Intubation, Hx Sleep Apnea Endocrine Medical History: Reports: Hx Diabetes Mellitus Type 2 - Insulin- dependent Renal/ Medical History: Reports: Hx Benign Prostatic Hyperplasia Musculoskeltal Medical History: Reports Hx Arthritis Psychiatric Medical History: Reports: Hx Depression Past Surgical History: Reports: Hx Cardiac Surgery - pacer/defib, Hx Orthopedic Surgery - Right foot, Hx Pacemaker, Other - Cataracts; AICD. - Immunizations Hx Diphtheria, Pertussis, Tetanus Vaccination: Yes Hx Pneumococcal Vaccination: 03/09/14 Review of Systems - Review of Systems Notes: REVIEW OF SYSTEMS: CONSTITUTIONAL : Denies fever. Pale. EENT: Denies eye, ear, nose or mouth or throat pain or other symptoms. CARDIOVASCULAR: Denies chest pain. RESPIRATORY: See HPI. GASTROINTESTINAL: Denies abdominal pain or nausea, vomiting, or diarrhea. GENITOURINARY: Denies difficulty or painful urinating, urinary frequency, blood in urine. MUSCULOSKELETAL: Denies back or neck pain. Denies joint pain or swelling. SKIN: Denies rash or skin lesions. NEUROLOGICAL: Denies LOC or altered mental status. Denies headache. Denies sensory loss or motor deficits. ALL OTHER SYSTEMS REVIEWED AND NEGATIVE. Physical Exam - Vital signs Vitals: Resp 11 L 12/09/17 12:18 Interpretation: Normal. No: Hypoxic - Notes Notes: PHYSICAL EXAMINATION: GENERAL: Well-appearing, in no acute distress. Pale. Vital signs are all essentially normal. O2 sat in mid 90s. HEAD: Atraumatic, normocephalic. EYES: Pupils equal round and reactive to light, extraocular movements intact. ENT: oropharynx clear without exudates. Moist mucous membranes. NECK: Normal range of motion, supple. LUNGS: Breath sounds essentially clear except for an occasional rale or rhonchi and equal bilaterally. Good air movement. HEART: Regular rate and rhythm without murmurs. Patient and caregiver say that he has lower extremity swelling from the feet all the way up to his back. I can see a trace of edema at best in his lower extremities. Negative Homans bilaterally. ABDOMEN: Soft, nontender. No guarding or rebound. No masses. BACK: No tenderness throughout entire back. EXTREMITIES: Normal range of motion without pain. NEUROLOGICAL: Normal speech, normal gait. Normal sensory, motor, and reflex exams. Awake, alert, and oriented x3. Cranial nerves normal. PSYCH: Normal mood, normal affect. SKIN: Warm, dry, no rashes. Course - Re-evaluation Re-evalutation: 12/09/17 19:48 When patient's labs came back showing a hemoglobin of 5.6, I offered the patient transfusion of a couple units of blood. I pointed out that his severe anemia could be contributing to his difficulty breathing. Patient thought about it for a while and discussed it with his relatives and caregivers here and decided he did not want to get transfusion and wanted to go home. I did provide him with a prescription for duo nebs for the nebulizer since he seemed to get relief from that combination by EMS. Patient was advised he could return to the transfusions or for us to reassess his condition. - Vital Signs Vital signs: Temp Pulse Resp BP Pulse Ox 78 18 121/61 100 12/09/17 12:34 12/09/17 15:18 12/09/17 13:58 12/09/17 15:18 - Laboratory Result Diagrams: 12/09/17 12:45 12/09/17 12:45 Laboratory results interpreted by me: 12/09/17 12/09/17 12/09/17 12:45 12:45 13:02 RBC 2.31 L Hgb 5.6 L Hct 17.8 L MCV 77 L MCH 24.2 L MCHC 31.4 L RDW 17.9 H Glucose 119 H Albumin 3.4 L Ur Leukocyte Esterase TRACE H Discharge - Discharge Clinical Impression: Shortness of breath, COPD (chronic obstructive pulmonary disease), Lung cancer Condition: Stable Disposition: HOME, SELF-CARE Additional Instructions: SHORTNESS OF BREATH OR DYSPNEA: You were evaluated for shortness of breath, or dyspnea. Dyspnea has many causes, and some are more serious than others. Sometimes it's impossible to diagnose the cause of dyspnea with the tests that are available on an emergency basis. Based on our evaluation today, you do not need hospitalization now. We found no evidence of pneumonia, collapsed lung, blood clots in the lung, tumors , or heart failure. Causes of non-specific dyspnea can include asthma or bronchospasm, hyperventilation, emotional distress, heart disease, emphysema, fibrosis of the lung, and stiffness of the chest wall. In healthy individuals with a single episode, it's sometimes reasonable to do nothing but wait to see if the problem occurs again. Additional tests used to evaluate dyspnea can include cardiac stress testing, echocardiography, pulmonary function testing, CAT scan of the chest, bronchoscopy or pulmonary biopsy. Return if shortness of breath persists or worsens, or if you develop chest pain, fever, cough, confusion, or fainting. Chronic Obstructive Lung Disease You have chronic obstructive lung disease (COPD). The symptoms come from emphysema (damage to small airways, with trapping of air in large sacks in the lung) and chronic bronchitis (repeated infection and damage to larger airways). The cause is almost always cigarette smoking, although dust exposure, asthma, and infections contribute. You should avoid fumes, dust, and smoke (especially tobacco smoke). Your condition will flare from time to time. There is no cure, but the symptoms can be treated. Bronchodilators (asthma medicine) are often helpful. Antibiotics help when infection is present. When shortness of breath is severe, we may prescribe cortisone medication. If medicine doesn't help enough, we can arrange for you to have an oxygen tank at home. Notify your doctor at once if sputum becomes thick, foul, or bloody, if you develop a fever or chest pain, or if your shortness of breath worsens. STEROID MEDICATION: You have been given an injection of or oral medicine of the cortisone/ steroid class. This medication is used to control inflammation or allergy. Melvin t is usually only given for a short period of time, until the acute process subsides. There are usually no side effects from short-term use of cortisone-like medications. Some persons feel an increased sense of well-being and are not sleepy at bedtime. Long-term use of cortisone medications is best avoided, unless required for a severe condition. If your condition does not remit, or relapses after the course of corticosteroid medication, you should consult your physician. INHALED BRONCHODILATORS: You have received treatment(s) of and/or prescription for an inhaled bronchodilator -- a medication which stimulates the airways in the lung to dilate. This improves the flow of air in asthma, bronchitis, and emphysema. These medicines have some similarity to adrenaline, and can cause similar side effects: shakiness, racing heart, and a sense of nervousness. These side effects decrease with time. Contact your doctor if these side effects are severe. Do not over-use the medicine. Too-frequent use of the inhaler may make it ineffective. Call your doctor if the inhaler is not controlling your symptoms at the prescribed doses. I have written a prescription for you to get a different medication to use in your nebulizer at home. Anemia You have been found to have a significant anemia (a lower than normal amount of red blood cells). Anemia can be due to iron deficiency, vitamin deficiency, abnormal bleeding, or internal diseases. Usually, further tests are necessary to find the exact cause of the anemia. The most common cause of anemia is iron deficiency, often brought on by blood loss. This can be treated with iron supplements. If this appears to be the most likely cause, iron tablets may be prescribed even before all tests are complete. Contact the doctor at once if you note black or tarry-looking stools, bloody vomiting, shortness of breath, chest pain, or faintness. We offered a transfusion of a couple of units of blood but you have declined that treatment. FOLLOW-UP CARE: If you have been referred to a physician for follow-up care, call the physician s office for an appointment as you were instructed or within the next two days. If you experience worsening or a significant change in your symptoms, notify the physician immediately or return to the Emergency Department at any time for re-evaluation. Prescriptions: Ipratropium/Albuterol Sulfate [Duoneb 3 ml Ampul] 3 ml NEB [id number] PRN #[id number] PRN Reason: Referrals: SAMY HAMILTON MD [ACTIVE STAFF] - Follow up as needed
--- NOTE | 2017-12-09 14:02 | RADIOLOGY REPORT (SQ) ---
EXAM DESCRIPTION: CHEST SINGLE VIEW COMPLETED DATE/TIME: 12/09/2017 1:40 pm REASON FOR STUDY: Short of breath with Hx CA lung COMPARISON: PET-CT 08/28/2017 Chest film 08/15/2017 EXAM PARAMETERS: NUMBER OF VIEWS: One view. TECHNIQUE: Single frontal radiographic view of the chest acquired. RADIATION DOSE: NA LIMITATIONS: None. FINDINGS: LUNGS AND PLEURA: Increase in size of right lower lobe nodule now 4.6 cm in size (was abou t 3 cm in size August 2017). No acute infiltrates. No pleural effusion. No pneumothorax. Increased interstitial markings left l yoni base are stable. MEDIASTINUM AND HILAR STRUCTURES: No masses. Contour normal. HEART AND VASCULAR STRUCTURES: Stable mild cardiomegaly BONES: No acute findings. HARDWARE: Left-sided dual lead pacemaker OTHER: No other significant finding. IMPRESSION: No acute infiltrates. Stable cardiomegaly and left-sided pacemaker Increase in size of right lower lobe mass TECHNICAL DOCUMENTATION: JOB ID: [id number] [employer]- All Rights Reserved Reading location - IP/workstation name: [email or web address]
[2017-12-09 14:07] VITALS: BP 121/61
[2017-12-09] MEDS ORDERED: OXYCODONE HCL IR 5 MG TABLET PO ONE (14:19)
== END 2017-12-09 17:05 | disposition home or self-care (01) ==
LOC: ER 12:13
DX: J44.9 Chronic obstructive pulmonary disease, unspecified (principal); C34.31 Malignant neoplasm of lower lobe, right bronchus or lung; R06.02 Shortness of breath; R05 Cough; D64.9 Anemia, unspecified; R60.0 Localized edema; I25.10 Atherosclerotic heart disease of native coronary artery without angina pectoris; I10 Essential (primary) hypertension; E11.9 Type 2 diabetes mellitus without complications; Z79.4 Long term (current) use of insulin; M79.2 Neuralgia and neuritis, unspecified; Z79.891 Long term (current) use of opiate analgesic; Z79.899 Other long term (current) drug therapy; Z87.891 Personal history of nicotine dependence; Z95.810 Presence of automatic (implantable) cardiac defibrillator
CPT/HCPCS: 93005; 94640; 99285; 86900; 86901; 36415; 87040; 86850; 83605; 85025; 85610; 87077; 80053; 81001; 87186; 82803; 71045; 93010; A9270 ×2; J7620